=== PATIENT | male | born 1945 | race Caucasian/White ===

== ENCOUNTER → 2016-10-15 | Outpatient (CLI) | payer MEDICARE, BC ==
[2016-10-15 21:53] LABS: Hemoglobin A1C 7.6 % (4.2-6.1)
== END ==
LOC: LABWHC1 16:26
PROVIDERS: ATTEND Family Medicine
DX: L02.214 Cutaneous abscess of groin (principal)
CPT/HCPCS: 36415; 83036

== ENCOUNTER → 2016-10-27 | Outpatient (CLI) | payer MEDICARE, BC ==
--- NOTE | 2016-10-27 23:13 | PN ---
This is a compliancy follow-up from the sleep center. This is a 71-year-old male patient who is coming in for a compliancy check. The patient was confirmed to have severe obstructive sleep apnea with an AHI a 53 and he was given CPAP therapy at a pressure of 8 cm of water based on a recent CPAP titration. He is coming in for a compliancy check. He is benefiting considerably with CPAP therapy. He is very compliant. He is using the machine every night. His CPAP use for more than 4 hours is 28 out of 30 days. His average CPAP use is around more than 6 hours and his leak factor is only ( ) liters per minute. AHI while on treatment is down to 0.3 and the patient is using a Mcmillan FX mask. He has no specific complaints. He is very compliant and he is waking up alert and awake during the day without having to take any naps. He is quite obese and he is having arthritic pain in his right knee and he is seeking a knee replacement surgery which may help with mobility and movement. BP is 156/92, pulse 80, respirations 16, temperature 98.1, saturation is 97% on room air. [place] score is at 8. Weight is ( ). GENERAL APPEARANCE: Obese, calm, comfortable. HEENT: Short neck, crowding posterior pharynx. There is no goiter or neck masses. LUNGS: Clear to auscultation. HEART: Sounds are regular rate and rhythm. Normal S1 and S2. No murmurs. ABDOMEN: Soft, nontender. No organomegaly. EXTREMITIES: No edema. No cyanosis or clubbing. IMPRESSION: 1. Severe symptomatic obstructive sleep apnea with an AHI of 53, currently on CPAP at a pressure of 8 cm of water. 2. Morbidly obese body mass index of 47. 3. Chronic hypersomnia, improved. 4. Arthritic pain in the right knee and hip. 5. Diabetes mellitus. 6. Hyperlipidemia. 7. Lower extremity wounds, chronic. PLAN: 1. Continue CPAP at the same level of pressure, which is 8 cm of water. 2. Encourage weight loss. 3. Sleep hygiene with sleeping seven and a half hours per night. 4. Avoid driving, especially when feeling drowsy or sleepy. 5. If treatment is successful we will continue CPAP at same level of pressure. 6. The patient will be seen in follow-up in a year's time, earlier if needed.
== END | disposition home or self-care (01) ==
LOC: SLEEP 17:11
PROVIDERS: ATTEND Internal Medicine Critical Care Medicine
DX: G47.33 Obstructive sleep apnea (adult) (pediatric) (principal); E66.01 Morbid (severe) obesity due to excess calories; Z68.42 Body mass index [BMI] 45.0-49.9, adult; G47.13 Recurrent hypersomnia; M17.11 Unilateral primary osteoarthritis, right knee; M16.11 Unilateral primary osteoarthritis, right hip; E11.9 Type 2 diabetes mellitus without complications; E78.5 Hyperlipidemia, unspecified

== ENCOUNTER → 2017-02-02 | Outpatient (CLI) | payer MEDICARE, BC ==
[2017-02-02 21:21] LABS: Hemoglobin A1C 7.4 % (4.2-6.1)
== END | disposition home or self-care (01) ==
LOC: LABWHC1 18:01
PROVIDERS: ATTEND Family Medicine
DX: R73.09 Other abnormal glucose (principal)
CPT/HCPCS: 36415; 83036

== ENCOUNTER → 2017-02-02 | Outpatient (CLI) | payer MEDICARE, BC ==
[2017-02-02 17:18] LABS: EKG EKG PERFORMED
[2017-02-02 18:18] LABS: CH 27.8; CHCM 32.6; HCT 44.8 % (39.0-53.0); HGB 14.7 gm/dL (13.0-17.5); MCH 28.2 pg (25.0-35.0); MCHC 32.9 g/dL (31.0-37.0); MCV 85.7 fL (80.0-100.0); Mean Platelet Volume 8.8; RBC 5.22 m/uL (4.30-5.90); RDW 14.5 % (11.5-15.5)
[2017-02-02 18:19] LABS: Appearance,Urine Clear (Clear); Bilirubin,Urine Negative (Negative); Glucose,Urine (UA) 4+ (Negative); Ketones,Urine Negative (Negative); Leukocyte Esterase,Urine Negative (Negative); Nitrite,Urine Negative (Negative); Protein,Urine Trace (Negative); Specific Gravity,Urine 1.017 (1.001-1.035); UA Billing (MACRO vs. MICRO) CHEM; Urobilinogen,Urine <2.0 mg/dL (<2.0)
[2017-02-02 18:28] LABS: Partial Thromboplastin Time 23.4 sec (22.0-30.0); Prothrombin Time 10.2 sec (9.0-12.0)
[2017-02-02 18:30] LABS: ALT 39 U/L (21-72); AST 22 U/L (17-59); Alkaline Phosphatase 61 U/L (38-126); Anion Gap 11 mmol/L; Blood Urea Nitrogen 22 mg/dL (9-20); Calcium 9.9 mg/dL (8.4-10.2); Carbon Dioxide 25 mmol/L (22-30); Chloride 106 mmol/L (98-107); Glucose 201 mg/dL (74-99); Non-African American GFR(MDRD) >60 (>60 ml/min/1.73 sqM); Potassium 4.5 mmol/L (3.5-5.1); Sodium 142 mmol/L (137-145); Total Bilirubin 0.3 mg/dL (0.2-1.3); Total Protein 6.2 g/dL (6.3-8.2)
== END | disposition home or self-care (01) ==
LOC: LABPAT 17:04
PROVIDERS: ATTEND Orthopaedic Surgery
DX: Z01.810 Encounter for preprocedural cardiovascular examination (principal); Z01.812 Encounter for preprocedural laboratory examination; Z79.01 Long term (current) use of anticoagulants
CPT/HCPCS: 36415; 80053; 81003; 85027; 85610; 85730; 93005

== ENCOUNTER → 2017-04-08 | Outpatient (CLI) | payer MEDICARE, BC ==
--- NOTE | 2017-04-09 21:47 | ECHOF ---
Referral Reason:Localized Edema R60.0, Shortness of Breath R06.02 MEASUREMENTS -------- HEIGHT: 177.8 cm WEIGHT: 158.8 kg BP: IVSd: 1.4 cm (0.6 - 1.1) LVIDd: 3.8 cm (3.9 - 5.3) LVPWd: 1.7 cm (0.6 - 1.1) IVSs: 1.7 cm LVIDs: 2.0 cm LVPWs: 2.0 cm Ao Diam: 3.0 cm (2.0 - 3.7) AV Cusp: 1.9 cm (1.5 - 2.6) LA Diam: 3.9 cm (2.7 - 3.8) MV EXCURSION: 18.742 mm (> 18.000) MV EF SLOPE: 70 mm/s (70 - 150) EPSS: 0.3 cm MV E Kristofer: 0.66 m/s MV DecT: 240 ms MV A Kristofer: 0.63 m/s MV E/A Ratio: 1.05 RAP: 5.00 mmHg RVSP: 12.04 mmHg FINDINGS -------- Sinus rhythm. This was a technically difficult study with suboptimal views. The left ventricular size is normal. There is moderate concentric left ventricular hypertrophy. Overall left ventricular systolic function is normal with, an EF between 55 - 60 %. The RV was not well visualized. The left atrium was not well visualized. The right atrium was not well visualized. 1.5mg of Definity was utilized for enhancement of images The aortic valve is trileaflet, and appears structurally normal. No aortic stenosis or regurgitation. There is trace mitral regurgitation. Trace tricuspid regurgitation present. The right ventricular systolic pressure, as measured by Doppler, is 12.04mmHg. The pulmonic valve was not well visualized. The aortic root size is normal. The pericardium is normal. CONCLUSIONS -------- 1. Sinus rhythm. 2. The aortic valve is trileaflet, and appears structurally normal. No aortic stenosis or regurgitation. 3. There is trace mitral regurgitation. 4. Trace tricuspid regurgitation present. 5. The right ventricular systolic pressure, as measured by Doppler, is 12.04mmHg. 6. The pulmonic valve was not well visualized. 7. The aortic root size is normal. 8. The pericardium is normal. 9. This was a technically difficult study with suboptimal views. 10. The left ventricular size is normal. 11. There is moderate concentric left ventricular hypertrophy. 12. Overall left ventricular systolic function is normal with, an EF between 55 - 60 %. 13. The RV was not well visualized. 14. The left atrium was not well visualized. 15. The right atrium was not well visualized. 16. 1.5mg of Definity was utilized for enhancement of images [employer] DIRECTOR: Olivia Calderon RDCS
== END | disposition home or self-care (01) ==
LOC: RADECHMAIN 14:47
PROVIDERS: ATTEND Family Medicine
DX: I51.7 Cardiomegaly (principal)
CPT/HCPCS: C8929; Q9957; 93306

== ENCOUNTER → 2017-04-22 | Outpatient (CLI) | payer MEDICARE, BC ==
[2017-04-22 15:18] LABS: Anion Gap 12 mmol/L; Blood Urea Nitrogen 42 mg/dL (9-20); Calcium 9.7 mg/dL (8.4-10.2); Carbon Dioxide 25 mmol/L (22-30); Chloride 102 mmol/L (98-107); Glucose 206 mg/dL (74-99); Non-African American GFR(MDRD) 56 (>60 ml/min/1.73 sqM); Potassium 4.7 mmol/L (3.5-5.1); Sodium 139 mmol/L (137-145)
== END | disposition home or self-care (01) ==
LOC: LABWHC1 14:36
PROVIDERS: ATTEND Nurse Practitioner Family
DX: R60.0 Localized edema (principal)
CPT/HCPCS: 36415; 80048

== ENCOUNTER 2017-06-17 21:51 | Emergency (ER) | payer MEDICARE, BC ==
[2017-06-17 22:07] VITALS: BP 163/66; PULSE 59; RESP 18; TEMP 97.4
[2017-06-17] MEDS ORDERED: HYDROmorphone 1 MG/ML 1 ML SYRINGE IM STA (22:46)
[2017-06-17] MEDS ORDERED: KETOROLAC 30 MG/ML 1 ML VIAL IM STA (22:46)
[2017-06-17] MEDS ORDERED: HYDROmorphone 2 MG/ML 1 ML SYRINGE IM STA (22:51)
--- NOTE | 2017-06-17 23:18 | XR ---
EXAMINATION TYPE: XR knee 4V LT DATE OF EXAM: 06/17/2017 COMPARISON: NONE HISTORY: Knee pain TECHNIQUE: 4 views FINDINGS: There is narrowing of the medial joint space with spurring of the medial femoral and tibial condyles. There is spurring at the patellofemoral joint. I see no fracture. There is soft tissue swe lling around the knee joint. I see no joint effusion. IMPRESSION: There is some subcutaneous edema around the knee. Osteoarthritis. No fracture seen.
--- NOTE | 2017-06-17 23:19 | XR ---
EXAMINATION TYPE: XR shoulder complete LT DATE OF EXAM: 06/17/2017 COMPARISON: NONE HISTORY: Shoulder pain TECHNIQUE: 3 views FINDINGS: There is anterior dislocation of the glenohumeral joint. I see no fracture line. IMPRESSION: Anterior dislocation of the shoulder joint.
[2017-06-18] MEDS ORDERED: HYDROmorphone 2 MG/ML 1 ML SYRINGE IM STA ×2 (00:10→01:22)
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
[2017-06-18] MEDS ORDERED: HYDROmorphone 1 MG/ML 1 ML SYRINGE IM STA (01:14)
[2017-06-18] MEDS ORDERED: LORazepam 2 MG/ML INJ IM STA (01:47)
--- NOTE | 2017-06-18 02:35 | XR ---
EXAMINATION TYPE: XR shoulder limited LT DATE OF EXAM: 06/18/2017 COMPARISON: Yesterday HISTORY: Post reduction TECHNIQUE: 2 views FINDINGS: The glenohumeral joint is anatomic. There is amorphous calcification at the inferior glenoi d labrum consistent with significant spurring. I see no fracture line. IMPRESSION: Anatomic reduction. No fracture seen. Significant glenoid spur formation.
== END 2017-06-18 03:30 | disposition home or self-care (01) ==
LOC: EC 21:51
DX: S43.015A Anterior dislocation of left humerus, initial encounter (principal); S80.02XA Contusion of left knee, initial encounter; E11.9 Type 2 diabetes mellitus without complications; E78.5 Hyperlipidemia, unspecified; I10 Essential (primary) hypertension; M19.90 Unspecified osteoarthritis, unspecified site; G47.30 Sleep apnea, unspecified; Z99.89 Dependence on other enabling machines and devices; Z86.14 Personal history of Methicillin resistant Staphylococcus aureus infection; Z79.1 Long term (current) use of non-steroidal anti-inflammatories (NSAID); Z79.4 Long term (current) use of insulin; Z79.82 Long term (current) use of aspirin; Z79.899 Other long term (current) drug therapy; Z91.048 Other nonmedicinal substance allergy status; W17.89XA Other fall from one level to another, initial encounter; Y93.89 Activity, other specified
CPT/HCPCS: 73030; 73020; 73564; 99284; 23650; 96372 ×4; J2060; J1170 ×2; J1885

== ENCOUNTER → 2017-08-30 | Outpatient (CLI) | payer MEDICARE, BC ==
--- NOTE | 2017-09-01 09:53 | MR ---
EXAMINATION TYPE: MR shoulder LT wo con DATE OF EXAM: 08/30/2017 COMPARISON: NONE HISTORY: Lt shoulder pain/injury since 06-17-17 TECHNIQUE: Multiplanar, multisequence imaging of the left shoulder is performed without contrast. FINDINGS: Exam is severely limited due to motion artifact. Rotator Cuff: There is nonvisualization of the distal margin of the supraspinatus and infraspinatus t endons compatible complete through thickness tears. Artifact significantly limits the exam. Edema foster s extend back to the musculotendinous junction of the infraspinatus muscle and tendon. Does appear to be atrophic changes involving both the supraspinatus and infraspinatus tendons. Retraction distal to the AC joint is suspected. Subscapularis tendon is limited in assessment but believed to be intact. Acromioclavicular Joint: There is hypertrophic change of the AC joints which does appear to result in a degree of impingement on the supraspinatus tendon and muscle. Glenohumeral Joint: Assessment is limited due to artifact. There does appear to be a joint effusion. There is poor definition of the inferior glenohumeral ligament. At least a partial tear is suspected. Labrum: Limited assessment due to artifact. There is at least a anterior superior labral tear and pro bable SLAP tear. Biceps Tendon: The long head of biceps is in normal location within bicipital groove. Increased fluid surrounding the tendon is compatible with tendinosis. There is intrasubstance signal in the intracap sular portion of the tendon and biceps anchor compatible with tendinosis. Partial tear suspected. Bone marrow signal: There is deformity along the inferior glenoid rim which could been the basis of p revious fracture, [place] deformity. No active marrow edema therefore finding likely chronic. IMPRESSION: 1. Markedly limited exam due to artifact. 2. There is nonvisualization of the distal margins of the supraspinatus and infraspinatus tendons com patible with complete through thickness tears with retraction distal to the AC joint. Muscular atroph y noted within both muscles. There is a degree of intramuscular edema or strain within the infraspina tus muscle. 3. Limited assessment of these subscapularis. Tendinosis suspected. Insertion of the tendon is marked ly limited but at least partial tear suspected. 4. Bicipital tendinosis. Biceps anchor and intracapsular portion are poorly visualized. Partial tear not excluded. 5. Poor visualization the inferior glenohumeral ligament. Ligamentous sprain or partial tear suspecte d. 6. Impingement secondary to AC joint arthropathy.
== END | disposition home or self-care (01) ==
LOC: RADMRIMAIN 15:25
PROVIDERS: ATTEND Orthopaedic Surgery
DX: M75.21 Bicipital tendinitis, right shoulder (principal); M12.812 Other specific arthropathies, not elsewhere classified, left shoulder

== ENCOUNTER 2018-06-06 16:47 | Observation (INO) | payer MEDICARE, BC ==
--- NOTE | 2018-06-06 18:42 | ED ---
General Adult HPI - General Chief complaint: Overdose Stated complaint: too much lasix Source: patient, EMS, RN notes reviewed, old records reviewed Mode of arrival: EMS Limitations: no limitations - History of Present Illness Initial comments: 70-year-old male patient with multiple medical comorbidities including hypertension, type 2 diabetes, coronary artery disease presents to ED after accidentally ingestion of between 2 and 12 of his 40 mg Lasix pills. patient states that he normally puts his daily medications in an empty orange pill bottle and then takes all of them together at the same time. the patient accidentally put all of his daily medications in a orange pill bottle containing his lasix medications. The exact quantity of Lasix he took is unknown. Patient called poison control and then presented to ED upon the recommendation. patient denies this is attempt at harming himself intentionally. patient currently denies any other signs or symptoms with the exception of excessive urination.patient denies chest pain, shortness of breath , abdominal pain, nausea vomiting diarrhea. Systemic: Pt denies fatigue, myalgia, fever/chills, rash. Pt denies weakness, night sweats, weight loss. Neuro: Pt denies headache, visual disturbances, syncope or pre-syncope. HEENT: Pt denies ocular discharge or irritation, otalgia, rhinorrhea, pharyngitis or notable lymphadenopathy. Cardiopulmonary: Pt denies chest pain, SOB, heart palpitations, dyspnea on exertion. Abdominal/GI: Pt denies abdominal pain, n/v/d. : Pt denies dysuria, burning w/ urination, frequency/urgency. Denies new onset urinary or bowel incontinence. MSK: Pt denies myalgia, loss of strength or function in extremities. - Related Data Home Medications Medication Instructions Recorded Confirmed Celecoxib [CeleBREX] 200 mg PO DAILY 07/30/14 06/06/18 Furosemide 40 mg PO DAILY 07/30/14 06/06/18 Gabapentin 300 mg PO BID 07/30/14 06/06/18 Losartan [Cozaar] 50 mg PO DAILY 07/30/14 06/06/18 [place]-3 Acid Ethyl Esters [Lovaza] 2 gram PO BID 07/30/14 06/06/18 sitaGLIPtin [Januvia] 100 mg PO DAILY 07/30/14 06/06/18 Aspirin 325 mg PO DAILY 02/25/16 06/06/18 Niacinamide [Niacin] 500 mg PO DAILY 02/25/16 06/06/18 metFORMIN HCL 1,000 mg PO BID 02/25/16 06/06/18 Insulin Glargine [Lantus] 51 unit SQ HS 09/07/16 06/06/18 Nystatin 100,000 Unit/gm Powd 1 applic TOPICAL BID PRN 09/10/16 06/06/18 [Mycostatin Powder] Glimepiride [Amaryl] 4 mg PO DAILY 10/08/16 06/06/18 Minocycline [Minocin] 50 mg PO Q12HR 03/11/17 06/06/18 Cyanocobalamin (Vitamin B-12) 1,000 mcg PO DAILY 06/06/18 06/06/18 [Vitamin B-12] Fenofibrate,Micronized 200 mg PO DAILY 06/06/18 06/06/18 [Fenofibrate] Fexofenadine HCl [Evelyn Allergy] 180 mg PO BID 06/06/18 06/06/18 INSULIN LISPRO (humaLOG) [humaLOG] 15 unit SQ AC-TID 06/06/18 06/06/18 Metoprolol Tartrate [Lopressor] 25 mg PO BID 06/06/18 06/06/18 Vitamin D3(Unknown Dose) 1 tab PO DAILY 06/06/18 06/06/18 traMADol HCL [Ultram] 50 mg PO QID 06/06/18 06/06/18 Allergies Allergy/AdvReac Type Severity Reaction Status Date / Time cat pelt standardized Allergy Itching Verified 06/06/18 19:22 allergenic ex mold Allergy Itching Verified 06/06/18 19:22 pollen extracts Allergy Itching Verified 06/06/18 19:22 Review of Systems ROS Statement: Those systems with pertinent positive or pertinent negative responses have been documented in the HPI. ROS Other: All systems not noted in ROS Statement are negative. Past Medical History Past Medical History: Diabetes Mellitus, GERD/Reflux, Hyperlipidemia, Hypertension, Osteoarthritis (OA), Sleep Apnea/CPAP/BIPAP Additional Past Medical History / Comment(s): emily History of Any Multi-Drug Resistant Organisms: MRSA Date of last positivie culture/infection: 04/21/16 MDRO Source:: ABDOMEN Additional Past Surgical History / Comment(s): KIDNEY STONE REMOVED and ureteral stent, deviated septum. corrective surgery for deviated septum, flex sigmoidoscopy several times in dr's office, colonoscopy, dental surgery Past Anesthesia/Blood Transfusion Reactions: No Reported Reaction Past Psychological History: Depression Smoking Status: Never smoker Past Alcohol Use History: None Reported Past Drug Use History: Cocaine, Marijuana, Opiates - Past Family History Father Additional Family Medical History / Comment(s): brain anuerysm Mother Family Medical History: Cancer, Deep Vein Thrombosis (DVT) General Exam - General Exam Comments Initial Comments: Constitutional: NAD, AOX3, Pt has pleasant affect. HEENT: NC/AT, trachea midline, neck supple, no lymphadenopathy. Posterior pharynx non erythematous, without exudates. External ears appear normal, without discharge. Mucous membranes moist. Eyes PERRLA, EOM intact. There is no scleral icterus. No pallor noted. Cardiopulmonary: RRR, no murmurs, rubs or gallops, no JVD noted. Lungs CTAB in anterior and posterior limon. No peripheral edema. Abdominal exam: Abdomen soft and non-distended. Abdomen non-tender to palpation in all 4 quadrants. Bowel sounds active in LLQ. No hepatosplenomegaly. No ecchymosis. Neuro: CN II-XII intact. Limitations: no limitations Course Vital Signs 06/06/18 06/06/18 17:05 22:28 Temperature 99.6 F Pulse Rate 78 70 Respiratory 18 16 Rate Blood Pressure 168/75 161/74 O2 Sat by Pulse 99 96 Oximetry Medical Decision Making - Medical Decision Making 70-year-old male patient with multiple medical comorbidities including hypertension, type 2 diabetes, coronary artery disease presents to ED after accidentally ingestion of between 2 and 12 of his 40 mg Lasix pills. patient states that he normally puts his daily medications in an empty orange pill bottle and then takes all of them together at the same time. the patient accidentally put all of his daily medications in a orange pill bottle containing his lasix medications. The exact quantity of Lasix he took is unknown. she has not complaints.physical exam did not display acute pathology. initial investigations including CMP, magnesium,BNP, creatinine kinase were ordered. BNP, creatine kinase, magnesium were non-immpressive. CMP displayed a slight bump in creatinine, slightly increased calcium. Patient will be admitted to monitor for electrolyte derangement. Case discussed with Dr. Sullivan. - Lab Data Result diagrams: 06/06/18 18:30 Lab Results 06/06/18 06/06/18 Range/Units 18:30 18:30 Sodium 138 (137-145) mmol/L Potassium 4.4 (3.5-5.1) mmol/L Chloride 102 (98-107) mmol/L Carbon Dioxide 25 (22-30) mmol/L Anion Gap 11 mmol/L BUN 24 H (9-20) mg/dL Creatinine 1.41 H (0.66-1.25) mg/dL Est GFR (CKD-EPI)AfAm 57 (>60 ml/min/1.73 sqM) Est GFR (CKD-EPI)NonAf 50 (>60 ml/min/1.73 sqM) Glucose 146 H (74-99) mg/dL Calcium 10.3 H (8.4-10.2) mg/dL Magnesium 2.0 (1.6-2.3) mg/dL Total Bilirubin 0.6 (0.2-1.3) mg/dL AST 65 H (17-59) U/L ALT 46 (21-72) U/L Alkaline Phosphatase 59 (38-126) U/L Creatine Kinase 65 (55-170) U/L NT-Pro-B Natriuret Pep 94 pg/mL Total Protein 7.0 (6.3-8.2) g/dL Albumin 3.9 (3.5-5.0) g/dL Disposition Clinical Impression: Diuretic overdose Disposition: ADMITTED IP TO THIS [facility] Condition: Good Is patient prescribed a controlled substance at d/c from ED?: No Decision Date: 06/06/18 Decision Time: 18:42
[2018-06-06] MEDS ORDERED: NALOXONE 0.4 MG/ML 1 ML VIAL IV PRN (18:43)
[2018-06-06 18:56] LABS: Albumin 3.9 g/dL (3.5-5.0); Calcium 10.3 mg/dL (8.4-10.2); Potassium 4.4 mmol/L (3.5-5.1); Total Bilirubin 0.6 mg/dL (0.2-1.3)
[2018-06-06] MEDS ORDERED: SODIUM CHLORIDE 0.9% 1,000 ML IV STA (20:35)
[2018-06-06 23:36] VITALS: BMI 48.7
--- NOTE | 2018-06-07 00:57 | ED ---
Medical Decision Making - Lab Data Result diagrams: 06/06/18 18:30 Lab Results 06/06/18 06/06/18 Range/Units 18:30 18:30 Sodium 138 (137-145) mmol/L Potassium 4.4 (3.5-5.1) mmol/L Chloride 102 (98-107) mmol/L Carbon Dioxide 25 (22-30) mmol/L Anion Gap 11 mmol/L BUN 24 H (9-20) mg/dL Creatinine 1.41 H (0.66-1.25) mg/dL Est GFR (CKD-EPI)AfAm 57 (>60 ml/min/1.73 sqM) Est GFR (CKD-EPI)NonAf 50 (>60 ml/min/1.73 sqM) Glucose 146 H (74-99) mg/dL Calcium 10.3 H (8.4-10.2) mg/dL Magnesium 2.0 (1.6-2.3) mg/dL Total Bilirubin 0.6 (0.2-1.3) mg/dL AST 65 H (17-59) U/L ALT 46 (21-72) U/L Alkaline Phosphatase 59 (38-126) U/L Creatine Kinase 65 (55-170) U/L NT-Pro-B Natriuret Pep 94 pg/mL Total Protein 7.0 (6.3-8.2) g/dL Albumin 3.9 (3.5-5.0) g/dL - EKG Data -: EKG Interpreted by In EKG Comments: normal sinus rhythm, normal EKG. Ventricular rate 73. HI interval 194. QRS 82. QT/QTC 46 02/19/1947. No concerns for acute ischemia. Disposition Clinical Impression: Diuretic overdose Disposition: ADMITTED IP TO THIS HOSP Condition: Good
[2018-06-07 07:23] LABS: Glucose,Whole Blood 137 mg/dL (75-99)
[2018-06-07 08:12] VITALS: BP 148/78; PULSE 61; RESP 19; TEMP 97.5
[2018-06-07] MEDS ORDERED: NYSTATIN 100,000 UNIT/GM POWD 15 GM TOPICAL PRN (10:34)
[2018-06-07] MEDS ORDERED: traMADol 50 MG TAB PO PRN (10:34)
[2018-06-07] MEDS ORDERED: METOPROLOL TARTRATE 25 MG TAB PO SCH (10:45)
[2018-06-07] MEDS ORDERED: GABAPENTIN 300 MG CAP PO SCH (10:45)
[2018-06-07] MEDS ORDERED: LORATADINE 10 MG TAB PO SCH (10:45)
[2018-06-07] MEDS ORDERED: PANTOPRAZOLE 40 MG/10 ML VIAL IVP SCH (10:45)
[2018-06-07 11:49] LABS: Glucose,Whole Blood 161 mg/dL (75-99)
[2018-06-07 11:56] LABS: Hemoglobin A1C 7.2 % (4.0-6.0)
[2018-06-07] MEDS ORDERED: INSULIN ASPART 100 UNIT/ML 1 ML 10 ML VIAL SQ SCH (12:30)
[2018-06-07] MEDS ORDERED: INSULIN DETEMIR 100 UNIT/ML 10 ML VIAL SQ SCH (21:00)
--- NOTE | 2018-06-07 21:37 | HP ---
HISTORY AND PHYSICAL This is a combination history and physical examination/discharge summary. HISTORY AND PHYSICAL/DISCHARGE SUMMARY EXAMINATION: CHIEF COMPLAINT: Lasix overdose. HISTORY OF PRESENT ILLNESS: This 72-year-old gentleman with a past medical history of multiple medical problems including diabetes, GERD, hypertension, hyperlipidemia, DJD, history of kidney stone removal, depression, being followed by Dr. Dias in the outpatient setting. The patient apparently was on Lasix. The patient had a system of taking the medication on a regular basis. Apparently patient mistook the bottle for the tray which the patient is using. Apparently took an unknown amount of Lasix ingested accidentally last night. Because of concern of the family, the patient came to [facility] and was admitted for further evaluation and treatment. There is no history of fever, rigors. No headache, loss of consciousness or seizures. The patient's creatinine was slightly elevated. PAST MEDICAL HISTORY: Diabetes type 2, GERD, hypertension, hyperlipidemia, history of DJD, sleep apnea. MEDICATIONS: Home medications are: 1. Ultram 50 mg p.o. q.i.d. 2. Januvia 100 mg p.o. daily. 3. Vitamin D3. 4. [place]-3 fatty acids. 5. Nystatin. 6. Niacin. 7. 50 mg p.o. b.i.d. 8. Lopressor 25 mg b.i.d. 9. Lantus 50 units subcu q.h.s. 10.Humalog scale 15 units a.c. t.i.d. 11.Amaryl 4 mg p.o. daily. 12.Gabapentin 300 mg b.i.d. 13.Lasix 40 mg p.o. daily. 14.Evelyn 180 mg b.i.d. 15.Fenofibrate 200 mg daily. 16.Vitamin B12 1000 mcg. 17.Aspirin 320 mg daily. ALLERGIES: MULTIPLE ALLERGIES INCLUDING CAT PELT AND MOLD AND POLLEN. FAMILY HISTORY: No history of heart disease or strokes in the family. SOCIAL HISTORY: No history of smoking. No history of alcohol intake. REVIEW OF SYSTEMS: ENT: No diminished vision or hearing. Cardiovascular System: As mentioned earlier. Respiratory: As mentioned earlier. GI: No nausea or vomiting. no dysuria. Nervous system: No numbness or weakness. Allergy/Immunology: No asthma or hayfever. Musculoskeletal: As mentioned earlier. Hematology/Oncology: No history of anemia. Endocrine: Diabetes. Constitutional: As mentioned earlier. Dermatology: Negative. Rheumatology: Negative. Psychiatric: As mentioned earlier. PHYSICAL EXAMINATION: Alert and oriented. Pulse is 61, blood pressure 140/78, respiration 19, temperature 97.4, pulse ox 97% on room air. HEENT: Conjunctivae normal. Oral mucosa moist. Neck is no jugular venous distention. No carotid bruit. No lymph node enlargement. Cardiovascular system: S1, S2 muffled. No S3, no S4. Respiratory: Breath sounds diminished in the bases. No rhonchi. No crackles. ABDOMEN: Soft, nontender. No mass palpable. Legs no edema, no swelling. Central nervous system: Higher functions as mentioned earlier. Moves all four extremities. No focal deficits. Lymphatics: No lymph nodes palpable in the neck , axillae or groin. Skin: No ulcer, rash or bleeding. LABS: At this time shows WBC of 130, potassium 4.2, creatinine is 1.41, calcium 10.3. ASSESSMENT: 1. Status post accidental overdose of Lasix. 2. Mild acute renal failure. 3. Diabetes mellitus type 2. 4. Gastroesophageal reflux disease. 5. Hypertension. 6. Hyperlipidemia. 7. Degenerative joint disease. 8. History of Methicillin-resistant Staphylococcus aureus. 9. History of depression. 10.Remote history of substance abuse. RECOMMENDATIONS AND DISCUSSION: In this 72-year-old gentleman who presented with multiple complex medical issues , we will monitor the patient closely, continue the current medications, management and symptomatic treatment. Otherwise at this time the patient is keen on going home at this time. I recommend followup labs and hold Lasix for now. Creatinine should be repeated and as mentioned earlier this is most likely accidental ingestion and continue to monitor. Otherwise, overall prognosis guarded but patient is stable for discharge. The patient will be discharged. Please refer to discharge summary for further details. discharge medications for further details. MMODL / IJN: [id number] / MTDD
[2018-06-08] MEDS ORDERED: PANTOPRAZOLE 40 MG TABLET PO SCH (07:30)
== END 2018-06-07 15:57 | disposition home or self-care (01) ==
LOC: EC 16:47 → 4SSUR 18:44
PROVIDERS: ADMIT Internal Medicine; ATTEND Internal Medicine
DX: T50.1X1A Poisoning by loop [high-ceiling] diuretics, accidental (unintentional), initial encounter (principal); N17.9 Acute kidney failure, unspecified; N14.1 Nephropathy induced by other drugs, medicaments and biological substances; I10 Essential (primary) hypertension; E78.5 Hyperlipidemia, unspecified; E11.9 Type 2 diabetes mellitus without complications; Z79.4 Long term (current) use of insulin; F19.11 Other psychoactive substance abuse, in remission; K21.9 Gastro-esophageal reflux disease without esophagitis; M19.90 Unspecified osteoarthritis, unspecified site; G47.30 Sleep apnea, unspecified; Z99.89 Dependence on other enabling machines and devices; Z86.14 Personal history of Methicillin resistant Staphylococcus aureus infection; I25.10 Atherosclerotic heart disease of native coronary artery without angina pectoris; Z87.442 Personal history of urinary calculi; Z79.82 Long term (current) use of aspirin; Z79.899 Other long term (current) drug therapy; Z91.09 Other allergy status, other than to drugs and biological substances
CPT/HCPCS: 99285 ×2; 36415; 94660; 93005; 83880; 80053; 82550; 83735; 83036; G0378 ×2

== ENCOUNTER → 2019-02-23 | Outpatient (CLI) | payer MEDICARE, BC ==
--- NOTE | 2019-02-23 13:33 | XR ---
EXAMINATION TYPE: XR chest 2V DATE OF EXAM: 02/23/2019 COMPARISON: 06/19/2017 TECHNIQUE: PA and lateral views submitted. HISTORY: Pain FINDINGS: The lungs are clear and there is no pneumothorax, pleural effusion, or focal pneumonia. Upper atrop hic change of the spine IMPRESSION: 1. No acute process.
--- NOTE | 2019-02-23 14:55 | USB ---
Reason for exam: clinical finding. Physical Findings: Nurse Summary: questionable hematomas x 3 on left, questionable lymph nodes/lipomas on right (nurse kp). US Breast BILAT Right complete breast ultrasound includes all four quadrants, the retroareolar region and axilla. Finding demonstrates a 1.9 x 1.1 x 1.3cm probably lymph node at the axilla. Left complete breast ultrasound includes all four quadrants, the retroareolar region and axilla. Finding demonstrates a 8.5 x 4.2 x 8.5cm oval, mixed, questionable hematoma at 12-1 o'clock and a 2.4cm irregular, hypoechoic, vascular lesion at the posterior nipple. Questionable gynecomastia. These results were verbally communicated with the patient and result sheet given to the patient on 02/23/19. ASSESSMENT: Probably benign, BI-RAD 3 RECOMMENDATION: Ultrasound of the left breast in 1 month. (1-2 months) Manage patient on a clinical basis.
[2019-02-23 15:44] LABS: Basophils # (A) 0.1 k/uL (0-0.2); Basophils % (A) 1 %; Eosinophils # (A) 0.3 k/uL (0-0.7); Eosinophils % (A) 4 %; HCT 41.5 % (39.0-53.0); HGB 13.2 gm/dL (13.0-17.5); Lymphocytes # (A) 1.2 k/uL (1.0-4.8); Lymphocytes % (A) 18 %; MCH 27.1 pg (25.0-35.0); MCV 84.8 fL (80.0-100.0); Mean Platelet Volume 8.5; Monocytes # (A) 0.3 k/uL (0-1.0); Monocytes % (A) 4 %; Neutrophils % (A) 71 %; Platelet Count 282 k/uL (150-450); RBC 4.89 m/uL (4.30-5.90); RDW 15.7 % (11.5-15.5)
[2019-02-23 15:49] LABS: ALT 22 U/L (21-72); AST 29 U/L (17-59); African American GFR (CKD) >90 (>60 ml/min/1.73 sqM); Albumin 3.9 g/dL (3.5-5.0); Alkaline Phosphatase 59 U/L (38-126); Anion Gap 7 mmol/L; Blood Urea Nitrogen 30 mg/dL (9-20); Carbon Dioxide 28 mmol/L (22-30); Chloride 104 mmol/L (98-107); Glucose 189 mg/dL (74-99); Potassium 4.7 mmol/L (3.5-5.1); Sodium 139 mmol/L (137-145); Total Bilirubin 0.6 mg/dL (0.2-1.3); Total Protein 6.6 g/dL (6.3-8.2)
[2019-02-23 15:56] LABS: INR 0.9 (<1.2); Prothrombin Time 9.6 sec (9.0-12.0)
== END | disposition home or self-care (01) ==
LOC: RADUSWWP 12:43
PROVIDERS: ATTEND Family Medicine
DX: S20.02XA Contusion of left breast, initial encounter (principal); R23.3 Spontaneous ecchymoses; L03.115 Cellulitis of right lower limb
CPT/HCPCS: 71046; 80053; 85025; 85610

== ENCOUNTER → 2019-04-04 | Outpatient (CLI) | payer MEDICARE, BC ==
--- NOTE | 2019-04-05 07:50 | USB ---
Reason for exam: follow-up at short interval from prior study. Physical Findings: Nurse did not find any significant physical abnormalities on exam. US Breast Limited LT Left limited breast ultrasound including focal area of concern, retroareolar and axilla demonstrates a 5.6 x 6.6 x 4.1cm mixed lesion at 12-1 o'clock and a 2.3cm hypoechoic lesion at the posterior nipple. Increased in size from 02/23/19, consistent with resolving hematoma. These results were verbally communicated with the patient and result sheet given to the patient on 04/04/19. ASSESSMENT: Probably benign, BI-RAD 3 RECOMMENDATION: Clinical management of the left breast. Manage patient on a clinical basis.
== END | disposition home or self-care (01) ==
LOC: RADUSWWP 15:20
PROVIDERS: ATTEND Family Medicine
DX: R93.89 Abnormal findings on diagnostic imaging of other specified body structures (principal)

== ENCOUNTER 2020-06-27 14:46 | Emergency (ER) | payer MEDICARE ==
[2020-06-27 15:04] VITALS: RESP 18
--- NOTE | 2020-06-27 15:39 | ED ---
Male Urogenital HPI - General Chief complaint: Urogenital Stated complaint: Male issue Time Seen by Provider: 06/27/20 15:05 Source: patient Mode of arrival: ambulatory Limitations: no limitations - History of Present Illness Initial comments: Patient is a 74-year-old male presenting to emergency Department with complaints of chronic cysts that developed in his groin area. Patient states he feels like they're starting to get more red than usual and is requesting an antibiotic. He states for the last week he feels like the wounds are starting to look worse. Patient states he has a home care nurse that comes daily and helps him bathe and dressed, they have been using ointment on these cyst. He denies any fever or chills. He denies any hardened areas. He states he is diabetic. He denies any other complaints at this time. Upon arrival to the ER, his vitals are stable. - Related Data Home Medications Medication Instructions Recorded Confirmed Furosemide 40 mg PO DAILY 07/30/14 06/06/18 Gabapentin 300 mg PO BID 07/30/14 06/06/18 [place]-3 Acid Ethyl Esters [Lovaza] 2 gram PO BID 07/30/14 06/06/18 sitaGLIPtin [Januvia] 100 mg PO DAILY 07/30/14 06/06/18 Aspirin 325 mg PO DAILY 02/25/16 06/06/18 Niacinamide [Niacin] 500 mg PO DAILY 02/25/16 06/06/18 Insulin Glargine [Lantus] 51 unit SQ HS 09/07/16 06/06/18 Nystatin 100,000 Unit/gm Powd 1 applic TOPICAL BID PRN 09/10/16 06/06/18 [Mycostatin Powder] Glimepiride [Amaryl] 4 mg PO DAILY 10/08/16 06/06/18 Minocycline [Minocin] 50 mg PO Q12HR 03/11/17 06/06/18 Cyanocobalamin (Vitamin B-12) 1,000 mcg PO DAILY 06/06/18 06/06/18 [Vitamin B-12] Fenofibrate,Micronized 200 mg PO DAILY 06/06/18 06/06/18 [Fenofibrate] Fexofenadine HCl [Evelyn Allergy] 180 mg PO BID 06/06/18 06/06/18 INSULIN LISPRO (humaLOG) [humaLOG] 15 unit SQ AC-TID 06/06/18 06/06/18 Metoprolol Tartrate [Lopressor] 25 mg PO BID 06/06/18 06/06/18 Vitamin D3(Unknown Dose) 1 tab PO DAILY 06/06/18 06/06/18 traMADol HCL [Ultram] 50 mg PO QID 06/06/18 06/06/18 Previous Rx's Medication Instructions Recorded Cephalexin [Keflex] 500 mg PO Q6HR 14 Days #56 cap 06/27/20 Allergies Allergy/AdvReac Type Severity Reaction Status Date / Time cat pelt standardized Allergy Itching Verified 06/27/20 15:04 allergenic ex mold Allergy Itching Verified 06/27/20 15:04 pollen extracts Allergy Itching Verified 06/27/20 15:04 Review of Systems ROS Statement: Those systems with pertinent positive or pertinent negative responses have been documented in the HPI. ROS Other: All systems not noted in ROS Statement are negative. Past Medical History Past Medical History: Diabetes Mellitus, GERD/Reflux, Hyperlipidemia, Hypertension, Osteoarthritis (OA), Sleep Apnea/CPAP/BIPAP Additional Past Medical History / Comment(s): emily History of Any Multi-Drug Resistant Organisms: MRSA Date of last positivie culture/infection: 04/21/16 MDRO Source:: ABDOMEN Additional Past Surgical History / Comment(s): KIDNEY STONE REMOVED and ureteral stent, deviated septum. corrective surgery for deviated septum, flex sigmoidoscopy several times in dr's office, colonoscopy, dental surgery Past Anesthesia/Blood Transfusion Reactions: No Reported Reaction Past Psychological History: Depression Smoking Status: Never smoker Past Alcohol Use History: None Reported Past Drug Use History: Cocaine, Marijuana, Opiates - Past Family History Father Additional Family Medical History / Comment(s): brain anuerysm Mother Family Medical History: Cancer, Deep Vein Thrombosis (DVT) General Exam - General Exam Comments Initial Comments: GENERAL: Patient is nontoxic and in no acute distress. HEAD: Atraumatic, normocephalic. EYES: Pupils equal round and reactive to light, extraocular movements intact, sclera anicteric, conjunctiva are normal. Eyelids were unremarkable. ENT: Nares patent, oropharynx clear without exudates. Moist mucous membranes. NECK: Normal range of motion, supple without lymphadenopathy or JVD. LUNGS: Unlabored respirations. Breath sounds clear to auscultation bilaterally and equal. No wheezes rales or rhonchi. HEART: Regular rate and rhythm without murmurs, rubs or gallops. ABDOMEN: Soft, nontender, normoactive bowel sounds. No guarding, no rebound. No masses appreciated. : Patient has multiple, chronic ingrown hair areas that are very mildly erythematous, no active drainage, there appears to be no abscess or harden areas noted. MUSCULOSKELETAL: Normal extremities with adequate strength and normal range of motion, no pitting or edema. No clubbing or cyanosis. NEUROLOGICAL: Patient is alert and oriented x 3. Motor and sensory are also intact. Symmetrical smile. Normal speech, normal gait. PSYCH: Normal mood, normal affect. SKIN: Warm, Dry, normal turgor. Patient has a small, stage I decubitus ulcer, that is mildly erythematous, very mild active drainage. Limitations: no limitations Course Vital Signs 06/27/20 14:57 Temperature 99.1 F Pulse Rate 99 Respiratory 18 Rate Blood Pressure 175/83 O2 Sat by Pulse 95 Oximetry Medical Decision Making - Medical Decision Making Patient is a 74-year-old male presenting with worsening ingrown hair areas, cyst in his groin areas as well as a stage I decubitus ulcer for the past week. Patient does have a daily home care nurse that helps him be and treating these areas. His vital signs are stable. These areas do not appear infected, there is no signs of an abscess or hardened areas. Patient will be started on Keflex, he can follow up with his PCP. Return parameters were discussed with the patient and he verbalized understanding. Case discussed with Dr. Sullivan. Disposition Clinical Impression: Stage I decubitus ulcer and pressure area, Rash, Ingrown hair Disposition: HOME SELF-CARE Condition: Stable Instructions (If sedation given, give patient instructions): Acute Wounds (ED) Additional Instructions: Please return to the Emergency Department if symptoms worsen or any other concerns. Keep areas clean and dry. Take antibiotic as prescribed. Follow-up with your PCP. Prescriptions: Cephalexin [Keflex] 500 mg PO Q6HR 14 Days #56 cap Is patient prescribed a controlled substance at d/c from ED?: No Referrals: None,Stated [Primary Care Provider] - 1-2 days
[2020-06-27 15:57] VITALS: BP 160/80; PULSE 95; TEMP 99
== END 2020-06-27 15:56 | disposition home or self-care (01) ==
LOC: EC 14:46
DX: L89.891 Pressure ulcer of other site, stage 1 (principal); E11.622 Type 2 diabetes mellitus with other skin ulcer; L73.1 Pseudofolliculitis barbae; I10 Essential (primary) hypertension; E78.5 Hyperlipidemia, unspecified; G47.33 Obstructive sleep apnea (adult) (pediatric); Z79.82 Long term (current) use of aspirin; Z79.899 Other long term (current) drug therapy; Z79.4 Long term (current) use of insulin; Z91.048 Other nonmedicinal substance allergy status; Z91.018 Allergy to other foods; Z99.89 Dependence on other enabling machines and devices
CPT/HCPCS: 99282

== ENCOUNTER → 2020-08-06 | Outpatient (CLI) | payer MEDICARE ==
--- NOTE | 2020-08-06 13:54 | CT ---
EXAMINATION TYPE: CT orbits wo/w con DATE OF EXAM: 08/06/2020 COMPARISON: None HISTORY: Right eye swelling and draining. CT DLP: 1172.4 mGycm Automated exposure control for dose reduction was used. TECHNIQUE: Axial images 2 mm thick sections through the orbits. Reconstructed images in the coronal p rachael were obtained. Sagittal reconstructed images are reviewed. CONTRAST: Performed without and with IV Contrast, patient injected with 80 mL of Isovue 300. FINDINGS: The globes are symmetrical. Lacrimal glands appear normal. Extraocular muscles are normal without asy mmetric thickening. Superior ophthalmic veins appear normal. Optic nerves appear normal. Intraconal a nd extraconal fat are normal. There is an old blowout fracture of the left orbital floor. Following contrast administration no suspicious enhancement is evident. The intracranial portions included within the [id number] are unremarkable as visualized on this ex am. Mastoid air cells within the [id number] are clear. Note is made a right septal deviation. Osti omeatal units appear patent. IMPRESSION: NO ACUTE ABNORMALITY CT ORBITS
== END | disposition home or self-care (01) ==
LOC: RADCTMAIN 10:42
PROVIDERS: ATTEND Ophthalmology
DX: D49.89 Neoplasm of unspecified behavior of other specified sites (principal)
CPT/HCPCS: 82565; 84520; 70482; 36415; Q9967

== ENCOUNTER → 2020-09-13 | Outpatient (CLI) | payer MEDICARE ==
--- NOTE | 2020-09-14 08:37 | MR ---
EXAMINATION TYPE: MR orbits wo/w con DATE OF EXAM: 09/13/2020 COMPARISON: CT orbits August 06, 2020. HISTORY: Orbital mass right eye. TECHNIQUE: Multiplanar, multisequence images of the orbits are performed without and with IV contrast, utilizing 13.5 mL intravenous Gadavist . FINDINGS: Globes appear symmetric and within normal limits. The rectus muscles are symmetric and felt within normal limits. Intraconal fat is preserved bilaterally. Superior ophthalmic artery is symmetr ic and patent bilaterally. Lacrimal glands remain within normal limits. Seen better on CT versus MRI there is bilateral proptosis more prominent on the right versus left. Th ere is suggestion of increased in the retro-orbital fat bilaterally particularly between the inferior and lateral rectus muscles. This is better appreciated on CT comparing right first left-sided axial image 23 which corresponds to roughly axial image 8 on MRI series 401 and 501. No concerning fluid co llection or enhancing soft tissue mass. Nasal septum remains deviated to right of midline. Visualized paranasal sinuses are clear. Visualized portion of brain parenchyma is unremarkable. IMPRESSION: As above. Bilateral proptosis felt greater on the right due to increased intraorbital fat is visualized inferior lateral aspect, cannot exclude focal lipoma though margins of distinct mass a re not visualized.
== END | disposition home or self-care (01) ==
LOC: RADMRIMAIN 15:43
PROVIDERS: ATTEND Ophthalmology
DX: H05.20 Unspecified exophthalmos (principal); H05.89 Other disorders of orbit
CPT/HCPCS: 70543; A9585

== ENCOUNTER 2023-02-18 10:24 | Inpatient (IN) | payer MEDICARE ==
[2023-02-18] MEDS ORDERED: HYDROmorphone 0.5 MG/0.5 ML SYRINGE IVP STA (11:01)
--- NOTE | 2023-02-18 11:05 | ED ---
General Adult HPI - General Chief complaint: Recheck/Abnormal Lab/Rx Stated complaint: sent by Surgical clearance Time Seen by Provider: 02/18/23 10:45 Source: patient, RN notes reviewed, old records reviewed Mode of arrival: wheelchair - History of Present Illness Initial comments: This is a 77-year-old male who presents emergency department for medical clearance for surgery tomorrow. Patient is not having any new symptoms according to the primary medical care doctor he does not feel comfortable clearing the patient he wants patient come to the hospital to be cleared and surgery scheduled for tomorrow. Patient denies any chest pain palpitations difficulty breathing. Patient denies any fever chills or cough. Patient denies any abdominal pain. - Related Data Home Medications Medication Instructions Recorded Confirmed Fenofibrate,Micronized 200 mg PO HS 06/06/18 02/17/23 [Fenofibrate] Atorvastatin [Lipitor] 20 mg PO HS 02/05/23 02/17/23 Dapagliflozin Propanediol [Farxiga] 10 mg PO QAM 02/05/23 02/17/23 Insulin Glargine,Hum.rec.anlog 25 units SQ HS 02/05/23 02/17/23 [Lantus Solostar Pen] Latanoprost [Latanoprost 0.005%] 1 drop BOTH EYES HS 02/05/23 02/17/23 Losartan Potassium 100 mg PO QAM 02/05/23 02/17/23 Pioglitazone [Actos] 15 mg PO QAM 02/05/23 02/17/23 Semaglutide [Ozempic] 2 mg SQ Q7D 02/05/23 02/17/23 metFORMIN HCL 1,000 mg PO BID 02/05/23 02/17/23 Acetaminophen Tab [Tylenol] 325 mg PO Q4H PRN 02/17/23 02/17/23 Previous Rx's Medication Instructions Recorded Acetaminophen Tab [Tylenol] 650 mg PO Q4HR PRN tab 02/08/23 Aspirin 81 mg PO BID tab 02/08/23 Cephalexin [Keflex] 500 mg PO Q6HR 14 Days #56 cap 02/08/23 Gabapentin [Neurontin] 300 mg PO TID #6 cap 02/08/23 HYDROcodone/APAP 5-325MG [[place] 1 - 2 tab PO Q6HR PRN 7 Days #32 02/08/23 5-325] tab Heparin Sodium,Porcine [Heparin 5,000 unit SQ Q12HR #60 each 02/08/23 Sodium] INSULIN ASPART (NovoLOG) [NovoLOG 0 unit SQ ACHS each 02/08/23 (formulary)] Sennosides-Docusate Sodium 2 each PO HS PRN tab 02/08/23 [Senokot-S] traMADol HCl [Ultram] 50 mg PO TID #3 tab 02/08/23 Allergies Allergy/AdvReac Type Severity Reaction Status Date / Time cat pelt standardized Allergy Itching Verified 02/18/23 10:43 allergenic ex mold Allergy Itching Verified 02/18/23 10:43 pollen extracts Allergy Itching Verified 02/18/23 10:43 Review of Systems ROS Statement: Those systems with pertinent positive or pertinent negative responses have been documented in the HPI. ROS Other: All systems not noted in ROS Statement are negative. Past Medical History Past Medical History: Diabetes Mellitus, GERD/Reflux, Hyperlipidemia, Hypertension, Osteoarthritis (OA), Renal Disease, Sleep Apnea/CPAP/BIPAP Additional Past Medical History / Comment(s): 02/05/23 Fall in shower with L ankle wound/fracture and had surgery-ORIF with I&D and wound vac placed. Per ANGUS Mishra RN caring for patient ANGUS was instructed not to touch wound vac so have no supplies to send. She states pt has a small open wound on scrotum and coccyx. IDDM type II, neuropathy legs and feet, bedbound/ander lift, CKD stage III, nephrolithiasis, DALTON with Cpap mask., L shoulder pain/torn rotator cuff/limited ROM, polyarthritis. History of Any Multi-Drug Resistant Organisms: MRSA Date of last positivie culture/infection: 04/21/16 MDRO Source:: ABDOMEN Additional Past Surgical History / Comment(s): KIDNEY STONE REMOVED and ureteral stent placed, deviated septum surgery, flex sigmoidoscopy several times, colonoscopy, dental surgery, cataract surgery bilaterally. Past Anesthesia/Blood Transfusion Reactions: No Reported Reaction Past Psychological History: Depression Smoking Status: Never smoker Past Alcohol Use History: None Reported Past Drug Use History: None Reported - Past Family History Father Additional Family Medical History / Comment(s): brain anuerysm Mother Family Medical History: Cancer, Deep Vein Thrombosis (DVT) General Exam - General Exam Comments Initial Comments: GENERAL: Patient is well-developed and well-nourished. Patient is nontoxic and well- hydrated and is in mild distress. ENT: Neck is soft and supple. No significant lymphadenopathy is noted. Oropharynx is clear. Moist mucous membranes. Neck has full range of motion without eliciting any pain. EYES: The sclera were anicteric and conjunctiva were pink and moist. Extraocular movements were intact and pupils were equal round and reactive to light. Eyelids were unremarkable. PULMONARY: Unlabored respirations. Good breath sounds bilaterally. No audible rales rhonchi or wheezing was noted. CARDIOVASCULAR: There is a regular rate and rhythm without any murmurs gallops or rubs. ABDOMEN: Soft and nontender with normal bowel sounds. SKIN: Skin is clear with no lesions or rashes and otherwise unremarkable. NEUROLOGIC: Patient is alert and oriented x3. Cranial nerves II through XII are grossly intact. Motor and sensory are also intact. Normal speech, volume and content. Symmetrical smile. MUSCULOSKELETAL: Patient has an external fixator on the left ankle LYMPHATICS: No significant lymphadenopathy is noted PSYCHIATRIC: Normal psychiatric evaluation. Course Vital Signs 02/18/23 10:35 Temperature 98.6 F Pulse Rate 89 Respiratory 18 Rate Blood Pressure 141/69 O2 Sat by Pulse 97 Oximetry Medical Decision Making - Medical Decision Making EKG was interpreted by myself and shows a sinus rhythm at 82 bpm [place] interval 291 cardiac is 81 Q-T intervals 370 QTC is 416. Patient's depression. Was pt. sent in by a medical professional or institution (, PA, [employer]AKER, urgent care, hospital, or custodial...) When possible be specific @ -Patient was sent in by the custodial physician Did you speak to anyone other than the patient for history (EMS, parent, family, police, friend...)? What history was obtained from this source @ -I spoke with Dr. Reaves's physician assistant housekeeping manager about this patient's condition and why he was coming to the emergency department Did you review nursing and triage notes (agree or disagree)? Why? @ -I reviewed and agree with nursing and triage notes Were old charts reviewed (outside hosp., previous admission, EMS record, old EKG, old radiological studies, urgent care reports/EKG's, custodial records)? Report findings @ -I reviewed old charts old lab work on this patient Differential Diagnosis (chest pain, altered mental status, abdominal pain women, abdominal pain men, vaginal bleeding, weakness, fever, dyspnea, syncope, headache, dizziness, GI bleed, back pain, seizure, CVA, palpatations, mental health, musculoskeletal)? @ -Medical clearance for surgery EKG interpreted by me (3pts min.). @ -As above X-rays interpreted by me (1pt min.). @ -None done CT interpreted by me (1pt min.). @ -None done U/S interpreted by me (1pt. min.). @ -None done What testing was considered but not performed or refused? (CT, X-rays, U/S, labs)? Why? @ -None What meds were considered but not given or refused? Why? @ -None Did you discuss the management of the patient with other professionals (professionals i.e. , PA, [employer]ER, lab, RT, psych nurse, social science manager, product safety officer, teacher, investment officer, spring encaser)? Give summary @ -To [place] hospitalist agreed to admit the patient admitted the patient wrote admitting orders Was smoking cessation discussed for >3mins.? @ -No Was critical care preformed (if so, how long)? @ -No Were there social determinants of health that impacted care today? How? (Homelessness, low income, unemployed, alcoholism, drug addiction, transportation, low edu. Level, literacy, decrease access to med. care, halfway, rehab)? @ -No Was there de-escalation of care discussed even if they declined (Discuss DNR or withdrawal of care, Hospice)? DNR status @ -No What co-morbidities impacted this encounter? (DM, HTN, Smoking, COPD, CAD, Cancer, CVA, ARF, Chemo, Hep., AIDS, mental health diagnosis, sleep apnea, morbid obesity)? @ -None Was patient admitted / discharged? Hospital course, mention meds given and route, prescriptions, significant lab abnormalities, going to OR and other pertinent info. @ -Patient had basic lab work EKGs and x-rays done for clearance for surgery. [facility] hospitalist agreed to admit the patient I wrote orders Undiagnosed new problem with uncertain prognosis? @ -No Drug Therapy requiring intensive monitoring for toxicity (Heparin, Nitro, Insulin, Cardizem)? @ -No Were any procedures done? @ -No Diagnosis/symptom? @ -Umbilical clearance surgery Acute, or Chronic, or Acute on Chronic? @ -Acute Uncomplicated (without systemic symptoms) or Complicated (systemic symptoms)? @ -Uncomplicated Side effects of treatment? @ -No Exacerbation, Progression, or Severe Exacerbation? @ -No Poses a threat to life or bodily function? How? (Chest pain, USA, CT, pneumonia, PE, COPD, DKA, ARF, appy, cholecystitis, CVA, Diverticulitis, Homicidal, Suicidal, threat to staff... and all critical care pts) @ -No Disposition Clinical Impression: Preoperative evaluation of a medical condition to rule out surgical contraindications (TAR required) Disposition: ADMITTED IP TO THIS [facility] Referrals: Sterling Chilel MD [Primary Care Provider] - 1-2 days Time of Disposition: 11:39
[2023-02-18] MEDS ORDERED: NITROGLYCERIN SL TABS 0.4 MG TAB SUBLINGUAL PRN (11:21)
[2023-02-18] MEDS ORDERED: NALOXONE 0.4 MG/ML 1 ML VIAL IVP PRN (11:21)
[2023-02-18] MEDS ORDERED: ACETAMINOPHEN TAB 325 MG TAB PO PRN ×2 (11:21→11:25)
[2023-02-18] MEDS ORDERED: NALOXONE 0.4 MG/ML 1 ML VIAL IV PRN (11:25)
[2023-02-18] MEDS ORDERED: ONDANSETRON 4 MG/2 ML VIAL IVP PRN (11:25)
[2023-02-18 12:17] LABS: Basophils # (A) 0.1 k/uL (0-0.2); Basophils % (A) 1 %; Eosinophils # (A) 0.3 k/uL (0-0.7); Eosinophils % (A) 4 %; HCT 33.4 % (39.0-53.0); Hypochromasia Slight; Lymphocytes # (A) 0.9 k/uL (1.0-4.8); Lymphocytes % (A) 10 %; MCHC 33.1 g/dL (31.0-37.0); MCV 87.6 fL (80.0-100.0); Mean Platelet Volume 8.5; Monocytes # (A) 0.5 k/uL (0-1.0); Monocytes % (A) 6 %; Neutrophils # (A) 6.9 k/uL (1.3-7.7); Neutrophils % (A) 79 %; Platelet Count 468 k/uL (150-450); RBC 3.81 m/uL (4.30-5.90); RDW 14.3 % (11.5-15.5); WBC 8.7 k/uL (3.8-10.6)
[2023-02-18 12:21] LABS: ALT 19 U/L (4-49); AST 25 U/L (17-59); African American GFR (CKD) >90 (>60 ml/min/1.73 sqM); Albumin 2.7 g/dL (3.5-5.0); Alkaline Phosphatase 70 U/L (38-126); Anion Gap 4 mmol/L; Blood Urea Nitrogen 28 mg/dL (9-20); Calcium 8.8 mg/dL (8.4-10.2); Carbon Dioxide 26 mmol/L (22-30); Chloride 104 mmol/L (98-107); Glucose 192 mg/dL (74-99); Non-African American GFR(CKD) 83 (>60 ml/min/1.73 sqM); Potassium 4.6 mmol/L (3.5-5.1); Sodium 134 mmol/L (137-145); Total Bilirubin 0.4 mg/dL (0.2-1.3); Total Protein 5.5 g/dL (6.3-8.2)
[2023-02-18 12:23] LABS: INR 1.1 (<1.2); Partial Thromboplastin Time 24.5 sec (22.0-30.0); Prothrombin Time 11.1 sec (9.0-12.0)
[2023-02-18] MEDS: SODIUM CHLORIDE 0.9% 1,000 ML IV SCH (12:51)
--- NOTE | 2023-02-18 13:27 | XR ---
EXAMINATION TYPE: XR chest 1V DATE OF EXAM: 02/18/2023 1:21 PM COMPARISON: Chest radiographs from 02/05/2023 TECHNIQUE: XR chest 1V Portable AP radiograph of the chest. CLINICAL INDICATION:Male, 77 years old with history of Difficulty breathing ; FINDINGS: Lungs/Pleura: There is no evidence of pleural effusion, focal consolidation, or pneumothorax. Scatte red senescent parenchyma changes. Pulmonary vascularity: Unremarkable. Heart/mediastinum: Cardiomediastinal silhouette is enlarged and stable. Atherosclerotic calcificatio ns are seen in the aorta. Musculoskeletal: No acute osseous pathology. IMPRESSION: Chronic changes without evidence for acute process.
[2023-02-18] MEDS ORDERED: FUROSEMIDE 10 MG/ML 4 ML VIAL IV STA (14:09)
--- NOTE | 2023-02-18 14:19 | P.CRDCN ---
History of Present Illness History of present illness: HISTORY OF PRESENT ILLNESS: This is a 77-year-old male with a past medical history significant for morbid obesity, hypertension, hyperlipidemia, and diabetes. Patient follows in the office with Dr. Sierra but has not been seen in the office in January 2021. We have been asked to see the patient in consultation for cardiac clearance. The patient was hospitalized at the end of January after sustaining a mechanical fall at home. The patient was found to have an open left ankle fracture dislocation. He was taken to the emergency room and underwent I&D of the left ankle with application of external fixator. He was discharged to subacute rehab. He is scheduled for removal of external fixator and open reduction internal fixation of left trimalleolar fracture tomorrow with Dr. Reaves. Patient examined at the bedside in the emergency room. Patient currently denies chest pain or pressure. He does report having shortness of breath for the past 2 days. He states that he is usually on Lasix but since he was discharged to [facility] on the [place] for the past 2 weeks he has not been receiving this. However, he denies a history of congestive heart failure. He does report having bilateral lower extremity edema over the past couple weeks as well. He states he has been bedbound since his fall on 02/05/2023. The patient states prior to this he was not very active. He states that he uses a walker normally to get around. He believes he would have been able to climb a flight of stairs or walk one block without getting short of breath or having chest pain. The patient denies a history of coronary artery disease. He states he has never underwent a cardiac catheterization in the past. * EKG reveals sinus mechanism with no signs of acute ischemia * Chest xray chronic changes without evidence for acute process * Laboratory data: WBC 8.7. Hemoglobin 11.0. Platelet count 460. Sodium 134. Potassium 4.6. BUN 28. Creatinine 0.89 * Current home cardiac medications include Lipitor 20 mg at night, losartan 100 mg daily, and aspirin 81 mg daily * Most recent echocardiogram obtained in March 2017 revealed normal ejection fraction with moderate LVH * Patient underwent a dobutamine stress echocardiogram in December 2020 which was negative for ischemia REVIEW OF SYSTEMS: At the time of my exam: CONSTITUTIONAL: Denies fever or chills. HEENT: Denies blurred vision, vision changes, or eye pain. Denies hemoptysis CARDIOVASCULAR: Denies chest pain. Denies orthopnea. Denies PND. Denies palpitations RESPIRATORY: Reports shortness of breath. GASTROINTESTINAL: Denies abdominal pain. Denies nausea or vomiting. HEMATOLOGIC: Denies bleeding disorders. GENITOURINARY: Denies any blood in urine. SKIN: Denies pruitis. Denies rash. PHYSICAL EXAM: VITAL SIGNS: Reviewed. GENERAL: Well-developed in no acute distress. HEENT: Head is normocephalic. Pupils are equal, round. Sclerae anicteric. Mucous membranes of the mouth are moist. Neck supple. No JVD or thyromegaly LUNGS: Respirations even and unlabored. Lungs essentially clear to auscultation bilaterally-patient unable to sit up to listen to lungs posteriorly HEART: Regular rate and rhythm. S1 and S2 heard. + systolic murmur. ABDOMEN: Soft. Nondistended. Nontender. EXTREMITIES: Normal range of motion. No clubbing or cyanosis. Peripheral pulses intact. Bilateral lower extremity edema. Left lower extremity with external fixator and wound VAC noted. Erythema noted to left lower extremity. NEUROLOGIC: Awake and alert. Oriented x 3. ASSESSMENT: Perioperative clearance Recent mechanical fall with left ankle fracture dislocation Status post I&D of left ankle with application of external fixator Hypertension Hyperlipidemia Diabetes Obstructive sleep apnea Questionable history of congestive heart failure, patient on Lasix outpatient Immobility, patient currently bedbound due to ankle fracture Morbid obesity: BMI 51.7 PLAN: Obtain 2-D echo to assess cardiac structure and function Resume home cardiac medications Patient with complaints of SOB for the past two days and was previously on Lasix but not receiving for the past 2 weeks at [facility] Give 1x dose of Lasix 40mg IV and resume oral lasix Obtain BNP, although may not be accurate due to morbid obesity Patient is high risk to undergo surgery secondary to immobility and comorbidities Patient will be evaluated this afternoon by Dr. Hendrickson with further recommendations to follow. Patient is not cleared for surgery until he is evaluated by Dr. Hendrickson Nurse practitioner note has been reviewed by physician. Signing provider agrees with the documented findings, assessment, and plan of care. Past Medical History Past Medical History: Diabetes Mellitus, GERD/Reflux, Hyperlipidemia, Hypertension, Osteoarthritis (OA), Renal Disease, Sleep Apnea/CPAP/BIPAP Additional Past Medical History / Comment(s): 02/05/23 Fall in shower with L ankle wound/fracture and had surgery-ORIF with I&D and wound vac placed. Per ANGUS Mishra RN caring for patient ANGUS was instructed not to touch wound vac so have no supplies to send. She states pt has a small open wound on scrotum and coccyx. IDDM type II, neuropathy legs and feet, bedbound/ander lift, CKD stage III, nephrolithiasis, DALTON with Cpap mask., L shoulder pain/torn rotator cuff/limited ROM, polyarthritis. History of Any Multi-Drug Resistant Organisms: MRSA Date of last positivie culture/infection: 04/21/16 MDRO Source:: ABDOMEN Additional Past Surgical History / Comment(s): KIDNEY STONE REMOVED and ureteral stent placed, deviated septum surgery, flex sigmoidoscopy several times, colonoscopy, dental surgery, cataract surgery bilaterally. Past Anesthesia/Blood Transfusion Reactions: No Reported Reaction Past Psychological History: Depression Smoking Status: Never smoker Past Alcohol Use History: None Reported Past Drug Use History: None Reported - Past Family History Father Additional Family Medical History / Comment(s): brain anuerysm Mother Family Medical History: Cancer, Deep Vein Thrombosis (DVT) Medications and Allergies Home Medications Medication Instructions Recorded Confirmed Type Fenofibrate,Micronized 200 mg PO HS@209906/06/18 02/18/23 History [Fenofibrate] Atorvastatin [Lipitor] 20 mg PO HS@209902/05/23 02/18/23 History Dapagliflozin Propanediol [Farxiga] 10 mg PO DAILY@89902/05/23 02/18/23 History Insulin Glargine,Hum.rec.anlog 25 units SQ DIRECTED 02/05/23 02/18/23 History [Lantus Solostar Pen] Latanoprost [Latanoprost 0.005%] 1 drop BOTH EYES HS@209902/05/23 02/18/23 His tory Losartan Potassium 100 mg PO DAILY@89902/05/23 02/18/23 History Pioglitazone [Actos] 15 mg PO DAILY@89902/05/23 02/18/23 History Semaglutide [Ozempic] 2 mg SQ MO@89902/05/23 02/18/23 History metFORMIN HCL 1,000 mg PO BID@899,209902/05/23 02/18/23 History Acetaminophen Tab [Tylenol] 650 mg PO Q4HR PRN tab 02/08/23 02/18/23 Rx HYDROcodone/APAP 5-325MG [[place] 1 - 2 tab PO Q6HR PRN 7 Days #32 02/08/23 02/18/23 Rx 5-325] tab Amino Acids/Protein Hydrolys 30 ml PO DAILY@0900 02/18/23 02/18/23 History [Pro-Stat Awc Liquid] Aspirin 81 mg PO DIRECTED 02/18/23 02/18/23 History Cephalexin [Keflex] 500 mg PO QID@00,08,12,18 02/18/23 02/18/23 History Gabapentin [Neurontin] 300 mg PO TID@0800,1400,2200 02/18/23 02/18/23 History Heparin Sodium,Porcine [Heparin 5,000 unit SQ DIRECTED 02/18/23 02/18/23 History Sodium] Hydrophilic Cream [Triad (Kerodex 1 applic TOPICAL DAILY PRN 02/18/23 02/18/23 History geq)] Hydrophilic Cream [Triad (Kerodex 1 applic TOPICAL Q12H 02/18/23 02/18/23 History geq)] INSULIN ASPART (NovoLOG) [NovoLOG See Protocol SQ ACHS@08,12,17,21 02/18/23 02/18/23 History (formulary)] Insulin Glargine,Hum.rec.anlog 20 units SQ DIRECTED 02/18/23 02/18/23 History [Lantus Solostar Pen] Povidone-Iodine [Betadine] 1 applic TOPICAL Q12H 02/18/23 02/18/23 History Sennosides-Docusate Sodium 2 tab PO HS PRN 02/18/23 02/18/23 History [Senokot-S] traMADol HCl [Ultram] 50 mg PO TID@0800,1400,2200 02/18/23 02/18/23 History Allergies Allergy/AdvReac Type Severity Reaction Status Date / Time cat pelt standardized Allergy Itching Verified 02/18/23 12:35 allergenic ex mold Allergy Itching Verified 02/18/23 12:35 pollen extracts Allergy Itching Verified 02/18/23 12:35 Physical Exam Vitals: Vital Signs Temp Pulse Resp BP Pulse Ox 02/18/23 12:54 81 18 152/62 96 02/18/23 11:44 81 20 168/61 02/18/23 10:35 98.6 F 89 18 141/69 97 Intake and Output 02/17/23 02/18/23 02/18/23 22:59 06:59 14:59 Other: Weight 163.293 kg Results 02/18/23 11:21 02/18/23 11:21 Cardiac Enzymes 02/18/23 Range/Units 11:21 AST 25 (17-59) U/L Coagulation 02/18/23 Range/Units 11:21 PT 11.1 (9.0-12.0) sec APTT 24.5 (22.0-30.0) sec CBC 02/18/23 Range/Units 11:21 WBC 8.7 (3.8-10.6) k/uL RBC 3.81 L (4.30-5.90) m/uL Hgb 11.0 L (13.0-17.5) gm/dL Hct 33.4 L (39.0-53.0) % Plt Count 468 H (150-450) k/uL Comprehensive Metabolic Panel 02/18/23 Range/Units 11:21 Sodium 134 L (137-145) mmol/L Potassium 4.6 (3.5-5.1) mmol/L Chloride 104 (98-107) mmol/L Carbon Dioxide 26 (22-30) mmol/L BUN 28 H (9-20) mg/dL Creatinine 0.89 (0.66-1.25) mg/dL Glucose 192 H (74-99) mg/dL Calcium 8.8 (8.4-10.2) mg/dL AST 25 (17-59) U/L ALT 19 (4-49) U/L Alkaline Phosphatase 70 (38-126) U/L Total Protein 5.5 L (6.3-8.2) g/dL Albumin 2.7 L (3.5-5.0) g/dL Current Medications Generic Name Dose Route Start Last Admin Trade Name Freq PRN Reason Stop Dose Admin Acetaminophen 650 mg 02/18/23 11:25 Acetaminophen Tab 325 Mg Tab PO Q6HR PRN Mild Pain or Fever > 100.5 Hydrocodone Bitart/Acetaminophen 1 each 02/18/23 11:25 Hydrocodone/Apap 5-325mg 1 Each Tab PO Q4HR PRN Moderate Pain (Scale 4 to 6) Sodium Chloride 1,000 mls @ 20 mls/hr 02/18/23 11:30 02/18/23 12:51 Saline 0.9% IV 20 mls/hr .Q24H DIPTI Administration Naloxone HCl 0.2 mg 02/18/23 11:25 Naloxone 0.4 Mg/Ml 1 Ml Vial IV Q2M PRN Opioid Reversal Ondansetron HCl 4 mg 02/18/23 11:25 Ondansetron 4 Mg/2 Ml Vial IVP Q8HR PRN Nausea And Vomiting Intake and Output 02/17/23 02/18/23 02/18/23 22:59 06:59 14:59 Other: Weight 163.293 kg Patient Weight 02/19/23 06:59 Weight 163.293 kg 02/18/23 11:21 02/18/23 11:21
[2023-02-18] MEDS ORDERED: SENNOSIDES-DOCUSATE SODIUM 1 EACH TAB PO PRN (15:49)
--- NOTE | 2023-02-18 15:52 | P.HPIM ---
History of Present Illness H&P Date: 02/18/23 Chief Complaint: Preoperative clearance 77-year-old gentleman with past medical history significant for diabetes mellitus, hypertension, morbid obesity, hyperlipidemia. Patient was sent then to ER by primary care physician for preoperative evaluation. Patient is scheduled for ankle surgery 02/19. Patient had open left ankle fracture and had an external fixator. He is scheduled for removal of external fixator and open reduction internal fixation of left ankle fracture with orthopedic. On evaluation at bedside patient denies of any acute issues. He does have chronic discomfort in left lower extremity Workup initiated in ER included an EKG which showed sinus rhythm, chest x-ray negative for acute process. Lab obtained showed white cell count of 8.7 hemoglobin 11 platelet count 460. PT/INR 1.1 Basic metabolic panel sodium 134 potassium 4.6 BUN 28 creatinine 0.89 REVIEW OF SYSTEMS: CONSTITUTIONAL: No fever, no malaise, no fatigue. HEENT: No recent visual problems or hearing problems. Denied any sore throat. CARDIOVASCULAR: No chest pain, orthopnea, PND, no palpitations, no syncope. PULMONARY: No shortness of breath, no cough, no hemoptysis. GASTROINTESTINAL: No diarrhea, no nausea, no vomiting, no abdominal pain. NEUROLOGICAL: No headaches, no weakness, no numbness. HEMATOLOGICAL: Denies any bleeding or petechiae. GENITOURINARY: Denies any burning micturition, frequency, or urgency. MUSCULOSKELETAL/RHEUMATOLOGICAL: Denies any joint pain, swelling, or any muscle pain. ENDOCRINE: Denies any polyuria or polydipsia. The rest of the 14-point review of systems is negative. PHYSICAL EXAMINATION: GENERAL: The patient is alert and oriented x3, not in any acute distress. Well developed, well nourished. HEENT: Pupils are round and equally reacting to light. EOMI. No scleral icterus. No conjunctival pallor. Normocephalic, atraumatic. No pharyngeal erythema. No thyromegaly. CARDIOVASCULAR: S1 and S2 present. No murmurs, rubs, or gallops. PULMONARY: Chest is clear to auscultation, no wheezing or crackles. ABDOMEN: Soft, nontender, nondistended, normoactive bowel sounds. No palpable organomegaly. MUSCULOSKELETAL: Bilateral lotion to edema, left ankle and fixator EXTREMITIES: No cyanosis, clubbing, or pedal edema. NEUROLOGICAL: Gross neurological examination did not reveal any focal deficits. SKIN: No rashes. Past Medical History Past Medical History: Diabetes Mellitus, GERD/Reflux, Hyperlipidemia, Hypertension, Osteoarthritis (OA), Renal Disease, Sleep Apnea/CPAP/BIPAP Additional Past Medical History / Comment(s): 02/05/23 Fall in shower with L ankle wound/fracture and had surgery-ORIF with I&D and wound vac placed. Per ANGUS Mishra RN caring for patient ANGUS was instructed not to touch wound vac so have no supplies to send. She states pt has a small open wound on scrotum and coccyx. IDDM type II, neuropathy legs and feet, bedbound/ander lift, CKD stage III, nephrolithiasis, DALTON with Cpap mask., L shoulder pain/torn rotator cuff/limited ROM, polyarthritis. History of Any Multi-Drug Resistant Organisms: MRSA Date of last positivie culture/infection: 04/21/16 MDRO Source:: ABDOMEN Additional Past Surgical History / Comment(s): KIDNEY STONE REMOVED and ureteral stent placed, deviated septum surgery, flex sigmoidoscopy several times, colonoscopy, dental surgery, cataract surgery bilaterally. Past Anesthesia/Blood Transfusion Reactions: No Reported Reaction Past Psychological History: Depression Smoking Status: Never smoker Past Alcohol Use History: None Reported Past Drug Use History: None Reported - Past Family History Father Additional Family Medical History / Comment(s): brain anuerysm Mother Family Medical History: Cancer, Deep Vein Thrombosis (DVT) Medications and Allergies Home Medications Medication Instructions Recorded Confirmed Type Fenofibrate,Micronized 200 mg PO HS@209906/06/18 02/18/23 History [Fenofibrate] Atorvastatin [Lipitor] 20 mg PO HS@209902/05/23 02/18/23 History Dapagliflozin Propanediol [Farxiga] 10 mg PO DAILY@89902/05/23 02/18/23 History Insulin Glargine,Hum.rec.anlog 25 units SQ DIRECTED 02/05/23 02/18/23 History [Lantus Solostar Pen] Latanoprost [Latanoprost 0.005%] 1 drop BOTH EYES HS@209902/05/23 02/18/23 History Losartan Potassium 100 mg PO DAILY@89902/05/23 02/18/23 History Pioglitazone [Actos] 15 mg PO DAILY@0900 02/05/23 02/18/23 History Semaglutide [Ozempic] 2 mg SQ MO@0900 02/05/23 02/18/23 History metFORMIN HCL 1,000 mg PO BID@0900,2100 02/05/23 02/18/23 History Acetaminophen Tab [Tylenol] 650 mg PO Q4HR PRN tab 02/08/23 02/18/23 Rx HYDROcodone/APAP 5-325MG [[place] 1 - 2 tab PO Q6HR PRN 7 Days #32 02/08/23 02/18/23 Rx 5-325] tab Amino Acids/Protein Hydrolys 30 ml PO DAILY@0900 02/18/23 02/18/23 History [Pro-Stat Awc Liquid] Aspirin 81 mg PO DIRECTED 02/18/23 02/18/23 History Cephalexin [Keflex] 500 mg PO QID@00,08,12,18 02/18/23 02/18/23 History Gabapentin [Neurontin] 300 mg PO TID@0800,1400,2200 02/18/23 02/18/23 History Heparin Sodium,Porcine (1 ml) 5,000 unit SQ DIRECTED 02/18/23 02/18/23 History [Heparin Sodium] Hydrophilic Cream [Triad (Kerodex 1 applic TOPICAL DAILY PRN 02/18/23 02/18/23 History geq)] Hydrophilic Cream [Triad (Kerodex 1 applic TOPICAL Q12H 02/18/23 02/18/23 History geq)] INSULIN ASPART (NovoLOG) [NovoLOG See Protocol SQ ACHS@08,12,17,21 02/18/23 02/18/23 History (formulary)] Insulin Glargine,Hum.rec.anlog 20 units SQ DIRECTED 02/18/23 02/18/23 History [Lantus Solostar Pen] Povidone-Iodine [Betadine] 1 applic TOPICAL Q12H 02/18/23 02/18/23 History Sennosides-Docusate Sodium 2 tab PO HS PRN 02/18/23 02/18/23 History [Senokot-S] traMADol HCl [Ultram] 50 mg PO TID@0800,1400,2200 02/18/23 02/18/23 History Allergies Allergy/AdvReac Type Severity Reaction Status Date / Time cat pelt standardized Allergy Itching Verified 02/18/23 12:35 allergenic ex mold Allergy Itching Verified 02/18/23 12:35 pollen extracts Allergy Itching Verified 02/18/23 12:35 Physical Exam Vitals: Vital Signs Temp Pulse Resp BP Pulse Ox 02/18/23 14:30 73 20 148/59 95 02/18/23 12:54 81 18 152/62 96 02/18/23 11:44 81 20 168/61 02/18/23 10:35 98.6 F 89 18 141/69 97 Intake and Output 02/18/23 02/18/23 02/18/23 06:59 14:59 22:59 Other: Weight 163.293 kg Results CBC & Chem 7: 02/18/23 11:21 02/18/23 11:21 Labs: Abnormal Lab Results - Last 24 Hours (Table) 02/18/23 02/18/23 Range/Units 11:21 11:21 RBC 3.81 L (4.30-5.90) m/uL Hgb 11.0 L (13.0-17.5) gm/dL Hct 33.4 L (39.0-53.0) % Plt Count 468 H (150-450) k/uL Lymphocytes # 0.9 L (1.0-4.8) k/uL Sodium 134 L (137-145) mmol/L BUN 28 H (9-20) mg/dL Glucose 192 H (74-99) mg/dL Total Protein 5.5 L (6.3-8.2) g/dL Albumin 2.7 L (3.5-5.0) g/dL Thrombosis Risk Factor Assmnt - DVT/VTE Prophylaxis DVT/VTE Prophylaxis: Contraindicated - See note (Going for surgery) Assessment and Plan Assessment: Assessment and plan * History of mechanical fall with left ankle fracture plan for open reduction internal fixation 02/19 * Preoperative medical clearance for surgery * Status post left ankle external fixator in place * Morbid obesity * Obstructive sleep apnea * Hypertension * Hyperlipidemia * Diabetes mellitus * Consult obtained from cardiology to give preoperative cardiac clearance. Echocardiogram ordered, home medications reviewed and reconciled * Patient given 1 dose of Lasix, BNP ordered * Risk factors remain moderate to high risk secondary to immobility and underlying comorbidities * In regards to history of diabetes continue to hold Lantus since nothing by mouth after midnight continue correctional insulin * We will hold off on DVT prophylaxis * Until cleared by cardiology we will continue to hold off on surgical intervention
[2023-02-18 17:20] LABS: Glucose,Whole Blood 191 mg/dL (70-110)
[2023-02-18] MEDS: INSULIN ASPART (NovoLOG) 100 UNIT/ML VIAL SQ SCH ×2 (17:28→21:48)
--- NOTE | 2023-02-18 17:56 | P.CNOR ---
History of Present Illness - [facility] Consult date: 02/18/23 History of present illness: This patient is a 77-year old male with multiple medical conditions who presented to [facility] sent from [facility] for pre-operative medical evaluation. Patient underwent I&D, application of ex fix, and wound closure with wound vac on 02/05/23 for a left open ankle fracture dislocation. Patient was ultimately discharged to [facility]. Patient was scheduled to be taken back to OR tomorrow 02/19/23 for removal of ex fix and ORIF left ankle fracture, although his outpatient internal medicine doctor requested cardiology clearance prior to surgery. Therefore he was sent to the emergency department for pre-op internal medicine and cardiology evaluation. Past Medical History Past Medical History: Diabetes Mellitus, GERD/Reflux, Hyperlipidemia, Hypertension, Osteoarthritis (OA), Renal Disease, Sleep Apnea/CPAP/BIPAP Additional Past Medical History / Comment(s): 02/05/23 Fall in shower with L ankle wound/fracture and had surgery-ORIF with I&D and wound vac placed. Per ANGUS Mishra RN caring for patient ANGUS was instructed not to touch wound vac so have no supplies to send. She states pt has a small open wound on scrotum and coccyx. IDDM type II, neuropathy legs and feet, bedbound/ander lift, CKD stage III, nephrolithiasis, DALTON with Cpap mask., L shoulder pain/torn rotator cuff/limited ROM, polyarthritis. History of Any Multi-Drug Resistant Organisms: MRSA Year Discovered:: 04/21/16 MDRO Source:: ABDOMEN Additional Past Surgical History / Comment(s): KIDNEY STONE REMOVED and ureteral stent placed, deviated septum surgery, flex sigmoidoscopy several times, colonoscopy, dental surgery, cataract surgery bilaterally. Past Anesthesia/Blood Transfusion Reactions: No Reported Reaction Past Psychological History: Depression Smoking Status: Never smoker Past Alcohol Use History: None Reported Past Drug Use History: None Reported - Past Family History Father Additional Family Medical History / Comment(s): brain anuerysm Mother Family Medical History: Cancer, Deep Vein Thrombosis (DVT) Medications and Allergies Home Medications Medication Instructions Recorded Confirmed Type Fenofibrate,Micronized 200 mg PO HS@2100 06/06/18 02/18/23 History [Fenofibrate] Atorvastatin [Lipitor] 20 mg PO HS@2100 02/05/23 02/18/23 History Dapagliflozin Propanediol [Farxiga] 10 mg PO DAILY@0900 02/05/23 02/18/23 History Insulin Glargine,Hum.rec.anlog 25 units SQ DIRECTED 02/05/23 02/18/23 History [Lantus Solostar Pen] Latanoprost [Latanoprost 0.005%] 1 drop BOTH EYES HS@209902/05/23 02/18/23 History Losartan Potassium 100 mg PO DAILY@89902/05/23 02/18/23 History Pioglitazone [Actos] 15 mg PO DAILY@0902/05/23 02/18/23 History Semaglutide [Ozempic] 2 mg SQ MO@89902/05/23 02/18/23 History metFORMIN HCL 1,000 mg PO BID@0900,2100 02/05/23 02/18/23 History Acetaminophen Tab [Tylenol] 650 mg PO Q4HR PRN tab 02/08/23 02/18/23 Rx HYDROcodone/APAP 5-325MG [[place] 1 - 2 tab PO Q6HR PRN 7 Days #32 02/08/23 02/18/23 Rx 5-325] tab Amino Acids/Protein Hydrolys 30 ml PO DAILY@0900 02/18/23 02/18/23 History [Pro-Stat Awc Liquid] Aspirin 81 mg PO DIRECTED 02/18/23 02/18/23 History Cephalexin [Keflex] 500 mg PO QID@00,08,12,18 02/18/23 02/18/23 History Gabapentin [Neurontin] 300 mg PO TID@0800,1400,2200 02/18/23 02/18/23 History Heparin Sodium,Porcine (1 ml) 5,000 unit SQ DIRECTED 02/18/23 02/18/23 History [Heparin Sodium] Hydrophilic Cream [Triad (Kerodex 1 applic TOPICAL DAILY PRN 02/18/23 02/18/23 History geq)] Hydrophilic Cream [Triad (Kerodex 1 applic TOPICAL Q12H 02/18/23 02/18/23 History geq)] INSULIN ASPART (NovoLOG) [NovoLOG See Protocol SQ ACHS@08,12,17,21 02/18/23 02/18/23 History (formulary)] Insulin Glargine,Hum.rec.anlog 20 units SQ DIRECTED 02/18/23 02/18/23 History [Lantus Solostar Pen] Povidone-Iodine [Betadine] 1 applic TOPICAL Q12H 02/18/23 02/18/23 History Sennosides-Docusate Sodium 2 tab PO HS PRN 02/18/23 02/18/23 History [Senokot-S] traMADol HCl [Ultram] 50 mg PO TID@0800,1400,2200 02/18/23 02/18/23 History Allergies Allergy/AdvReac Type Severity Reaction Status Date / Time cat pelt standardized Allergy Itching Verified 02/18/23 12:35 allergenic ex mold Allergy Itching Verified 02/18/23 12:35 pollen extracts Allergy Itching Verified 02/18/23 12:35 Physical Examination On examination, patient is sitting in bed in no apparent distress. He is alert and answers questions appropriately. On inspection of the left ankle, there is an ex fix in place with wound vac. Wound vac is removed and reveals a healing, well-approximated 24cm laceration with intact nylon sutures. The foot is warm and well perfused. Motor and sensory function grossly intact. Results - Labs Labs: Abnormal Lab Results - Last 24 Hours (Table) 02/18/23 02/18/23 Range/Units 11:21 11:21 RBC 3.81 L (4.30-5.90) m/uL Hgb 11.0 L (13.0-17.5) gm/dL Hct 33.4 L (39.0-53.0) % Plt Count 468 H (150-450) k/uL Lymphocytes # 0.9 L (1.0-4.8) k/uL Sodium 134 L (137-145) mmol/L BUN 28 H (9-20) mg/dL Glucose 192 H (74-99) mg/dL Total Protein 5.5 L (6.3-8.2) g/dL Albumin 2.7 L (3.5-5.0) g/dL H & H 02/18/23 Range/Units 11:21 Hgb 11.0 L (13.0-17.5) gm/dL Hct 33.4 L (39.0-53.0) % Coagulation 02/18/23 Range/Units 11: INR 1.1 (<1.2) Result Diagrams: 02/18/23 11:21 02/18/23 11:21 Assessment and Plan Assessment: Status-post I&D, ex fix application, with closure of wound with wound vac for left open ankle fracture dislocation on 02/05/23. Plan: - Wound vac was taken down bedside in the emergency department this afternoon with Dr. Reaves. The wound was re-dressed. We will plan for OR tomorrow, pending clearance from internal medicine and cardiology. He will be made NPO at midnight. - Strict non-weight bearing LLE.
[2023-02-18 21:05] LABS: Glucose,Whole Blood 183 mg/dL (70-110)
[2023-02-18] MEDS: GABAPENTIN 300 MG CAP PO SCH (21:47)
[2023-02-18] MEDS: traMADol 50 MG TAB PO SCH (21:47)
[2023-02-18] MEDS: ATORVASTATIN 20 MG TAB PO SCH (21:47)
[2023-02-18] MEDS: FENOFIBRATE 160 MG TAB PO SCH (21:48)
[2023-02-18] MEDS: HYDROcodone/APAP 5-325MG 1 EACH TAB PO PRN (22:38)
[2023-02-19] MEDS ORDERED: ceFAZolin 3 GM in SODIUM CHLORIDE 0.9% 100 ML IVPB PRN (05:00)
[2023-02-19] MEDS: HYDROcodone/APAP 5-325MG 1 EACH TAB PO PRN ×2 (05:07→18:34)
[2023-02-19 06:29] LABS: Glucose,Whole Blood 154 mg/dL (70-110)
[2023-02-19] MEDS: INSULIN ASPART (NovoLOG) 100 UNIT/ML VIAL SQ SCH ×4 (06:44→21:40)
[2023-02-19] MEDS ORDERED: IV FLUID CONTINUATION 1,000 ML IV ONE (09:10)
[2023-02-19 09:13] LABS: Glucose,Whole Blood 125 mg/dL (70-110)
[2023-02-19] MEDS ORDERED: ONDANSETRON 4 MG/2 ML VIAL IVP ONE (09:23)
[2023-02-19] MEDS ORDERED: DEXAMETHASONE SOD PHOSPHATE 4 MG/ML 1 ML VIAL IVP ONE (09:24)
[2023-02-19] MEDS ORDERED: MIDAZOLAM 2 MG/2 ML VIAL ONE (10:34)
[2023-02-19] MEDS ORDERED: HYDROmorphone (PF) 1 MG/ML ONE (10:34)
[2023-02-19] MEDS ORDERED: LIDOCAINE 2% INJ 20 MG/ML (2 ML VIAL) ONE (10:34)
[2023-02-19] MEDS ORDERED: PROPOFOL 10 MG/ML 20 ML VIAL IV ONE (10:34)
[2023-02-19] MEDS ORDERED: SUCCINYLCHOLINE CHLORIDE 200 MG/10 ML VIAL IV ONE (10:34)
[2023-02-19] MEDS ORDERED: fentaNYL (PF) 50 MCG/ML 2 ML AMP ONE (10:34)
--- NOTE | 2023-02-19 10:42 | P.PN ---
Subjective HISTORY OF PRESENT ILLNESS: This is a 77-year-old male with a past medical history significant for morbid obesity, hypertension, hyperlipidemia, and diabetes. Patient follows in the office with Dr. Sierra but has not been seen in the office in January 2021. We have been asked to see the patient in consultation for cardiac clearance. The patient was hospitalized at the end of January after sustaining a mechanical fall at home. The patient was found to have an open left ankle fracture dislocation. He was taken to the emergency room and underwent I&D of the left ankle with application of external fixator. He was discharged to subacute rehab. He is scheduled for removal of external fixator and open reduction internal fixation of left trimalleolar fracture tomorrow with Dr. Reaves. Patient examined at the bedside in the emergency room. Patient currently denies chest pain or pressure. He does report having shortness of breath for the past 2 days. He states that he is usually on Lasix but since he was discharged to [facility] [place] for the past 2 weeks he has not been receiving this. However, he denies a history of congestive heart failure. He does report having bilateral lower extremity edema over the past couple weeks as well. He states he has been bedbound since his fall on 02/05/2023. The patient states prior to this he was not very active. He states that he uses a walker normally to get around. He believes he would have been able to climb a flight of stairs or walk one block without getting short of breath or having chest pain. The patient denies a history of coronary artery disease. He states he has never underwent a cardiac catheterization in the past. * EKG reveals sinus mechanism with no signs of acute ischemia * Chest xray chronic changes without evidence for acute process * Laboratory data: WBC 8.7. Hemoglobin 11.0. Platelet count 460. Sodium 134. Potassium 4.6. BUN 28. Creatinine 0.89 * Current home cardiac medications include Lipitor 20 mg at night, losartan 100 mg daily, and aspirin 81 mg daily * Most recent echocardiogram obtained in March 2017 revealed normal ejection fraction with moderate LVH * Patient underwent a dobutamine stress echocardiogram in December 2020 which was negative for ischemia 02/19/2023 Patient examined this morning at the bedside. Patient is laying comfortably in bed. He denies any chest pain or pressure. He currently denies shortness of breath. Patient's vital signs are stable. Patient is scheduled for surgery today with orthopedics. PHYSICAL EXAM: VITAL SIGNS: Reviewed. GENERAL: Well-developed in no acute distress. HEENT: Head is normocephalic. Pupils are equal, round. Sclerae anicteric. Mucous membranes of the mouth are moist. Neck supple. No JVD or thyromegaly LUNGS: Respirations even and unlabored. Lungs essentially clear to auscultation bilaterally-patient unable to sit up to listen to lungs posteriorly HEART: Regular rate and rhythm. S1 and S2 heard. + systolic murmur. ABDOMEN: Soft. Nondistended. Nontender. EXTREMITIES: Normal range of motion. No clubbing or cyanosis. Peripheral pulses intact. Bilateral lower extremity edema. Left lower extremity with external fixator. Erythema noted to left lower extremity. NEUROLOGIC: Awake and alert. Oriented x 3. ASSESSMENT: Perioperative clearance Recent mechanical fall with left ankle fracture dislocation Status post I&D of left ankle with application of external fixator Hypertension Hyperlipidemia Diabetes Obstructive sleep apnea Questionable history of congestive heart failure, patient on Lasix outpatient Immobility, patient currently bedbound due to ankle fracture Morbid obesity: BMI 51.7 PLAN: 2-D echo has been ordered. Await results. Continue current cardiac medications Patient is intermediate to high risk to undergo surgery secondary to immobility and comorbidities. However there are no absolute contraindications from a cardiac standpoint Nurse practitioner note has been reviewed by physician. Signing provider agrees with the documented findings, assessment, and plan of care. Objective - Vital Signs Vital signs: Vital Signs Temp 97.0 F L 02/19/23 09:13 Pulse 69 02/19/23 09:13 Resp 18 02/19/23 09:13 BP 153/66 02/19/23 09:13 Pulse Ox 99 02/19/23 09:13 FiO2 Intake & Output 02/18/23 02/19/23 02/19/23 18:59 06:59 18:59 Intake Total 500 100 Output Total 650 Balance -150 100 Weight 163.293 kg 163.293 kg Intake: IV 100 Intake, IV Titration 500 Amount Sodium Chloride 0.9% 1, 400 000 ml @ 20 mls/hr IV . Q24H [facility] Rx#:[id number] ceFAZolin 3 gm In Sodium 100 Chloride 0.9% 100 ml @ 200 mls/hr IVPB ONCE PRN Rx#:[id number] Oral 0 Output: Urine 650 - Labs CBC & Chem 7: 02/18/23 11:21 02/18/23 11:21 Labs: Abnormal Lab Results - Last 24 Hours (Table) 02/18/23 02/18/23 02/18/23 Range/Units 11:21 11:21 17:18 RBC 3.81 L (4.30-5.90) m/uL Hgb 11.0 L (13.0-17.5) gm/dL Hct 33.4 L (39.0-53.0) % Plt Count 468 H (150-450) k/uL Lymphocytes # 0.9 L (1.0-4.8) k/uL Sodium 134 L (137-145) mmol/L BUN 28 H (9-20) mg/dL Glucose 192 H (74-99) mg/dL POC Glucose (mg/dL) 191 H (70-110) mg/dL Total Protein 5.5 L (6.3-8.2) g/dL Albumin 2.7 L (3.5-5.0) g/dL 02/18/23 02/19/23 02/19/23 Range/Units 21:03 06:28 09:10 RBC (4.30-5.90) m/uL Hgb (13.0-17.5) gm/dL Hct (39.0-53.0) % Plt Count (150-450) k/uL Lymphocytes # (1.0-4.8) k/uL Sodium (137-145) mmol/L BUN (9-20) mg/dL Glucose (74-99) mg/dL POC Glucose (mg/dL) 183 H 154 H 125 H (70-110) mg/dL Total Protein (6.3-8.2) g/dL Albumin (3.5-5.0) g/dL
[2023-02-19] MEDS: LOSARTAN 50 MG TAB PO SCH (10:49)
[2023-02-19] MEDS: DAPAGLIFLOZIN PROPANEDIOL 10 MG TABLET PO SCH (10:49)
[2023-02-19] MEDS: PIOGLITAZONE 15 MG TAB PO SCH (10:49)
[2023-02-19] MEDS: FUROSEMIDE 40 MG TAB PO SCH (10:49)
[2023-02-19] MEDS: traMADol 50 MG TAB PO SCH ×3 (10:49→21:39)
[2023-02-19] MEDS: GABAPENTIN 300 MG CAP PO SCH ×3 (10:49→21:39)
[2023-02-19 11:26] LABS: HCT 32.5 % (39.6-50.0); HGB 10.1 d/dL (13.0-17.0); MCH 27.2 pg (27.0-32.0); MCHC 31.1 d/dL (32.0-37.0); MCV 87.4 FL (80.0-97.0); Mean Platelet Volume 11.1 FL (9.5-12.2); NRBC Per 100 WBC 0 X 10*3/uL (0.00-0.01); Platelet Count 541 X 10*3/uL (140-440); RBC 3.72 X 10*6/uL (4.40-5.60); RDW 14.7 % (11.5-14.5); WBC 8.33 X 10*3/uL (4.50-10.00)
[2023-02-19] MEDS ORDERED: LACTATED RINGERS 1,000 ML IV ONE (12:30)
[2023-02-19] MEDS ORDERED: HYDROmorphone 0.5 MG/0.5 ML SYRINGE IVP PRN ×2 (12:52)
[2023-02-19] MEDS: HYDROmorphone 0.5 MG/0.5 ML SYRINGE IVP PRN ×4 (13:01→16:25)
[2023-02-19 13:21] LABS: Glucose,Whole Blood 173 mg/dL (70-110)
--- NOTE | 2023-02-19 13:21 | P.OP ---
Date of Procedure: 02/19/23 Preoperative Diagnosis: 1. Open type IIIB left ankle fracture dislocation 2. BMI 52 3. Chronic lymphedema and cellulitis bilateral lower extremities 4. Coronay artery disease 5. Type 2 diabetes Postoperative Diagnosis: Same Procedure(s) Performed: 1. Operative fixation of left trimalleolar ankle fracture dislocation with hindfoot TTC nail 2. Application of negative pressure incisional wound VAC less than 50 cm, 24- cm wound 3. Application of short leg splint by physician, left ankle Anesthesia: FREDI Surgeon: Mango Reaves Cpo #1: Moni Petersen Estimated Blood Loss (ml): 50 Pathology: none sent Condition: stable Disposition: PACU Indications for Procedure: The patient is a very pleasant 77-year-old male with multiple medical problems including extreme morbid obesity and chronic bilateral lower extremity cellulitis and lymphedema who presented 2 weeks ago with a type IIIB open ankle fracture dislocation. I met with the patient in the emergency department and performed a closed reduction and splint application. Following this we had a long discussion on treatment options including an attempt at salvage versus amputation. The patient wished to proceed with limb salvage and he underwent irrigation and debridement of his open fracture, closure of his wound with application of an incisional wound VAC and application of an ankle spanning external fixator to temporize his fracture and allow for soft tissue swelling to resolve. Following surgery the patient was seen and evaluated by vascular surgery who deemed that the patient had adequate inflow to heal both his open wound and fracture. I again met with the patient in the office setting to discuss definitive treatment options for his ankle. We discussed formal open reduction and internal fixation, the hindfoot nail without preparation of the joint surfaces, and a thin wire frame. Given the patient's extreme morbid obesity and very tenuous soft tissue envelope with chronic lymphedema and cellulitis we both agreed that his best option would be a hindfoot nail. He understands this procedure and the potential limitations and complications. We also discussed that he is still at a very high risk of having an amputation given his soft tissue envelope and the severity of his open wound. He voiced his understanding of this as well. Risks discussed with the patient including but certainly not limited to risks from anesthesia, superficial or deep inf ection, delayed wound healing, nonunion, malunion, symptomatically hardware, hardware failure, image to blood vessels or nerves, need for further surgery and DVT, PE, other medical complications, and possibly loss of life or limb. Description of Procedure: The patient was identified in preoperative holding and the correct left leg was marked with my initials. The patient was then brought back to the operating room. He was positioned on the OR table where general anesthetic and preoperative antibiotics were given. A timeout was performed identifying the correct patient operative extremity and procedure. At this point the ankle spanning external fixator was removed. A bump was placed on the left buttock internally rotating the leg and a ramp was placed under the left leg to facilitate imaging. The right leg was secured to the table with foam egg blue towel and tape. The left leg was then prepped and draped in the standard sterile fashion. Prior to starting surgery timeout was performed again identifying the correct patient, operative extremity, and procedure. A tourniquet was not used during the procedure. I began by taking orthogonal views of the ankle with a large C-arm. The ankle was anatomically reduced. I then made a stab incision over the plantar aspect of the foot and a 3.2 guidepin was placed through the plantar calcaneus using fluoroscopy to verify trajectory and position of the pin. An opening reamer was used to create a path over the guide pin through the calcaneus, talus, and into the distal tibia. This was removed and a long ball-tipped guidewire was placed through the plantar wound up into the tibia. I then sequentially reamed until a 10 mm reamer generated chatter. I then reamed in half millimeter increments up to a size 11.5 mm reamer. A 10 mm x 200 mm retrograde hindfoot nail was dispensed and hooked up to the targeting arm. The ball-tipped guidewire was exchanged for a smooth guide wire and the nail was fully set using fluoroscopy to assess depth of insertion. Position of the guidewire was verified with fluoroscopy and the guidewire was removed. Then using the targeting arm locking screws were placed into the tibia, talus, and calcaneus the stab incisions. The targeting arm was removed and final fluoroscopic images were taken verifying reduction of the ankle mortise and position of the hindfoot nail. All the stab wounds were irrigated and closed with nylon sutures. An incisional wound VAC was placed over the prior traumatic wound, hooked up to seal, and I verified that a good seal was achieved. A well-padded bulky Pickens splint was then placed. The patient was awoken from his anesthetic, transferred from the OR table to a gurney, and brought to recovery having to do procedure well. Moni Petersen PA-C is required as a skilled horticultural nursery assistant due to the complexity of the surgery for patient positioning, basement of drapes, retraction, placement of hardware, closure of wounds, application of dressing and splint. Plan: The patient is to be strictly nonweightbearing on his left leg in a splint. The splint and wound VAC are not to be removed. The patient will receive 2 doses of postoperative IV antibiotics and then I would like him on suppressive oral antibiotics until his traumatic wound heals. He'll need follow-up in the office in 2 weeks for splint removal, wound VAC removal, and nonweightbearing x-rays of the left ankle.
[2023-02-19 13:23] VITALS: BMI 51.6
[2023-02-19] MEDS ORDERED: LOSARTAN 50 MG TAB PO STA (14:10)
[2023-02-19 14:15] LABS: Blood Urea Nitrogen 24.7 mg/dL (9.0-27.0); Carbon Dioxide 22.1 mmol/L (21.6-31.8); Chloride 103 mmol/L (96-109); Glucose 139 mg/dL (70-110); Potassium 4.6 mmol/L (3.5-5.5); Sodium 138 mmol/L (135-145)
--- NOTE | 2023-02-19 16:05 | P.PN ---
Subjective Progress Note Date: 02/19/23 77-year-old gentleman with past medical history significant for diabetes mellitus, hypertension, morbid obesity, hyperlipidemia. Patient was sent then to ER by primary care physician for preoperative evaluation. Patient is scheduled for ankle surgery 02/19. Patient had open left ankle fracture and had an external fixator. He is scheduled for removal of external fixator and open reduction internal fixation of left ankle fracture with orthopedic s/p POD O perative fixation of left trimalleolar ankle fracture dislocation with hindfoot TTC nail Application of negative pressure incisional wound VAC less than 50 cm, 24-cm wound Application of short leg splint by physician, left ankle Objective - Vital Signs Vital signs: Vital Signs Temp 97.9 F 02/19/23 13:45 Pulse 91 02/19/23 15:15 Resp 16 02/19/23 13:20 BP 182/74 02/19/23 15:15 Pulse Ox 98 02/19/23 15:15 FiO2 Intake & Output 02/18/23 02/19/23 02/19/23 18:59 06:59 18:59 Intake Total 500 900 Output Total 650 700 Balance -150 200 Weight 163.293 kg 163.293 kg 163.293 kg Intake: IV 900 Intake, IV Titration 500 Amount Sodium Chloride 0.9% 1, 400 000 ml @ 20 mls/hr IV . Q24H [facility] Rx#:[id number] ceFAZolin 3 gm In Sodium 100 Chloride 0.9% 100 ml @ 200 mls/hr IVPB ONCE PRN Rx#:[id number] Oral 0 Output: Urine 650 650 Estimated Blood Loss 50 - Exam GENERAL: The patient is alert and oriented x3, not in any acute distress. Well developed, well nourished. Obese HEENT: Pupils are round and equally reacting to light. EOMI. No scleral icterus. No conjunctival pallor. Normocephalic, atraumatic. No pharyngeal erythema. No thyromegaly. CARDIOVASCULAR: S1 and S2 present. No murmurs, rubs, or gallops. PULMONARY: Chest is clear to auscultation, no wheezing or crackles. ABDOMEN: Soft, nontender, nondistended, normoactive bowel sounds. No palpable organomegaly. MUSCULOSKELETAL: Bilateral leg edema, left lower extremity band NEUROLOGICAL: Gross neurological examination did not reveal any focal deficits. SKIN: No rashes. - Labs CBC & Chem 7: 02/19/23 07:21 02/19/23 07:21 Labs: Abnormal Lab Results - Last 24 Hours (Table) 02/18/23 02/18/23 02/19/23 Range/Units 17:18 21:03 06:28 RBC (4.40-5.60) X 10*6/uL Hgb (13.0-17.0) d/dL Hct (39.6-50.0) % MCHC (32.0-37.0) d/dL RDW (11.5-14.5) % Plt Count (140-440) X 10*3/uL Anion Gap (4.00-12.00) mmol/L BUN/Creatinine Ratio (12.00-20.00) Ratio Glucose (70-110) mg/dL POC Glucose (mg/dL) 191 H 183 H 154 H (70-110) mg/dL 02/19/23 02/19/23 02/19/23 Range/Units 07:21 07:21 09:10 RBC 3.72 L (4.40-5.60) X 10*6/uL Hgb 10.1 L (13.0-17.0) d/dL Hct 32.5 L (39.6-50.0) % MCHC 31.1 L (32.0-37.0) d/dL RDW 14.7 H (11.5-14.5) % Plt Count 541 H (140-440) X 10*3/uL Anion Gap 12.90 H (4.00-12.00) mmol/L BUN/Creatinine Ratio 24.70 H (12.00-20.00) Ratio Glucose 139 H (70-110) mg/dL POC Glucose (mg/dL) 125 H (70-110) mg/dL 02/19/23 Range/Units 13:19 RBC (4.40-5.60) X 10*6/uL Hgb (13.0-17.0) d/dL Hct (39.6-50.0) % MCHC (32.0-37.0) d/dL RDW (11.5-14.5) % Plt Count (140-440) X 10*3/uL Anion Gap (4.00-12.00) mmol/L BUN/Creatinine Ratio (12.00-20.00) Ratio Glucose (70-110) mg/dL POC Glucose (mg/dL) 173 H (70-110) mg/dL Assessment and Plan Assessment: Assessment and plan * History of mechanical fall with left ankle fracture plan for open reduction internal fixation 02/19 * POD 0 Operative fixation of left trimalleolar ankle fracture dislocation with hindfoot TTC nail * Preoperative medical clearance for surgery COMPLETE * Status post left ankle external fixator in place * Morbid obesity * Obstructive sleep apnea * Hypertension * Hyperlipidemia * Diabetes mellitus * Consult obtained from cardiology, orthopedic * In regards to diabetes mellitus continue patient on Accu-Cheks before meals at bedtime continue patient on correctional insulin * In regards to postoperative care orthopedic team following * In regards to hypertension continue patient on Lasix, Cozaar * *
[2023-02-19] MEDS: ceFAZolin 3 GM in SODIUM CHLORIDE 0.9% 100 ML IVPB SCH (16:23)
[2023-02-19 17:08] LABS: Glucose,Whole Blood 141 mg/dL (70-110)
[2023-02-19 21:08] LABS: Glucose,Whole Blood 200 mg/dL (70-110)
[2023-02-19] MEDS: FENOFIBRATE 160 MG TAB PO SCH (21:38)
[2023-02-19] MEDS: ATORVASTATIN 20 MG TAB PO SCH (21:39)
[2023-02-19] MEDS: SODIUM CHLORIDE 0.9% 1,000 ML IV SCH (21:45)
[2023-02-20] MEDS: ceFAZolin 3 GM in SODIUM CHLORIDE 0.9% 100 ML IVPB SCH (03:18)
[2023-02-20] MEDS: HYDROmorphone 0.5 MG/0.5 ML SYRINGE IVP PRN ×3 (03:26→22:07)
[2023-02-20 06:08] LABS: Glucose,Whole Blood 130 mg/dL (70-110)
[2023-02-20] MEDS: INSULIN ASPART (NovoLOG) 100 UNIT/ML VIAL SQ SCH ×4 (07:06→21:07)
[2023-02-20] MEDS: FUROSEMIDE 40 MG TAB PO SCH (08:40)
[2023-02-20] MEDS: LOSARTAN 50 MG TAB PO SCH (08:41)
[2023-02-20] MEDS: GABAPENTIN 300 MG CAP PO SCH ×3 (08:41→21:06)
[2023-02-20] MEDS: traMADol 50 MG TAB PO SCH ×3 (08:41→21:06)
[2023-02-20] MEDS: DAPAGLIFLOZIN PROPANEDIOL 10 MG TABLET PO SCH (08:41)
[2023-02-20] MEDS: HEPARIN SODIUM,PORCINE 5,000 UNIT/ML 1 ML VIAL SQ SCH ×2 (08:42→21:07)
[2023-02-20] MEDS: PIOGLITAZONE 15 MG TAB PO SCH (08:43)
[2023-02-20 09:11] LABS: HCT 33.4 % (39.6-50.0); HGB 10.1 d/dL (13.0-17.0); MCH 26.9 pg (27.0-32.0); MCHC 30.2 d/dL (32.0-37.0); MCV 88.8 FL (80.0-97.0); Mean Platelet Volume 11.3 FL (9.5-12.2); NRBC Per 100 WBC 0 X 10*3/uL (0.00-0.01); Platelet Count 574 X 10*3/uL (140-440); RBC 3.76 X 10*6/uL (4.40-5.60); RDW 14.9 % (11.5-14.5); WBC 9.79 X 10*3/uL (4.50-10.00)
[2023-02-20 09:20] LABS: Blood Urea Nitrogen 22.5 mg/dL (9.0-27.0); Calcium 8.5 mg/dL (8.7-10.3); Carbon Dioxide 23.8 mmol/L (21.6-31.8); Chloride 103 mmol/L (96-109); Glucose 127 mg/dL (70-110); Potassium 4.6 mmol/L (3.5-5.5); Sodium 137 mmol/L (135-145)
--- NOTE | 2023-02-20 10:08 | P.PN ---
Subjective Progress Note Date: 02/20/23 The patient reports pain in his left ankle but is otherwise doing relatively well. He denies chest pain or shortness of breath. Objective - Vital Signs Vital signs: Vital Signs Temp 98.9 F 02/20/23 07:08 Pulse 85 02/20/23 07:08 Resp 15 02/20/23 07:08 BP 131/70 02/20/23 07:08 Pulse Ox 97 02/20/23 07:08 FiO2 Intake & Output 02/19/23 02/20/23 02/20/23 18:59 06:59 18:59 Intake Total 960 Output Total 700 1000 Balance 260 -1000 Weight 163.293 kg Intake: IV 900 Intake, IV Titration 60 Amount Sodium Chloride 0.9% 1, 60 000 ml @ 20 mls/hr IV . Q24H [facility] Rx#:[id number] Output: Urine 650 1000 Estimated Blood Loss 50 Other: Voiding Method External Catheter - Exam The patient is resting comfortably in bed. His CPAP is in place but he is able to answer questions. A focused exam of the left lower extremity reveals a bulky Pickens splint in place with no drainage. His incisional wound VAC is in place under the splint with a good seal. The tips of his toes are warm and well perf used with brisk capillary refill. - Labs CBC & Chem 7: 02/20/23 06:07 02/20/23 06:07 Labs: Abnormal Lab Results - Last 24 Hours (Table) 02/19/23 02/19/23 02/19/23 Range/Units 07:21 07:21 13:19 RBC 3.72 L (4.40-5.60) X 10*6/uL Hgb 10.1 L (13.0-17.0) d/dL Hct 32.5 L (39.6-50.0) % MCH (27.0-32.0) pg MCHC 31.1 L (32.0-37.0) d/dL RDW 14.7 H (11.5-14.5) % Plt Count 541 H (140-440) X 10*3/uL Anion Gap 12.90 H (4.00-12.00) mmol/L BUN/Creatinine Ratio 24.70 H (12.00-20.00) Ratio Glucose 139 H (70-110) mg/dL POC Glucose (mg/dL) 173 H (70-110) mg/dL Calcium (8.7-10.3) mg/dL 02/19/23 02/19/23 02/20/23 Range/Units 17:06 21:06 06:07 RBC 3.76 L (4.40-5.60) X 10*6/uL Hgb 10.1 L (13.0-17.0) d/dL Hct 33.4 L (39.6-50.0) % MCH 26.9 L (27.0-32.0) pg MCHC 30.2 L (32.0-37.0) d/dL RDW 14.9 H (11.5-14.5) % Plt Count 574 H (140-440) X 10*3/uL Anion Gap (4.00-12.00) mmol/L BUN/Creatinine Ratio (12.00-20.00) Ratio Glucose (70-110) mg/dL POC Glucose (mg/dL) 141 H 200 H (70-110) mg/dL Calcium (8.7-10.3) mg/dL 02/20/23 02/20/23 Range/Units 06:07 06:07 RBC (4.40-5.60) X 10*6/uL Hgb (13.0-17.0) d/dL Hct (39.6-50.0) % MCH (27.0-32.0) pg MCHC (32.0-37.0) d/dL RDW (11.5-14.5) % Plt Count (140-440) X 10*3/uL Anion Gap (4.00-12.00) mmol/L BUN/Creatinine Ratio 25.00 H (12.00-20.00) Ratio Glucose 127 H (70-110) mg/dL POC Glucose (mg/dL) 130 H (70-110) mg/dL Calcium 8.5 L (8.7-10.3) mg/dL Assessment and Plan Assessment: Postoperative day #1 status post left ankle open reduction internal fixation with a hindfoot TTC nail Plan: 1. Strict nonweightbearing left lower extremity 2. Leave splint and incisional wound VAC in place, DO NOT REMOVE. The patient is to be discharged home with his wound VAC and I will personally return it to the hospital. 3. DVT prophylaxis per primary - I'm okay with aspirin after discharge 4. Patient is okay to discharge from orthopedic standpoint and should follow-up in 2 weeks for splint removal and wound check.
[2023-02-20 11:46] LABS: Glucose,Whole Blood 191 mg/dL (70-110)
--- NOTE | 2023-02-20 12:28 | P.PN ---
Subjective HISTORY OF PRESENT ILLNESS: This is a 77-year-old male with a past medical history significant for morbid obesity, hypertension, hyperlipidemia, and diabetes. Patient follows in the office with Dr. Sierra but has not been seen in the office in January 2021. We have been asked to see the patient in consultation for cardiac clearance. The patient was hospitalized at the end of January after sustaining a mechanical fall at home. The patient was found to have an open left ankle fracture dislocation. He was taken to the emergency room and underwent I&D of the left ankle with application of external fixator. He was discharged to subacute rehab. He is scheduled for removal of external fixator and open reduction internal fixation of left trimalleolar fracture tomorrow with Dr. Reaves. Patient examined at the bedside in the emergency room. Patient currently denies chest pain or pressure. He does report having shortness of breath for the past 2 days. He states that he is usually on Lasix but since he was discharged to [facility] on the eminence for the past 2 weeks he has not been receiving this. However, he denies a history of congestive heart failure. He does report having bilateral lower extremity edema over the past couple weeks as well. He states he has been bedbound since his fall on 02/05/2023. The patient states prior to this he was not very active. He states that he uses a walker normally to get around. He believes he would have been able to climb a flight of stairs or walk one block without getting short of breath or having chest pain. The patient denies a history of coronary artery disease. He states he has never underwent a cardiac catheterization in the past. * EKG reveals sinus mechanism with no signs of acute ischemia * Chest xray chronic changes without evidence for acute process * Laboratory data: WBC 8.7. Hemoglobin 11.0. Platelet count 460. Sodium 134. Potassium 4.6. BUN 28. Creatinine 0.89 * Current home cardiac medications include Lipitor 20 mg at night, losartan 100 mg daily, and aspirin 81 mg daily * Most recent echocardiogram obtained in March 2017 revealed normal ejection fraction with moderate LVH * Patient underwent a dobutamine stress echocardiogram in December 2020 which was negative for ischemia 02/19/2023 Patient examined this morning at the bedside. Patient is laying comfortably in bed. He denies any chest pain or pressure. He currently denies shortness of breath. Patient's vital signs are stable. Patient is scheduled for surgery today with orthopedics. 02/20/2023 Patient examined this morning at the bedside. Patient is status post open fixation of left trimalleolar ankle fracture dislocation with hindfoot TTC nail with orthopedics for his left ankle fracture. Patient denies chest pain or pressure. He denies shortness of breath. Vital signs are stable. PHYSICAL EXAM: VITAL SIGNS: Reviewed. GENERAL: Well-developed in no acute distress. HEENT: Head is normocephalic. Pupils are equal, round. Sclerae anicteric. Mucous membranes of the mouth are moist. Neck supple. No JVD or thyromegaly LUNGS: Respirations even and unlabored. Lungs essentially clear to auscultation bilaterally-patient unable to sit up to listen to lungs posteriorly HEART: Regular rate and rhythm. S1 and S2 heard. + systolic murmur. ABDOMEN: Soft. Nondistended. Nontender. EXTREMITIES: Normal range of motion. No clubbing or cyanosis. Peripheral pulses intact. Bilateral lower extremity edema. Left lower extremity with splint noted. NEUROLOGIC: Awake and alert. Oriented x 3. ASSESSMENT: Preoperative clearance Recent mechanical fall with left ankle fracture dislocation Status post I&D of left ankle with application of external fixator Hypertension Hyperlipidemia Diabetes Obstructive sleep apnea Questionable history of congestive heart failure, patient on Lasix outpatient Immobility, patient currently bedbound due to ankle fracture Morbid obesity: BMI 51.7 PLAN: Continue current cardiac medications Patient is stable from a cardiac standpoint with no further inpatient recommendations We will sign off. Please reconsult if needed. Nurse practitioner note has been reviewed by physician. Signing provider agrees with the documented findings, assessment, and plan of care. Objective - Vital Signs Vital signs: Vital Signs Temp 98.9 F 02/20/23 07:08 Pulse 85 02/20/23 07:08 Resp 15 02/20/23 07:08 BP 131/70 02/20/23 07:08 Pulse Ox 97 02/20/23 07:08 FiO2 Intake & Output 02/19/23 02/20/23 02/20/23 18:59 06:59 18:59 Intake Total 960 Output Total 700 1000 Balance 260 -1000 Weight 163.293 kg 163.293 kg Intake: IV 900 Intake, IV Titration 60 Amount Sodium Chloride 0.9% 1, 60 000 ml @ 20 mls/hr IV . Q24H [facility] Rx#:[id number] Output: Urine 650 1000 Estimated Blood Loss 50 Other: Voiding Method External Catheter - Labs CBC & Chem 7: 02/20/23 06:07 02/20/23 06:07 Labs: Abnormal Lab Results - Last 24 Hours (Table) 02/19/23 02/19/23 02/19/23 Range/Units 07:21 13:19 17:06 RBC (4.40-5.60) X 10*6/uL Hgb (13.0-17.0) d/dL Hct (39.6-50.0) % MCH (27.0-32.0) pg MCHC (32.0-37.0) d/dL RDW (11.5-14.5) % Plt Count (140-440) X 10*3/uL Anion Gap 12.90 H (4.00-12.00) mmol/L BUN/Creatinine Ratio 24.70 H (12.00-20.00) Ratio Glucose 139 H (70-110) mg/dL POC Glucose (mg/dL) 173 H 141 H (70-110) mg/dL Calcium (8.7-10.3) mg/dL 02/19/23 02/20/23 02/20/23 Range/Units 21:06 06:07 06:07 RBC 3.76 L (4.40-5.60) X 10*6/uL Hgb 10.1 L (13.0-17.0) d/dL Hct 33.4 L (39.6-50.0) % MCH 26.9 L (27.0-32.0) pg MCHC 30.2 L (32.0-37.0) d/dL RDW 14.9 H (11.5-14.5) % Plt Count 574 H (140-440) X 10*3/uL Anion Gap (4.00-12.00) mmol/L BUN/Creatinine Ratio 25.00 H (12.00-20.00) Ratio Glucose 127 H (70-110) mg/dL POC Glucose (mg/dL) 200 H (70-110) mg/dL Calcium 8.5 L (8.7-10.3) mg/dL 02/20/23 02/20/23 Range/Units 06:07 11:44 RBC (4.40-5.60) X 10*6/uL Hgb (13.0-17.0) d/dL Hct (39.6-50.0) % MCH (27.0-32.0) pg MCHC (32.0-37.0) d/dL RDW (11.5-14.5) % Plt Count (140-440) X 10*3/uL Anion Gap (4.00-12.00) mmol/L BUN/Creatinine Ratio (12.00-20.00) Ratio Glucose (70-110) mg/dL POC Glucose (mg/dL) 130 H 191 H (70-110) mg/dL Calcium (8.7-10.3) mg/dL
--- NOTE | 2023-02-20 14:02 | P.PN ---
Subjective Progress Note Date: 02/20/23 77-year-old gentleman with past medical history significant for diabetes mellitus, hypertension, morbid obesity, hyperlipidemia. Patient was sent then to ER by primary care physician for preoperative evaluation. Patient is scheduled for ankle surgery 02/19. Patient had open left ankle fracture and had an external fixator. He is scheduled for removal of external fixator and open reduction internal fixation of left ankle fracture with orthopedic s/p POD O perative fixation of left trimalleolar ankle fracture dislocation with hindfoot TTC nail Application of negative pressure incisional wound VAC less than 50 cm, 24-cm wound Application of short leg splint by physician, left ankle 02/20> postoperative day one, left leg pain is under control. Electrolytes and blood glucose reviewed. Will need to work with physical therapy Objective - Vital Signs Vital signs: Vital Signs Temp 98.9 F 02/20/23 07:08 Pulse 85 02/20/23 07:08 Resp 15 02/20/23 07:08 BP 131/70 02/20/23 07:08 Pulse Ox 97 02/20/23 07:08 FiO2 Intake & Output 02/19/23 02/20/23 02/20/23 18:59 06:59 18:59 Intake Total 960 Output Total 700 1000 Balance 260 -1000 Weight 163.293 kg 163.293 kg Intake: IV 900 Intake, IV Titration 60 Amount Sodium Chloride 0.9% 1, 60 000 ml @ 20 mls/hr IV . Q24H [facility] Rx#:[id number] Output: Urine 650 1000 Estimated Blood Loss 50 Other: Voiding Method External Catheter - Exam GENERAL: The patient is alert and oriented x3, not in any acute distress. Well d eveloped, well nourished. Obese HEENT: Pupils are round and equally reacting to light. EOMI. No scleral icterus. No conjunctival pallor. Normocephalic, atraumatic. No pharyngeal erythema. No thyromegaly. CARDIOVASCULAR: S1 and S2 present. No murmurs, rubs, or gallops. PULMONARY: Chest is clear to auscultation, no wheezing or crackles. ABDOMEN: Soft, nontender, nondistended, normoactive bowel sounds. No palpable organomegaly. MUSCULOSKELETAL: Bilateral leg edema, left lower extremity band, able to move toes left lower extremity NEUROLOGICAL: Gross neurological examination did not reveal any focal deficits. SKIN: No rashes. - Labs CBC & Chem 7: 02/20/23 06:07 02/20/23 06:07 Labs: Abnormal Lab Results - Last 24 Hours (Table) 02/19/23 02/19/23 02/19/23 Range/Units 07:21 17:06 21:06 RBC (4.40-5.60) X 10*6/uL Hgb (13.0-17.0) d/dL Hct (39.6-50.0) % MCH (27.0-32.0) pg MCHC (32.0-37.0) d/dL RDW (11.5-14.5) % Plt Count (140-440) X 10*3/uL Anion Gap 12.90 H (4.00-12.00) mmol/L BUN/Creatinine Ratio 24.70 H (12.00-20.00) Ratio Glucose 139 H (70-110) mg/dL POC Glucose (mg/dL) 141 H 200 H (70-110) mg/dL Calcium (8.7-10.3) mg/dL 02/20/23 02/20/23 02/20/23 Range/Units 06:07 06:07 06:07 RBC 3.76 L (4.40-5.60) X 10*6/uL Hgb 10.1 L (13.0-17.0) d/dL Hct 33.4 L (39.6-50.0) % MCH 26.9 L (27.0-32.0) pg MCHC 30.2 L (32.0-37.0) d/dL RDW 14.9 H (11.5-14.5) % Plt Count 574 H (140-440) X 10*3/uL Anion Gap (4.00-12.00) mmol/L BUN/Creatinine Ratio 25.00 H (12.00-20.00) Ratio Glucose 127 H (70-110) mg/dL POC Glucose (mg/dL) 130 H (70-110) mg/dL Calcium 8.5 L (8.7-10.3) mg/dL 02/20/23 Range/Units 11:44 RBC (4.40-5.60) X 10*6/uL Hgb (13.0-17.0) d/dL Hct (39.6-50.0) % MCH (27.0-32.0) pg MCHC (32.0-37.0) d/dL RDW (11.5-14.5) % Plt Count (140-440) X 10*3/uL Anion Gap (4.00-12.00) mmol/L BUN/Creatinine Ratio (12.00-20.00) Ratio Glucose (70-110) mg/dL POC Glucose (mg/dL) 191 H (70-110) mg/dL Calcium (8.7-10.3) mg/dL Assessment and Plan Assessment: Assessment and plan * History of mechanical fall with left ankle fracture plan for open reduction internal fixation 02/19 * POD 1 Operative fixation of left trimalleolar ankle fracture dislocation with hindfoot TTC nail * Preoperative medical clearance for surgery COMPLETE * Status post left ankle external fixator in place * Morbid obesity * Obstructive sleep apnea * Hypertension * Hyperlipidemia * Diabetes mellitus * Consult obtained from cardiology, orthopedic * In regards to diabetes mellitus continue patient on Accu-Cheks before meals at bedtime continue patient on correctional insulin, continue Actos, for Shiga * In regards to postoperative care orthopedic team following * In regards to hypertension continue patient on Lasix, Cozaar * In regards to obstructive sleep apnea uses CPAP * Patient will need to work with physical therapy postoperatively to be discharged to subacute rehab * Patient on heparin for DVT prophylaxis
[2023-02-20] MEDS: SODIUM CHLORIDE 0.9% 1,000 ML IV SCH (15:27)
[2023-02-20 16:52] LABS: Glucose,Whole Blood 222 mg/dL (70-110)
[2023-02-20 20:50] LABS: Glucose,Whole Blood 212 mg/dL (70-110)
[2023-02-20] MEDS: ATORVASTATIN 20 MG TAB PO SCH (21:06)
[2023-02-20] MEDS: FENOFIBRATE 160 MG TAB PO SCH (21:07)
[2023-02-21] MEDS: HYDROmorphone 0.5 MG/0.5 ML SYRINGE IVP PRN ×5 (03:31→21:04)
[2023-02-21 05:54] LABS: Glucose,Whole Blood 173 mg/dL (70-110)
[2023-02-21] MEDS: INSULIN ASPART (NovoLOG) 100 UNIT/ML VIAL SQ SCH ×4 (06:46→22:05)
[2023-02-21] MEDS: PIOGLITAZONE 15 MG TAB PO SCH (08:08)
[2023-02-21] MEDS: LOSARTAN 50 MG TAB PO SCH (08:08)
[2023-02-21] MEDS: FUROSEMIDE 40 MG TAB PO SCH (08:09)
[2023-02-21] MEDS: DAPAGLIFLOZIN PROPANEDIOL 10 MG TABLET PO SCH (08:09)
[2023-02-21] MEDS: traMADol 50 MG TAB PO SCH ×3 (08:09→22:04)
[2023-02-21] MEDS: HEPARIN SODIUM,PORCINE 5,000 UNIT/ML 1 ML VIAL SQ SCH ×2 (08:09→22:03)
[2023-02-21] MEDS: GABAPENTIN 300 MG CAP PO SCH ×3 (08:09→22:03)
[2023-02-21 11:38] LABS: Glucose,Whole Blood 212 mg/dL (70-110)
[2023-02-21] MEDS: SODIUM CHLORIDE 0.9% 1,000 ML IV SCH (12:11)
--- NOTE | 2023-02-21 13:15 | P.PN ---
Subjective Progress Note Date: 02/21/23 77-year-old gentleman with past medical history significant for diabetes mellitus, hypertension, morbid obesity, hyperlipidemia. Patient was sent then to ER by primary care physician for preoperative evaluation. Patient is scheduled for ankle surgery 02/19. Patient had open left ankle fracture and had an external fixator. He is scheduled for removal of external fixator and open reduction internal fixation of left ankle fracture with orthopedic s/p POD O perative fixation of left trimalleolar ankle fracture dislocation with hindfoot TTC nail Application of negative pressure incisional wound VAC less than 50 cm, 24-cm wound Application of short leg splint by physician, left ankle 02/20> postoperative day one, left leg pain is under control. Electrolytes and blood glucose reviewed. Will need to work with physical therapy 02/21> patient seen postoperative day 2, wound VAC in place, blood work pending at this time. Will need to be discharged to rehab eventually once increased ambulation Objective - Vital Signs Vital signs: Vital Signs Temp 98.9 F 02/21/23 07:28 Pulse 72 02/21/23 07:28 Resp 16 02/21/23 07:28 BP 133/71 02/21/23 07:28 Pulse Ox 95 02/21/23 07:28 FiO2 Intake & Output 02/20/23 02/21/23 02/21/23 18:59 06:59 18:59 Output Total 2400 1400 Balance -2400 -1400 Weight 163.293 kg Output: Urine 2400 1400 Other: Voiding Method External Catheter External Catheter - Exam GENERAL: The patient is alert and oriented x3, not in any acute distress. Well developed, well nourished. Obese HEENT: Pupils are round and equally reacting to light. EOMI. No scleral icterus. No conjunctival pallor. Normocephalic, atraumatic. No pharyngeal erythema. No thyromegaly. CARDIOVASCULAR: S1 and S2 present. No murmurs, rubs, or gallops. PULMONARY: Chest is clear to auscultation, no wheezing or crackles. ABDOMEN: Soft, nontender, nondistended, normoactive bowel sounds. No palpable organomegaly. MUSCULOSKELETAL: Bilateral leg edema, left lower extremity bandaged post op able to move toes left lower extremity NEUROLOGICAL: Gross neurological examination did not reveal any focal deficits. SKIN: No rashes. - Labs CBC & Chem 7: 02/20/23 06:07 02/20/23 06:07 Labs: Abnormal Lab Results - Last 24 Hours (Table) 02/20/23 02/20/23 02/21/23 Range/Units 16:50 20:49 05:53 POC Glucose (mg/dL) 222 H 212 H 173 H (70-110) mg/dL 02/21/23 Range/Units 11:36 POC Glucose (mg/dL) 212 H (70-110) mg/dL Assessment and Plan Assessment: Assessment and plan * History of mechanical fall with left ankle fracture plan for open reduction internal fixation 02/19 * POD 1 Operative fixation of left trimalleolar ankle fracture dislocation with hindfoot TTC nail * Preoperative medical clearance for surgery COMPLETE * Status post left ankle external fixator in place * Morbid obesity * Obstructive sleep apnea * Hypertension * Hyperlipidemia * Diabetes mellitus * Consult obtained from cardiology, orthopedic * In regards to diabetes mellitus continue patient on Accu-Cheks before meals at bedtime continue patient on correctional insulin, continue Actos, farxiga * In regards to postoperative care orthopedic team following * In regards to hypertension continue patient on Lasix, Cozaar * In regards to obstructive sleep apnea uses CPAP * Patient will need to work with physical therapy postoperatively to be discharged to subacute rehab * Patient on heparin for DVT prophylaxis
[2023-02-21 13:44] LABS: HCT 31.7 % (39.0-53.0); HGB 10.3 gm/dL (13.0-17.5); Hypochromasia Moderate; MCH 28.4 pg (25.0-35.0); MCHC 32.4 g/dL (31.0-37.0); MCV 87.7 fL (80.0-100.0); Mean Platelet Volume 9.1; Platelet Count 464 k/uL (150-450); RBC 3.61 m/uL (4.30-5.90); RDW 14.3 % (11.5-15.5); WBC 7.8 k/uL (3.8-10.6)
--- NOTE | 2023-02-21 13:51 | P.PN ---
Subjective Progress Note Date: 02/21/23 This patient is a 77-year-old male who is status-post left ankle open reduction internal fixation with a hindfoot TTC nail on 02/19/23. Today is post-operative day #2. Patient is examined bedside this morning. He states pain is well-controlled at this time. No new complaints. Objective - Vital Signs Vital signs: Vital Signs Temp 98.9 F 02/21/23 07:28 Pulse 72 02/21/23 07:28 Resp 16 02/21/23 07:28 BP 133/71 02/21/23 07:28 Pulse Ox 95 02/21/23 07:28 FiO2 Intake & Output 02/20/23 02/21/23 02/21/23 18:59 06:59 18:59 Output Total 2400 1400 Balance -2400 -1400 Weight 163.293 kg Output: Urine 2400 1400 Other: Voiding Method External Catheter External Catheter - Exam On examination, the patient is sitting up in bed in no apparent distress. He is alert and orientated x3. On inspection of the left ankle, there is a clean, dry intact bulky [place] splint in place. Visible portion of the toes warm and well perfused. Wound vac has good seal at this time. - Labs CBC & Chem 7: 02/21/23 12:53 02/20/23 06:07 Labs: Abnormal Lab Results - Last 24 Hours (Table) 02/20/23 02/20/23 02/21/23 Range/Units 16:50 20:49 05:53 POC Glucose (mg/dL) 222 H 212 H 173 H (70-110) mg/dL 02/21/23 Range/Units 11:36 POC Glucose (mg/dL) 212 H (70-110) mg/dL Assessment and Plan Assessment: Status-post left ankle open reduction internal fixation with a hindfoot TTC nail on 02/19/23. Post-op day #2. Plan: - Strict nonweightbearing operative extremity. Keep splint in place. Keep wo und VAC in place. Do not remove. - Keep operative extremity elevated. - Pain medication as needed. - DVT prophylaxis per admitting team. - We will continue to follow patient as he remains inpatient. Ok for discharge from orthopedic standpoint.
[2023-02-21 16:29] LABS: Glucose,Whole Blood 228 mg/dL (70-110)
[2023-02-21 21:47] LABS: Glucose,Whole Blood 250 mg/dL (70-110)
[2023-02-21] MEDS: FENOFIBRATE 160 MG TAB PO SCH (22:04)
[2023-02-21] MEDS: ATORVASTATIN 20 MG TAB PO SCH (22:04)
[2023-02-22 05:47] LABS: Glucose,Whole Blood 183 mg/dL (70-110)
[2023-02-22] MEDS: INSULIN ASPART (NovoLOG) 100 UNIT/ML VIAL SQ SCH ×4 (06:24→21:34)
[2023-02-22] MEDS: HYDROmorphone 0.5 MG/0.5 ML SYRINGE IVP PRN (06:25)
[2023-02-22] MEDS: FUROSEMIDE 40 MG TAB PO SCH (08:29)
[2023-02-22] MEDS: DAPAGLIFLOZIN PROPANEDIOL 10 MG TABLET PO SCH (08:29)
[2023-02-22] MEDS: GABAPENTIN 300 MG CAP PO SCH ×3 (08:29→21:33)
[2023-02-22] MEDS: traMADol 50 MG TAB PO SCH ×3 (08:29→21:33)
[2023-02-22] MEDS: LOSARTAN 50 MG TAB PO SCH (08:30)
[2023-02-22] MEDS: HEPARIN SODIUM,PORCINE 5,000 UNIT/ML 1 ML VIAL SQ SCH ×2 (08:30→21:34)
[2023-02-22] MEDS: PIOGLITAZONE 15 MG TAB PO SCH (08:30)
[2023-02-22 08:53] LABS: HCT 33.9 % (39.0-53.0); HGB 10.9 gm/dL (13.0-17.5); Hypochromasia Slight; MCH 27.6 pg (25.0-35.0); MCHC 32.1 g/dL (31.0-37.0); MCV 86.1 fL (80.0-100.0); Mean Platelet Volume 10.1; Platelet Count 557 k/uL (150-450); RBC 3.94 m/uL (4.30-5.90); RDW 14.5 % (11.5-15.5); WBC 23.2 k/uL (3.8-10.6)
[2023-02-22 09:12] LABS: African American GFR (CKD) >90 (>60 ml/min/1.73 sqM); Anion Gap 9 mmol/L; Blood Urea Nitrogen 40 mg/dL (9-20); Calcium 8.4 mg/dL (8.4-10.2); Carbon Dioxide 24 mmol/L (22-30); Chloride 100 mmol/L (98-107); Glucose 208 mg/dL (74-99); Non-African American GFR(CKD) 80 (>60 ml/min/1.73 sqM); Sodium 133 mmol/L (137-145)
[2023-02-22 09:17] LABS: Potassium 5.1 mmol/L (3.5-5.1)
--- NOTE | 2023-02-22 10:37 | CA ---
Transthoracic Echo Report Name: Zeferino Briones Age: 77 Gender: M : 1945 Exam Date: 02/22/2023 07:56 Exam Location: [place] [facility] Ht (in): 70 Wt (lb): 360 Ordering Physician: Keke Carlin Attending/Referring Phys: Enrollment Representative Natalie Austin RDCS Procedure CPT: Indications: LV function Cardiac Hx: Technical Quality: Technically difficult study Contrast 1: Total Dose (mL): Contrast 2: Total Dose (mL): MEASUREMENTS (Male / Female) Normal Values 2D ECHO LV Diastolic Diameter PLAX 4.6 cm 4.2 - 5.9 / 3.9 - 5.3 cm LV Systolic Diameter PLAX 2.9 cm IVS Diastolic Thickness 1.4 cm 0.6 - 1.0 / 0.6 - 0.9 cm LVPW Diastolic Thickness 1.4 cm 0.6 - 1.0 / 0.6 - 0.9 cm LV Relative Wall Thickness 0.6 RV Internal Dim ED PLAX 3.4 cm LA Systolic Diameter LX 3.7 cm 3.0 - 4.0 / 2.7 - 3.8 cm LV Diastolic Volume MOD BP 62.5 cm??? 67 - 155 / 56 - 104 cm??? LV Systolic Volume MOD BP 25.9 cm??? 22 - 58 / 19 - 49 cm??? LV Ejection Fraction MOD BP 58.5 % >= 55 % LV Cardiac Index MOD BP 1171.1 cm???/min???m??? LV Diastolic Volume MOD 4C 74.0 cm??? LV Systolic Volume MOD 4C 29.2 cm??? LV Ejection Fraction MOD 4C 60.5 % LV Cardiac Index MOD 4C 1436.7 cm???/min???m??? LV Diastolic Length 4C 7.7 cm LV Systolic Length 4C 7.7 cm LV Diastolic Volume MOD 2C 49.7 cm??? LV Systolic Volume MOD 2C 18.6 cm??? LV Ejection Fraction MOD 2C 62.6 % LV Cardiac Index MOD 2C 998.1 cm???/min???m??? LV Diastolic Length 2C 7.2 cm LV Systolic Length 2C 6.0 cm LA Volume 70.6 cm??? 18 - 58 / 22 - 52 cm??? M-MODE Aortic Root Diameter MM 3.1 cm MV E Point Septal Separation 2.7 cm AV Cusp Separation MM 2.0 cm DOPPLER AV Peak Velocity 251.8 cm/s AV Peak Gradient 25.4 mmHg AV Mean Velocity 168.4 cm/s AV Mean Gradient 13.7 mmHg AV Velocity Time Integral 42.6 cm LVOT Peak Velocity 193.4 cm/s LVOT Peak Gradient 15.0 mmHg MV Peak Velocity 211.8 cm/s MV Peak Gradient 17.9 mmHg MV Mean Velocity 99.5 cm/s MV Mean Gradient 5.5 mmHg MV Velocity Time Integral 41.8 cm MV Area PHT 6.1 cm??? Mitral E Point Velocity 120.7 cm/s Mitral A Point Velocity 81.3 cm/s Mitral E to A Ratio 1.5 MV Deceleration Time 124.2 ms MV E' Velocity 8.9 cm/s Mitral E to MV E' Ratio 13.5 TR Peak Velocity 185.3 cm/s TR Peak Gradient 13.7 mmHg Right Ventricular Systolic Press 18.7 mmHg FINDINGS Left Ventricle Left ventricular ejection fraction is estimated at 55-60 %. Left ventricular cavity size normal. Moderate concentric left ventricular hypertrophy. Right Ventricle Mild right ventricular dilatation. Right ventricular systolic pressure within normal limits. Right Atrium Normal right atrial size. Left Atrium Moderately increased left atrial volume. Mildly increased left atrial area. Mitral Valve Mitral valve not well visualized. MV max gradient 18 and mean 6 mm/Hg Aortic Valve Aortic valve sclerosis. Mild aortic stenosis with a peak gradient of 25 mmHg and a mean gradient of 14 mmHg. Tricuspid Valve Tricuspid valve not well visualized. Mild tricuspid regurgitation. Pulmonic Valve Pulmonic valve not well visualized. Pericardium Normal pericardium. No pericardial effusion. Aorta Normal size aortic root and proximal ascending aorta. CONCLUSIONS Normal LV size and systolic function. Valve structures are not well seen. This is a technically difficult study. There appears to be a gradient across aortic and mitral valve of a mild degree. Mitral valve is poorly seen. No significant pulmonary hypertension no pericardial effusion. To better visualize valvular structures a transesophageal echo is advised. Previewed by: Dr. Jose F Qiu MD (Electronically Signed) Final Date: 22 February 2023 10:36
[2023-02-22 11:21] LABS: Glucose,Whole Blood 311 mg/dL (70-110)
--- NOTE | 2023-02-22 15:47 | P.PN ---
Subjective Progress Note Date: 02/22/23 77-year-old gentleman with past medical history significant for diabetes mellitus, hypertension, morbid obesity, hyperlipidemia. Patient was sent then to ER by primary care physician for preoperative evaluation. Patient is scheduled for ankle surgery 02/19. Patient had open left ankle fracture and had an external fixator. He is scheduled for removal of external fixator and open reduction internal fixation of left ankle fracture with orthopedic s/p POD O perative fixation of left trimalleolar ankle fracture dislocation with hindfoot TTC nail Application of negative pressure incisional wound VAC less than 50 cm, 24-cm wound Application of short leg splint by physician, left ankle 02/20> postoperative day one, left leg pain is under control. Electrolytes and blood glucose reviewed. Will need to work with physical therapy 02/21> patient seen postoperative day 2, wound VAC in place, blood work pending at this time. Will need to be discharged to rehab eventually once increased ambulation 02/22. Patient seen and examined. Patient was spiking fevers overnight, REVIEW OF SYSTEMS: CONSTITUTIONAL: As mentioned above CARDIOVASCULAR: No chest pain, no palpitations, no syncope. PULMONARY: No shortness of breath, no cough, GASTROINTESTINAL: No diarrhea, no nausea, no vomiting, no abdominal pain. NEUROLOGICAL: No headaches, no weakness, PHYSICAL EXAMINATION: GENERAL: The patient is alert and oriented x3, not in any acute distress. Well developed, well nourished. HEENT: Pupils are round and equally reacting to light. EOMI. No scleral icterus. No conjunctival pallor. Normocephalic, atraumatic. No pharyngeal erythema. No thyromegaly. CARDIOVASCULAR: S1 and S2 present. No murmurs, rubs, or gallops. PULMONARY: Chest is clear to auscultation, no wheezing or crackles. ABDOMEN: Soft, nontender, nondistended, normoactive bowel sounds. No palpable organomegaly. MUSCULOSKELETAL: Left extremity bandaged seen, wound VAC in place NEUROLOGICAL: Gross neurological examination did not reveal any focal deficits. SKIN: No rashes. Assessment and plan History of mechanical fall with left ankle fracture plan for open reduction internal fixation 02/19 * Operative fixation of left trimalleolar ankle fracture dislocation with hindfoot TTC nail * Preoperative medical clearance for surgery COMPLETE * Status post left ankle external fixator in place * Morbid obesity * Obstructive sleep apnea * Hypertension * Hyperlipidemia * Diabetes mellitus * Consult obtained from cardiology, orthopedic * Because of fevers, ordered blood cultures, ordered nystatin, consult ID * In regards to diabetes mellitus continue patient on Accu-Cheks before meals at bedtime continue patient on correctional insulin, continue Actos, farxiga * In regards to postoperative care orthopedic team following * In regards to hypertension continue patient on Lasix, Cozaar * In regards to obstructive sleep apnea uses CPAP * Patient will need to work with physical therapy postoperatively to be d ischarged to subacute rehab * Patient on heparin for DVT prophylaxis Labs and medication were reviewed.. Continue same treatment. Continue with symptomatic treatment. Resume home medication. Monitor labs and vitals. DVT and GI prophylaxis. Further recommendations as per clinical course of the patient Dictation was produced using [employer] dictation software. please excuse any grammatical, word or spelling errors. Objective - Vital Signs Vital signs: Vital Signs Temp 98.9 F 02/22/23 07:33 Pulse 80 02/22/23 07:33 Resp 19 02/22/23 07:33 BP 146/75 02/22/23 07:33 Pulse Ox 96 02/22/23 07:33 FiO2 Intake & Output 02/21/23 02/22/23 02/22/23 18:59 06:59 18:59 Intake Total 240 Output Total 1200 2000 950 Balance -960 -2000 -950 Intake: Intake, IV Titration 240 Amount Sodium Chloride 0.9% 1, 240 000 ml @ 20 mls/hr IV . Q24H [facility] Rx#:[id number] Output: Urine 1200 2000 950 Other: Voiding Method External Catheter External Catheter Incontinent # Voids 600 - Labs CBC & Chem 7: 02/22/23 07:55 02/22/23 07:55 Labs: Abnormal Lab Results - Last 24 Hours (Table) 02/21/23 02/21/23 02/21/23 Range/Units 12:53 16:27 21:46 WBC (3.8-10.6) k/uL RBC 3.61 L (4.30-5.90) m/uL Hgb 10.3 L (13.0-17.5) gm/dL Hct 31.7 L (39.0-53.0) % Plt Count 464 H (150-450) k/uL Sodium (137-145) mmol/L BUN (9-20) mg/dL Glucose (74-99) mg/dL POC Glucose (mg/dL) 228 H 250 H (70-110) mg/dL 02/22/23 02/22/23 02/22/23 Range/Units 05:46 07:55 07:55 WBC 23.2 H (3.8-10.6) k/uL RBC 3.94 L (4.30-5.90) m/uL Hgb 10.9 L (13.0-17.5) gm/dL Hct 33.9 L (39.0-53.0) % Plt Count 557 H (150-450) k/uL Sodium 133 L (137-145) mmol/L BUN 40 H (9-20) mg/dL Glucose 208 H (74-99) mg/dL POC Glucose (mg/dL) 183 H (70-110) mg/dL 02/22/23 Range/Units 11:19 WBC (3.8-10.6) k/uL RBC (4.30-5.90) m/uL Hgb (13.0-17.5) gm/dL Hct (39.0-53.0) % Plt Count (150-450) k/uL Sodium (137-145) mmol/L BUN (9-20) mg/dL Glucose (74-99) mg/dL POC Glucose (mg/dL) 311 H (70-110) mg/dL
[2023-02-22 16:36] LABS: Glucose,Whole Blood 256 mg/dL (70-110)
[2023-02-22] MEDS: NYSTATIN 100,000 UNIT/GM POWD 15 GM TOPICAL SCH ×2 (17:23→21:34)
[2023-02-22] MEDS: SODIUM CHLORIDE 0.9% 1,000 ML IV SCH (17:53)
--- NOTE | 2023-02-22 20:38 | P.CONS ---
History of Present Illness - Reason for Consult Consult date: 02/22/23 Elevated WBC, temperature Requesting physician: Alfred Lau - Chief Complaint Fever 1 day - History of Present Illness Patient is a 77-year male with a past medical history significant for diabetes mellitus hypertension hyperlipidemia renal insufficiency patient did have a fall in the shower with left ankle wound fracture on 02/05/2023, patient underwent I&D application of external fixator and wound closure with a wound VAC on 02/05/2023 with left open ankle fracture dislocation brought back to the hospital for operative repair in this patient who did have removal of the external fixator and ORIF left ankle fracture that was completed on 02/19/2023, patient on presentation to the hospital was afebrile he did spike a fever last night of 102.1 F patient was tachycardic not hypotensive or hypoxic did have white to 23,000 creatinine is normal blood cultures obtained infectious he was consulted for further management of antibiotic therapy patient be complaining of more swelling and redness especially to the right lower extremity has been complaining of pain to be mostly been aching to sharp 6-7 out of 10 no radiation currently no pinpoint wound or any drainage denies any worsening pain to the left ankle fracture repair area, no chest pain or shortness of breath or cough currently on room air no nausea vomiting no abdominal pain no diarrhea no urinary symptoms Past Medical History Past Medical History: Diabetes Mellitus, GERD/Reflux, Hyperlipidemia, Hypertension, Osteoarthritis (OA), Renal Disease, Sleep Apnea/CPAP/BIPAP Additional Past Medical History / Comment(s): 02/05/23 Fall in shower with L ankle wound/fracture and had surgery-ORIF with I&D and wound vac placed. Per ANGUS Mishra RN caring for patient ANGUS was instructed not to touch wound vac so have no supplies to send. She states pt has a small open wound on scrotum and coccyx. IDDM type II, neuropathy legs and feet, bedbound/ander lift, CKD stage III, nephrolithiasis, DALTON with Cpap mask., L shoulder pain/torn rotator cuff/limited ROM, polyarthritis. History of Any Multi-Drug Resistant Organisms: MRSA Year Discovered:: 04/21/16 MDRO Source:: ABDOMEN Additional Past Surgical History / Comment(s): KIDNEY STONE REMOVED and ureteral stent placed, deviated septum surgery, flex sigmoidoscopy several times, colonoscopy, dental surgery, cataract surgery bilaterally. Past Anesthesia/Blood Transfusion Reactions: No Reported Reaction Past Psychological History: Depression Additional Psychological History / Comment(s): Currently at [facility], bedbound for rehab. 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 Smoking Status: Never smoker Past Alcohol Use History: None Reported Additional Past Alcohol Use History / Comment(s): Patient currently lives alone. There is a dog in the home. Past Drug Use History: None Reported Additional Drug Use History / Comment(s): quit drug use in 1998. pt denies any iv drug abuse. - Past Family History Father Additional Family Medical History / Comment(s): brain anuerysm Mother Family Medical History: Cancer, Deep Vein Thrombosis (DVT) Medications and Allergies Home Medications Medication Instructions Recorded Confirmed Type Fenofibrate,Micronized 200 mg PO HS@209906/06/18 02/18/23 History [Fenofibrate] Atorvastatin [Lipitor] 20 mg PO HS@209902/05/23 02/18/23 History Dapagliflozin Propanediol [Farxiga] 10 mg PO DAILY@89902/05/23 02/18/23 History Insulin Glargine,Hum.rec.anlog 25 units SQ DIRECTED 02/05/23 02/18/23 History [Lantus Solostar Pen] Latanoprost [Latanoprost 0.005%] 1 drop BOTH EYES HS@209902/05/23 02/18/23 History Losartan Potassium 100 mg PO DAILY@89902/05/23 02/18/23 History Pioglitazone [Actos] 15 mg PO DAILY@89902/05/23 02/18/23 History Semaglutide [Ozempic] 2 mg SQ MO@89902/05/23 02/18/23 History metFORMIN HCL 1,000 mg PO BID@899,209902/05/23 02/18/23 History Acetaminophen Tab [Tylenol] 650 mg PO Q4HR PRN tab 02/08/23 02/18/23 Rx HYDROcodone/APAP 5-325MG [[place] 1 - 2 tab PO Q6HR PRN 7 Days #32 02/08/23 02/18/23 Rx 5-325] tab Amino Acids/Protein Hydrolys 30 ml PO DAILY@89902/18/23 02/18/23 History [Pro-Stat Awc Liquid] Aspirin 81 mg PO DIRECTED 02/18/23 02/18/23 History Cephalexin [Keflex] 500 mg PO QID@00,08,12,18 02/18/23 02/18/23 History Gabapentin [Neurontin] 300 mg PO TID@0800,1400,2200 02/18/23 02/18/23 History Heparin Sodium,Porcine (1 ml) 5,000 unit SQ DIRECTED 02/18/23 02/18/23 Histo ry [Heparin Sodium] Hydrophilic Cream [Triad (Kerodex 1 applic TOPICAL DAILY PRN 02/18/23 02/18/23 History geq)] Hydrophilic Cream [Triad (Kerodex 1 applic TOPICAL Q12H 02/18/23 02/18/23 History geq)] INSULIN ASPART (NovoLOG) [NovoLOG See Protocol SQ ACHS@08,,17,21 02/18/23 History (formulary)] Insulin Glargine,Hum.rec.anlog 20 units SQ DIRECTED 02/18/23 02/18/23 History [Lantus Solostar Pen] Povidone-Iodine [Betadine] 1 applic TOPICAL Q12H 02/18/23 02/18/23 History Sennosides-Docusate Sodium 2 tab PO HS PRN 02/18/23 02/18/23 History [Senokot-S] traMADol HCl [Ultram] 50 mg PO TID@0800,1400,2200 02/18/23 02/18/23 History Allergies Allergy/AdvReac Type Severity Reaction Status Date / Time cat pelt standardized Allergy Itching Verified 02/19/23 09:13 allergenic ex mold Allergy Itching Verified 02/19/23 09:13 pollen extracts Allergy Itching Verified 02/19/23 09:13 Physical Exam Vitals: Vital Signs Temp Pulse Resp BP Pulse Ox 02/22/23 13:17 98.2 F 90 19 138/65 98 02/22/23 07:33 98.9 F 80 19 146/75 96 02/22/23 02:00 98.9 F 92 16 123/79 95 02/22/23 00:25 99.8 F H 02/21/23 23:30 102.1 F H 109 H 20 113/64 93 L 02/21/23 22:12 100.0 F H 111 H 20 130/60 98 02/21/23 20:00 99.8 F H 94 17 179/65 99 Intake and Output 02/22/23 02/22/23 02/22/23 06:59 14:59 22:59 Output Total 1550 Balance -1550 Output: Urine 1550 Other: Voiding Method Incontinent # Voids 600 Results CBC & Chem 7: 02/24/23 06:14 02/24/23 06:14 Labs: Abnormal Lab Results - Last 24 Hours (Table) 02/21/23 02/21/23 02/22/23 Range/Units 16:27 21:46 05:46 WBC (3.8-10.6) k/uL RBC (4.30-5.90) m/uL Hgb (13.0-17.5) gm/dL Hct (39.0-53.0) % Plt Count (150-450) k/uL Sodium (137-145) mmol/L BUN (9-20) mg/dL Glucose (74-99) mg/dL POC Glucose (mg/dL) 228 H 250 H 183 H (70-110) mg/dL 02/22/23 02/22/23 02/22/23 Range/Units 07:55 07:55 11:19 WBC 23.2 H (3.8-10.6) k/uL RBC 3.94 L (4.30-5.90) m/uL Hgb 10.9 L (13.0-17.5) gm/dL Hct 33.9 L (39.0-53.0) % Plt Count 557 H (150-450) k/uL Sodium 133 L (137-145) mmol/L BUN 40 H (9-20) mg/dL Glucose 208 H (74-99) mg/dL POC Glucose (mg/dL) 311 H (70-110) mg/dL Assessment and Plan Plan: 1patient with sepsis in this patient with a fever elevated white count patient admitted to the hospital for operative repair of the left ankle fracture patient did have evidence of significant cellulitis to the right lower extremity could be the likely source of this fever and will need to call for the gram-positive skin scott to the likely pathogen 2-blood culture has been obtained we will perform double check a CRP and procalcitonin 3-marked area of redness right lower extremity 4-will start the patient on cefazolin 2 g every 8 hours We will follow on clinical condition and cultures to further adjust medication if needed Thank you for this consultation we will follow the patient along with you Dictation was produced using [employer] software. please excuse any grammatical, word or spelling errors. Time with Patient: Greater than 30
[2023-02-22 20:48] LABS: Glucose,Whole Blood 301 mg/dL (70-110)
[2023-02-22] MEDS: FENOFIBRATE 160 MG TAB PO SCH (21:33)
[2023-02-22] MEDS: ATORVASTATIN 20 MG TAB PO SCH (21:33)
[2023-02-22] MEDS: HYDROcodone/APAP 5-325MG 1 EACH TAB PO PRN (23:28)
[2023-02-23 06:13] LABS: Glucose,Whole Blood 195 mg/dL (70-110)
[2023-02-23] MEDS: HYDROcodone/APAP 5-325MG 1 EACH TAB PO PRN ×2 (06:24→20:16)
[2023-02-23] MEDS: INSULIN ASPART (NovoLOG) 100 UNIT/ML VIAL SQ SCH ×4 (06:25→22:43)
[2023-02-23] MEDS: traMADol 50 MG TAB PO SCH ×3 (09:40→22:20)
[2023-02-23] MEDS: FUROSEMIDE 40 MG TAB PO SCH (09:40)
[2023-02-23] MEDS: GABAPENTIN 300 MG CAP PO SCH ×3 (09:40→22:20)
[2023-02-23] MEDS: LOSARTAN 50 MG TAB PO SCH (09:42)
[2023-02-23] MEDS: DAPAGLIFLOZIN PROPANEDIOL 10 MG TABLET PO SCH (09:42)
[2023-02-23] MEDS: HEPARIN SODIUM,PORCINE 5,000 UNIT/ML 1 ML VIAL SQ SCH ×2 (09:43→22:21)
[2023-02-23] MEDS: NYSTATIN 100,000 UNIT/GM POWD 15 GM TOPICAL SCH ×2 (09:43→16:12)
[2023-02-23] MEDS: PIOGLITAZONE 15 MG TAB PO SCH (09:43)
--- NOTE | 2023-02-23 10:42 | P.PN ---
Subjective Patient reports feelings over generalized malaise today. His ankle pain is controlled. Objective - Vital Signs Vital signs: Vital Signs Temp 99 F 02/23/23 07:40 Pulse 76 02/23/23 07:40 Resp 19 02/23/23 07:40 BP 125/71 02/23/23 07:40 Pulse Ox 96 02/23/23 07:40 FiO2 Intake & Output 02/22/23 02/23/23 02/23/23 18:59 06:59 18:59 Intake Total 600 Output Total 2750 650 800 Balance -2750 -50 -800 Intake: Intake, IV Titration 600 Amount ceFAZolin 2 gm In Sodium 600 Chloride 0.9% 50 ml @ 100 mls/hr IVPB Q8HR [facility] Rx# :[id number] Output: Urine 2750 650 800 Other: Voiding Method Incontinent Incontinent Incontinent - Exam Resting comfortably in bed. Splint over ankle intact. Wound VAC with good seal. - Labs CBC & Chem 7: 02/22/23 07:55 02/22/23 07:55 Labs: Abnormal Lab Results - Last 24 Hours (Table) 02/22/23 02/22/23 02/22/23 Range/Units 11:19 16:36 20:46 POC Glucose (mg/dL) 311 H 256 H 301 H (70-110) mg/dL 02/23/23 Range/Units 06:12 POC Glucose (mg/dL) 195 H (70-110) mg/dL Assessment and Plan Assessment: POD#4 s/p ORIF open ankle fracture, wound VAC application and splint Plan: Continue treatment as outlined previously. Dr. Aleman has been consulted for elevated WBC and fevers - I do not want the splint taken down or wound VAC removed for further evaluation/work-up of his WBC and fever and he doesn't need cultures of his incision/wound. I would like to give the soft tissues around his ankle a chance to begin healing and he has known cellulitis/lymphedema in his left ankle. The patient understands his high risk of wound complications, infection and ultimately needing an amputation. If his condition worsens and he becomes septic we can take the splint/wound VAC down, but for now I would like it in place until follow-up in the office.
[2023-02-23 11:06] LABS: Glucose,Whole Blood 351 mg/dL (70-110)
[2023-02-23 11:22] LABS: Basophils % (A) 0 %; Eosinophils # (A) 0.3 k/uL (0-0.7); Eosinophils % (A) 3 %; HCT 32.3 % (39.0-53.0); HGB 10.1 gm/dL (13.0-17.5); Hypochromasia Marked; Lymphocytes # (A) 0.7 k/uL (1.0-4.8); Lymphocytes % (A) 7 %; MCHC 31.2 g/dL (31.0-37.0); MCV 89.6 fL (80.0-100.0); Mean Platelet Volume 8.5; Monocytes # (A) 0.5 k/uL (0-1.0); Monocytes % (A) 4 %; Neutrophils # (A) 9.1 k/uL (1.3-7.7); Neutrophils % (A) 85 %; Platelet Count 414 k/uL (150-450); RBC 3.61 m/uL (4.30-5.90); RDW 14.3 % (11.5-15.5); WBC 10.8 k/uL (3.8-10.6)
[2023-02-23 11:26] LABS: ALT 15 U/L (4-49); AST 23 U/L (17-59); African American GFR (CKD) >90 (>60 ml/min/1.73 sqM); Albumin 2.4 g/dL (3.5-5.0); Albumin/Globulin Ratio 0.9; Alkaline Phosphatase 73 U/L (38-126); Anion Gap 5 mmol/L; Blood Urea Nitrogen 45 mg/dL (9-20); Carbon Dioxide 25 mmol/L (22-30); Chloride 100 mmol/L (98-107); Globulin 2.6 g/dL; Glucose 303 mg/dL (74-99); Non-African American GFR(CKD) 83 (>60 ml/min/1.73 sqM); Potassium 3.8 mmol/L (3.5-5.1); Sodium 130 mmol/L (137-145); Total Bilirubin 0.5 mg/dL (0.2-1.3)
[2023-02-23] MEDS: SODIUM CHLORIDE 0.9% 1,000 ML IV SCH (14:02)
--- NOTE | 2023-02-23 14:05 | P.PN ---
Subjective Progress Note Date: 02/23/23 77-year-old gentleman with past medical history significant for diabetes mellitus, hypertension, morbid obesity, hyperlipidemia. Patient was sent then to ER by primary care physician for preoperative evaluation. Patient is scheduled for ankle surgery 02/19. Patient had open left ankle fracture and had an external fixator. He is scheduled for removal of external fixator and open reduction internal fixation of left ankle fracture with orthopedic s/p POD O perative fixation of left trimalleolar ankle fracture dislocation with hindfoot TTC nail Application of negative pressure incisional wound VAC less than 50 cm, 24-cm wound Application of short leg splint by physician, left ankle 02/20> postoperative day one, left leg pain is under control. Electrolytes and blood glucose reviewed. Will need to work with physical therapy 02/21> patient seen postoperative day 2, wound VAC in place, blood work pending at this time. Will need to be discharged to rehab eventually once increased ambulation 02/22. Patient seen and examined. Patient was spiking fevers overnight, 02/23. Patient seen and examined. No further episodes of fever. States he feels better compared to yesterday REVIEW OF SYSTEMS: CONSTITUTIONAL: As mentioned above CARDIOVASCULAR: No chest pain, no palpitations, no syncope. PULMONARY: No shortness of breath, no cough, GASTROINTESTINAL: No diarrhea, no nausea, no vomiting, no abdominal pain. NEUROLOGICAL: No headaches, no weakness, PHYSICAL EXAMINATION: GENERAL: The patient is alert and oriented x3, not in any acute distress. Well developed, well nourished. HEENT: Pupils are round and equally reacting to light. EOMI. No scleral icterus. No conjunctival pallor. Normocephalic, atraumatic. No pharyngeal erythema. No thyromegaly. CARDIOVASCULAR: S1 and S2 present. No murmurs, rubs, or gallops. PULMONARY: Chest is clear to auscultation, no wheezing or crackles. ABDOMEN: Soft, nontender, nondistended, normoactive bowel sounds. No palpable organomegaly. MUSCULOSKELETAL: Left extremity bandaged seen, wound VAC in place NEUROLOGICAL: Gross neurological examination did not reveal any focal deficits. SKIN: No rashes. Assessment and plan History of mechanical fall with left ankle fracture plan for open reduction internal fixation 02/19 * Operative fixation of left trimalleolar ankle fracture dislocation with hindfoot TTC nail * Preoperative medical clearance for surgery COMPLETE * Status post left ankle external fixator in place * Morbid obesity * Obstructive sleep apnea * Hypertension * Hyperlipidemia * Diabetes mellitus * Consult obtained from cardiology, orthopedic * Monitor vital signs Monitor CBC Monitor blood cultures Continue IV cefazolin, ID following * In regards to diabetes mellitus continue patient on Accu-Cheks before meals at bedtime continue patient on correctional insulin, continue Actos, farxiga * In regards to postoperative care orthopedic team following * In regards to hypertension continue patient on Lasix, Cozaar * In regards to obstructive sleep apnea uses CPAP * Patient will need to work with physical therapy postoperatively to be discharged to subacute rehab * Patient on heparin for DVT prophylaxis Labs and medication were reviewed.. Continue same treatment. Continue with symptomatic treatment. Resume home medication. Monitor labs and vitals. DVT and GI prophylaxis. Further recommendations as per clinical course of the patient Dictation was produced using [employer] dictation software. please excuse any grammatical, word or spelling errors. Objective - Vital Signs Vital signs: Vital Signs Temp 99 F 02/23/23 07:40 Pulse 76 02/23/23 07:40 Resp 19 02/23/23 07:40 BP 125/71 02/23/23 07:40 Pulse Ox 96 02/23/23 07:40 FiO2 Intake & Output 02/22/23 02/23/23 02/23/23 18:59 06:59 18:59 Intake Total 600 Output Total 2750 650 800 Balance -2750 -50 -800 Intake: Intake, IV Titration 600 Amount ceFAZolin 2 gm In Sodium 600 Chloride 0.9% 50 ml @ 100 mls/hr IVPB Q8HR [facility] Rx# :[id number] Output: Urine 2750 650 800 Other: Voiding Method Incontinent Incontinent Incontinent - Labs CBC & Chem 7: 02/23/23 10:51 02/23/23 10:51 Labs: Abnormal Lab Results - Last 24 Hours (Table) 02/22/23 02/22/23 02/22/23 Range/Units 11:19 16:36 20:46 POC Glucose (mg/dL) 311 H 256 H 301 H (70-110) mg/dL 02/23/23 Range/Units 06:12 POC Glucose (mg/dL) 195 H (70-110) mg/dL
[2023-02-23 16:12] LABS: Glucose,Whole Blood 286 mg/dL (70-110)
[2023-02-23 20:14] LABS: Glucose,Whole Blood 164 mg/dL (70-110)
[2023-02-23] MEDS: ATORVASTATIN 20 MG TAB PO SCH (22:20)
[2023-02-23] MEDS: FENOFIBRATE 160 MG TAB PO SCH (22:20)
[2023-02-24] MEDS: NYSTATIN 100,000 UNIT/GM POWD 15 GM TOPICAL SCH ×4 (06:18→23:56)
[2023-02-24] MEDS: HYDROmorphone 0.5 MG/0.5 ML SYRINGE IVP PRN ×2 (06:26→20:17)
[2023-02-24 06:33] LABS: Glucose,Whole Blood 169 mg/dL (70-110)
[2023-02-24] MEDS: INSULIN ASPART (NovoLOG) 100 UNIT/ML VIAL SQ SCH ×4 (07:49→22:00)
[2023-02-24 09:39] LABS: ALT 13 U/L (10-49); AST 20 U/L (14-35); Albumin 2.7 d/dL (3.8-4.9); Alkaline Phosphatase 73 U/L (41-126); BUN/Creat Ratio 37.11 Ratio (12.00-20.00); Blood Urea Nitrogen 33.4 mg/dL (9.0-27.0); Calcium 8.7 mg/dL (8.7-10.3); Carbon Dioxide 24.8 mmol/L (21.6-31.8); Chloride 99 mmol/L (96-109); Globulin 2.7 d/dL (1.6-3.3); Glucose 152 mg/dL (70-110); Potassium 4.3 mmol/L (3.5-5.5); Sodium 135 mmol/L (135-145); Total Bilirubin 0.3 mg/dL (0.3-1.2); Total Protein 5.4 d/dL (6.2-8.2)
[2023-02-24] MEDS: traMADol 50 MG TAB PO SCH ×3 (10:23→22:10)
[2023-02-24] MEDS: HEPARIN SODIUM,PORCINE 5,000 UNIT/ML 1 ML VIAL SQ SCH ×2 (10:23→22:00)
[2023-02-24] MEDS: FUROSEMIDE 40 MG TAB PO SCH (10:24)
[2023-02-24] MEDS: LOSARTAN 50 MG TAB PO SCH (10:24)
[2023-02-24] MEDS: GABAPENTIN 300 MG CAP PO SCH ×3 (10:24→22:00)
[2023-02-24 10:35] LABS: HCT 32.7 % (39.6-50.0); MCHC 30.6 d/dL (32.0-37.0); MCV 88.4 FL (80.0-97.0); Mean Platelet Volume 11.2 FL (9.5-12.2); NRBC Per 100 WBC 0 X 10*3/uL (0.00-0.01); Platelet Count 460 X 10*3/uL (140-440); RDW 14.9 % (11.5-14.5); WBC 10.35 X 10*3/uL (4.50-10.00)
[2023-02-24] MEDS: DAPAGLIFLOZIN PROPANEDIOL 10 MG TABLET PO SCH (10:43)
[2023-02-24] MEDS: PIOGLITAZONE 15 MG TAB PO SCH (10:43)
[2023-02-24 11:17] LABS: Glucose,Whole Blood 280 mg/dL (70-110)
--- NOTE | 2023-02-24 12:30 | P.PN ---
Subjective Progress Note Date: 02/24/23 77-year-old gentleman with past medical history significant for diabetes mellitus, hypertension, morbid obesity, hyperlipidemia. Patient was sent then to ER by primary care physician for preoperative evaluation. Patient is scheduled for ankle surgery 02/19. Patient had open left ankle fracture and had an external fixator. He is scheduled for removal of external fixator and open reduction internal fixation of left ankle fracture with orthopedic s/p POD O perative fixation of left trimalleolar ankle fracture dislocation with hindfoot TTC nail Application of negative pressure incisional wound VAC less than 50 cm, 24-cm wound Application of short leg splint by physician, left ankle 02/20> postoperative day one, left leg pain is under control. Electrolytes and blood glucose reviewed. Will need to work with physical therapy 02/21> patient seen postoperative day 2, wound VAC in place, blood work pending at this time. Will need to be discharged to rehab eventually once increased ambulation 02/22. Patient seen and examined. Patient was spiking fevers overnight, 02/23. Patient seen and examined. No further episodes of fever. States he feels better compared to yesterday 02/24. Patient seen and examined. Patient continues to be afebrile. Labs were done this morning showed WBC 10.35, hemoglobin 10, platelet count 460 REVIEW OF SYSTEMS: CONSTITUTIONAL: As mentioned above CARDIOVASCULAR: No chest pain, no palpitations, no syncope. PULMONARY: No shortness of breath, no cough, GASTROINTESTINAL: No diarrhea, no nausea, no vomiting, no abdominal pain. NEUROLOGICAL: No headaches, no weakness, PHYSICAL EXAMINATION: GENERAL: The patient is alert and oriented x3, not in any acute distress. Well developed, well nourished. HEENT: Pupils are round and equally reacting to light. EOMI. No scleral icterus. No conjunctival pallor. Normocephalic, atraumatic. No pharyngeal erythema. No thyromegaly. CARDIOVASCULAR: S1 and S2 present. No murmurs, rubs, or gallops. PULMONARY: Chest is clear to auscultation, no wheezing or crackles. ABDOMEN: Soft, nontender, nondistended, normoactive bowel sounds. No palpable organomegaly. MUSCULOSKELETAL: Left extremity bandaged seen, wound VAC in place NEUROLOGICAL: Gross neurological examination did not reveal any focal deficits. SKIN: No rashes. Assessment and plan History of mechanical fall with left ankle fracture plan for open reduction internal fixation 02/19 * Operative fixation of left trimalleolar ankle fracture dislocation with hindfoot TTC nail * Preoperative medical clearance for surgery COMPLETE * Status post left ankle external fixator in place * Morbid obesity * Obstructive sleep apnea * Hypertension * Hyperlipidemia * Diabetes mellitus * Consult obtained from cardiology, orthopedic * Monitor vital signs Monitor CBC Monitor blood cultures Continue IV cefazolin, ID following * In regards to diabetes mellitus continue patient on Accu-Cheks before meals at bedtime continue patient on correctional insulin, continue Actos, farxiga * In regards to postoperative care orthopedic team following * In regards to hypertension continue patient on Lasix, Cozaar * In regards to obstructive sleep apnea uses CPAP * Patient will need to work with physical therapy postoperatively to be discharged to subacute rehab * Patient on heparin for DVT prophylaxis Labs and medication were reviewed.. Continue same treatment. Continue with symptomatic treatment. Resume home medication. Monitor labs and vitals. DVT and GI prophylaxis. Further recommendations as per clinical course of the patient Dictation was produced using [employer] dictation software. please excuse any grammatical, word or spelling errors. Objective - Vital Signs Vital signs: Vital Signs Temp 98.9 F 02/24/23 06:40 Pulse 79 02/24/23 06:40 Resp 17 02/24/23 06:40 BP 130/73 02/24/23 06:40 Pulse Ox 99 02/24/23 11:00 FiO2 Intake & Output 02/23/23 02/24/23 02/24/23 18:59 06:59 18:59 Output Total 2900 2070 1300 Balance -2900 -2070 -1300 Weight 163.293 kg Output: Urine 2900 2070 1300 Other: Voiding Method Incontinent Incontinent Incontinent # Bowel Movements 1 1 - Labs CBC & Chem 7: 02/24/23 06:14 02/24/23 06:14 Labs: Abnormal Lab Results - Last 24 Hours (Table) 02/23/23 02/23/23 02/24/23 Range/Units 16:10 20:12 06:14 WBC 10.35 H (4.50-10.00) X 10*3/uL RBC 3.70 L (4.40-5.60) X 10*6/uL Hgb 10.0 L (13.0-17.0) d/dL Hct 32.7 L (39.6-50.0) % MCHC 30.6 L (32.0-37.0) d/dL RDW 14.9 H (11.5-14.5) % Plt Count 460 H (140-440) X 10*3/uL BUN (9.0-27.0) mg/dL BUN/Creatinine Ratio (12.00-20.00) Ratio Glucose (70-110) mg/dL POC Glucose (mg/dL) 286 H 164 H (70-110) mg/dL Total Protein (6.2-8.2) d/dL Albumin (3.8-4.9) d/dL Albumin/Globulin Ratio (1.60-3.17) Ratio 02/24/23 02/24/23 02/24/23 Range/Units 06:14 06:31 11:15 WBC (4.50-10.00) X 10*3/uL RBC (4.40-5.60) X 10*6/uL Hgb (13.0-17.0) d/dL Hct (39.6-50.0) % MCHC (32.0-37.0) d/dL RDW (11.5-14.5) % Plt Count (140-440) X 10*3/uL BUN 33.4 H (9.0-27.0) mg/dL BUN/Creatinine Ratio 37.11 H (12.00-20.00) Ratio Glucose 152 H (70-110) mg/dL POC Glucose (mg/dL) 169 H 280 H (70-110) mg/dL Total Protein 5.4 L (6.2-8.2) d/dL Albumin 2.7 L (3.8-4.9) d/dL Albumin/Globulin Ratio 1.00 L (1.60-3.17) Ratio Microbiology - Last 24 Hours (Table) 02/22/23 14:33 Blood Culture - Preliminary Blood 02/22/23 14:28 Blood Culture - Preliminary Blood
[2023-02-24] MEDS: SODIUM CHLORIDE 0.9% 1,000 ML IV SCH (14:11)
[2023-02-24 16:17] LABS: Glucose,Whole Blood 271 mg/dL (70-110)
[2023-02-24 20:24] LABS: Glucose,Whole Blood 250 mg/dL (70-110)
[2023-02-24] MEDS: FENOFIBRATE 160 MG TAB PO SCH (22:00)
[2023-02-24] MEDS: ATORVASTATIN 20 MG TAB PO SCH (22:00)
[2023-02-25 05:38] LABS: Glucose,Whole Blood 187 mg/dL (70-110)
[2023-02-25] MEDS: INSULIN ASPART (NovoLOG) 100 UNIT/ML VIAL SQ SCH ×4 (06:40→21:52)
--- NOTE | 2023-02-25 09:13 | P.PN ---
Subjective Progress Note Date: 02/25/23 This patient is a 77-year-old male who is status-post left ankle open reduction internal fixation with a hindfoot TTC nail on 02/19/23. Patient is examined bedside this morning. Per nursing his wound vac was alerting. Patient continues to feel generalized malaise, he states overall he doesn't feel well. No new complaints regarding his ankle. Objective - Vital Signs Vital signs: Vital Signs Temp 98.6 F 02/25/23 06:55 Pulse 71 02/25/23 06:55 Resp 16 02/25/23 06:55 BP 144/78 02/25/23 06:55 Pulse Ox 98 02/25/23 06:55 FiO2 Intake & Output 02/24/23 02/25/23 02/25/23 18:59 06:59 18:59 Output Total 1900 1500 Balance -1900 -1500 Output: Urine 1900 1500 Other: Voiding Method Incontinent External Catheter # Voids 600 # Bowel Movements 1 1 - Exam On examination, the patient is sitting up in bed in no apparent distress. He is alert and answers questions appropriately. On inspection of the left ankle, there is a clean, dry intact bulky [place] splint in place. Visible portion of the toes warm and well perfused. Wound vac is re-started, and again has a good seal. - Labs CBC & Chem 7: 02/24/23 06:14 02/24/23 06:14 Labs: Abnormal Lab Results - Last 24 Hours (Table) 02/24/23 02/24/23 02/24/23 Range/Units 06:14 06:14 11:15 WBC 10.35 H (4.50-10.00) X 10*3/uL RBC 3.70 L (4.40-5.60) X 10*6/uL Hgb 10.0 L (13.0-17.0) d/dL Hct 32.7 L (39.6-50.0) % MCHC 30.6 L (32.0-37.0) d/dL RDW 14.9 H (11.5-14.5) % Plt Count 460 H (140-440) X 10*3/uL BUN 33.4 H (9.0-27.0) mg/dL BUN/Creatinine Ratio 37.11 H (12.00-20.00) Ratio Glucose 152 H (70-110) mg/dL POC Glucose (mg/dL) 280 H (70-110) mg/dL Total Protein 5.4 L (6.2-8.2) d/dL Albumin 2.7 L (3.8-4.9) d/dL Albumin/Globulin Ratio 1.00 L (1.60-3.17) Ratio 02/24/23 02/24/23 02/25/23 Range/Units 16:16 20:16 05:36 WBC (4.50-10.00) X 10*3/uL RBC (4.40-5.60) X 10*6/uL Hgb (13.0-17.0) d/dL Hct (39.6-50.0) % MCHC (32.0-37.0) d/dL RDW (11.5-14.5) % Plt Count (140-440) X 10*3/uL BUN (9.0-27.0) mg/dL BUN/Creatinine Ratio (12.00-20.00) Ratio Glucose (70-110) mg/dL POC Glucose (mg/dL) 271 H 250 H 187 H (70-110) mg/dL Total Protein (6.2-8.2) d/dL Albumin (3.8-4.9) d/dL Albumin/Globulin Ratio (1.60-3.17) Ratio Microbiology - Last 24 Hours (Table) 02/22/23 14:33 Blood Culture - Preliminary Blood 02/22/23 14:28 Blood Culture - Preliminary Blood Assessment and Plan Assessment: Status-post left ankle open reduction internal fixation with a hindfoot TTC nail on 02/19/23. Post-op day #6. Plan: - Strict nonweightbearing operative extremity. Keep splint in place. Keep wound VAC in place. Do not remove. - Keep operative extremity elevated. - Pain medication as needed. - DVT prophylaxis per admitting team. - We will re-evaluate patient tomorrow. Will consider taking taking splint down and re-assessing wound. Do not remove splint at this time.
[2023-02-25] MEDS: LOSARTAN 50 MG TAB PO SCH (09:48)
[2023-02-25] MEDS: FUROSEMIDE 40 MG TAB PO SCH (09:48)
[2023-02-25] MEDS: traMADol 50 MG TAB PO SCH ×3 (09:48→21:51)
[2023-02-25] MEDS: HEPARIN SODIUM,PORCINE 5,000 UNIT/ML 1 ML VIAL SQ SCH ×2 (09:49→21:52)
[2023-02-25] MEDS: NYSTATIN 100,000 UNIT/GM POWD 15 GM TOPICAL SCH ×3 (09:49→21:53)
[2023-02-25] MEDS: GABAPENTIN 300 MG CAP PO SCH ×3 (09:49→21:52)
[2023-02-25] MEDS: PIOGLITAZONE 15 MG TAB PO SCH (09:49)
[2023-02-25] MEDS: DAPAGLIFLOZIN PROPANEDIOL 10 MG TABLET PO SCH (09:49)
[2023-02-25 11:02] LABS: Glucose,Whole Blood 242 mg/dL (70-110)
[2023-02-25] MEDS: SODIUM CHLORIDE 0.9% 1,000 ML IV SCH (12:13)
--- NOTE | 2023-02-25 13:09 | P.PN ---
Subjective Progress Note Date: 02/25/23 77-year-old gentleman with past medical history significant for diabetes mellitus, hypertension, morbid obesity, hyperlipidemia. Patient was sent then to ER by primary care physician for preoperative evaluation. Patient is scheduled for ankle surgery 02/19. Patient had open left ankle fracture and had an external fixator. He is scheduled for removal of external fixator and open reduction internal fixation of left ankle fracture with orthopedic s/p POD O perative fixation of left trimalleolar ankle fracture dislocation with hindfoot TTC nail Application of negative pressure incisional wound VAC less than 50 cm, 24-cm wound Application of short leg splint by physician, left ankle 02/20> postoperative day one, left leg pain is under control. Electrolytes and blood glucose reviewed. Will need to work with physical therapy 02/21> patient seen postoperative day 2, wound VAC in place, blood work pending at this time. Will need to be discharged to rehab eventually once increased ambulation 02/22. Patient seen and examined. Patient was spiking fevers overnight, 02/23. Patient seen and examined. No further episodes of fever. States he feels better compared to yesterday 02/24. Patient seen and examined. Patient continues to be afebrile. Labs were done this morning showed WBC 10.35, hemoglobin 10, platelet count 460 02/25. Patient seen and examined. States he feels better. No fevers overnight REVIEW OF SYSTEMS: CONSTITUTIONAL: As mentioned above CARDIOVASCULAR: No chest pain, no palpitations, no syncope. PULMONARY: No shortness of breath, no cough, GASTROINTESTINAL: No diarrhea, no nausea, no vomiting, no abdominal pain. NEUROLOGICAL: No headaches, no weakness, PHYSICAL EXAMINATION: GENERAL: The patient is alert and oriented x3, not in any acute distress. Well developed, well nourished. HEENT: Pupils are round and equally reacting to light. EOMI. No scleral icterus. No conjunctival pallor. Normocephalic, atraumatic. No pharyngeal erythema. No thyromegaly. CARDIOVASCULAR: S1 and S2 present. No murmurs, rubs, or gallops. PULMONARY: Chest is clear to auscultation, no wheezing or crackles. ABDOMEN: Soft, nontender, nondistended, normoactive bowel sounds. No palpable organomegaly. MUSCULOSKELETAL: Left extremity bandaged seen, wound VAC in place NEUROLOGICAL: Gross neurological examination did not reveal any focal deficits. SKIN: No rashes. Assessment and plan History of mechanical fall with left ankle fracture plan for open reduction internal fixation 02/19 * Operative fixation of left trimalleolar ankle fracture dislocation with hindfoot TTC nail * Preoperative medical clearance for surgery COMPLETE * Status post left ankle external fixator in place * Morbid obesity * Obstructive sleep apnea * Hypertension * Hyperlipidemia * Diabetes mellitus * Consult obtained from cardiology, orthopedic * Monitor vital signs Monitor CBC Monitor blood cultures Continue IV cefazolin, ID following, possible discharge in the next 24 hours on oral antibiotics * In regards to diabetes mellitus continue patient on Accu-Cheks before meals at bedtime continue patient on correctional insulin, continue Actos, farxiga * In regards to postoperative care orthopedic team following * In regards to hypertension continue patient on Lasix, Cozaar * In regards to obstructive sleep apnea uses CPAP * Patient will need to work with physical therapy postoperatively to be discharged to subacute rehab * Patient on heparin for DVT prophylaxis Labs and medication were reviewed.. Continue same treatment. Continue with symptomatic treatment. Resume home medication. Monitor labs and vitals. DVT and GI prophylaxis. Further recommendations as per clinical course of the patient Dictation was produced using [employer] dictation software. please excuse any grammatical, word or spelling errors. Objective - Vital Signs Vital signs: Vital Signs Temp 98.6 F 02/25/23 06:55 Pulse 71 02/25/23 06:55 Resp 16 02/25/23 06:55 BP 130/65 02/25/23 10:02 Pulse Ox 98 02/25/23 06:55 FiO2 Intake & Output 02/24/23 02/25/23 02/25/23 18:59 06:59 18:59 Output Total 1900 1500 Balance -1900 -1500 Output: Urine 1900 1500 Other: Voiding Method Incontinent External Catheter External Catheter # Voids 600 # Bowel Movements 1 1 1 - Labs CBC & Chem 7: 02/24/23 06:14 02/24/23 06:14 Labs: Abnormal Lab Results - Last 24 Hours (Table) 02/24/23 02/24/23 02/25/23 Range/Units 16:16 20:16 05:36 POC Glucose (mg/dL) 271 H 250 H 187 H (70-110) mg/dL 02/25/23 Range/Units 11:01 POC Glucose (mg/dL) 242 H (70-110) mg/dL Microbiology - Last 24 Hours (Table) 02/22/23 14:33 Blood Culture - Preliminary Blood 02/22/23 14:28 Blood Culture - Preliminary Blood
--- NOTE | 2023-02-25 15:46 | P.PN ---
Subjective Progress Note Date: 02/23/23 Principal diagnosis: Fever, right lower extremity cellulitis Patient is a 77-year male with a past medical history significant for diabetes mellitus hypertension hyperlipidemia renal insufficiency patient did have a fall in the shower with left ankle wound fracture on 02/05/2023, electively admitted to the hospital for operative repair completed on 02/19/2023 the patient did spike a fever prompting this infection disease consultation. On today's evaluation that is 02/23/2023, the patient is afebrile, patient is breathing comfortably on room air, patient denies having any chest pain shortness of breath or cough. Pain to left ankle is currently controlled right lower extremity still have some redness The patient white count normalized to 10.8 hemoglobin is 10.1 creatinine 0.87, blood cultures currently pending Objective - Vital Signs Vital signs: Vital Signs Temp 99 F 02/23/23 07:40 Pulse 76 02/23/23 07:40 Resp 19 02/23/23 07:40 BP 125/71 02/23/23 07:40 Pulse Ox 96 02/23/23 07:40 FiO2 Intake & Output 02/22/23 02/23/23 02/23/23 18:59 06:59 18:59 Intake Total 600 Output Total 2750 650 800 Balance -2750 -50 -800 Intake: Intake, IV Titration 600 Amount ceFAZolin 2 gm In Sodium 600 Chloride 0.9% 50 ml @ 100 mls/hr IVPB Q8HR [facility] Rx# :[id number] Output: Urine 2750 650 800 Other: Voiding Method Incontinent Incontinent Incontinent - Exam GENERAL DESCRIPTION: An elderly male lying in bed in no distress RESPIRATORY SYSTEM: Unlabored breathing , decreased breath sounds at bases HEART: S1 S2 regular rate and rhythm , ABDOMEN: Soft , no tenderness EXTREMITIES: Right lower extremity swelling redness mildly decreased - Labs CBC & Chem 7: 02/24/23 06:14 02/24/23 06:14 Labs: Abnormal Lab Results - Last 24 Hours (Table) 02/22/23 02/22/23 02/23/23 Range/Units 16:36 20:46 06:12 WBC (3.8-10.6) k/uL RBC (4.30-5.90) m/uL Hgb (13.0-17.5) gm/dL Hct (39.0-53.0) % Neutrophils # (1.3-7.7) k/uL Lymphocytes # (1.0-4.8) k/uL Sodium (137-145) mmol/L BUN (9-20) mg/dL Glucose (74-99) mg/dL POC Glucose (mg/dL) 256 H 301 H 195 H (70-110) mg/dL Calcium (8.4-10.2) mg/dL Total Protein (6.3-8.2) g/dL Albumin (3.5-5.0) g/dL 02/23/23 02/23/23 02/23/23 Range/Units 10:51 10:51 11:04 WBC 10.8 H (3.8-10.6) k/uL RBC 3.61 L (4.30-5.90) m/uL Hgb 10.1 L (13.0-17.5) gm/dL Hct 32.3 L (39.0-53.0) % Neutrophils # 9.1 H (1.3-7.7) k/uL Lymphocytes # 0.7 L (1.0-4.8) k/uL Sodium 130 L (137-145) mmol/L BUN 45 H (9-20) mg/dL Glucose 303 H (74-99) mg/dL POC Glucose (mg/dL) 351 H (70-110) mg/dL Calcium 8.0 L (8.4-10.2) mg/dL Total Protein 5.0 L (6.3-8.2) g/dL Albumin 2.4 L (3.5-5.0) g/dL Assessment and Plan (1) Cellulitis of right leg Current Visit: Yes Status: Acute Code(s): L03.115 - CELLULITIS OF RIGHT LOWER LIMB SNOMED Code(s): 714765533 Plan: 1patient with sepsis in this patient with a fever elevated white count patient admitted to the hospital for operative repair of the left ankle fracture patient did have evidence of significant cellulitis to the right lower extremity could be the likely source of this fever and will need to cover for the gram-positive skin scott to the likely pathogen 2-blood culture has been obtained and so far pending 3Patient to continue with cefazolin 2 g every 8 hours Dictation was produced using [employer] dictation software. please excuse any grammatical, word or spelling errors. Time with Patient: Less than 30
--- NOTE | 2023-02-25 15:47 | P.PN ---
Subjective Progress Note Date: 02/24/23 Principal diagnosis: Fever, right lower extremity cellulitis Patient is a 77-year male with a past medical history significant for diabetes mellitus hypertension hyperlipidemia renal insufficiency patient did have a fall in the shower with left ankle wound fracture on 02/05/2023, electively admitted to the hospital for operative repair completed on 02/19/2023 the patient did spike a fever prompting this infection disease consultation. On today's evaluation that is 02/24/2023, the patient remains to be afebrile, patient is breathing comfortably on room air, patient denies having any chest pain shortness of breath or cough. The patient pain to left ankle is currently controlled , the patient right lower extremity swelling and redness has decreased The patient white count is currently at 10.35 hemoglobin is 10.0, creatinine 0.9 blood cultures so far negative Objective - Vital Signs Vital signs: Vital Signs Temp 98.9 F 02/24/23 06:40 Pulse 79 02/24/23 06:40 Resp 17 02/24/23 06:40 BP 130/73 02/24/23 06:40 Pulse Ox 99 02/24/23 11:00 FiO2 Intake & Output 02/23/23 02/24/23 02/24/23 18:59 06:59 18:59 Output Total 2900 2070 1300 Balance -290 -2069 -1300 Weight 163.293 kg Output: Urine 2900 0 1300 Other: Voiding Method Incontinent Incontinent Incontinent # Bowel Movements 1 1 - Exam GENERAL DESCRIPTION: An elderly male lying in bed in no distress RESPIRATORY SYSTEM: Unlabored breathing , decreased breath sounds at bases HEART: S1 S2 regular rate and rhythm , ABDOMEN: Soft , no tenderness EXTREMITIES: Right lower extremity swelling redness mildly decreased - Labs CBC & Chem 7: 02/24/23 06:14 02/24/23 06:14 Labs: Abnormal Lab Results - Last 24 Hours (Table) 02/23/23 02/23/23 02/24/23 Range/Units 16:10 20:12 06:14 WBC 10.35 H (4.50-10.00) X 10*3/uL RBC 3.70 L (4.40-5.60) X 10*6/uL Hgb 10.0 L (13.0-17.0) d/dL Hct 32.7 L (39.6-50.0) % MCHC 30.6 L (32.0-37.0) d/dL RDW 14.9 H (11.5-14.5) % Plt Count 460 H (140-440) X 10*3/uL BUN (9.0-27.0) mg/dL BUN/Creatinine Ratio (12.00-20.00) Ratio Glucose (70-110) mg/dL POC Glucose (mg/dL) 286 H 164 H (70-110) mg/dL Total Protein (6.2-8.2) d/dL Albumin (3.8-4.9) d/dL Albumin/Globulin Ratio (1.60-3.17) Ratio 02/24/23 02/24/23 02/24/23 Range/Units 06:14 06:31 11:15 WBC (4.50-10.00) X 10*3/uL RBC (4.40-5.60) X 10*6/uL Hgb (13.0-17.0) d/dL Hct (39.6-50.0) % MCHC (32.0-37.0) d/dL RDW (11.5-14.5) % Plt Count (140-440) X 10*3/uL BUN 33.4 H (9.0-27.0) mg/dL BUN/Creatinine Ratio 37.11 H (12.00-20.00) Ratio Glucose 152 H (70-110) mg/dL POC Glucose (mg/dL) 169 H 280 H (70-110) mg/dL Total Protein 5.4 L (6.2-8.2) d/dL Albumin 2.7 L (3.8-4.9) d/dL Albumin/Globulin Ratio 1.00 L (1.60-3.17) Ratio Microbiology - Last 24 Hours (Table) 02/22/23 14:33 Blood Culture - Preliminary Blood 02/22/23 14:28 Blood Culture - Preliminary Blood Assessment and Plan (1) Cellulitis of right leg Current Visit: Yes Status: Acute Code(s): L03.115 - CELLULITIS OF RIGHT LOWER LIMB SNOMED Code(s): 195010224 Plan: 1patient with sepsis in this patient with a fever elevated white count patient admitted to the hospital for operative repair of the left ankle fracture patient did have evidence of significant cellulitis to the right lower extremity could be the likely source of this fever and will need to cover for the gram-positive skin scott to the likely pathogen 2-blood culture has been obtained and so far pending 3Patient fever has resolved and the patient white count has normalized 4patient to continue with cefazolin 2 g every 8 hours and monitor clinical course closely Dictation was produced using [employer] dictation software. please excuse any gra mmatical, word or spelling errors. Time with Patient: Less than 30
--- NOTE | 2023-02-25 15:49 | P.PN ---
Subjective Progress Note Date: 02/25/23 Principal diagnosis: Fever, right lower extremity cellulitis Patient is a 77-year male with a past medical history significant for diabetes mellitus hypertension hyperlipidemia renal insufficiency patient did have a fall in the shower with left ankle wound fracture on 02/05/2023, electively admitted to the hospital for operative repair completed on 02/19/2023 the patient did spike a fever prompting this infection disease consultation. On today's evaluation that is 02/25/2023, the patient continues to be afebrile, patient is breathing comfortably on room air, patient denies having any chest pain shortness of breath or cough. The patient pain to left ankle is controlled with the current medication, the patient right lower extremity swelling and redness has decreased, there is no open wound or any drainage The patient white count is currently at 10.35 hemoglobin is 10.0, creatinine 0.9 as of yesterday no CBC was done today, blood cultures so far negative Objective - Vital Signs Vital signs: Vital Signs Temp 98.6 F 02/25/23 06:55 Pulse 71 02/25/23 06:55 Resp 16 02/25/23 06:55 BP 130/65 02/25/23 10:02 Pulse Ox 98 02/25/23 06:55 FiO2 Intake & Output 02/24/23 02/25/23 02/25/23 18:59 06:59 18:59 Output Total 1900 1500 Balance -1900 -1500 Output: Urine 1900 1500 Other: Voiding Method Incontinent External Catheter External Catheter # Voids 600 # Bowel Movements 1 1 1 - Exam GENERAL DESCRIPTION: An elderly male lying in bed in no distress RESPIRATORY SYSTEM: Unlabored breathing , decreased breath sounds at bases HEART: S1 S2 regular rate and rhythm , ABDOMEN: Soft , no tenderness EXTREMITIES: Right lower extremity swelling redness mildly decreased - Labs CBC & Chem 7: 02/24/23 06:14 02/24/23 06:14 Labs: Abnormal Lab Results - Last 24 Hours (Table) 02/24/23 02/24/23 02/25/23 Range/Units 16:16 20:16 05:36 POC Glucose (mg/dL) 271 H 250 H 187 H (70-110) mg/dL 02/25/23 Range/Units 11:01 POC Glucose (mg/dL) 242 H (70-110) mg/dL Microbiology - Last 24 Hours (Table) 02/22/23 14:33 Blood Culture - Preliminary Blood 02/22/23 14:28 Blood Culture - Preliminary Blood Assessment and Plan (1) Cellulitis of right leg Current Visit: Yes Status: Acute Code(s): L03.115 - CELLULITIS OF RIGHT LOWER LIMB SNOMED Code(s): 357916822 Plan: 1patient with sepsis in this patient with a fever elevated white count patient admitted to the hospital for operative repair of the left ankle fracture patient did have evidence of significant cellulitis to the right lower extremity could be the likely source of this fever and will need to cover for the gram-positive skin scott to the likely pathogen 2-blood culture has been obtained and so far pending 3Patient fever has resolved and the patient white count has normalized 4we will apply Werner wrap to the right leg to keep some of the swelling down and will continue with cefazolin 2 g every 8 hours and plan to finish therapy with oral Keflex Dictation was produced using [employer] dictation software. please excuse any grammatical, word or spelling errors. Time with Patient: Less than 30
[2023-02-25 16:46] LABS: Glucose,Whole Blood 308 mg/dL (70-110)
[2023-02-25 20:37] LABS: Glucose,Whole Blood 233 mg/dL (70-110)
[2023-02-25] MEDS: FENOFIBRATE 160 MG TAB PO SCH (21:51)
[2023-02-25] MEDS: ATORVASTATIN 20 MG TAB PO SCH (21:52)
[2023-02-26 06:23] LABS: Glucose,Whole Blood 177 mg/dL (70-110)
[2023-02-26] MEDS: INSULIN ASPART (NovoLOG) 100 UNIT/ML VIAL SQ SCH ×3 (06:41→16:57)
[2023-02-26] MEDS: HYDROmorphone 0.5 MG/0.5 ML SYRINGE IVP PRN (06:42)
[2023-02-26 07:11] VITALS: RESP 18
[2023-02-26] MEDS: LOSARTAN 50 MG TAB PO SCH (09:12)
[2023-02-26] MEDS: PIOGLITAZONE 15 MG TAB PO SCH (09:13)
[2023-02-26] MEDS: GABAPENTIN 300 MG CAP PO SCH ×2 (09:13→13:04)
[2023-02-26] MEDS: HEPARIN SODIUM,PORCINE 5,000 UNIT/ML 1 ML VIAL SQ SCH (09:13)
[2023-02-26] MEDS: traMADol 50 MG TAB PO SCH ×2 (09:13→13:04)
[2023-02-26] MEDS: FUROSEMIDE 40 MG TAB PO SCH (09:13)
[2023-02-26] MEDS: DAPAGLIFLOZIN PROPANEDIOL 10 MG TABLET PO SCH (09:13)
[2023-02-26] MEDS: NYSTATIN 100,000 UNIT/GM POWD 15 GM TOPICAL SCH ×2 (09:14→16:51)
[2023-02-26 11:15] LABS: Glucose,Whole Blood 252 mg/dL (70-110)
[2023-02-26] MEDS: SODIUM CHLORIDE 0.9% 1,000 ML IV SCH (11:54)
--- NOTE | 2023-02-26 13:09 | P.DS ---
Providers Date of admission: 02/22/23 09:37 Expected date of discharge: 02/26/23 Attending physician: Svetlana Love MD Consults: 02/18/23 11:52 Consult Physician Routine Consulting Provider: Mango Reaves Consult Reason/Comments: Ankle surgery Do you want consulting provider notified?: Yes 02/22/23 13:18 Consult Physician Routine Consulting Provider: Lina Aleman Consult Reason/Comments: elevated wbc, temperatures Do you want consulting provider notified?: Yes Primary care physician: Sterling Chilel Hospital Course: Discharge diagnoses; History of mechanical fall with left ankle fracture plan for open reduction internal fixation 02/19 * Operative fixation of left trimalleolar ankle fracture dislocation with hindfoot TTC nail * Preoperative medical clearance for surgery COMPLETE * Status post left ankle external fixator in place * Morbid obesity * Obstructive sleep apnea * Hypertension * Hyperlipidemia * Diabetes mellitus Hospital course; 77-year-old gentleman with past medical history significant for diabetes mellitus, hypertension, morbid obesity, hyperlipidemia. Patient was sent then to ER by primary care physician for preoperative evaluation. Patient is scheduled for ankle surgery 02/19. Patient had open left ankle fracture and had an external fixator. He is scheduled for removal of external fixator and open reduction internal fixation of left ankle fracture with orthopedic s/p POD O perative fixation of left trimalleolar ankle fracture dislocation with hindfoot TTC nail Application of negative pressure incisional wound VAC less than 50 cm, 24-cm wound Application of short leg splint by physician, left ankle 02/20> postoperative day one, left leg pain is under control. Electrolytes and blood glucose reviewed. Will need to work with physical therapy 02/21> patient seen postoperative day 2, wound VAC in place, blood work pending at this time. Will need to be discharged to rehab eventually once increased ambulation 02/22. Patient seen and examined. Patient was spiking fevers overnight, 02/23. Patient seen and examined. No further episodes of fever. States he feels better compared to yesterday 02/24. Patient seen and examined. Patient continues to be afebrile. Labs were done this morning showed WBC 10.35, hemoglobin 10, platelet count 460 02/25. Patient seen and examined. States he feels better. No fevers overnight 02/26. Patient seen and examined. Being discharged on oral Keflex for 7 days. Orthopedic cleared the patient for discharge. Outpatient follow-up with ID PHYSICAL EXAMINATION: GENERAL: The patient is alert and oriented x3, not in any acute distress. Well developed, well nourished. HEENT: Pupils are round and equally reacting to light. EOMI. No scleral icterus. No conjunctival pallor. Normocephalic, atraumatic. No pharyngeal erythema. No thyromegaly. CARDIOVASCULAR: S1 and S2 present. No murmurs, rubs, or gallops. PULMONARY: Chest is clear to auscultation, no wheezing or crackles. ABDOMEN: Soft, nontender, nondistended, normoactive bowel sounds. No palpable organomegaly. MUSCULOSKELETAL: Left extremity bandaged seen, wound VAC in place NEUROLOGICAL: Gross neurological examination did not reveal any focal deficits. SKIN: No rashes. Dictation was produced using [employer] dictation software. please excuse any grammatical, word or spelling errors. Patient Condition at Discharge: Fair Plan - Discharge Summary New Discharge Prescriptions: New Furosemide [Lasix] 40 mg PO DAILY #14 tab Nystatin 100,000 Unit/gm Powd [Mycostatin Powder] 1 applic TOPICAL TID 7 Days #1 each Continue Fenofibrate,Micronized [Fenofibrate] 200 mg PO HS@2100 Dapagliflozin Propanediol [Farxiga] 10 mg PO DAILY@0900 metFORMIN HCL 1,000 mg PO BID@0900,2100 Pioglitazone [Actos] 15 mg PO DAILY@0900 Acetaminophen Tab [Tylenol] 650 mg PO Q4HR PRN tab PRN Reason: Fever and/ or Mild Pain Aspirin 81 mg PO DIRECTED Heparin Sodium,Porcine (1 ml) [Heparin Sodium] 5,000 unit SQ DIRECTED Hydrophilic Cream [Triad (Kerodex geq)] 1 applic TOPICAL DAILY PRN PRN Reason: SCROTUM/COCCYX AFTER CLEANSING Povidone-Iodine [Betadine] 1 applic TOPICAL Q12H Atorvastatin [Lipitor] 20 mg PO HS@2100 Latanoprost [Latanoprost 0.005%] 1 drop BOTH EYES HS@2100 Losartan Potassium 100 mg PO DAILY@0900 Semaglutide [Ozempic] 2 mg SQ MO@0900 Amino Acids/Protein Hydrolys [Pro-Stat Awc Liquid] 30 ml PO DAILY@0900 INSULIN ASPART (NovoLOG) [NovoLOG (formulary)] See Protocol SQ ACHS@08,12,17, Sennosides-Docusate Sodium [Senokot-S] 2 tab PO HS PRN PRN Reason: Constipation Changed Gabapentin [Neurontin] 300 mg PO TID@0800,1400,2200 #9 cap traMADol HCl [Ultram] 50 mg PO TID@0800,1400,2200 #9 tab Cephalexin [Keflex] 500 mg PO Q8HR 7 Days #0 Insulin Glargine,Hum.rec.anlog [Lantus Solostar Pen] 20 units SQ DIRECTED #0 Discontinued Hydrophilic Cream [Triad (Kerodex geq)] 1 applic TOPICAL Q12H HYDROcodone/APAP 5-325MG [Barnhart 5-325] 1 - 2 tab PO Q6HR PRN 7 Days #32 tab PRN Reason: Pain Insulin Glargine,Hum.rec.anlog [Lantus Solostar Pen] 20 units SQ DIRECTED Discharge Medication List Fenofibrate,Micronized [Fenofibrate] 200 mg PO HS@209906/06/18 [History] Atorvastatin [Lipitor] 20 mg PO HS@209902/05/23 [History] Dapagliflozin Propanediol [Farxiga] 10 mg PO DAILY@89902/05/23 [History] Latanoprost [Latanoprost 0.005%] 1 drop BOTH EYES HS@209902/05/23 [History] Losartan Potassium 100 mg PO DAILY@89902/05/23 [History] Pioglitazone [Actos] 15 mg PO DAILY@89902/05/23 [History] Semaglutide [Ozempic] 2 mg SQ MO@89902/05/23 [History] metFORMIN HCL 1,000 mg PO BID@899,209902/05/23 [History] Acetaminophen Tab [Tylenol] 650 mg PO Q4HR PRN tab 02/08/23 [Rx] Amino Acids/Protein Hydrolys [Pro-Stat Awc Liquid] 30 ml PO DAILY@0900 02/18/23 [History] Aspirin 81 mg PO DIRECTED 02/18/23 [History] Heparin Sodium,Porcine (1 ml) [Heparin Sodium] 5,000 unit SQ DIRECTED 02/18/23 [History] Hydrophilic Cream [Triad (Kerodex geq)] 1 applic TOPICAL DAILY PRN 02/18/23 [History] INSULIN ASPART (NovoLOG) [NovoLOG (formulary)] See Protocol SQ ACHS@08,12,17,21 02/18/23 [History] Povidone-Iodine [Betadine] 1 applic TOPICAL Q12H 02/18/23 [History] Sennosides-Docusate Sodium [Senokot-S] 2 tab PO HS PRN 02/18/23 [History] Cephalexin [Keflex] 500 mg PO Q8HR 7 Days #0 02/26/23 [Rx] Furosemide [Lasix] 40 mg PO DAILY #14 tab 02/26/23 [Rx] Gabapentin [Neurontin] 300 mg PO TID@0800,1400,2200 #9 cap 02/26/23 [Rx] Insulin Glargine,Hum.rec.anlog [Lantus Solostar Pen] 20 units SQ DIRECTED #0 02/26/23 [Rx] Nystatin 100,000 Unit/gm Powd [Mycostatin Powder] 1 applic TOPICAL TID 7 Days #1 each 02/26/23 [Rx] traMADol HCl [Ultram] 50 mg PO TID@0800,1400,2200 #9 tab 02/26/23 [Rx] Follow up Appointment(s)/Referral(s): Sterling Chilel MD [Primary Care Provider] - [facility] [NON-STAFF] - 03/05/23 (Closed for the weekend. Please call to schedule on Wednesday) Mango Reaves MD [Medical Doctor] - 03/04/23 9:50 am Activity/Diet/Wound Care/Special Instructions: ORTHOPAEDIC DISCHARGE INSTRUCTIONS: 1. Strict nonweightbearing on your left leg 2. Leave surgical dressing in place including wound VAC -DO NOT REMOVE 3. The splint and wound VAC will be removed at his first postoperative visit. If there are any issues please call our office ([phone]) Discharge Disposition: TRANSFER TO SNF/ECF
--- NOTE | 2023-02-26 14:02 | P.PN ---
Subjective Progress Note Date: 02/26/23 This patient is a 77-year-old male who is status-post left ankle open reduction internal fixation with a hindfoot TTC nail on 02/19/23. Patient is examined bedside this morning. Per nursing, his wound VAC continues to alert. Patient place his splint is rubbing on his heel. Patient states he overall is feeling better today. No new complaints. Objective - Vital Signs Vital signs: Vital Signs Temp 97.9 F 02/26/23 06:48 Pulse 72 02/26/23 06:48 Resp 18 02/26/23 06:48 BP 151/78 02/26/23 06:48 Pulse Ox 97 02/26/23 06:48 FiO2 Intake & Output 02/25/23 02/26/23 02/26/23 18:59 06:59 18:59 Output Total 600 690 Balance -600 -690 Output: Urine 600 690 Other: Voiding Method External Catheter External Catheter External Catheter # Voids 0 # Bowel Movements 1 2 - Exam On examination, the patient is sitting up in bed in no apparent distress. He is alert and answers questions appropriately. On inspection of the left ankle, there is a clean, dry intact bulky Pickens splint in place. The foot and toes warm and well perfused. Splint is taken down and reveals a healing incision at the anterior ankle with intact nylon sutures. - Labs CBC & Chem 7: 02/24/23 06:14 02/24/23 06:14 Labs: Abnormal Lab Results - Last 24 Hours (Table) 02/25/23 02/25/23 02/26/23 Range/Units 16:45 20:35 06:21 POC Glucose (mg/dL) 308 H 233 H 177 H (70-110) mg/dL 02/26/23 Range/Units 11:13 POC Glucose (mg/dL) 252 H (70-110) mg/dL Microbiology - Last 24 Hours (Table) 02/22/23 14:33 Blood Culture - Preliminary Blood 02/22/23 14:28 Blood Culture - Preliminary Blood Assessment and Plan Assessment: Status-post left ankle open reduction internal fixation with a hindfoot TTC nail on 02/19/23. Post-op day #7. Plan: - The splint and wound VAC were taken down today. A nonadherent dressing was placed over his wound and a new bulky Pickens splint was applied. Patient should remain strictly nonweightbearing on the left lower extremity. He should keep his splint in place until follow-up in the office next week. After patient is seen in our office in the splint is removed, patient should follow-up the next day at the wound care center for further recommendations. Agree with above note. The patient has an extremely high risk wound - pre-exist ing swelling/lymphedema, chronic cellulitis and an open type IIIB open ankle fracture. The wounds are slowly healing, but there is some malodorous drainage. No obvious signs of infection other than the chronic cellulitis and the malodorous drainage. The patient had dressings and a new splint applied. He is still at a very high risk of having an amputation. He is ok to discharge to his facility on oral antibiotics. I will see him in the office next and take down his splint. At that point if his wounds are still healing, I will turn over his wounds to the wound center at the hospital. I would like him seen in the wound center next Wednesday if possible as he is at a very high risk and needs management by wound specialists. Jaskaran Reaves MD
--- NOTE | 2023-02-26 14:50 | CDI ---
Documentation Clarification Form Date: 02/26/2023 02:34:36 PM From: Courtney Wright RN CCDS Phone: [phone] Admit Date: 02/22/2023 09:37:00 AM Patient Name: Zeferino Briones Visit Number: [id number] Discharge Date: ATTENTION: The Clinical Documentation Specialists (CDI) and [facility] Coding Staff appreciate your assistance in clarifying documentation. Please respond to the clarification below the line at the bottom and electronically sign. The CDI & [facility] Coding staff will review the response and follow-up if needed. Please note: Queries are made part of the Legal Health Record. If you have any questions, please contact the author of this message via ITS. Dr. Alfred Lau Sepsis is documented ID consult 02/22 through 02/25 notes but is not noted in subsequent documentation. Clarification is requested. History/Risk Factors: 77-year-old male presents for operative repair of open left ankle fracture/dislocation. Medical History: DM2, GERD/Reflux, HLD, HTN, OA, Renal disease, Sleep apnea and BMI 51.7kg Clinical Indicators: VSS, 02/21 23:30: B/P 113/64; HR 109; RR 20; Temp 102.1 F Oral; SpO2 93% room air 02/22, Wbc 23.2 02/22, ID consult: patient with sepsis in this patient with a fever elevated white count patient admitted to the hospital for operative repair of the left ankle fracture patient did have evidence of significant cellulitis to the right lower extremity could be the likely source of this fever. management of antibiotic therapy patient be complaining of more swelling and redness especially to the right lower extremity has been complaining of pain to be mostly been aching to sharp 6-7 out of 10 Treatment: 02/19 Cefazolin IVPB Q8HR x 2 bags; 02/22 02/26 Cefazolin IVPB Q8HRS; 02/18 Tylenol PO Q6HR. Please clarify if the Sepsis is: [x ] Sepsis confirmed, resolved [ ] Sepsis ruled out [ ] Other condition, please specify [ ] Unable to determine (Template Last Revised: September 2020) MTDD
[2023-02-26 15:03] VITALS: BP 130/76; PULSE 85; TEMP 98
--- NOTE | 2023-02-26 16:14 | P.PN ---
Subjective Progress Note Date: 02/26/23 Principal diagnosis: Fever, right lower extremity cellulitis Patient is a 77-year male with a past medical history significant for diabetes mellitus hypertension hyperlipidemia renal insufficiency patient did have a fall in the shower with left ankle wound fracture on 02/05/2023, electively admitted to the hospital for operative repair completed on 02/19/2023 the patient did spike a fever prompting this infection disease consultation. On today's evaluation that is 02/26, the patient continues to be afebrile, patient is breathing comfortably on room air, patient denies having any chest pain shortness of breath or cough. The patient pain to left ankle is controlled and the patient right lower extremity swelling and redness has decreased in intensity, there is no open wound or any drainage, no new symptoms The patient white count is currently at 10.35 hemoglobin is 10.0, creatinine 0.9 as of 02/24/2023, no CBC was done today, blood cultures so far negative Objective - Vital Signs Vital signs: Vital Signs Temp 97.9 F 02/26/23 06:48 Pulse 72 02/26/23 06:48 Resp 18 02/26/23 06:48 BP 151/78 02/26/23 06:48 Pulse Ox 97 02/26/23 06:48 FiO2 Intake & Output 02/25/23 02/26/23 02/26/23 18:59 06:59 18:59 Output Total 600 690 Balance -600 -690 Output: Urine 600 690 Other: Voiding Method External Catheter External Catheter External Catheter # Voids 0 # Bowel Movements 1 2 - Exam GENERAL DESCRIPTION: An elderly male lying in bed in no distress RESPIRATORY SYSTEM: Unlabored breathing , decreased breath sounds at bases HEART: S1 S2 regular rate and rhythm , ABDOMEN: Soft , no tenderness EXTREMITIES: Right lower extremity swelling redness mildly decreased - Labs CBC & Chem 7: 02/24/23 06:14 02/24/23 06:14 Labs: Abnormal Lab Results - Last 24 Hours (Table) 02/25/23 02/25/23 02/26/23 Range/Units 16:45 20:35 06:21 POC Glucose (mg/dL) 308 H 233 H 177 H (70-110) mg/dL 02/26/23 Range/Units 11:13 POC Glucose (mg/dL) 252 H (70-110) mg/dL Microbiology - Last 24 Hours (Table) 02/22/23 14:33 Blood Culture - Preliminary Blood 02/22/23 14:28 Blood Culture - Preliminary Blood Assessment and Plan (1) Cellulitis of right leg Current Visit: Yes Status: Acute Code(s): L03.115 - CELLULITIS OF RIGHT LOWER LIMB SNOMED Code(s): 961713808 Plan: 1patient with sepsis in this patient with a fever elevated white count patient admitted to the hospital for operative repair of the left ankle fracture patient did have evidence of significant cellulitis to the right lower extremity could be the likely source of this fever and will need to cover for the gram-positive skin scott to the likely pathogen 2-blood culture has been obtained and so far pending 3Patient fever has resolved and the patient white count has normalized 4plan is to finish therapy with oral Keflex 7 days along with Werner wrap to keep the swelling down discussed with admitting team working on discharge Dictation was produced using [employer] dictation software. please excuse any grammatical, word or spelling errors. Time with Patient: Less than 30
[2023-02-26 16:26] LABS: Glucose,Whole Blood 285 mg/dL (70-110)
== END 2023-02-26 18:31 | DRG 854 ==
LOC: EC 10:24 → 6NMEDSUR 11:23 → 4SSUR 19:54 → OBSVTOIN 02-22 09:37
PROVIDERS: ADMIT Internal Medicine; ATTEND Internal Medicine
PROC: 0QSH04Z Reposition Left Tibia with Internal Fixation Device, Open Approach (ICD-10-PCS; principal; 2023-02-26)
DX: A41.9 Sepsis, unspecified organism (principal); L03.115 Cellulitis of right lower limb; S82.852C Displaced trimalleolar fracture of left lower leg, initial encounter for open fracture type IIIA, IIIB, or IIIC; L03.116 Cellulitis of left lower limb; Z68.43 Body mass index [BMI] 50.0-59.9, adult; E11.22 Type 2 diabetes mellitus with diabetic chronic kidney disease; E66.01 Morbid (severe) obesity due to excess calories; E78.5 Hyperlipidemia, unspecified; F32.A Depression, unspecified; G47.33 Obstructive sleep apnea (adult) (pediatric); I25.10 Atherosclerotic heart disease of native coronary artery without angina pectoris; I12.9 Hypertensive chronic kidney disease with stage 1 through stage 4 chronic kidney disease, or unspecified chronic kidney disease; I89.0 Lymphedema, not elsewhere classified; M13.0 Polyarthritis, unspecified; N18.30 Chronic kidney disease, stage 3 unspecified; Z74.01 Bed confinement status; Z79.4 Long term (current) use of insulin; Z79.82 Long term (current) use of aspirin; Z79.84 Long term (current) use of oral hypoglycemic drugs; Z79.899 Other long term (current) drug therapy; Z87.442 Personal history of urinary calculi; Z88.8 Allergy status to other drugs, medicaments and biological substances
CPT/HCPCS: 36415; 71045; 80048; 80053; 83880; 85025; 85027; 85610; 85730; 87040; 93005; 96361; 96374; 96375; 99285

== ENCOUNTER 2023-07-27 10:03 | Emergency (ER) | payer MEDICARE ==
[2023-07-27 10:13] VITALS: RESP 18
[2023-07-27] MEDS ORDERED: ACETAMINOPHEN TAB 500 MG TAB PO STA (10:19)
--- NOTE | 2023-07-27 10:40 | ED ---
Fever HPI - General Chief Complaint: Fever Stated Complaint: Fever Time Seen by Provider: 07/27/23 10:05 Source: patient, RN/MD, RN notes reviewed Mode of arrival: ambulatory Limitations: physical limitation - History of Present Illness Initial Comments: Patient is a 77-year-old male presented ER with a chief complaint of fever. Patient was sent here by wound care with a fever of 100.1 earlier today. They've not given him anything for the fever at that time. Patient is seen wound care for his left leg wound. Patient sees Dr. Rios and or possibly planning a below the knee amputation. Patient also has a wound on his coccyx. Patient denies any headaches, chills, night sweats, fevers at home, cough, congestion, chest pain, shortness of breath, abdominal pain, constipation, diarrhea, urinary symptoms. - Related Data Home Medications Medication Instructions Recorded Confirmed Fenofibrate,Micronized 200 mg PO HS@209906/06/18 02/18/23 [Fenofibrate] Atorvastatin [Lipitor] 20 mg PO HS@209902/05/23 02/18/23 Dapagliflozin Propanediol [Farxiga] 10 mg PO DAILY@89902/05/23 02/18/23 Latanoprost [Latanoprost 0.005%] 1 drop BOTH EYES HS@209902/05/23 02/18/23 Losartan Potassium 100 mg PO DAILY@89902/05/23 02/18/23 Pioglitazone [Actos] 15 mg PO DAILY@89902/05/23 02/18/23 Semaglutide [Ozempic] 2 mg SQ MO@89902/05/23 02/18/23 metFORMIN HCL 1,000 mg PO BID@02/05/23 02/18/23 Amino Acids/Protein Hydrolys 30 ml PO DAILY@89902/18/23 02/18/23 [Pro-Stat Awc Liquid] Aspirin 81 mg PO DIRECTED 02/18/23 02/18/23 Heparin Sodium,Porcine (1 ml) 5,000 unit SQ DIRECTED 02/18/23 02/18/23 [Heparin Sodium] Hydrophilic Cream [Triad (Kerodex 1 applic TOPICAL DAILY PRN 02/18/23 02/18/23 geq)] INSULIN ASPART (NovoLOG) [NovoLOG See Protocol SQ ACHS@08,12,17, 02/18/23 02/18/23 (formulary)] Povidone-Iodine [Betadine] 1 applic TOPICAL Q12H 02/18/23 02/18/23 Sennosides-Docusate Sodium 2 tab PO HS PRN 02/18/23 02/18/23 [Senokot-S] Previous Rx's Medication Instructions Recorded Acetaminophen Tab [Tylenol] 650 mg PO Q4HR PRN tab 02/08/23 Cephalexin [Keflex] 500 mg PO Q8HR 7 Days #0 02/26/23 Furosemide [Lasix] 40 mg PO DAILY #14 tab 02/26/23 Gabapentin [Neurontin] 300 mg PO TID@0800,1400,2200 #3 cap 02/26/23 Insulin Glargine,Hum.rec.anlog 20 units SQ DIRECTED #0 02/26/23 [Lantus Solostar Pen] Nystatin 100,000 Unit/gm Powd 1 applic TOPICAL TID 7 Days #1 each 02/26/23 [Mycostatin Powder] traMADol HCl [Ultram] 50 mg PO TID@0800,1400,2200 #6 tab 02/26/23 Cephalexin [Keflex] 500 mg PO Q6HR 10 Days #40 cap 07/27/23 Allergies Allergy/AdvReac Type Severity Reaction Status Date / Time cat pelt standardized Allergy Itching Verified 07/27/23 10:10 allergenic ex mold Allergy Itching Verified 07/27/23 10:10 pollen extracts Allergy Itching Verified 07/27/23 10:10 Review of Systems ROS Statement: Those systems with pertinent positive or pertinent negative responses have been documented in the HPI. ROS Other: All systems not noted in ROS Statement are negative. Past Medical History Past Medical History: Diabetes Mellitus, GERD/Reflux, Hyperlipidemia, Hypertension, Osteoarthritis (OA), Renal Disease, Sleep Apnea/CPAP/BIPAP Additional Past Medical History / Comment(s): 02/05/23 Fall in shower with L ankle wound/fracture and had surgery-ORIF with I&D and wound vac placed. Per ANGUS Mishra RN caring for patient ANGUS was instructed not to touch wound vac so have no supplies to send. She states pt has a small open wound on scrotum and coccyx. IDDM type II, neuropathy legs and feet, bedbound/ander lift, CKD stage III, nephrolithiasis, DALTON with Cpap mask., L shoulder pain/torn rotator cuff/limited ROM, polyarthritis. History of Any Multi-Drug Resistant Organisms: MRSA Date of last positivie culture/infection: 04/21/16 MDRO Source:: ABDOMEN Additional Past Surgical History / Comment(s): KIDNEY STONE REMOVED and ureteral stent placed, deviated septum surgery, flex sigmoidoscopy several times, colonoscopy, dental surgery, cataract surgery bilaterally. Past Anesthesia/Blood Transfusion Reactions: No Reported Reaction Past Psychological History: Depression Smoking Status: Never smoker Past Alcohol Use History: None Reported Past Drug Use History: None Reported - Past Family History Father Additional Family Medical History / Comment(s): brain anuerysm Mother Family Medical History: Cancer, Deep Vein Thrombosis (DVT) General Exam Limitations: physical limitation General appearance: alert, in no apparent distress Head exam: Present: atraumatic, normocephalic, normal inspection Eye exam: Present: normal appearance, PERRL, EOMI. Absent: scleral icterus, conjunctival injection, periorbital swelling ENT exam: Present: normal exam, normal oropharynx, mucous membranes moist, TM's normal bilaterally Respiratory exam: Present: normal lung sounds bilaterally. Absent: respiratory distress, wheezes, rales, rhonchi, stridor Cardiovascular Exam: Present: regular rate, normal rhythm, normal heart sounds. Absent: systolic murmur, diastolic murmur, rubs, gallop, clicks GI/Abdominal exam: Present: soft, normal bowel sounds. Absent: distended, tenderness, guarding, rebound, rigid Extremities exam: Present: other (wound to left ankle and plantar aspect of foot no drainage. mild surrounding erythema. ) Neurological exam: Present: alert, oriented X3, CN II-XII intact Psychiatric exam: Present: normal affect, normal mood Skin exam: Present: other (stage 4 wound to coccyx no drainage. clean bandage in place. ) Course Vital Signs 07/27/23 07/27/23 07/27/23 10:04 11:57 15:16 Temperature 99.1 F 98.1 F 98.2 F Pulse Rate 89 78 79 Respiratory 18 18 18 Rate Blood Pressure 127/73 125/65 128/72 O2 Sat by Pulse 97 97 97 Oximetry 07/27/23 16:10 Temperature 98.4 F Pulse Rate 77 Respiratory 18 Rate Blood Pressure 130/81 O2 Sat by Pulse 97 Oximetry Medical Decision Making - Medical Decision Making Was pt. sent in by a medical professional or institution (, EMILIA, GAME MODERATOR, urgent care, hospital, or jail...) When possible be specific @ -Wound care for fever of 100.1F. Did you speak to anyone other than the patient for history (EMS, parent, family, police, friend...)? What history was obtained from this source @ -No Did you review nursing and triage notes (agree or disagree)? Why? @ -I reviewed and agree with nursing and triage notes Were old charts reviewed (outside hosp., previous admission, EMS record, old EKG, old radiological studies, urgent care reports/EKG's, jail records)? Report findings @ -No old charts were reviewed Differential Diagnosis (chest pain, altered mental status, abdominal pain women, abdominal pain men, vaginal bleeding, weakness, fever, dyspnea, syncope, headache, dizziness, GI bleed, back pain, seizure, CVA, palpatations, mental health, musculoskeletal)? @ -Differential Fever: Pneumonia, viral URI, endocarditis, myocarditis, pericarditis, otitis, sinusitis, peritonsillar Abscess, retropharyngeal Abscess, epiglottitis, peritonitis, appendicitis, Brenda cystitis, diverticulitis, hepatitis, colitis, UTI, PID, TOA, pyelonephritis, prostatitis, epididymitis, meningitis, encephalitis, pulmonary embolism, CVA, thyroid storm, pancreatitis, adrenal crisis, cavernous sinus thrombosis, this is not meant to be an all- inclusive list. EKG interpreted by me (3pts min.). @ -None X-rays interpreted by me (1pt min.). @ -Chest x-ray interpreted by me shows no acute process. Left ankle x-ray shows no acute pathology. Hardware in placed with no evidence of loosening. There is soft tissue swelling and difuse osteopenia without lytic destruction/ Left tibis/fibula shows generalized soft tissue swelling. Old oblique fracture of distal fibula remains ununited. No other osseous pathology. CT interpreted by me (1pt min.). @ -None done U/S interpreted by me (1pt. min.). @ -None done What testing was considered but not performed or refused? (CT, X-rays, U/S, labs)? Why? @ -None What meds were considered but not given or refused? Why? @ -None Did you discuss the management of the patient with other professionals ( professionals i.e. , EMILIA, GAME MODERATOR, lab, RT, psych nurse, adoption social worker, driver license reviewing officer, teacher, bsa officer, wrapper caser)? Give summary @ -No Was smoking cessation discussed for >3mins.? @ -No Was critical care preformed (if so, how long)? @ -No Were there social determinants of health that impacted care today? How? (Homelessness, low income, unemployed, alcoholism, drug addiction, transpo rtation, low edu. Level, literacy, decrease access to med. care, intermediate, rehab)? @ -No Was there de-escalation of care discussed even if they declined (Discuss DNR or withdrawal of care, Hospice)? DNR status @ -No What co-morbidities impacted this encounter? (DM, HTN, Smoking, COPD, CAD, Cancer, CVA, ARF, Chemo, Hep., AIDS, mental health diagnosis, sleep apnea, morbid obesity)? @ -DM, morbid obesity Was patient admitted / discharged? Hospital course, mention meds given and route, prescriptions, significant lab abnormalities, going to OR and other pertinent info. @ -Discharged. Patient is 77-year-old male presented to ER with chief complaint of fever. Patient was sent here by wound care. Vital stable. Patient did have a temperature of 99.1 F. history physical exam were completed. Patient did have multiple wounds noted to left lower extremity and coccyx. Labs obtained the ER were significant for WBC 12.0 and Hgb 11.1. Cephid negative. UA had 4+ glucose which was correlated to patient's diabetes. X-rays did not show any signs of acute process. Patient received PO tylenol for fever and pain control in the ER with improvement. Patient will be prescribed Keflex. Return parameters were discussed. Patient will be discharged in stable condition back to [facility] with follow-up to wound care and PCP. Patient reported he had a hand appointment with wound care on , 07/29/23. Patient expressed understanding and agreement with care plan. Undiagnosed new problem with uncertain prognosis? @ -No Drug Therapy requiring intensive monitoring for toxicity (Heparin, Nitro, In sulin, Cardizem)? @ -No Were any procedures done? @ -No Diagnosis/symptom? @ -Fever/ wound check Acute, or Chronic, or Acute on Chronic? @ -Acute Uncomplicated (without systemic symptoms) or Complicated (systemic symptoms)? @ -Uncomplicated Side effects of treatment? @ -No Exacerbation, Progression, or Severe Exacerbation? @ -No Poses a threat to life or bodily function? How? (Chest pain, USA, SC, pneumonia, PE, COPD, DKA, ARF, appy, cholecystitis, CVA, Diverticulitis, Homicidal, Suicidal, threat to staff... and all critical care pts) @ -No - Lab Data Result diagrams: 07/27/23 10:25 07/27/23 10:25 Lab Results 07/27/23 07/27/23 07/27/23 Range/Units 10:25 10:25 10:25 WBC 12.0 H (3.8-10.6) k/uL RBC 4.30 (4.30-5.90) m/uL Hgb 11.1 L (13.0-17.5) gm/dL Hct 35.8 L (39.0-53.0) % MCV 83.3 (80.0-100.0) fL MCH 25.9 (25.0-35.0) pg MCHC 31.1 (31.0-37.0) g/dL RDW 17.2 H (11.5-15.5) % Plt Count 620 H (150-450) k/uL MPV 8.2 Neutrophils % 84 % Lymphocytes % 9 % Monocytes % 4 % Eosinophils % 1 % Basophils % 0 % Neutrophils # 10.2 H (1.3-7.7) k/uL Lymphocytes # 1.1 (1.0-4.8) k/uL Monocytes # 0.5 (0-1.0) k/uL Eosinophils # 0.1 (0-0.7) k/uL Basophils # 0.0 (0-0.2) k/uL Hypochromasia Moderate Anisocytosis Slight Sodium 135 L (137-145) mmol/L Potassium 4.5 (3.5-5.1) mmol/L Chloride 102 (98-107) mmol/L Carbon Dioxide 25 (22-30) mmol/L Anion Gap 8 mmol/L BUN 43 H (9-20) mg/dL Creatinine 0.77 (0.66-1.25) mg/dL Est GFR (CKD-EPI)AfAm >90 (>60 ml/min/1.73 sqM) Est GFR (CKD-EPI)NonAf 88 (>60 ml/min/1.73 sqM) Glucose 174 H (74-99) mg/dL Plasma Lactic Acid Nithin (0.7-2.0) mmol/L Calcium 9.6 (8.4-10.2) mg/dL Total Bilirubin 0.4 (0.2-1.3) mg/dL AST 33 (17-59) U/L ALT 21 (4-49) U/L Alkaline Phosphatase 58 (38-126) U/L Total Protein 6.1 L (6.3-8.2) g/dL Albumin 3.0 L (3.5-5.0) g/dL Urine Color Colorless Urine Appearance Clear (Clear) Urine pH 6.5 (5.0-8.0) Ur Specific [place] 1.016 (1.001-1.035) Urine Protein Negative (Negative) Urine Glucose (UA) 4+ H (Negative) Urine Ketones Negative (Negative) Urine Blood Negative (Negative) Urine Nitrite Negative (Negative) Urine Bilirubin Negative (Negative) Urine Urobilinogen <2.0 (<2.0) mg/dL Ur Leukocyte Esterase Negative (Negative) Influenza Type A (PCR) (Not Detectd) Influenza Type B (PCR) (Not Detectd) RSV (PCR) (Not Detectd) SARS-CoV-2 (PCR) (Not Detectd) 07/27/23 07/27/23 Range/Units 10:25 10:25 WBC (3.8-10.6) k/uL RBC (4.30-5.90) m/uL Hgb (13.0-17.5) gm/dL Hct (39.0-53.0) % MCV (80.0-100.0) fL MCH (25.0-35.0) pg MCHC (31.0-37.0) g/dL RDW (11.5-15.5) % Plt Count (150-450) k/uL MPV Neutrophils % % Lymphocytes % % Monocytes % % Eosinophils % % Basophils % % Neutrophils # (1.3-7.7) k/uL Lymphocytes # (1.0-4.8) k/uL Monocytes # (0-1.0) k/uL Eosinophils # (0-0.7) k/uL Basophils # (0-0.2) k/uL Hypochromasia Anisocytosis Sodium (137-145) mmol/L Potassium (3.5-5.1) mmol/L Chloride (98-107) mmol/L Carbon Dioxide (22-30) mmol/L Anion Gap mmol/L BUN (9-20) mg/dL Creatinine (0.66-1.25) mg/dL Est GFR (CKD-EPI)AfAm (>60 ml/min/1.73 sqM) Est GFR (CKD-EPI)NonAf (>60 ml/min/1.73 sqM) Glucose (74-99) mg/dL Plasma Lactic Acid Nithin 1.2 (0.7-2.0) mmol/L Calcium (8.4-10.2) mg/dL Total Bilirubin (0.2-1.3) mg/dL AST (17-59) U/L ALT (4-49) U/L Alkaline Phosphatase (38-126) U/L Total Protein (6.3-8.2) g/dL Albumin (3.5-5.0) g/dL Urine Color Urine Appearance (Clear) Urine pH (5.0-8.0) Ur Specific [place] (1.001-1.035) Urine Protein (Negative) Urine Glucose (UA) (Negative) Urine Ketones (Negative) Urine Blood (Negative) Urine Nitrite (Negative) Urine Bilirubin (Negative) Urine Urobilinogen (<2.0) mg/dL Ur Leukocyte Esterase (Negative) Influenza Type A (PCR) Not Detected (Not Detectd) Influenza Type B (PCR) Not Detected (Not Detectd) RSV (PCR) Not Detected (Not Detectd) SARS-CoV-2 (PCR) Not Detected (Not Detectd) - Radiology Data Radiology results: report reviewed, image reviewed Disposition Clinical Impression: Fever, Wound of skin Disposition: HOME SELF-CARE Condition: Stable Additional Instructions: Use [id number] Tylenol and Motrin for fever control. Please complete full course of Keflex. Follow-up with wound care and Dr. Rios as scheduled. Please return to the ER for any new or worsening symptoms. Prescriptions: Cephalexin [Keflex] 500 mg PO Q6HR 10 Days #40 cap Is patient prescribed a controlled substance at d/c from ED?: No Referrals: Sterling Chilel MD [Primary Care Provider] - 1-2 days Enmanuel Hurt DO [Doctor of Osteopathic Medicine] - 1-2 days Time of Disposition: 14:38
[2023-07-27 11:24] LABS: Anisocytosis Slight; Basophils % (A) 0 %; Eosinophils # (A) 0.1 k/uL (0-0.7); Eosinophils % (A) 1 %; HCT 35.8 % (39.0-53.0); HGB 11.1 gm/dL (13.0-17.5); Hypochromasia Moderate; Lymphocytes # (A) 1.1 k/uL (1.0-4.8); Lymphocytes % (A) 9 %; MCH 25.9 pg (25.0-35.0); MCHC 31.1 g/dL (31.0-37.0); MCV 83.3 fL (80.0-100.0); Mean Platelet Volume 8.2; Monocytes # (A) 0.5 k/uL (0-1.0); Monocytes % (A) 4 %; Neutrophils # (A) 10.2 k/uL (1.3-7.7); Neutrophils % (A) 84 %; Platelet Count 620 k/uL (150-450); RDW 17.2 % (11.5-15.5)
[2023-07-27 11:37] LABS: ALT 21 U/L (4-49); AST 33 U/L (17-59); African American GFR (CKD) >90 (>60 ml/min/1.73 sqM); Alkaline Phosphatase 58 U/L (38-126); Anion Gap 8 mmol/L; Blood Urea Nitrogen 43 mg/dL (9-20); Calcium 9.6 mg/dL (8.4-10.2); Carbon Dioxide 25 mmol/L (22-30); Chloride 102 mmol/L (98-107); Glucose 174 mg/dL (74-99); Non-African American GFR(CKD) 88 (>60 ml/min/1.73 sqM); Potassium 4.5 mmol/L (3.5-5.1); Sodium 135 mmol/L (137-145); Total Bilirubin 0.4 mg/dL (0.2-1.3); Total Protein 6.1 g/dL (6.3-8.2)
--- NOTE | 2023-07-27 11:37 | XR ---
EXAMINATION TYPE: XR chest 2V DATE OF EXAM: 07/27/2023 COMPARISON: 02/18/2023 HISTORY: 77-year-old male with fever TECHNIQUE: AP and lateral views FINDINGS: Heart borderline in size. Loss of the subacromial space on the left compatible chronic full-thickness rotator cuff tear. Large patient body habitus casting hazy densities. No ana lilia consolidation or pleu ral effusion seen. IMPRESSION: Borderline heart size. Limitations due to large body habitus. No definite acute process.
--- NOTE | 2023-07-27 11:55 | XR ---
EXAMINATION TYPE: XR tibia fibula 2 views LT, XR ankle complete 3 views LT DATE OF EXAM: 07/27/2023 Comparison: Knee 06/17/2017 and ankle 02/19/2023 Clinical History: 77-year-old male open wound bottom of left heelwoundt ankle pain, wound Findings: Tibia/fibula: Tricompartmental degenerative spurring partially visualized at the knee. There is generalized subcuta neous soft tissue swelling of the leg. Vascular calcifications suggesting underlying diabetes in her chronic kidney disease. Old screw tracts within the mid tibial shaft. Ankle: Redemonstrated retrograde intramedullary nail across the hindfoot, subtalar joint, tibiotalar joint. Oblique, minimally offset fracture distal fibular shaft is unchanged. Bony bridging remains incomplet e. Suspect a chronic, nondisplaced posterior malleolar fracture. Disuse osteopenia. Screw fixation po sterior calcaneus. [id number] sized plantar heel spur. Prominent dorsal spurring at the talona vicular joint. Possible prominent thickening of the mid to distal thoracic Achilles tendon. No discre te lytic destruction is identified. The degree of osteopenia does cause some limitation in assessment . Impression: Ankle: 1. Retrograde intramedullary nail across the anterior calcaneal body, subtalar joint, and tibiotalar joint. No apparent hardware loosening seen. 2. Scattered soft tissue swelling. There may be thickening of the mid to distal third Achilles tendon which can be seen with tendinopathy. Clinically correlate. If concern for Achilles tendon pathology, targeted ultrasound can be performed. 3. There is marked disuse osteopenia but no ana lilia lytic destruction to clearly indicate osteomyelitis . Tibia/fibula: 4. Generalized soft tissue swelling. Old screw tracks within the mid tibial shaft. 5. Oblique fracture distal fibular shaft remains ununited. Suspect old fracture deformity posterior m alleolus. 6. No acute osseous abnormality seen.
[2023-07-27 14:18] LABS: Appearance,Urine Clear (Clear); Bilirubin,Urine Negative (Negative); Blood,Urine Negative (Negative); Color,Urine Colorless; Glucose,Urine (UA) 4+ (Negative); Ketones,Urine Negative (Negative); Leukocyte Esterase,Urine Negative (Negative); Nitrite,Urine Negative (Negative); PH, Urine 6.5 (5.0-8.0); Protein,Urine Negative (Negative); Specific Gravity,Urine 1.016 (1.001-1.035); Urobilinogen,Urine <2.0 mg/dL (<2.0)
[2023-07-27 16:17] VITALS: BP 130/81; PULSE 77; TEMP 98.4
== END 2023-07-27 16:16 | disposition home or self-care (01) ==
LOC: EC 10:03 → SUPCPDRO 10:03 → EC 16:16
DX: S82.832A Other fracture of upper and lower end of left fibula, initial encounter for closed fracture (principal); R50.9 Fever, unspecified; E11.9 Type 2 diabetes mellitus without complications; I10 Essential (primary) hypertension; G47.30 Sleep apnea, unspecified; E78.5 Hyperlipidemia, unspecified; Z91.018 Allergy to other foods; Z88.8 Allergy status to other drugs, medicaments and biological substances; Z86.59 Personal history of other mental and behavioral disorders; Z20.822 Contact with and (suspected) exposure to COVID-19; Z79.4 Long term (current) use of insulin; Z79.84 Long term (current) use of oral hypoglycemic drugs; Z79.82 Long term (current) use of aspirin; Z79.899 Other long term (current) drug therapy; X58.XXXA Exposure to other specified factors, initial encounter
CPT/HCPCS: 36415; 71046; 80053; 81003; 83605; 85025; 87636; 99284

== ENCOUNTER 2023-08-19 10:50 | Inpatient (IN) | payer MEDICARE ==
[2023-08-19] MEDS: LACTATED RINGERS 1,000 ML IV ONE ×3 (12:19→15:47)
[2023-08-19 12:30] LABS: Glucose,Whole Blood 104 mg/dL (70-110)
[2023-08-19] MEDS: ENOXAPARIN 40 MG/0.4 ML SYRINGE SQ PRN (12:41)
[2023-08-19] MEDS ORDERED: ONDANSETRON 4 MG/2 ML VIAL ONE (12:44)
[2023-08-19] MEDS: ONDANSETRON 4 MG/2 ML VIAL IVP ONE (12:47)
[2023-08-19] MEDS: DEXAMETHASONE SOD PHOSPHATE 4 MG/ML 1 ML VIAL IVP ONE (12:47)
[2023-08-19] MEDS ORDERED: LIDOCAINE 1% INJ 10MG/ML (20 ML MDV) ONE (13:36)
[2023-08-19] MEDS ORDERED: PROPOFOL 10 MG/ML 20 ML VIAL IV ONE (13:36)
[2023-08-19] MEDS: ceFAZolin 3 GM in SODIUM CHLORIDE 0.9% 100 ML IVPB PRN (13:36)
[2023-08-19] MEDS ORDERED: fentaNYL (PF) 50 MCG/ML 2 ML AMP ONE (13:36)
[2023-08-19] MEDS ORDERED: ROCURONIUM 10 MG/ML (5 ML VIAL) IV ONE (13:36)
[2023-08-19] MEDS ORDERED: KETAMINE HCL IN 0.9 % NACL 50 MG/5 ML SYRINGE ONE (13:36)
[2023-08-19] MEDS ORDERED: NEOSTIGMINE 1 MG/ML 10 ML VIAL ONE (13:36)
[2023-08-19] MEDS ORDERED: SUCCINYLCHOLINE CHLORIDE 200 MG/10 ML VIAL IV ONE (13:36)
[2023-08-19] MEDS ORDERED: MIDAZOLAM 2 MG/2 ML VIAL ONE (13:36)
[2023-08-19] MEDS ORDERED: PHENYLEPHRINE 10 MG/ML VIAL ONE (13:36)
[2023-08-19] MEDS ORDERED: GLYCOPYRROLATE 0.2 MG/ML 2 ML VIAL ONE (13:36)
[2023-08-19] MEDS: ceFAZolin 2 GM in SODIUM CHLORIDE 0.9% 500 ML 500 ML IRRIGATION ONE (14:14)
--- NOTE | 2023-08-19 16:02 | P.OP ---
Date of Procedure: 08/19/23 Preoperative Diagnosis: Nonhealing wound left lower extremity at the malleolus level. Diabetic vascular disease. Postoperative Diagnosis: Same. Procedure(s) Performed: 1: Left below the knee amputation. 2: Application of wound VAC greater than 50 cm Anesthesia: FREDI Surgeon: Enmanuel Hurt Estimated Blood Loss (ml): 250 Pathology: none sent Condition: stable Disposition: floor Indications for Procedure: Patient is a 77-year-old male with a history of diabetes mellitus, morbid obesity and other health care issues who had fallen suffering an ankle fracture which required surgical repair. Patient's wound never healed in spite of appropriate therapy. Because the nonhealing nature the wound of the only option for the patient was blood the knee amputation. The procedure, risk and benefits were discussed with the patient. Patient wished to proceed. All questions were answered to patient's satisfaction. Consent form was signed. Description of Procedure: Patient brought the upper and placed in supine position Mr. general endotracheal anesthesia administered by the department of anesthesiology. Patient's left lower extremity was sterilely prepped and draped in usual manner. Patient received intravenously administered prophylactic antibiotics in the perioperative phase. Her graft transverse skin incision was made approximate 10 cm below the tibial tuberosity and brought both medially and laterally. The incision was then teed off and brought inferiorly both medially and laterally and posteriorly. Incision was deepened through the subcu change tissues. Hemostasis was achieved using electrocautery. Significant edema of the leg was encountered. The muscle groups were divided with electrocautery. Periosteum of the tibia was elevated and you to think power saw the tibia was transected. The fibula was then transected as far proximal as possible and the amputation completed. One point of bleeding which resulted in significant blood loss was encountered. Difficulty was experienced initially identifying this however 1 clamped it was controlled with Vicryl suture. The posterior flap easily reached the anterior surface of the wound. The femoral nerve was identified and clamped as far proximally as possible transected and then ligated. The wound was irrigated. Hemostasis was judged be adequate. The fascia was closed with 2-0 Vicryl and attempt at closure of the skin with nylon suture to the poor quality of the skin and the suture tearing through skin. Was decided to place a wound VAC in the wound. The sutures placed anteriorly and the fascia were removed. A black sponge was placed within the wound. The wound measured 11 cm x 5 cm. The occlusive dressing was then applied and negative pressure was applied through the wound VAC device which resulted in a good seal. With the above findings noted a knee immobilizer was placed. Patient tolerated the procedure well. He awoke without apparent complication was transferred to the recovery area satisfactory and stable condition.
[2023-08-19] MEDS: HYDROmorphone 0.5 MG/0.5 ML SYRINGE IVP ONE ×4 (16:06→17:36)
[2023-08-19 16:11] LABS: Glucose,Whole Blood 113 mg/dL (70-110)
[2023-08-19 17:31] LABS: Anisocytosis Slight; Basophils % (A) 0 %; Eosinophils # (A) 0.1 k/uL (0-0.7); Eosinophils % (A) 1 %; HCT 27.8 % (39.0-53.0); Hypochromasia Marked; Lymphocytes # (A) 1.4 k/uL (1.0-4.8); Lymphocytes % (A) 11 %; MCH 26.9 pg (25.0-35.0); MCHC 31.8 g/dL (31.0-37.0); MCV 84.8 fL (80.0-100.0); Mean Platelet Volume 8.5; Monocytes # (A) 0.2 k/uL (0-1.0); Monocytes % (A) 2 %; Neutrophils % (A) 86 %; Platelet Count 530 k/uL (150-450); RBC 3.27 m/uL (4.30-5.90); RDW 16.9 % (11.5-15.5); WBC 12.9 k/uL (3.8-10.6)
[2023-08-19 17:35] LABS: HGB 8.8 gm/dL (13.0-17.5)
[2023-08-19] MEDS ORDERED: DEXTROSE 50% SYRINGE 50 ML IVP PRN ×2 (17:56)
[2023-08-19 20:19] LABS: Glucose,Whole Blood 177 mg/dL (70-110)
[2023-08-19] MEDS: INSULIN DETEMIR (LEVEMIR) 100 UNIT/ML SYR SQ SCH (20:59)
[2023-08-19] MEDS: HEPARIN SODIUM,PORCINE 5,000 UNIT/ML 1 ML VIAL SQ SCH (20:59)
[2023-08-19] MEDS: INSULIN ASPART (NovoLOG) 100 UNIT/ML VIAL SQ SCH (20:59)
[2023-08-19] MEDS: metFORMIN 500 MG TAB PO SCH (21:00)
[2023-08-19] MEDS: GABAPENTIN 300 MG CAP PO SCH (21:00)
[2023-08-19] MEDS: ATORVASTATIN 20 MG TAB PO SCH (21:00)
[2023-08-19] MEDS: FENOFIBRATE 160 MG TAB PO SCH (21:00)
[2023-08-19] MEDS: FERROUS SULFATE 325 MG TAB PO SCH (21:00)
[2023-08-19] MEDS: HYDROcodone/APAP 5-325MG 1 EACH TAB PO PRN (22:23)
[2023-08-20 06:10] LABS: Glucose,Whole Blood 141 mg/dL (70-110)
[2023-08-20] MEDS: CYANOCOBALAMIN 500 MCG TAB PO SCH (08:33)
[2023-08-20] MEDS: ASPIRIN 81 MG PO SCH (08:33)
[2023-08-20] MEDS: DAPAGLIFLOZIN PROPANEDIOL 10 MG TABLET PO SCH (08:33)
[2023-08-20] MEDS ORDERED: LOSARTAN 50 MG TAB PO SCH (09:00)
[2023-08-20] MEDS ORDERED: NON FORMULARY DRUG (Glucerna Shake 1 CAN Ml) PO SCH (09:00)
[2023-08-20] MEDS: FUROSEMIDE 40 MG TAB PO SCH (09:26)
[2023-08-20] MEDS: SODIUM CHLORIDE 0.9% 500 ML 500 ML IV ONE (09:56)
[2023-08-20] MEDS: CLOTRIMAZOLE/BETAMETH 1-0.05% CREAM 45 GM TUBE TOPICAL SCH (09:56)
[2023-08-20 09:57] LABS: Anisocytosis Slight; HCT 23.3 % (39.0-53.0); Hypochromasia Marked; MCH 26.1 pg (25.0-35.0); MCHC 30.4 g/dL (31.0-37.0); MCV 85.9 fL (80.0-100.0); Mean Platelet Volume 9.4; Platelet Count 463 k/uL (150-450); RBC 2.72 m/uL (4.30-5.90); RDW 16.9 % (11.5-15.5); WBC 14.3 k/uL (3.8-10.6)
[2023-08-20] MEDS: SODIUM CHLORIDE 0.9% 1,000 ML IV SCH (09:57)
[2023-08-20 10:03] LABS: HGB 7.1 gm/dL (13.0-17.5)
[2023-08-20 10:08] LABS: African American GFR (CKD) 58 (>60 ml/min/1.73 sqM); Anion Gap 4 mmol/L; Blood Urea Nitrogen 49 mg/dL (9-20); Calcium 8.2 mg/dL (8.4-10.2); Carbon Dioxide 23 mmol/L (22-30); Chloride 102 mmol/L (98-107); Glucose 155 mg/dL (74-99); Non-African American GFR(CKD) 50 (>60 ml/min/1.73 sqM); Potassium 5.5 mmol/L (3.5-5.1); Sodium 129 mmol/L (137-145)
[2023-08-20 11:25] LABS: Glucose,Whole Blood 196 mg/dL (70-110)
[2023-08-20] MEDS: MORPHINE SULFATE 4 MG/ML SYRINGE IVP PRN (13:57)
[2023-08-20] MEDS ORDERED: MIDODRINE 5 MG TAB PO PRN (13:59)
--- NOTE | 2023-08-20 14:14 | P.CONS ---
History of Present Illness - Reason for Consult Consult date: 08/20/23 Medical management, status post left BKA - History of Present Illness This is a 77-year-old male who was admitted under vascular surgery services for a nonhealing left lower extremity wound at the malleolus level with diabetic vascular disease and is status post left below the knee amputation. Patient follows with Dr. Chilel in the outpatient setting with past medical history of coronary artery disease, chest pain with angina, diabetes mellitus, eye disorder, GERD, hyperlipidemia, hypertension, history of osteoarthritis, renal disease, sleep apnea, depression. Patient was never a smoker and no reported alcohol and reports to having used drugs in the past but quit in 1998. Patient currently residing at [facility] and is bedbound for rehab. Patient consented to the surgery and is status post left BKA. Patient is a diabetic insulin-dependent and recommend Accu-Cheks before meals and at bedtime and 2 AM and will resume appropriate home medications. REVIEW OF SYSTEMS: CONSTITUTIONAL: No fever, no malaise, no fatigue. HEENT: No recent visual problems or hearing problems. Denied any sore throat. CARDIOVASCULAR: No chest pain, orthopnea, PND, no palpitations, no syncope. PULMONARY: No shortness of breath, no cough, no hemoptysis. GASTROINTESTINAL: No diarrhea, no nausea, no vomiting, no abdominal pain. NEUROLOGICAL: No headaches, no weakness, no numbness. HEMATOLOGICAL: Denies any bleeding or petechiae. GENITOURINARY: Denies any burning micturition, frequency, or urgency. MUSCULOSKELETAL/RHEUMATOLOGICAL: Denies any joint pain, swelling, or any muscle pain. Reports left leg pain ENDOCRINE: Denies any polyuria or polydipsia. The rest of the 14-point review of systems is negative. PHYSICAL EXAMINATION: GENERAL: The patient is alert and oriented x2-3, . Well developed, well nourished. Morbidly obese HEENT: Pupils are round and equally reacting to light. EOMI. No scleral icterus. No conjunctival pallor. Normocephalic, atraumatic. No pharyngeal erythema. No thyromegaly. CARDIOVASCULAR: S1 and S2 present. No murmurs, rubs, or gallops. PULMONARY: Chest is clear to auscultation, no wheezing or crackles. ABDOMEN: Soft, obese, nontender, nondistended, normoactive bowel sounds. No palpable organomegaly. MUSCULOSKELETAL: No joint swelling or deformity. EXTREMITIES: No cyanosis, clubbing, or pedal edema. Left BKA dressings noted with wound VAC NEUROLOGICAL: Gross neurological examination did not reveal any focal deficits. Diffusely weak SKIN: No rashes. Assessment: Nonhealing left lower extremity wound at the malleolus level with diabetic vascular disease, status post left below the knee amputation, postop day 1 History of coronary artery disease Hyponatremia, likely secondary to diuretic use Hyperkalemia Anemia, likely secondary to chronic kidney disease with acute blood loss anemia, hemoglobin is 7.1 and is being transfused 1 unit of PRBC History of chest pain, angina History of diabetes mellitus, insulin-dependent, uncontrolled with hyper and hyp oglycemia GERD Hyperlipidemia Hypertension, currently hypotensive Osteoarthritis Chronic kidney disease stage III Obstructive sleep apnea with a CPAP History of depression Morbid obesity with a BMI of 40.5 GI prophylaxis DVT prophylaxis Full code Plan: Patient is status post left BKA with wound VAC and wound care was consulted and pending Patient is continued on gentle IV hydration as sodium is slightly low and patient blood pressures were on the lower side and will hold blood pressure medication and continue with gentle IV hydration and follow-up on repeat labs in the a.m. Potassium 5.5 and will give a dose of Lokelma and recommend renal diet with diabetic diet Patient is diabetic and blood sugars appear uncontrolled and home medications resumed. Recommend holding metformin for now and will continue with sliding scale along with long-acting and adjust as needed. Continue Accu-Cheks before meals and at bedtime and 2 AM PT/OT therapy to evaluate and patient will likely be returning to [facility] Patient is to receive 1 unit of PRBC as hemoglobin is 7.1 and patient is slightly hypotensive. Will also continue gentle IV hydration and add midodrine as needed We will continue to follow with vascular surgery during hospitalization. Thank you kindly for this consultation. The impression and plan of care has been dictated by Mayte Modi, Nurse Practitioner as directed. Dr. Larry MD I have performed a history and examination and MDM of this patient, discussed th e with the dictator, and agree with the dictator's assessment and plan as written ,documented as a scribe. Based on total visit time, I have performed more than 50% of the visit. Past Medical History Past Medical History: Coronary Artery Disease (CAD), Chest Pain / Angina, Diabetes Mellitus, Eye Disorder, GERD/Reflux, Hyperlipidemia, Hypertension, Osteoarthritis (OA), Renal Disease, Sleep Apnea/CPAP/BIPAP Additional Past Medical History / Comment(s): 02/05/23 fall in shower with left ankle wound/fracture, had surgery-ORIF with I&D and wound vac placed/removed. Current left foot wound, left benz wound and right sacrum wound with wound vac. Anemia. IDDM type II, neuropathy legs and feet, bedbound/ander lift, CKD stage III, nephrolithiasis, DALTON with CPAP, right hip, left shoulder pain/torn rotator cuff/limited ROM, polyarthritis, cellulitis, lymphedema, glaucoma. History of Any Multi-Drug Resistant Organisms: MRSA Year Discovered:: 04/21/16 MDRO Source:: ABDOMEN Past Surgical History: Orthopedic Surgery Additional Past Surgical History / Comment(s): KIDNEY STONE REMOVED and ureteral stent placed, deviated septum surgery, flex sigmoidoscopy several times, colonoscopy, dental surgery, cataract surgery bilaterally, ORIF left ankle. Past Anesthesia/Blood Transfusion Reactions: No Reported Reaction Past Psychological History: Depression Smoking Status: Never smoker Past Alcohol Use History: None Reported Past Drug Use History: Cocaine, Marijuana, Opiates Additional Drug Use History / Comment(s): Quit drug use in 1998. - Past Family History Father Additional Family Medical History / Comment(s): Brain aneurysm. Mother Family Medical History: Cancer, Deep Vein Thrombosis (DVT) Medications and Allergies Home Medications Medication Instructions Recorded Confirmed Type Fenofibrate,Micronized 200 mg PO HS 06/06/18 08/16/23 History [Fenofibrate] Dapagliflozin Propanediol [Farxiga] 10 mg PO DAILY 02/05/23 08/16/23 History Losartan Potassium 100 mg PO DAILY 02/05/23 08/19/23 History Pioglitazone [Actos] 15 mg PO DAILY 02/05/23 08/16/23 History Semaglutide [Ozempic] 2 mg SQ MO 02/05/23 08/17/23 History metFORMIN HCL 1,000 mg PO BID 02/05/23 08/16/23 History Aspirin 81 mg PO QAM 02/18/23 08/19/23 History Heparin Sodium,Porcine (1 ml) 5,000 unit SQ BID 02/18/23 08/16/23 History [Heparin Sodium] Atorvastatin Calcium 20 mg PO HS 08/16/23 08/19/23 History Clotrimazole/Betameth Cream 1 applic TOPICAL DAILY 08/16/23 08/19/23 History [Lotrisone] Cyanocobalamin [Vitamin B-12] 500 mcg PO DAILY 08/16/23 08/19/23 History Ferrous Sulfate [Feosol] 325 mg PO BID 08/16/23 08/19/23 History Furosemide [Lasix] 40 mg PO QAM 08/16/23 08/19/23 History Gabapentin [Neurontin] 300 mg PO Q8H 08/16/23 08/16/23 History Glucerna Shake 1 can PO DAILY 08/16/23 08/19/23 History Insulin Glargine,Hum.rec.anlog 25 units SQ HS 08/16/23 08/19/23 History [Lantus Solostar Pen] Insulin Lispro [humaLOG Kwikpen] 0 unit SQ QID PRN 08/16/23 08/19/23 History traMADol HCl [Ultram] 50 mg PO Q8H 08/16/23 08/19/23 History Allergies Allergy/AdvReac Type Severity Reaction Status Date / Time cat pelt standardized Allergy Itching Verified 08/19/23 12:06 allergenic ex mold Allergy Itching Verified 08/19/23 12:06 pollen extracts Allergy Itching Verified 08/19/23 12:06 Physical Exam Vitals: Vital Signs Temp Pulse Pulse Resp BP Pulse Ox 08/20/23 08:32 98 08/20/23 08:23 98.2 F 78 18 88/49 99 08/20/23 04:00 89 16 100/65 98 08/20/23 00:00 80 18 96/52 100 08/19/23 20:00 98.2 F 78 18 113/52 95 08/19/23 19:00 73 16 96/53 100 08/19/23 18:30 80 16 103/51 100 08/19/23 18:00 73 18 108/53 100 08/19/23 17:45 84 14 115/56 100 08/19/23 17:30 88 18 123/60 97 08/19/23 17:15 81 18 119/56 97 08/19/23 17:00 83 18 118/54 97 08/19/23 16:45 86 17 118/56 98 08/19/23 16:30 80 18 100/55 100 08/19/23 16:15 85 17 111/63 100 08/19/23 16:00 98.0 F 105 H 16 129/59 99 08/19/23 11:47 97.7 F 83 20 135/59 98 Intake and Output 08/19/23 08/20/23 08/20/23 22:59 06:59 14:59 Intake Total 1780 368 Output Total 1000 850 Balance 780 -850 368 Intake: IV 1780 10 Invasive Line 1 10 Oral 358 Output: Urine 850 Straight 850 Estimated Blood Loss 1000 Other: Weight 127.913 kg Results CBC & Chem 7: 08/20/23 09:01 08/20/23 09:01 Labs: Abnormal Lab Results - Last 24 Hours (Table) 08/19/23 08/19/23 08/19/23 Range/Units 16:08 17:20 20:17 WBC 12.9 H (3.8-10.6) k/uL RBC 3.27 L (4.30-5.90) m/uL Hgb 8.8 L D (13.0-17.5) gm/dL Hct 27.8 L (39.0-53.0) % RDW 16.9 H (11.5-15.5) % Plt Count 530 H (150-450) k/uL Neutrophils # 11.0 H (1.3-7.7) k/uL POC Glucose (mg/dL) 113 H 177 H (70-110) mg/dL 08/20/23 Range/Units 06:06 WBC (3.8-10.6) k/uL RBC (4.30-5.90) m/uL Hgb (13.0-17.5) gm/dL Hct (39.0-53.0) % RDW (11.5-15.5) % Plt Count (150-450) k/uL Neutrophils # (1.3-7.7) k/uL POC Glucose (mg/dL) 141 H (70-110) mg/dL
--- NOTE | 2023-08-20 14:16 | P.PN ---
Subjective Progress Note Date: 08/20/23 Patient seen and examined today as a follow-up. He is postop day #1 for a left below the knee amputation. Skin was friable and unable to close with sutures so wound VAC was placed. Wound VAC is in place with good suction. States he did have a 6 quite a bit of pain through the night. He denies any other acute changes. He denies any shortness of breath, chest pain, abdominal pain, nausea or vomiting. He has been afebrile. He did have some blood loss during surgery today's hemoglobin 7.1. Will plan for transfusion. Objective - Vital Signs Vital signs: Vital Signs Temp 98.2 F 08/19/23 20:00 Pulse 89 08/20/23 04:00 Resp 16 08/20/23 04:00 BP 100/65 08/20/23 04:00 Pulse Ox 98 08/20/23 04:00 FiO2 Intake & Output 08/19/23 08/20/23 08/20/23 18:59 06:59 18:59 Intake Total 1301 780 Output Total 1000 850 Balance 301 -70 Weight 127.913 kg Intake: IV 1301 780 Output: Urine 850 Straight 850 Estimated Blood Loss 1000 - Exam General appearance: The patient is alert, oriented, appears in no acute distress. Morbidly obese. HET: Head is normocephalic and atraumatic. Pupils are equal and reactive. Neck: Supple. Heart: Regular. Lungs: Equal expansion, normal respiratory effort. Abdomen: Soft, nontender, nondistended. Extremities: Left lower extremity below the knee amputation with wound VAC in place with good suction. Neurological: No focal deficits. - Labs CBC & Chem 7: 08/20/23 09:01 08/20/23 09:01 Labs: Abnormal Lab Results - Last 24 Hours (Table) 08/19/23 08/19/23 08/19/23 Range/Units 16:08 17:20 20:17 WBC 12.9 H (3.8-10.6) k/uL RBC 3.27 L (4.30-5.90) m/uL Hgb 8.8 L D (13.0-17.5) gm/dL Hct 27.8 L (39.0-53.0) % RDW 16.9 H (11.5-15.5) % Plt Count 530 H (150-450) k/uL Neutrophils # 11.0 H (1.3-7.7) k/uL POC Glucose (mg/dL) 113 H 177 H (70-110) mg/dL 08/20/23 Range/Units 06:06 WBC (3.8-10.6) k/uL RBC (4.30-5.90) m/uL Hgb (13.0-17.5) gm/dL Hct (39.0-53.0) % RDW (11.5-15.5) % Plt Count (150-450) k/uL Neutrophils # (1.3-7.7) k/uL POC Glucose (mg/dL) 141 H (70-110) mg/dL Assessment and Plan Assessment: 1. Postop day #1 for left below the knee amputation and wound VAC application 2. Nonhealing wound left lower extremity at the malleus level 3. Diabetic vascular disease 4. Diabetes mellitus 5. Morbid obesity Plan: 1. Continue with pain management 2. Physical therapy and consultation 3. Keep left knee immobilizer in place 4. Wound VAC to left lower extremity, change Wednesday 5. Consult to wound care 6. Transfuse 1 unit PRBC 7. Repeat CBC, BMP tomorrow 8. Medical management per medical team 9. Prescription placed in patient's chart for stump informatica mdm architect and rigid dressing, please consult to Yaw The impression and plan of care has been dictated as directed. Dr. Hurt I performed a history and examination of this patient, discussed the same with the dictator. I agree with the dictator's note ,documented as a scribe. Any additional findings or plans will be noted.
[2023-08-20 16:13] LABS: Glucose,Whole Blood 175 mg/dL (70-110)
[2023-08-20] MEDS: SODIUM ZIRCONIUM CYCLOSILICATE 10 GM PACKET PO ONE (16:53)
[2023-08-20] MEDS: PIOGLITAZONE 15 MG TAB PO SCH (17:59)
[2023-08-20 20:25] LABS: Glucose,Whole Blood 150 mg/dL (70-110)
[2023-08-21 06:07] LABS: Glucose,Whole Blood 109 mg/dL (70-110)
[2023-08-21 10:20] LABS: Anisocytosis Slight; Basophils # (A) 0.1 k/uL (0-0.2); Basophils % (A) 1 %; Eosinophils # (A) 0.1 k/uL (0-0.7); Eosinophils % (A) 1 %; HCT 22.4 % (39.0-53.0); HGB 7.3 gm/dL (13.0-17.5); Hypochromasia Slight; Lymphocytes # (A) 1.7 k/uL (1.0-4.8); Lymphocytes % (A) 15 %; MCH 27.3 pg (25.0-35.0); MCHC 32.4 g/dL (31.0-37.0); MCV 84.3 fL (80.0-100.0); Mean Platelet Volume 9.5; Monocytes # (A) 0.8 k/uL (0-1.0); Monocytes % (A) 7 %; Neutrophils # (A) 8.4 k/uL (1.3-7.7); Neutrophils % (A) 75 %; Platelet Count 395 k/uL (150-450); RBC 2.66 m/uL (4.30-5.90); RDW 17.2 % (11.5-15.5); WBC 11.2 k/uL (3.8-10.6)
[2023-08-21 11:23] LABS: ALT 12 U/L (4-49); AST 26 U/L (17-59); African American GFR (CKD) 56 (>60 ml/min/1.73 sqM); Alkaline Phosphatase 46 U/L (38-126); Anion Gap 5 mmol/L; Blood Urea Nitrogen 60 mg/dL (9-20); Calcium 7.9 mg/dL (8.4-10.2); Carbon Dioxide 18 mmol/L (22-30); Chloride 103 mmol/L (98-107); Glucose 82 mg/dL (74-99); Magnesium 2.2 mg/dL (1.6-2.3); Non-African American GFR(CKD) 48 (>60 ml/min/1.73 sqM); Sodium 126 mmol/L (137-145); Total Bilirubin 0.4 mg/dL (0.2-1.3); Total Protein 4.4 g/dL (6.3-8.2)
[2023-08-21 11:43] LABS: Glucose,Whole Blood 107 mg/dL (70-110)
--- NOTE | 2023-08-21 12:12 | P.PN ---
Subjective Progress Note Date: 08/21/23 Patient seen and examined. No complaints. Pain relatively well controlled. Uncertain if he has been seen by therapy. Objective - Vital Signs Vital signs: Vital Signs Temp 99.2 F 08/21/23 09:10 Pulse 79 08/21/23 09:10 Resp 14 08/21/23 09:10 BP 96/58 08/21/23 09:10 Pulse Ox 99 08/21/23 09:10 FiO2 Intake & Output 08/20/23 08/21/23 08/21/23 18:59 06:59 18:59 Intake Total 1488 20 10 Output Total 250 350 Balance 1238 -330 10 Intake: IV 20 20 10 Invasive Line 1 20 20 10 Intake, IV Titration 800 Amount Sodium Chloride 0.9% 1, 300 000 ml @ 75 mls/hr IV . [id number] Rx#:[id number] Sodium Chloride 0.9% 500 500 ml 500 ml @ 999 mls/hr IV .Q31M ONE Rx#:[id number] Oral 358 Blood Product 310 Rc As-1 Unit 310 [id number] Output: Urine 250 350 Other: Voiding Method Indwelling Catheter Indwelling Catheter - Exam No acute distress resting comfortably. Left lower extremity below-knee amputation site clean and dry. VAC intact. - Labs CBC & Chem 7: 08/21/23 08:36 08/20/23 09:01 Labs: Abnormal Lab Results - Last 24 Hours (Table) 08/19/23 08/20/23 08/20/23 Range/Units 17:20 09:01 16:10 WBC (3.8-10.6) k/uL RBC (4.30-5.90) m/uL Hgb (13.0-17.5) gm/dL Hct (39.0-53.0) % RDW (11.5-15.5) % Neutrophils # (1.3-7.7) k/uL POC Glucose (mg/dL) 175 H (70-110) mg/dL Hemoglobin A1c 6.3 H (<=6.0) % Crossmatch See Detail 08/20/23 08/21/23 Range/Units 20:23 08:36 WBC 11.2 H (3.8-10.6) k/uL RBC 2.66 L (4.30-5.90) m/uL Hgb 7.3 L (13.0-17.5) gm/dL Hct 22.4 L (39.0-53.0) % RDW 17.2 H (11.5-15.5) % Neutrophils # 8.4 H (1.3-7.7) k/uL POC Glucose (mg/dL) 150 H (70-110) mg/dL Hemoglobin A1c (<=6.0) % Crossmatch Assessment and Plan Assessment: Postop left below knee amputation Wound VAC Anemia postoperative, not unexpected with amputation. No further active bleeding identified Plan: Continue with Wednesday wound VAC change. Transfuse 1 unit PRBC for low Hgb, continue to monitor
[2023-08-21 12:32] LABS: Potassium 4.8 mmol/L (3.5-5.1)
[2023-08-21 16:48] LABS: Glucose,Whole Blood 174 mg/dL (70-110)
[2023-08-21] MEDS: METOPROLOL TARTRATE 50 MG TAB PO STA (20:04)
[2023-08-21 20:12] LABS: Glucose,Whole Blood 204 mg/dL (70-110)
[2023-08-21] MEDS: HEPARIN SODIUM 1,000 UN/ML (10ML VL) IV ONE (20:49)
[2023-08-21] MEDS: HEPARIN SOD,PORK IN 0.45% NACL 25,000 UNIT in 0.45% NACL 1 250ML.BAG IV SCH (20:50)
[2023-08-21 23:13] LABS: Anisocytosis Slight; Basophils % (A) 0 %; Eosinophils # (A) 0.1 k/uL (0-0.7); Eosinophils % (A) 1 %; HGB 8.3 gm/dL (13.0-17.5); Lymphocytes # (A) 1.5 k/uL (1.0-4.8); Lymphocytes % (A) 13 %; MCH 27.7 pg (25.0-35.0); MCHC 33.1 g/dL (31.0-37.0); MCV 83.9 fL (80.0-100.0); Mean Platelet Volume 8.3; Monocytes # (A) 0.7 k/uL (0-1.0); Monocytes % (A) 5 %; Neutrophils # (A) 9.7 k/uL (1.3-7.7); Neutrophils % (A) 80 %; Platelet Count 391 k/uL (150-450); RBC 2.97 m/uL (4.30-5.90); WBC 12.2 k/uL (3.8-10.6)
[2023-08-22 04:55] LABS: Anisocytosis Slight; Basophils % (A) 0 %; Eosinophils # (A) 0.1 k/uL (0-0.7); Eosinophils % (A) 1 %; HCT 24.8 % (39.0-53.0); HGB 8.1 gm/dL (13.0-17.5); Lymphocytes % (A) 17 %; MCH 27.5 pg (25.0-35.0); MCHC 32.7 g/dL (31.0-37.0); Mean Platelet Volume 8.3; Monocytes # (A) 0.7 k/uL (0-1.0); Monocytes % (A) 6 %; Neutrophils # (A) 8.7 k/uL (1.3-7.7); Neutrophils % (A) 75 %; Platelet Count 390 k/uL (150-450); Poikilocytosis Slight; RBC 2.95 m/uL (4.30-5.90); RDW 17.1 % (11.5-15.5); WBC 11.6 k/uL (3.8-10.6)
[2023-08-22 05:05] LABS: African American GFR (CKD) 74 (>60 ml/min/1.73 sqM); Anion Gap 1 mmol/L; Blood Urea Nitrogen 50 mg/dL (9-20); Calcium 7.7 mg/dL (8.4-10.2); Carbon Dioxide 22 mmol/L (22-30); Chloride 105 mmol/L (98-107); Glucose 140 mg/dL (74-99); Non-African American GFR(CKD) 64 (>60 ml/min/1.73 sqM); Potassium 4.1 mmol/L (3.5-5.1); Sodium 128 mmol/L (137-145)
[2023-08-22] MEDS: HEPARIN SODIUM 1,000 UN/ML (10ML VL) IV PRN (05:19)
[2023-08-22 06:10] LABS: Glucose,Whole Blood 151 mg/dL (70-110)
[2023-08-22 07:37] LABS: % Iron Saturation 18.46 (15.00-50.00); Iron 48 UG/DL (65-175); Total Iron Binding Capacity 260 UG/DL (228-460)
[2023-08-22] MEDS: METOPROLOL TARTRATE 25 MG TAB PO SCH ×2 (09:57→20:22)
[2023-08-22 10:20] LABS: % Iron Saturation 27.27 (15.00-50.00); Iron 69 UG/DL (65-175); Total Iron Binding Capacity 253 UG/DL (228-460)
[2023-08-22 11:53] LABS: Glucose,Whole Blood 196 mg/dL (70-110)
[2023-08-22] MEDS: METOPROLOL TARTRATE 12.5 MG TAB PO STA (12:17)
[2023-08-22] MEDS: APIXABAN 5 MG TAB PO SCH (12:17)
--- NOTE | 2023-08-22 13:06 | P.CRDCN ---
History of Present Illness Consult date: 08/22/23 Consult reason: atrial fibrillation (New onset) History of present illness: History of present illness: This is 77-year-old male patient of Dr. Donna Sierra with past medical history of morbid obesity, hypertension, hyperlipidemia, diabetes mellitus type 2, chronic wounds. Patient was last seen in the office and January 2021 for preop clearance for eyelid surgery under general anesthesia. We have been asked to evaluate the patient for new onset of atrial fibrillation with RVR. Patient was brought into the hospital on August 19 under the care of of vascular surgery and underwent a left below the knee amputation for nonhealing wound to left lower extremity at the malleolus level. Patient developed atrial fibrillation yesterday afternoon. Patient has been started on a heparin drip and was given 1 dose of metoprolol 50 mg. Telemetry is atrial fibrillation running between 90 and 115 bpm. Patient denies history of afib, no previous cardiac surgery/stent. He denies lightheadedness, dizziness, palpitations. No chest pain. No JOSE. EKG performed on 08/21: Atrial fibrillation with ventricular rate of 120 bpm WBC 11.6, hemoglobin 8.1, platelet count 390. Sodium 128 potassium 4.1, BUN 50 creatinine 1.11. Blood sugar 150. Home cardiac medications: Aspirin 81 mg daily, atorvastatin 20 mg at bedtime, Farxiga 10 mg daily, fenofibrate 200 mg at bedtime, ferrous sulfate 325 mg twice daily, Lasix 40 mg daily, losartan 100 mg daily. Hemoglobin A1c is 6.3. Most recent echocardiogram obtained in 02/18/2023 revealed normal LV size and systolic function. Valve structures not well-seen. Technically difficult study. There appears to be a gradient across aortic and mitral valve of a mild degree. No significant pulmonary hypertension. No pericardial effusion. Patient underwent a dobutamine stress echocardiogram in December 2020 which was negative for ischemia Review Of Systems: At the time of my exam: CONSTITUTIONAL: Denies fever or chills. HEENT: Denies blurred vision, vision changes, or eye pain. Denies hemoptysis CARDIOVASCULAR: Denies chest pain. Denies orthopnea. Denies PND. Denies palpitations RESPIRATORY: Denies shortness of breath. GASTROINTESTINAL: Denies abdominal pain. Denies nausea or vomiting. HEMATOLOGIC: Denies bleeding disorders. GENITOURINARY: Denies any blood in urine. SKIN: Denies pruitis. Denies rash. Physical examination: Gen: This is a 77-year-old male, no acute distress VS: reviewed HEENT: Head is atraumatic, normocephalic. Pupils equal, round. Sclerae is anicteric. NECK: Supple. No JVD. LUNGS: Clear to auscultation. No wheezes or rhonchi. No intercostal retractions. HEART: Irregular rate and rhythm. Systolic murmur. ABDOMEN: Soft No tenderness. EXTREMITIES: No pedal edema right. Left below the knee amputation dressing in place. NEUROLOGICAL: Patient is awake, alert and oriented x3. Assessment: New onset paroxysmal atrial fibrillation with RVR, currently rate controlled Anemia, probable acute blood loss anemia Left below the knee amputation / Hypertension currently hypotensive Hyperlipidemia Diabetes mellitus type 2 Morbid obesity Plan: Discontinue heparin drip and start patient on Eliquis 5 mg twice daily Start patient on Lopressor 37.5 mg twice daily Further recommendations to follow based upon clinical course Thank you kindly for this consultation. Nurse practitioner note has been reviewed, I agree with documented findings and plan of care. Patient was seen and examined. Past Medical History Past Medical History: Coronary Artery Disease (CAD), Chest Pain / Angina, Diabetes Mellitus, Eye Disorder, GERD/Reflux, Hyperlipidemia, Hypertension, Osteoarthritis (OA), Renal Disease, Sleep Apnea/CPAP/BIPAP Additional Past Medical History / Comment(s): 02/05/23 fall in shower with left ankle wound/fracture, had surgery-ORIF with I&D and wound vac placed/removed. Current left foot wound, left benz wound and right sacrum wound with wound vac. Anemia. IDDM type II, neuropathy legs and feet, bedbound/ander lift, CKD stage III, nephrolithiasis, DALTON with CPAP, right hip, left shoulder pain/torn rotator cuff/limited ROM, polyarthritis, cellulitis, lymphedema, glaucoma. History of Any Multi-Drug Resistant Organisms: MRSA Date of last positivie culture/infection: 04/21/16 MDRO Source:: ABDOMEN Past Surgical History: Orthopedic Surgery Additional Past Surgical History / Comment(s): KIDNEY STONE REMOVED and ureteral stent placed, deviated septum surgery, flex sigmoidoscopy several times, colonoscopy, dental surgery, cataract surgery bilaterally, ORIF left ankle. Past Anesthesia/Blood Transfusion Reactions: No Reported Reaction Past Psychological History: Depression Smoking Status: Never smoker Past Alcohol Use History: None Reported Past Drug Use History: Cocaine, Marijuana, Opiates Additional Drug Use History / Comment(s): Quit drug use in 1998. - Past Family History Father Additional Family Medical History / Comment(s): Brain aneurysm. Mother Family Medical History: Cancer, Deep Vein Thrombosis (DVT) Medications and Allergies Home Medications Medication Instructions Recorded Confirmed Type Fenofibrate,Micronized 200 mg PO HS 06/06/18 08/16/23 History [Fenofibrate] Dapagliflozin Propanediol [Farxiga] 10 mg PO DAILY 02/05/23 08/16/23 History Losartan Potassium 100 mg PO DAILY 02/05/23 08/19/23 History Pioglitazone [Actos] 15 mg PO DAILY 02/05/23 08/16/23 History Semaglutide [Ozempic] 2 mg SQ MO 02/05/23 08/17/23 History metFORMIN HCL 1,000 mg PO BID 02/05/23 08/16/23 History Aspirin 81 mg PO QAM 02/18/23 08/19/23 History Heparin Sodium,Porcine (1 ml) 5,000 unit SQ BID 02/18/23 08/16/23 History [Heparin Sodium] Atorvastatin Calcium 20 mg PO HS 08/16/23 08/19/23 History Clotrimazole/Betameth Cream 1 applic TOPICAL DAILY 08/16/23 08/19/23 History [Lotrisone] Cyanocobalamin [Vitamin B-12] 500 mcg PO DAILY 08/16/23 08/19/23 History Ferrous Sulfate [Feosol] 325 mg PO BID 08/16/23 08/19/23 History Furosemide [Lasix] 40 mg PO QAM 08/16/23 08/19/23 History Gabapentin [Neurontin] 300 mg PO Q8H 08/16/23 08/16/23 History Glucerna Shake 1 can PO DAILY 08/16/23 08/19/23 History Insulin Glargine,Hum.rec.anlog 25 units SQ HS 08/16/23 08/19/23 History [Lantus Solostar Pen] Insulin Lispro [humaLOG Kwikpen] 0 unit SQ QID PRN 08/16/23 08/19/23 History traMADol HCl [Ultram] 50 mg PO Q8H 08/16/23 08/19/23 History Allergies Allergy/AdvReac Type Severity Reaction Status Date / Time cat pelt standardized Allergy Itching Verified 08/19/23 12:06 allergenic ex mold Allergy Itching Verified 08/19/23 12:06 pollen extracts Allergy Itching Verified 08/19/23 12:06 Physical Exam Vitals: Vital Signs Temp Pulse Pulse Pulse Resp BP BP 08/22/23 03:35 98.6 F 101 H 20 90/53 08/21/23 23:54 98.8 F 08/21/23 23:00 99.5 F 97 16 95/59 08/21/23 21:24 99.8 F H 94 18 90/56 08/21/23 20:02 105 H 99/57 08/21/23 19:30 98.8 F 120 H 18 102/57 08/21/23 19:14 99.4 F 113 H 16 96/60 08/21/23 19:04 98.2 F 102 H 16 103/60 08/21/23 11:30 99.9 F H 86 14 130/61 08/21/23 09:10 99.2 F 79 14 96/58 Pulse Ox 08/22/23 03:35 99 08/21/23 23:54 08/21/23 23:00 99 08/21/23 21:24 99 08/21/23 20:02 08/21/23 19:30 100 08/21/23 19:14 08/21/23 19:04 08/21/23 11:30 99 08/21/23 09:10 99 Intake and Output 08/21/23 08/22/23 08/22/23 22:59 06:59 14:59 Intake Total 310 84.833 Output Total 1220 1500 Balance -910 -1415.167 Intake: Intake, IV Titration 84.833 Amount Heparin Sod,Pork in 0.45% 84.833 NaCl 25,000 unit In 0.45 % NaCl 1 250ml.bag @ 7. 8178 UNITS/KG/HR 10 mls/ hr IV .Q24H [facility] Rx#: [id number] Blood Product 310 Rc As-1 Unit 310 [id number] Output: Drainage 75 Left Calf 75 Urine 1145 1500 Other: Voiding Method Indwelling Catheter Indwelling Catheter # Bowel Movements 1 Weight 140.7 kg Results 08/22/23 04:16 08/22/23 04:16 Cardiac Enzymes 08/21/23 Range/Units 08:36 AST 26 (17-59) U/L Coagulation 08/22/23 Range/Units 04:16 APTT 34.1 H (22.0-30.0) sec CBC 08/21/23 08/21/23 08/22/23 Range/Units 08:36 23:02 04:16 WBC 11.2 H 12.2 H 11.6 H (3.8-10.6) k/uL RBC 2.66 L 2.97 L 2.95 L (4.30-5.90) m/uL Hgb 7.3 L 8.3 L 8.1 L (13.0-17.5) gm/dL Hct 22.4 L 25.0 L 24.8 L (39.0-53.0) % Plt Count 395 391 390 (150-450) k/uL Comprehensive Metabolic Panel 08/21/23 08/22/23 Range/Units 08:36 04:16 Sodium 126 L 128 L (137-145) mmol/L Potassium 4.8 4.1 (3.5-5.1) mmol/L Chloride 103 105 (98-107) mmol/L Carbon Dioxide 18 L 22 (22-30) mmol/L BUN 60 H 50 H (9-20) mg/dL Creatinine 1.40 H 1.11 (0.66-1.25) mg/dL Glucose 82 140 H (74-99) mg/dL Calcium 7.9 L 7.7 L (8.4-10.2) mg/dL AST 26 (17-59) U/L ALT 12 (4-49) U/L Alkaline Phosphatase 46 (38-126) U/L Total Protein 4.4 L (6.3-8.2) g/dL Albumin 2.0 L (3.5-5.0) g/dL Current Medications Generic Name Dose Route Start Last Admin Trade Name Freq PRN Reason Stop Dose Admin Hydrocodone Bitart/Acetaminophen 1 each 08/19/23 22:00 08/20/23 11:22 Hydrocodone/Apap 5-325mg 1 Each Tab PO 1 each Q6HR PRN Administration Pain Aspirin 81 mg 08/20/23 09:00 08/21/23 09:11 Aspirin 81 Mg PO 81 mg QAM DIPTI Administration Atorvastatin Calcium 20 mg 08/19/23 21:00 08/21/23 20:04 Atorvastatin 20 Mg Tab PO 20 mg HS DIPTI Administration Betamethasone/Clotrimazole 1 applic 08/20/23 09:00 08/21/23 09:12 Clotrimazole/Betameth 1-0.05% Cream 45 Gm Tube TOPICAL 1 applic DAILY DIPTI Administration Protocol Cyanocobalamin 500 mcg 08/20/23 09:00 08/21/23 09:11 Cyanocobalamin 500 Mcg Tab PO 500 mcg DAILY DIPTI Administration Dapagliflozin 10 mg 08/20/23 09:00 08/21/23 09:11 Dapagliflozin Propanediol 10 Mg Tablet PO 10 mg DAILY DIPTI Administration Dextrose/Water 25 ml 08/19/23 17:56 Dextrose 50% Syringe 50 Ml IVP PER PROTOCOL PRN Hypoglycemia Protocol Dextrose/Water 50 ml 08/19/23 17:56 Dextrose 50% Syringe 50 Ml IVP PER PROTOCOL PRN Hypoglycemia Protocol Fenofibrate 160 mg 08/19/23 21:00 08/21/23 20:04 Fenofibrate 160 Mg Tab PO 160 mg HS DIPTI Administration Ferrous Sulfate 325 mg 08/19/23 21:00 08/21/23 20:04 Ferrous Sulfate 325 Mg Tab PO 325 mg BID DIPTI Administration Gabapentin 300 mg 08/19/23 20:00 08/22/23 04:39 Gabapentin 300 Mg Cap PO 300 mg Q8H DIPTI Administration Heparin Sodium (Porcine) 0 unit 08/21/23 20:11 08/22/23 05:19 Heparin Sodium 1,000 Un/Ml (10ml Vl) IV 7,000 unit PER PROTOCOL PRN Administration Low PTT Protocol Sodium Chloride 1,000 mls @ 75 mls/hr 08/20/23 09:45 08/21/23 21:30 Saline 0.9% IV 75 mls/hr .[id number] DIPTI Administration Heparin Sodium/Sodium Chloride 250 mls @ 10 mls/hr 08/21/23 20:15 08/22/23 05:19 25,000 unit/ Sodium Chloride IV 10.81 units/kg/hr .Q24H DIPTI 13.827 mls/hr Titration Protocol 7.8178 UNITS/KG/HR Insulin Aspart 0 unit 08/19/23 21:00 08/22/23 06:21 Insulin Aspart (Novolog) 100 Unit/Ml Vial SQ 2 unit ACHS DIPTI Administration Protocol Insulin Detemir 25 unit 08/19/23 21:00 08/21/23 20:13 Insulin Detemir (Levemir) 100 Unit/Ml Syr SQ 25 unit HS DIPTI Administration Midodrine 5 mg 08/20/23 13:59 Midodrine 5 Mg Tab PO TID PRN Hypotension Morphine Sulfate 4 mg 08/19/23 22:00 08/20/23 23:36 Morphine Sulfate 4 Mg/Ml Syringe IVP 4 mg Q2HR PRN Administration Pain Intake and Output 08/21/23 08/22/23 08/22/23 22:59 06:59 14:59 Intake Total 310 84.833 Output Total 1220 1500 Balance -910 -1415.167 Intake: Intake, IV Titration 84.833 Amount Heparin Sod,Pork in 0.45% 84.833 NaCl 25,000 unit In 0.45 % NaCl 1 250ml.bag @ 7. 8178 UNITS/KG/HR 10 mls/ hr IV .Q24H [facility] Rx#: [id number] Blood Product 310 Rc As-1 Unit 310 [id number] Output: Drainage 75 Left Calf 75 Urine 1145 1500 Other: Voiding Method Indwelling Catheter Indwelling Catheter # Bowel Movements 1 Weight 140.7 kg 08/22/23 04:16 08/22/23 04:16
[2023-08-22 17:13] LABS: Glucose,Whole Blood 191 mg/dL (70-110)
[2023-08-22 20:05] LABS: Glucose,Whole Blood 227 mg/dL (70-110)
--- NOTE | 2023-08-23 00:38 | P.PN ---
Subjective Progress Note Date: 08/21/23 This is a 77-year-old male who was admitted under vascular surgery services for a nonhealing left lower extremity wound at the malleolus level with diabetic vascular disease and is status post left below the knee amputation. Patient follows with Dr. Chilel in the outpatient setting with past medical history of coronary artery disease, chest pain with angina, diabetes mellitus, eye disorder, GERD, hyperlipidemia, hypertension, history of osteoarthritis, renal disease, sleep apnea, depression. Patient was never a smoker and no reported alcohol and reports to having used drugs in the past but quit in 1998. Patient currently residing at [facility] and is bedbound for rehab. Patient consented to the surgery and is status post left BKA. Patient is a diabetic insulin-dependent and recommend Accu-Cheks before meals and at bedtime and 2 AM and will resume appropriate home medications. 08/21/2023 Patient is resting in bed. Awake alert and oriented x 3. No complaints of chest pain or shortness of breath. Wound site is packed and pain is controlled with medications. Advised hemoglobin was 7.1 and 7.3 this morning. Patient is receiving 1 unit of PRBC. Other laboratory data showed sodium 126 potassium 4.8 chloride 103 bicarb is 18. BUN 16 creatinine 1.4 Patient is currently on room air. On IV hydration with normal saline at 75 cc/h. Current medications reviewed. REVIEW OF SYSTEMS: CONSTITUTIONAL: No fever, no malaise, no fatigue. HEENT: No recent visual problems or hearing problems. Denied any sore throat. CARDIOVASCULAR: No chest pain, orthopnea, PND, no palpitations, no syncope. PULMONARY: No shortness of breath, no cough, no hemoptysis. GASTROINTESTINAL: No diarrhea, no nausea, no vomiting, no abdominal pain. NEUROLOGICAL: No headaches, no weakness, no numbness. HEMATOLOGICAL: Denies any bleeding or petechiae. GENITOURINARY: Denies any burning micturition, frequency, or urgency. MUSCULOSKELETAL/RHEUMATOLOGICAL: Denies any joint pain, swelling, or any muscle pain. Reports left leg pain ENDOCRINE: Denies any polyuria or polydipsia. The rest of the 14-point review of systems is negative. PHYSICAL EXAMINATION: GENERAL: The patient is alert and oriented x2-3, . Well developed, well nourished. Morbidly obese HEENT: Pupils are round and equally reacting to light. EOMI. No scleral icterus. No conjunctival pallor. Normocephalic, atraumatic. No pharyngeal erythema. No thyromegaly. CARDIOVASCULAR: S1 and S2 present. No murmurs, rubs, or gallops. PULMONARY: Chest is clear to auscultation, no wheezing or crackles. ABDOMEN: Soft, obese, nontender, nondistended, normoactive bowel sounds. No palpable organomegaly. MUSCULOSKELETAL: No joint swelling or deformity. EXTREMITIES: No cyanosis, clubbing, or pedal edema. Left BKA dressings noted with wound VAC NEUROLOGICAL: Gross neurological examination did not reveal any focal deficits. Diffusely weak SKIN: No rashes. Assessment: Nonhealing left lower extremity wound at the malleolus level with diabetic vascular disease, status post left below the knee amputation, postop day 2 History of coronary artery disease Hyponatremia, likely secondary to diuretic use Hyperkalemia Anemia, likely secondary to chronic kidney disease with acute blood loss anemia, hemoglobin is 7.1 and is being transfused 1 unit of PRBC History of chest pain, angina History of diabetes mellitus, insulin-dependent, uncontrolled with hyper and hypoglycemia GERD Hyperlipidemia Hypertension, currently hypotensive Osteoarthritis Chronic kidney disease stage III Obstructive sleep apnea with a CPAP History of depression Morbid obesity with a BMI of 40.5 GI prophylaxis DVT prophylaxis Full code Plan: Patient is status post left BKA with wound VAC and wound care was consulted Patient is continued on gentle IV hydration as sodium is slightly low and patient blood pressures were on the lower side and will hold blood pressure medication and continue with gentle IV hydration and follow-up on repeat labs in the a.m. Potassium 5.5 and was given a dose of Lokelma and recommend renal diet with diabetic diet Patient is diabetic and blood sugars appear uncontrolled and home medications resumed. Recommend holding metformin for now and will continue with sliding scale along with long-acting and adjust as needed. Continue Accu-Cheks before meals and at bedtime and 2 AM PT/OT therapy to evaluate and patient will likely be returning to [facility] Patient receiveed 1 unit of PRBC as hemoglobin is 7.1 and patient is slightly hypotensive. Will also continue gentle IV hydration and add midodrine as needed We will continue to follow with vascular surgery during hospitalization. Objective - Vital Signs Vital signs: Vital Signs Temp 99.8 F H 08/21/23 21:24 Pulse 94 02/03/24 21:24 Resp 18 08/21/23 21:24 BP 90/56 08/21/23 21:24 Pulse Ox 99 08/21/23 21:24 FiO2 Intake & Output 08/21/23 08/21/23 08/22/23 06:59 18:59 06:59 Intake Total 20 688 310 Output Total 350 1675 520 Balance -330 -987 -210 Intake: IV 20 10 Invasive Line 1 20 10 Oral 678 Blood Product 310 Rc As-1 Unit 310 [id number] Output: Urine 350 1675 520 Other: Voiding Method Indwelling Catheter Indwelling Catheter Indwelling Catheter # Bowel Movements 1 - Labs CBC & Chem 7: 08/22/23 04:16 08/22/23 04:16 Labs: Abnormal Lab Results - Last 24 Hours (Table) 08/19/23 08/21/23 08/21/23 Range/Units 17:20 08:36 08:36 WBC 11.2 H (3.8-10.6) k/uL RBC 2.66 L (4.30-5.90) m/uL Hgb 7.3 L (13.0-17.5) gm/dL Hct 22.4 L (39.0-53.0) % RDW 17.2 H (11.5-15.5) % Neutrophils # 8.4 H (1.3-7.7) k/uL Sodium 126 L (137-145) mmol/L Carbon Dioxide 18 L (22-30) mmol/L BUN 60 H (9-20) mg/dL Creatinine 1.40 H (0.66-1.25) mg/dL POC Glucose (mg/dL) (70-110) mg/dL Calcium 7.9 L (8.4-10.2) mg/dL Total Protein 4.4 L (6.3-8.2) g/dL Albumin 2.0 L (3.5-5.0) g/dL Crossmatch See Detail 08/21/23 08/21/23 08/21/23 Range/Units 16:46 20:10 23:02 WBC 12.2 H (3.8-10.6) k/uL RBC 2.97 L (4.30-5.90) m/uL Hgb 8.3 L (13.0-17.5) gm/dL Hct 25.0 L (39.0-53.0) % RDW 17.0 H (11.5-15.5) % Neutrophils # 9.7 H (1.3-7.7) k/uL Sodium (137-145) mmol/L Carbon Dioxide (22-30) mmol/L BUN (9-20) mg/dL Creatinine (0.66-1.25) mg/dL POC Glucose (mg/dL) 174 H 204 H (70-110) mg/dL Calcium (8.4-10.2) mg/dL Total Protein (6.3-8.2) g/dL Albumin (3.5-5.0) g/dL Crossmatch
--- NOTE | 2023-08-23 00:46 | P.PN ---
Subjective Progress Note Date: 08/22/23 This is a 77-year-old male who was admitted under vascular surgery services for a nonhealing left lower extremity wound at the malleolus level with diabetic vascular disease and is status post left below the knee amputation. Patient follows with Dr. Chilel in the outpatient setting with past medical history of coronary artery disease, chest pain with angina, diabetes mellitus, eye disorder, GERD, hyperlipidemia, hypertension, history of osteoarthritis, renal disease, sleep apnea, depression. Patient was never a smoker and no reported alcohol and reports to having used drugs in the past but quit in 1998. Patient currently residing at [facility] and is bedbound for rehab. Patient consented to the surgery and is status post left BKA. Patient is a diabetic insulin-dependent and recommend Accu-Cheks before meals and at bedtime and 2 AM and will resume appropriate home medications. 08/21/2023 Patient is resting in bed. Awake alert and oriented x 3. No complaints of chest pain or shortness of breath. Wound site is packed and pain is controlled with medications. Advised hemoglobin was 7.1 and 7.3 this morning. Patient is receiving 1 unit of PRBC. Other laboratory data showed sodium 126 potassium 4.8 chloride 103 bicarb is 18. BUN 16 creatinine 1.4 Patient is currently on room air. On IV hydration with normal saline at 75 cc/h. 08/22/2023 Patient is currently resting in the bed. Awake alert and oriented x 3. No complaints of chest pain or shortness of breath. Leg pain is controlled with pain medications. Patient is afebrile. No cough or sputum production. Patient went into atrial fibrillation with rapid ventricular last night and was started on heparin drip and metoprolol was added. Cardiology was consulted. Laboratory data showed WBC 11.6 hemoglobin 8.1 and platelets 390 Sodium 128, potassium 4.1 chloride 105 bicarb is 22, BUN 15 creatinine 1.11 and blood sugar 140 and calcium 7.7. Cardiology is on board. Current medications reviewed. REVIEW OF SYSTEMS: CONSTITUTIONAL: No fever, no malaise, no fatigue. HEENT: No recent visual problems or hearing problems. Denied any sore throat. CARDIOVASCULAR: No chest pain, orthopnea, PND, no palpitations, no syncope. PULMONARY: No shortness of breath, no cough, no hemoptysis. GASTROINTESTINAL: No diarrhea, no nausea, no vomiting, no abdominal pain. NEUROLOGICAL: No headaches, no weakness, no numbness. HEMATOLOGICAL: Denies any bleeding or petechiae. GENITOURINARY: Denies any burning micturition, frequency, or urgency. MUSCULOSKELETAL/RHEUMATOLOGICAL: Denies any joint pain, swelling, or any muscle pain. Reports left leg pain ENDOCRINE: Denies any polyuria or polydipsia. The rest of the 14-point review of systems is negative. PHYSICAL EXAMINATION: GENERAL: The patient is alert and oriented x2-3, . Well developed, well nourished. Morbidly obese HEENT: Pupils are round and equally reacting to light. EOMI. No scleral icterus. No conjunctival pallor. Normocephalic, atraumatic. No pharyngeal erythema. No thyromegaly. CARDIOVASCULAR: S1 and S2 present. No murmurs, rubs, or gallops. PULMONARY: Chest is clear to auscultation, no wheezing or crackles. ABDOMEN: Soft, obese, nontender, nondistended, normoactive bowel sounds. No palpable organomegaly. MUSCULOSKELETAL: No joint swelling or deformity. EXTREMITIES: No cyanosis, clubbing, or pedal edema. Left BKA dressings noted with wound VAC NEUROLOGICAL: Gross neurological examination did not reveal any focal deficits. Diffusely weak SKIN: No rashes. Assessment: Nonhealing left lower extremity wound at the malleolus level with diabetic vascular disease, status post left below the knee amputation, postop day 3 New onset atrial fibrillation with rapid ventricular rate. History of coronary artery disease Hyponatremia, likely secondary to diuretic use Hyperkalemia Anemia, likely secondary to chronic kidney disease with acute blood loss anemia, hemoglobin is 7.1 and is being transfused 1 unit of PRBC History of chest pain, angina History of diabetes mellitus, insulin-dependent, uncontrolled with hyper and hypoglycemia GERD Hyperlipidemia Hypertension, currently hypotensive Osteoarthritis Chronic kidney disease stage III Obstructive sleep apnea with a CPAP History of depression Morbid obesity with a BMI of 40.5 GI prophylaxis DVT prophylaxis Full code Plan: Patient was started on heparin drip due to new onset atrial fibrillation with rapid ventricular rate. Was also started on metoprolol. Cardiology is on board. Anticoagulation changed to Eliquis today. Patient is status post left BKA with wound VAC and wound care was consulted Patient is continued on gentle IV hydration as sodium is slightly low and patient blood pressures were on the lower side and will hold blood pressure medication and continue with gentle IV hydration and follow-up on repeat labs in the a.m. Potassium 5.5 and was given a dose of Lokelma and recommend renal diet with diabetic diet Patient is diabetic and blood sugars appear uncontrolled and home medications resumed. Recommend holding metformin for now and will continue with sliding scale along with long-acting and adjust as needed. Continue Accu-Cheks before meals and at bedtime and 2 AM PT/OT therapy to evaluate and patient will likely be returning to [facility] Patient receiveed 1 unit of PRBC as hemoglobin is 7.1 and patient is slightly hypotensive. Will also continue gentle IV hydration and add midodrine as needed We will continue to follow with vascular surgery during hospitalization. Objective - Vital Signs Vital signs: Vital Signs Temp 98.5 F 08/22/23 09:50 Pulse 106 H 08/22/23 12:30 Resp 18 08/22/23 12:30 BP 135/75 08/22/23 12:30 Pulse Ox 99 08/22/23 12:30 FiO2 Intake & Output 08/21/23 08/22/23 08/22/23 18:59 06:59 18:59 Intake Total 688 394.833 760 Output Total 1675 2095 1000 Balance -987 -1700.167 -240 Weight 140.7 kg Intake: IV 10 Invasive Line 1 10 Intake, IV Titration 84.833 Amount Heparin Sod,Pork in 0.45% 84.833 NaCl 25,000 unit In 0.45 % NaCl 1 250ml.bag @ 7. 8178 UNITS/KG/HR 10 mls/ hr IV .Q24H [facility] Rx#: [id number] Oral 678 760 Blood Product 310 Rc As-1 Unit 310 [id number] Output: Drainage 75 Left Calf 75 Urine 1675 2020 1000 Other: Voiding Method Indwelling Catheter Indwelling Catheter Indwelling Catheter # Bowel Movements 1 - Labs CBC & Chem 7: 08/22/23 04:16 08/22/23 04:16 Labs: Abnormal Lab Results - Last 24 Hours (Table) 08/19/23 08/21/23 08/21/23 Range/Units 17:20 08:36 16:46 WBC (3.8-10.6) k/uL RBC (4.30-5.90) m/uL Hgb (13.0-17.5) gm/dL Hct (39.0-53.0) % RDW (11.5-15.5) % Neutrophils # (1.3-7.7) k/uL APTT (22.0-30.0) sec Sodium (137-145) mmol/L BUN (9-20) mg/dL Glucose (74-99) mg/dL POC Glucose (mg/dL) 174 H (70-110) mg/dL Calcium (8.4-10.2) mg/dL Iron 48 L (65-175) UG/DL Transferrin 186.0 L (204.0-354.0) mg/dL Crossmatch See Detail 08/21/23 08/21/23 08/22/23 Range/Units 20:10 23:02 04:16 WBC 12.2 H (3.8-10.6) k/uL RBC 2.97 L (4.30-5.90) m/uL Hgb 8.3 L (13.0-17.5) gm/dL Hct 25.0 L (39.0-53.0) % RDW 17.0 H (11.5-15.5) % Neutrophils # 9.7 H (1.3-7.7) k/uL APTT 34.1 H (22.0-30.0) sec Sodium (137-145) mmol/L BUN (9-20) mg/dL Glucose (74-99) mg/dL POC Glucose (mg/dL) 204 H (70-110) mg/dL Calcium (8.4-10.2) mg/dL Iron (65-175) UG/DL Transferrin (204.0-354.0) mg/dL Crossmatch 08/22/23 08/22/23 08/22/23 Range/Units 04:16 04:16 06:08 WBC 11.6 H (3.8-10.6) k/uL RBC 2.95 L (4.30-5.90) m/uL Hgb 8.1 L (13.0-17.5) gm/dL Hct 24.8 L (39.0-53.0) % RDW 17.1 H (11.5-15.5) % Neutrophils # 8.7 H (1.3-7.7) k/uL APTT (22.0-30.0) sec Sodium 128 L (137-145) mmol/L BUN 50 H (9-20) mg/dL Glucose 140 H (74-99) mg/dL POC Glucose (mg/dL) 151 H (70-110) mg/dL Calcium 7.7 L (8.4-10.2) mg/dL Iron (65-175) UG/DL Transferrin 181.0 L (204.0-354.0) mg/dL Crossmatch 08/22/23 Range/Units 11:51 WBC (3.8-10.6) k/uL RBC (4.30-5.90) m/uL Hgb (13.0-17.5) gm/dL Hct (39.0-53.0) % RDW (11.5-15.5) % Neutrophils # (1.3-7.7) k/uL APTT (22.0-30.0) sec Sodium (137-145) mmol/L BUN (9-20) mg/dL Glucose (74-99) mg/dL POC Glucose (mg/dL) 196 H (70-110) mg/dL Calcium (8.4-10.2) mg/dL Iron (65-175) UG/DL Transferrin (204.0-354.0) mg/dL Crossmatch
[2023-08-23 04:05] VITALS: RESP 18
[2023-08-23 06:32] LABS: Glucose,Whole Blood 115 mg/dL (70-110)
[2023-08-23 08:44] LABS: Anisocytosis Slight; Basophils % (A) 0 %; Eosinophils # (A) 0.2 k/uL (0-0.7); Eosinophils % (A) 2 %; HCT 27.1 % (39.0-53.0); HGB 8.9 gm/dL (13.0-17.5); Hypochromasia Slight; Lymphocytes # (A) 1.7 k/uL (1.0-4.8); Lymphocytes % (A) 18 %; MCHC 32.9 g/dL (31.0-37.0); MCV 85.1 fL (80.0-100.0); Mean Platelet Volume 8.1; Monocytes # (A) 0.4 k/uL (0-1.0); Monocytes % (A) 5 %; Neutrophils # (A) 6.9 k/uL (1.3-7.7); Neutrophils % (A) 74 %; Platelet Count 463 k/uL (150-450); RBC 3.18 m/uL (4.30-5.90); RDW 17.7 % (11.5-15.5); WBC 9.3 k/uL (3.8-10.6)
[2023-08-23 08:57] LABS: African American GFR (CKD) >90 (>60 ml/min/1.73 sqM); Anion Gap 3 mmol/L; Blood Urea Nitrogen 36 mg/dL (9-20); Calcium 8.2 mg/dL (8.4-10.2); Carbon Dioxide 21 mmol/L (22-30); Chloride 105 mmol/L (98-107); Glucose 107 mg/dL (74-99); Non-African American GFR(CKD) 89 (>60 ml/min/1.73 sqM); Potassium 4.4 mmol/L (3.5-5.1); Sodium 129 mmol/L (137-145)
[2023-08-23 09:19] VITALS: TEMP 98
[2023-08-23 11:57] LABS: Glucose,Whole Blood 108 mg/dL (70-110)
[2023-08-23 12:12] VITALS: BP 118/74; PULSE 80
--- NOTE | 2023-08-23 12:13 | P.DS ---
Providers Date of admission: 08/19/23 10:50 Expected date of discharge: 08/23/23 Attending physician: Enmanuel Hurt DO Consults: 08/19/23 16:08 Consult Physician Routine Consulting Provider: Mariposa Garcia Consult Reason/Comments: Medical management Do you want consulting provider notified?: Yes 08/21/23 19:55 Consult Physician Routine Consulting Provider: Eric Chaidez Consult Reason/Comments: NOS afib rvr Do you want consulting provider notified?: Yes Primary care physician: [facility] Hospital Course: 77-year-old male with a history of diabetes mellitus, morbid obesity and other multiple comorbidities who had suffered a fall and I had a ankle fracture which required surgical repair. Patient's wound never healed in spite of appropriate therapy and due to nonhealing nature of the wound and patient is overall none mobile appropriate treatment was below the knee amputation. He is postop day #4 for left below the knee amputation. During surgery he did have moderate amount of blood loss. He did receive 1 unit of blood postop day #1. Hemoglobin has been stable. Discharge hemoglobin at 8.9. He has a left knee immobilizer in place. Pain has been pretty well-managed overall other than there is increased pain with any movement or manipulation of the knee immobilizer. He has wound VAC in place. Consult was placed to wound care and are expected to see him today and will follow with him for wound VAC care upon discharge. Patient also had gone into atrial fibrillation over the weekend and was seen by cardiology. Initially he was started on a heparin drip and he has been transitioned over to Eliquis 5 mg twice daily as well as Lopressor 37.5 mg twice daily was started. He is now in regular rhythm and has been cleared by cardiology for discharge. He will follow-up with Dr. Sierra. Exam General appearance: The patient is alert, oriented, appears in no acute distress. Morbidly obese. HET: Head is normocephalic and atraumatic. Pupils are equal and reactive. Neck: Supple. Heart: Regular. Lungs: Equal expansion, normal respiratory effort. Abdomen: Soft, nontender, nondistended. Extremities: Left lower extremity BKA with wound VAC in place with good suction. Knee immobilizer in place. Neurological: Awake, alert and oriented. Assessment 1. Postop left below the knee amputation with wound VAC application 2. Anemia post operative, not expected with amputation. No further active bleeding identified 3. New onset atrial fibrillation 4. Postoperative urinary retention Plan Patient has been cleared by cardiology and medicine for discharge. Discontinue Levin catheter. If patient does not void by 2:00, they will bladder scan and consider placing Levin catheter and consult to urology. Otherwise plan as for patient to be discharged to [facility]. Controlled prescriptions given to social work. Right and flippers to follow with patient at [facility] for stump lead data entry operator and possible rigid dressing. The impression and plan of care has been dictated as directed. I performed a history and examination of this patient, discussed the same with the dictator. I agree with the dictator's note ,documented as a scribe. Any additional findings or plans will be noted. Procedures: Left lower extremity below the knee amputation with wound VAC application Patient Condition at Discharge: Stable Plan - Discharge Summary Discharge Rx Participant: No New Discharge Prescriptions: New HYDROcodone/APAP 5-325MG [Holiday 5-325] 1 each PO Q6HR PRN #12 tab PRN Reason: Pain Changed Gabapentin [Neurontin] 300 mg PO Q8H 3 Days #9 cap Discontinued traMADol HCl [Ultram] 50 mg PO Q8H No Action Fenofibrate,Micronized [Fenofibrate] 200 mg PO HS Dapagliflozin Propanediol [Farxiga] 10 mg PO DAILY metFORMIN HCL 1,000 mg PO BID Pioglitazone [Actos] 15 mg PO DAILY Aspirin 81 mg PO QAM Heparin Sodium,Porcine (1 ml) [Heparin Sodium] 5,000 unit SQ BID Glucerna Shake 1 can PO DAILY Insulin Glargine,Hum.rec.anlog [Lantus Solostar Pen] 25 units SQ HS Furosemide [Lasix] 40 mg PO QAM Ferrous Sulfate [Feosol] 325 mg PO BID Insulin Lispro [humaLOG Kwikpen] 0 unit SQ QID PRN PRN Reason: Blood Sugar - High Losartan Potassium 100 mg PO DAILY Semaglutide [Ozempic] 2 mg SQ MO Atorvastatin Calcium 20 mg PO HS Clotrimazole/Betameth Cream [Lotrisone] 1 applic TOPICAL DAILY Cyanocobalamin [Vitamin B-12] 500 mcg PO DAILY Discharge Medication List Fenofibrate,Micronized [Fenofibrate] 200 mg PO HS 06/06/18 [History] Dapagliflozin Propanediol [Farxiga] 10 mg PO DAILY 02/05/23 [History] Losartan Potassium 100 mg PO DAILY 02/05/23 [History] Pioglitazone [Actos] 15 mg PO DAILY 02/05/23 [History] Semaglutide [Ozempic] 2 mg SQ MO 02/05/23 [History] metFORMIN HCL 1,000 mg PO BID 02/05/23 [History] Aspirin 81 mg PO QAM 02/18/23 [History] Heparin Sodium,Porcine (1 ml) [Heparin Sodium] 5,000 unit SQ BID 02/18/23 [History] Atorvastatin Calcium 20 mg PO HS 08/16/23 [History] Clotrimazole/Betameth Cream [Lotrisone] 1 applic TOPICAL DAILY 08/16/23 [History] Cyanocobalamin [Vitamin B-12] 500 mcg PO DAILY 08/16/23 [History] Ferrous Sulfate [Feosol] 325 mg PO BID 08/16/23 [History] Furosemide [Lasix] 40 mg PO QAM 08/16/23 [History] Glucerna Shake 1 can PO DAILY 08/16/23 [History] Insulin Glargine,Hum.rec.anlog [Lantus Solostar Pen] 25 units SQ HS 08/16/23 [History] Insulin Lispro [humaLOG Kwikpen] 0 unit SQ QID PRN 08/16/23 [History] Gabapentin [Neurontin] 300 mg PO Q8H 3 Days #9 cap 08/23/23 [Rx] HYDROcodone/APAP 5-325MG [Holiday 5-325] 1 each PO Q6HR PRN #12 tab 08/23/23 [Rx] Follow up Appointment(s)/Referral(s): Enmanuel Hurt DO [Doctor of Osteopathic Medicine] - 1 Week [facility] [NON-STAFF] - 1 Week Activity/Diet/Wound Care/Special Instructions: Activity as tolerated and recommended per physical therapy Wound VAC dressing to left BKA, change Fridays Discharge Disposition: TRANSFER TO SNF/ECF
--- NOTE | 2023-08-23 12:52 | P.PN ---
Subjective HISTORY OF PRESENT ILLNESS: This is 77-year-old male patient of Dr. Donna Sierra with past medical history of morbid obesity, hypertension, hyperlipidemia, diabetes mellitus type 2, chronic wounds. Patient was last seen in the office and January 2021 for preop clearance for eyelid surgery under general anesthesia. We have been asked to evaluate the patient for new onset of atrial fibrillation with RVR. Patient was brought into the hospital on August 19 under the care of of vascular surgery and underwent a left below the knee amputation for nonhealing wound to left lower extremity at the malleolus level. Patient developed atrial fibrillation yesterday afternoon. Patient has been started on a heparin drip and was given 1 dose of metoprolol 50 mg. Telemetry is atrial fibrillation running between 90 and 115 bpm. Patient denies history of afib, no previous cardiac surgery/stent. He denies lightheadedness, dizziness, palpitations. No chest pain. No JOSE. EKG performed on 08/21: Atrial fibrillation with ventricular rate of 120 bpm WBC 11.6, hemoglobin 8.1, platelet count 390. Sodium 128 potassium 4.1, BUN 50 creatinine 1.11. Blood sugar 150. Home cardiac medications: Aspirin 81 mg daily, atorvastatin 20 mg at bedtime, Farxiga 10 mg daily, fenofibrate 200 mg at bedtime, ferrous sulfate 325 mg twice daily, Lasix 40 mg daily, losartan 100 mg daily. Hemoglobin A1c is 6.3. Most recent echocardiogram obtained in 02/18/2023 revealed normal LV size and systolic function. Valve structures not well-seen. Technically difficult study. There appears to be a gradient across aortic and mitral valve of a mild degree. No significant pulmonary hypertension. No pericardial effusion. Patient underwent a dobutamine stress echocardiogram in December 2020 which was negative for ischemia 08/23/2023 Patient examined this morning at the bedside. Patient denies any chest pain or pressure. He denies any shortness of breath. Telemetry reveals atrial fibrillation with controlled ventricular rate. Blood pressure stable with a recent reading of 118/74. PHYSICAL EXAM: VITAL SIGNS: Reviewed. GENERAL: Well-developed in no acute distress. NECK: Supple. No JVD or thyromegaly LUNGS: Respirations even and unlabored. Lungs essentially clear to auscultation bilaterally. HEART: irregular rate and rhythm. S1 and S2 heard. EXTREMITIES: Normal range of motion. No clubbing or cyanosis. Peripheral pulses intact. Left BKA. ASSESSMENT: New onset paroxysmal atrial fibrillation with RVR Anemia, probable acute blood loss anemia S/p left below the knee amputation 2 Hypertension currently hypotensive, now resolved Hyperlipidemia Diabetes mellitus type 2 Morbid obesity PLAN: Continue current cardiac medications Patient is stable for discharge today from a cardiac perspective He is to follow in the office postdischarge Nurse practitioner note has been reviewed by physician. Signing provider agrees with the documented findings, assessment, and plan of care documented by SENIOR QUALITY CONTROL TECHNICIAN as a scribe. Objective - Vital Signs Vital signs: Vital Signs Temp 98.0 F 08/23/23 09:15 Pulse 80 08/23/23 11:51 Resp 18 08/23/23 11:51 BP 118/74 08/23/23 11:51 Pulse Ox 100 08/23/23 11:51 FiO2 Intake & Output 08/22/23 08/23/23 08/23/23 18:59 06:59 18:59 Intake Total 982 Output Total 1950 2250 450 Balance -968 -2250 -450 Weight 140.7 kg Intake: Oral 982 Output: Urine 1950 2250 450 Other: Voiding Method Indwelling Catheter Indwelling Catheter Indwelling Catheter - Labs CBC & Chem 7: 08/23/23 08:08 08/23/23 08:08 Labs: Abnormal Lab Results - Last 24 Hours (Table) 08/22/23 08/22/23 08/23/23 Range/Units 17:10 20:04 06:27 RBC (4.30-5.90) m/uL Hgb (13.0-17.5) gm/dL Hct (39.0-53.0) % RDW (11.5-15.5) % Plt Count (150-450) k/uL Sodium (137-145) mmol/L Carbon Dioxide (22-30) mmol/L BUN (9-20) mg/dL Glucose (74-99) mg/dL POC Glucose (mg/dL) 191 H 227 H 115 H (70-110) mg/dL Calcium (8.4-10.2) mg/dL 08/23/23 08/23/23 Range/Units 08:08 08:08 RBC 3.18 L (4.30-5.90) m/uL Hgb 8.9 L (13.0-17.5) gm/dL Hct 27.1 L (39.0-53.0) % RDW 17.7 H (11.5-15.5) % Plt Count 463 H (150-450) k/uL Sodium 129 L (137-145) mmol/L Carbon Dioxide 21 L (22-30) mmol/L BUN 36 H (9-20) mg/dL Glucose 107 H (74-99) mg/dL POC Glucose (mg/dL) (70-110) mg/dL Calcium 8.2 L (8.4-10.2) mg/dL
[2023-08-23 13:11] VITALS: BMI 44.5
--- NOTE | 2023-08-23 13:24 | P.PN ---
Subjective Progress Note Date: 08/23/23 This is a 77-year-old male who was admitted under vascular surgery services for a nonhealing left lower extremity wound at the malleolus level with diabetic vascular disease and is status post left below the knee amputation. Patient follows with Dr. Chilel in the outpatient setting with past medical history of coronary artery disease, chest pain with angina, diabetes mellitus, eye disorder, GERD, hyperlipidemia, hypertension, history of osteoarthritis, renal disease, sleep apnea, depression. Patient was never a smoker and no reported alcohol and reports to having used drugs in the past but quit in 1998. Patient currently residing at [facility] on [facility] and is bedbound for rehab. Patient consented to the surgery and is status post left BKA. Patient is a diabetic insulin-dependent and recommend Accu-Cheks before meals and at bedtime and 2 AM and will resume appropriate home medications. 08/21/2023 Patient is resting in bed. Awake alert and oriented x 3. No complaints of chest pain or shortness of breath. Wound site is packed and pain is controlled with medications. Advised hemoglobin was 7.1 and 7.3 this morning. Patient is receiving 1 unit of PRBC. Other laboratory data showed sodium 126 potassium 4.8 chloride 103 bicarb is 18. BUN 16 creatinine 1.4 Patient is currently on room air. On IV hydration with normal saline at 75 cc/h. 08/22/2023 Patient is currently resting in the bed. Awake alert and oriented x 3. No complaints of chest pain or shortness of breath. Leg pain is controlled with pain medications. Patient is afebrile. No cough or sputum production. Patient went into atrial fibrillation with rapid ventricular last night and was started on heparin drip and metoprolol was added. Cardiology was consulted. Laboratory data showed WBC 11.6 hemoglobin 8.1 and platelets 390 Sodium 128, potassium 4.1 chloride 105 bicarb is 22, BUN 15 creatinine 1.11 and blood sugar 140 and calcium 7.7. Cardiology is on board. 08/23/2023 Patient is seen in follow-up today status post left BKA and continues with a wound VAC. Patient also being followed by cardiology with adjustments made and patient is currently rate controlled being transition to oral Eliquis recommending outpatient follow-up. Plan is to return to [facility] where he resides and has been cleared by other consultations. Patient will continue with the wound VAC and outpatient follow-up with vascular surgery as well as the wound care center. Recommend continued Accu-Cheks before meals and at bedtime and current regimen. Patient is currently afebrile with no reports of chest pain or shortness of breath. Patient is tolerating diet with no reported nausea or vomiting. Patient encouraged incentive spirometer use at least 10 times every hour while awake. Review of systems: Constitutional: No reports of fatigue, fever, or chills Cardiovascular: No reports of chest pain or palpitations Respiratory: No reports of shortness of breath or cough GI: No reports of nausea, vomiting, or diarrhea : No reports of dysuria or retention Neurovascular: reports of generalized weakness All medications have been reviewed PHYSICAL EXAMINATION: GENERAL: The patient is alert and oriented x2-3, . Well developed, well nourished. Morbidly obese HEENT: Pupils are round and equally reacting to light. EOMI. No scleral icterus. No conjunctival pallor. Normocephalic, atraumatic. No pharyngeal erythema. No th yromegaly. CARDIOVASCULAR: S1 and S2 present. No murmurs, rubs, or gallops. PULMONARY: Chest is clear to auscultation, no wheezing or crackles. ABDOMEN: Soft, obese, nontender, nondistended, normoactive bowel sounds. No palpable organomegaly. MUSCULOSKELETAL: No joint swelling or deformity. EXTREMITIES: No cyanosis, clubbing, or pedal edema. Left BKA dressings noted with wound VAC in good suction NEUROLOGICAL: Gross neurological examination did not reveal any focal deficits. Diffusely weak SKIN: No rashes. Assessment: Nonhealing left lower extremity wound at the malleolus level with diabetic vascular disease, status post left below the knee amputation New onset atrial fibrillation with rapid ventricular rate., Currently rate controlled and started on Eliquis History of coronary artery disease Hyponatremia, likely secondary to diuretic use, improved Hyperkalemia, improved Anemia, likely secondary to chronic kidney disease with acute blood loss anemia, improved after 1 unit of PRBC given History of chest pain, angina History of diabetes mellitus, insulin-dependent, uncontrolled with hyper and hypoglycemia GERD Hyperlipidemia Hypertension history, currently normotensive Osteoarthritis Chronic kidney disease stage III Obstructive sleep apnea with a CPAP History of depression Morbid obesity with a BMI of 40.5 GI prophylaxis DVT prophylaxis Full code Plan: Patient was started on heparin drip due to new onset atrial fibrillation with rapid ventricular rate. Patient being followed by cardiology with adjustments to medications and patient has been transition to Eliquis along with metoprolol, currently rate controlled and has been cleared for outpatient follow-up Patient is status post left BKA with wound VAC and wound care following and will follow in the outpatient setting Patient has history of hypertension, currently normotensive, some blood pressure medications have been on hold and recommend outpatient follow-up with primary care provider as well as cardiology patient is diabetic and blood sugars appear uncontrolled and home medications resumed. Recommend continuing with sliding scale along with long-acting . Continue Accu-Cheks before meals and at bedtime Patient will be returning to [facility] where he currently resides. Patient is medically stable once cleared by consultations. Thank you kindly for this consultation We will continue to follow with vascular surgery during hospitalization. The impression and plan of care has been dictated by Mayte Modi, Nurse Practitioner as directed. Dr. Derrell MD I have performed a history and examination and MDM of this patient, discussed the same with the dictator, and agree with the dictator's assessment and plan as written ,documented as a scribe. Based on total visit time, I have performed more than 50% of the visit. Objective - Vital Signs Vital signs: Vital Signs Temp 98.0 F 08/23/23 09:15 Pulse 91 08/23/23 09:15 Resp 18 08/23/23 09:15 BP 127/64 08/23/23 09:15 Pulse Ox 99 08/23/23 09:15 FiO2 Intake & Output 08/22/23 08/23/23 08/23/23 18:59 06:59 18:59 Intake Total 982 Output Total 1950 2250 Balance -968 -2250 Intake: Oral 982 Output: Urine 1950 2250 Other: Voiding Method Indwelling Catheter Indwelling Catheter - Labs CBC & Chem 7: 08/23/23 08:08 08/23/23 08:08 Labs: Abnormal Lab Results - Last 24 Hours (Table) 08/22/23 08/22/23 08/22/23 Range/Units 04:16 11:51 17:10 RBC (4.30-5.90) m/uL Hgb (13.0-17.5) gm/dL Hct (39.0-53.0) % RDW (11.5-15.5) % Plt Count (150-450) k/uL Sodium (137-145) mmol/L Carbon Dioxide (22-30) mmol/L BUN (9-20) mg/dL Glucose (74-99) mg/dL POC Glucose (mg/dL) 196 H 191 H (70-110) mg/dL Calcium (8.4-10.2) mg/dL Transferrin 181.0 L (204.0-354.0) mg/dL 08/22/23 08/23/23 08/23/23 Range/Units 20:04 06:27 08:08 RBC 3.18 L (4.30-5.90) m/uL Hgb 8.9 L (13.0-17.5) gm/dL Hct 27.1 L (39.0-53.0) % RDW 17.7 H (11.5-15.5) % Plt Count 463 H (150-450) k/uL Sodium (137-145) mmol/L Carbon Dioxide (22-30) mmol/L BUN (9-20) mg/dL Glucose (74-99) mg/dL POC Glucose (mg/dL) 227 H 115 H (70-110) mg/dL Calcium (8.4-10.2) mg/dL Transferrin (204.0-354.0) mg/dL 08/23/23 Range/Units 08:08 RBC (4.30-5.90) m/uL Hgb (13.0-17.5) gm/dL Hct (39.0-53.0) % RDW (11.5-15.5) % Plt Count (150-450) k/uL Sodium 129 L (137-145) mmol/L Carbon Dioxide 21 L (22-30) mmol/L BUN 36 H (9-20) mg/dL Glucose 107 H (74-99) mg/dL POC Glucose (mg/dL) (70-110) mg/dL Calcium 8.2 L (8.4-10.2) mg/dL Transferrin (204.0-354.0) mg/dL
--- NOTE | 2023-08-23 14:26 | P.CONS ---
History of Present Illness - Reason for Consult Consult date: 08/23/23 wound vac - History of Present Illness This is a 77-year-old patient who is known to the wound care center with a nonhealing ulceration stage III pressure ulcer to the sacrum. Patient has been utilizing a negative pressure wound VAC to that site. At this time the ulceration measures approximately 3 x 3 x 2.5 cm with undermining noted. Granulation is seen throughout the wound bed. Patient also has a skin tear distal to the original ulceration. Patient underwent a left below the knee amputation. Currently the ulceration is open sutures noted to the medial aspect. Patient has been utilizing the negative pressure wound VAC to the site. Review Of Systems: Constitutional: No fever, no chills, no night sweats. No weight change. No weakness, fatigue or lethargy. No daytime sleepiness. Integumentary:reports wounds, no lesions. No rash or pruritus. No unusual bruising. No change in hair or nails. Physical exam: General Appearance: Alert, cooperative, no distress, appears stated age. Skin: See HPI all other Skin color, texture, tugor normal, no rashes or lesions. Neurologic: Alert oriented x3 Assessment: 1. Nonhealing ulceration with bone necrosis to the left lower extremity 2. Stage III pressure ulcer of sacrum 3. Diabetes with skin ulceration 4. Chronic kidney disease stage III Plan: 1.Sacral ulceration: Apply negative pressure wound VAC to the ulceration. May apply absorptive silver to the skin tear. Left lower extremity amputation site: Apply negative pressure wound VAC with black foam. Negative pressure wound VAC orders black foam and 125 mmHg continuous pressure. For transfer patient may utilize absorptive silver and sacral border foam to the sacral ulceration, absorptive silver and rolled gauze to the amputation site. Change dressing once the negative pressure wound VAC is available. Patient states that he does not want to turn to the wound care center he would rather have wound care at the facility he is going to. Thank you for the consultation any questions please contact the wound care center DNP note has been reviewed and discussed with Dr. Wan and the impression and plan of care has been directed as dictated. Past Medical History Past Medical History: Coronary Artery Disease (CAD), Chest Pain / Angina, Diabet es Mellitus, Eye Disorder, GERD/Reflux, Hyperlipidemia, Hypertension, Osteoarthritis (OA), Renal Disease, Sleep Apnea/CPAP/BIPAP Additional Past Medical History / Comment(s): 02/05/23 fall in shower with left ankle wound/fracture, had surgery-ORIF with I&D and wound vac placed/removed. Current left foot wound, left benz wound and right sacrum wound with wound vac. Anemia. IDDM type II, neuropathy legs and feet, bedbound/ander lift, CKD stage III, nephrolithiasis, DALTON with CPAP, right hip, left shoulder pain/torn rotator cuff/limited ROM, polyarthritis, cellulitis, lymphedema, glaucoma. History of Any Multi-Drug Resistant Organisms: MRSA Year Discovered:: 04/21/16 MDRO Source:: ABDOMEN Past Surgical History: Orthopedic Surgery Additional Past Surgical History / Comment(s): KIDNEY STONE REMOVED and ureteral stent placed, deviated septum surgery, flex sigmoidoscopy several times, colonoscopy, dental surgery, cataract surgery bilaterally, ORIF left ankle. Past Anesthesia/Blood Transfusion Reactions: No Reported Reaction Past Psychological History: Depression Smoking Status: Never smoker Past Alcohol Use History: None Reported Past Drug Use History: Cocaine, Marijuana, Opiates Additional Drug Use History / Comment(s): Quit drug use in 1998. - Past Family History Father Additional Family Medical History / Comment(s): Brain aneurysm. Mother Family Medical History: Cancer, Deep Vein Thrombosis (DVT) Medications and Allergies Home Medications Medication Instructions Recorded Confirmed Type Fenofibrate,Micronized 200 mg PO HS 06/06/18 08/16/23 History [Fenofibrate] Dapagliflozin Propanediol [Farxiga] 10 mg PO DAILY 02/05/23 08/16/23 History Pioglitazone [Actos] 15 mg PO DAILY 02/05/23 08/16/23 History Semaglutide [Ozempic] 2 mg SQ MO 02/05/23 08/17/23 History metFORMIN HCL 1,000 mg PO BID 02/05/23 08/16/23 History Aspirin 81 mg PO QAM 02/18/23 08/19/23 History Atorvastatin Calcium 20 mg PO HS 08/16/23 08/19/23 History Clotrimazole/Betameth Cream 1 applic TOPICAL DAILY 08/16/23 08/19/23 History [Lotrisone] Cyanocobalamin [Vitamin B-12] 500 mcg PO DAILY 08/16/23 08/19/23 History Ferrous Sulfate [Feosol] 325 mg PO BID 08/16/23 08/19/23 History Furosemide [Lasix] 40 mg PO QAM 08/16/23 08/19/23 History Glucerna Shake 1 can PO DAILY 08/16/23 08/19/23 History Insulin Glargine,Hum.rec.anlog 25 units SQ HS 08/16/23 08/19/23 History [Lantus Solostar Pen] Insulin Lispro [humaLOG Kwikpen] 0 unit SQ QID PRN 08/16/23 08/19/23 History Apixaban [Eliquis] 5 mg PO BID tab 08/23/23 Rx Gabapentin [Neurontin] 300 mg PO Q8H 3 Days #9 cap 08/23/23 Rx HYDROcodone/APAP 5-325MG [Purdum 1 each PO Q6HR PRN #12 tab 08/23/23 Rx 5-325] Metoprolol Tartrate [Lopressor] 37.5 mg PO BID tab 08/23/23 Rx Allergies Allergy/AdvReac Type Severity Reaction Status Date / Time cat pelt standardized Allergy Itching Verified 08/19/23 12:06 allergenic ex mold Allergy Itching Verified 08/19/23 12:06 pollen extracts Allergy Itching Verified 08/19/23 12:06 Physical Exam Vitals: Vital Signs Temp Pulse Pulse Resp BP Pulse Ox 08/23/23 11:51 80 18 118/74 100 08/23/23 09:15 98.0 F 91 18 127/64 99 08/23/23 03:53 98.1 F 80 18 116/61 97 08/22/23 23:31 98.8 F 69 16 109/61 98 08/22/23 20:00 98.1 F 105 H 18 116/65 100 08/22/23 17:05 98.5 F 88 18 102/66 98 Intake and Output 08/22/23 08/23/23 08/23/23 22:59 06:59 14:59 Intake Total 222 180 Output Total 950 2250 450 Balance -728 -2250 -270 Intake: Oral 222 180 Output: Urine 950 2250 450 Other: Voiding Method Indwelling Catheter Indwelling Catheter Indwelling Catheter # Voids 1 Weight 140.7 kg Results CBC & Chem 7: 08/23/23 08:08 08/23/23 08:08 Labs: Abnormal Lab Results - Last 24 Hours (Table) 08/22/23 08/22/23 08/23/23 Range/Units 17:10 20:04 06:27 RBC (4.30-5.90) m/uL Hgb (13.0-17.5) gm/dL Hct (39.0-53.0) % RDW (11.5-15.5) % Plt Count (150-450) k/uL Sodium (137-145) mmol/L Carbon Dioxide (22-30) mmol/L BUN (9-20) mg/dL Glucose (74-99) mg/dL POC Glucose (mg/dL) 191 H 227 H 115 H (70-110) mg/dL Calcium (8.4-10.2) mg/dL 08/23/23 08/23/23 Range/Units 08:08 08:08 RBC 3.18 L (4.30-5.90) m/uL Hgb 8.9 L (13.0-17.5) gm/dL Hct 27.1 L (39.0-53.0) % RDW 17.7 H (11.5-15.5) % Plt Count 463 H (150-450) k/uL Sodium 129 L (137-145) mmol/L Carbon Dioxide 21 L (22-30) mmol/L BUN 36 H (9-20) mg/dL Glucose 107 H (74-99) mg/dL POC Glucose (mg/dL) (70-110) mg/dL Calcium 8.2 L (8.4-10.2) mg/dL Assessment and Plan (1) Non-pressure ulcer of left lower extremity with necrosis of bone Current Visit: Yes Status: Acute Code(s): L97.924 - NON-PRS CHRONIC ULC UNSP PRT OF L LOW LEG W NECROSIS OF BONE SNOMED Code(s): 68577314 (2) Pressure injury of sacral region, stage 3 Current Visit: Yes Status: Acute Code(s): L89.153 - PRESSURE ULCER OF SACRAL REGION, STAGE 3 SNOMED Code(s): 93893996336757 (3) Type 2 diabetes mellitus with other skin ulcer Current Visit: Yes Status: Acute Code(s): E11.622 - TYPE 2 DIABETES MELLITUS WITH OTHER SKIN ULCER; L98.499 - NON-PRESSURE CHRONIC ULCER OF SKIN OF SITES W UNSP SEVERITY SNOMED Code(s): 740531251 (4) Chronic kidney disease, stage 3 Current Visit: Yes Status: Acute Code(s): N18.30 - CHRONIC KIDNEY DISEASE, STAGE 3 UNSPECIFIED SNOMED Code(s): 992373419
[2023-08-23] MEDS ORDERED: NON FORMULARY DRUG (Semaglutide [Ozempic] 2 MG/0.75 ML Pen.Injctr) SQ SCH (16:12)
[2023-08-23 16:44] LABS: Glucose,Whole Blood 164 mg/dL (70-110)
== END 2023-08-23 17:57 | DRG 239 ==
LOC: 2ORMAIN 10:50 → 3SCARD 19:16
PROVIDERS: ADMIT Surgery; ATTEND Surgery
PROC: 0Y6J0Z1 Detachment at Left Lower Leg, High, Open Approach (ICD-10-PCS; principal; 2023-08-19 12:30)
DX: E11.51 Type 2 diabetes mellitus with diabetic peripheral angiopathy without gangrene (principal); L89.153 Pressure ulcer of sacral region, stage 3; D62 Acute posthemorrhagic anemia; E87.1 Hypo-osmolality and hyponatremia; M87.88 Other osteonecrosis, other site; Z68.41 Body mass index [BMI] 40.0-44.9, adult; L98.494 Non-pressure chronic ulcer of skin of other sites with necrosis of bone; D63.1 Anemia in chronic kidney disease; E11.22 Type 2 diabetes mellitus with diabetic chronic kidney disease; E11.622 Type 2 diabetes mellitus with other skin ulcer; E66.01 Morbid (severe) obesity due to excess calories; E78.5 Hyperlipidemia, unspecified; G47.33 Obstructive sleep apnea (adult) (pediatric); N18.30 Chronic kidney disease, stage 3 unspecified; E87.5 Hyperkalemia; I12.9 Hypertensive chronic kidney disease with stage 1 through stage 4 chronic kidney disease, or unspecified chronic kidney disease; I25.10 Atherosclerotic heart disease of native coronary artery without angina pectoris; I48.0 Paroxysmal atrial fibrillation; K21.9 Gastro-esophageal reflux disease without esophagitis; H40.9 Unspecified glaucoma; M19.90 Unspecified osteoarthritis, unspecified site; Z74.01 Bed confinement status; Z79.899 Other long term (current) drug therapy; Z79.01 Long term (current) use of anticoagulants; Z79.4 Long term (current) use of insulin; Z79.82 Long term (current) use of aspirin; Z79.84 Long term (current) use of oral hypoglycemic drugs; Z87.442 Personal history of urinary calculi
CPT/HCPCS: 80048; 80053; 82747; 83036; 83540; 83550; 83735; 84443; 85025; 85027; 85730; 86850; 86900; 86901; 86920; 94760

== ENCOUNTER 2023-08-27 10:02 | Inpatient (IN) | payer MEDICARE ==
--- NOTE | 2023-08-27 10:15 | ED ---
General Adult HPI - General Stated complaint: Low Hemoglobin Time Seen by Provider: 08/27/23 10:02 Source: patient, RN notes reviewed, old records reviewed - History of Present Illness Initial comments: This is a 77-year-old male who presents to the emergency department after having a BKA done 1 week ago. Patient was sent in from the correction but his hemoglobin was low. Patient has a sacral wound and is recently started on Eliquis. According to the correction his hemoglobin dropped to 7.9 and he was feeling weak so they did a guaiac it was positive so they sent the patient to the emergency department. - Related Data Home Medications Medication Instructions Recorded Confirmed Fenofibrate,Micronized 200 mg PO HS 06/06/18 08/27/23 [Fenofibrate] Dapagliflozin Propanediol [Farxiga] 10 mg PO DAILY 02/05/23 08/27/23 Pioglitazone [Actos] 15 mg PO DAILY 02/05/23 08/27/23 Semaglutide [Ozempic] 2 mg SQ MO 02/05/23 08/27/23 metFORMIN HCL 1,000 mg PO BID 02/05/23 08/27/23 Aspirin 81 mg PO DAILY 02/18/23 08/27/23 Atorvastatin Calcium 20 mg PO HS 08/16/23 08/27/23 Clotrimazole/Betameth Cream 1 applic TOPICAL DAILY 08/16/23 08/27/23 [Lotrisone] Cyanocobalamin [Vitamin B-12] 500 mcg PO DAILY 08/16/23 08/27/23 Ferrous Sulfate [Feosol] 325 mg PO BID 08/16/23 08/27/23 Furosemide [Lasix] 40 mg PO DAILY@0600 08/16/23 08/27/23 Glucerna Shake 1 can PO DAILY 08/16/23 08/27/23 Insulin Glargine,Hum.rec.anlog 25 units SQ HS 08/16/23 08/27/23 [Lantus Solostar Pen] Insulin Lispro [humaLOG Kwikpen] See Protocol SQ QID PRN 08/16/23 08/27/23 Gabapentin [Neurontin] 300 mg PO Q8HR@0600,1400,2200 08/27/23 08/27/23 HYDROcodone/APAP 5-325MG [[place] 1 tab PO Q6H PRN 08/27/23 08/27/23 5-325] Previous Rx's Medication Instructions Recorded Apixaban [Eliquis] 5 mg PO BID tab 08/23/23 Metoprolol Tartrate [Lopressor] 37.5 mg PO BID tab 08/23/23 Allergies Allergy/AdvReac Type Severity Reaction Status Date / Time cat pelt standardized Allergy Itching Verified 08/27/23 10:16 allergenic ex mold Allergy Itching Verified 08/27/23 10:16 pollen extracts Allergy Itching Verified 08/27/23 10:16 Review of Systems ROS Statement: Those systems with pertinent positive or pertinent negative responses have been documented in the HPI. ROS Other: All systems not noted in ROS Statement are negative. Past Medical History Past Medical History: Coronary Artery Disease (CAD), Chest Pain / Angina, Diabetes Mellitus, Eye Disorder, GERD/Reflux, Hyperlipidemia, Hypertension, Osteoarthritis (OA), Renal Disease, Sleep Apnea/CPAP/BIPAP Additional Past Medical History / Comment(s): 02/05/23 fall in shower with left ankle wound/fracture, had surgery-ORIF with I&D and wound vac placed/removed. Current left foot wound, left benz wound and right sacrum wound with wound vac. Anemia. IDDM type II, neuropathy legs and feet, bedbound/ander lift, CKD stage III, nephrolithiasis, DALTON with CPAP, right hip, left shoulder pain/torn rotator cuff/limited ROM, polyarthritis, cellulitis, lymphedema, glaucoma. History of Any Multi-Drug Resistant Organisms: MRSA Date of last positivie culture/infection: 04/21/16 MDRO Source:: ABDOMEN Past Surgical History: Orthopedic Surgery Additional Past Surgical History / Comment(s): KIDNEY STONE REMOVED and ureteral stent placed, deviated septum surgery, flex sigmoidoscopy several times, co lonoscopy, dental surgery, cataract surgery bilaterally, ORIF left ankle. Past Anesthesia/Blood Transfusion Reactions: No Reported Reaction Past Psychological History: Depression Smoking Status: Never smoker Past Alcohol Use History: None Reported Past Drug Use History: Cocaine, Marijuana, Opiates Additional Drug Use History / Comment(s): Quit drug use in 1998. - Past Family History Father Additional Family Medical History / Comment(s): Brain aneurysm. Mother Family Medical History: Cancer, Deep Vein Thrombosis (DVT) General Exam - General Exam Comments Initial Comments: GENERAL: Patient is well-developed and well-nourished. Patient is nontoxic and well- hydrated and is in mild distress. ENT: Neck is soft and supple. No significant lymphadenopathy is noted. Oropharynx is clear. Moist mucous membranes. Neck has full range of motion without eliciting any pain. EYES: The sclera were anicteric and conjunctiva were pink and moist. Extraocular movements were intact and pupils were equal round and reactive to light. Eyelids were unremarkable. PULMONARY: Unlabored respirations. Good breath sounds bilaterally. No audible rales rhonchi or wheezing was noted. CARDIOVASCULAR: There is a regular rate and rhythm without any murmurs gallops or rubs. ABDOMEN: Soft and nontender with normal bowel sounds. SKIN: Skin is clear with no lesions or rashes and otherwise unremarkable. NEUROLOGIC: Patient is alert and oriented x3. Cranial nerves II through XII are grossly intact. Motor and sensory are also intact. Normal speech, volume and content. Symmetrical smile. MUSCULOSKELETAL: Patient has a BKA on the left and the wound is open since surgery. There is no active bleeding currently but according to staff at the correction and has been bleeding LYMPHATICS: No significant lymphadenopathy is noted PSYCHIATRIC: Normal psychiatric evaluation. Course Vital Signs 08/27/23 08/27/23 08/27/23 10:04 10:42 12:17 Temperature 98.1 F Pulse Rate 113 H 151 H Pulse Rate [ 131 H [facility] ] Respiratory 16 18 18 Rate Blood Pressure 96/69 115/71 O2 Sat by Pulse 100 98 Oximetry Medical Decision Making - Medical Decision Making EKG is interpreted by myself. EKG shows atrial fibrillation with rapid ventricular response at 129 bpm QRS is 85 QT interval 301 QTc is 377. Was pt. sent in by a medical professional or institution (, PA, ORACLE DATABASE ADMINISTRATOR, urgent care, hospital, or correction...) When possible be specific @ -Patient was sent in by the correction Did you speak to anyone other than the patient for history (EMS, parent, family, police, friend...)? What history was obtained from this source @ -No Did you review nursing and triage notes (agree or disagree)? Why? @ -I reviewed and agree with nursing and triage notes Were old charts reviewed (outside hosp., previous admission, EMS record, old EKG, old radiological studies, urgent care reports/EKG's, correction records)? Report findings @ -I reviewed prior charts and prior lab work on this patient Differential Diagnosis (chest pain, altered mental status, abdominal pain women, abdominal pain men, vaginal bleeding, weakness, fever, dyspnea, syncope, head ache, dizziness, GI bleed, back pain, seizure, CVA, palpatations, mental health, musculoskeletal)? @ -Differential Weakness: Hypoglycemia, shock, sepsis, hyponatremia, anemia, infection, NC, ETOH, adverse medicine reaction, overdose, stroke, this is not meant to be an all-inclusive list. EKG interpreted by me (3pts min.). @ -As above X-rays interpreted by me (1pt min.). @ -None done CT interpreted by me (1pt min.). @ -None done U/S interpreted by me (1pt. min.). @ -None done What testing was considered but not performed or refused? (CT, X-rays, U/S, labs)? Why? @ -None What meds were considered but not given or refused? Why? @ -None Did you discuss the management of the patient with other professionals (professionals i.e. , PA, ORACLE DATABASE ADMINISTRATOR, lab, RT, psych nurse, sexual assault social worker, foundry engineer, teacher, v/stol landing signal officer, telephonic nurse case manager)? Give summary @ -I spoke with Dr. Samuels he agreed to get the patient I admitted the patient wrote admitting orders Was smoking cessation discussed for >3mins.? @ -No Was critical care preformed (if so, how long)? @ -35 minutes Were there social determinants of health that impacted care today? How? (Homelessness, low income, unemployed, alcoholism, drug addiction, tra nsportation, low edu. Level, literacy, decrease access to med. care, usp, rehab)? @ -No Was there de-escalation of care discussed even if they declined (Discuss DNR or withdrawal of care, Hospice)? DNR status @ -No What co-morbidities impacted this encounter? (DM, HTN, Smoking, COPD, CAD, Cancer, CVA, ARF, Chemo, Hep., AIDS, mental health diagnosis, sleep apnea, morbid obesity)? @ -None Was patient admitted / discharged? Hospital course, mention meds given and route, prescriptions, significant lab abnormalities, going to OR and other pertinent info. @ -Patient's lab work showed hemoglobin 9. Patient was in A-fib with rapid ventricular response. I started the patient on Cardizem after Cardizem bolus. I spoke with Dr. Lau and he agreed admit the patient admit the patient and wrote admitting orders Undiagnosed new problem with uncertain prognosis? @ -No Drug Therapy requiring intensive monitoring for toxicity (Heparin, Nitro, Insulin, Cardizem)? @ -No Were any procedures done? @ -No Diagnosis/symptom? @ -A-fib with rapid ventricular response Acute, or Chronic, or Acute on Chronic? @ -Acute Uncomplicated (without systemic symptoms) or Complicated (systemic symptoms)? @ -Complicated Side effects of treatment? @ -No Exacerbation, Progression, or Severe Exacerbation? @ -No Poses a threat to life or bodily function? How? (Chest pain, USA, NC, pneumonia, PE, COPD, DKA, ARF, appy, cholecystitis, CVA, Diverticulitis, Homicidal, Suicidal, threat to staff... and all critical care pts) @ -Yes this could lead to poor perfusion and end organ dysfunction Diagnosis/symptom? @ -Anemia Acute, or Chronic, or Acute on Chronic? @ -Acute Uncomplicated (without systemic symptoms) or Complicated (systemic symptoms)? @ -Complicated Side effects of treatment? @ -None Exacerbation, Progression, or Severe Exacerbation] @ -No Poses a threat to life or bodily function? @ -No - Lab Data Result diagrams: 08/27/23 10:32 08/27/23 10:32 Lab Results 08/27/23 08/27/23 08/27/23 Range/Units 10:30 10:32 10:32 WBC 13.6 H (3.8-10.6) k/uL RBC 3.22 L (4.30-5.90) m/uL Hgb 9.0 L (13.0-17.5) gm/dL Hct 27.9 L (39.0-53.0) % MCV 86.6 (80.0-100.0) fL MCH 27.9 (25.0-35.0) pg MCHC 32.2 (31.0-37.0) g/dL RDW 18.1 H (11.5-15.5) % Plt Count 801 H (150-450) k/uL MPV 8.4 Neutrophils % 80 % Lymphocytes % 14 % Monocytes % 3 % Eosinophils % 2 % Basophils % 0 % Neutrophils # 10.9 H (1.3-7.7) k/uL Lymphocytes # 1.8 (1.0-4.8) k/uL Monocytes # 0.4 (0-1.0) k/uL Eosinophils # 0.3 (0-0.7) k/uL Basophils # 0.1 (0-0.2) k/uL Hypochromasia Moderate Poikilocytosis Slight Anisocytosis Slight PT (10.0-12.5) sec INR (<1.2) APTT (22.0-30.0) sec Sodium 132 L (137-145) mmol/L Potassium 4.6 (3.5-5.1) mmol/L Chloride 105 (98-107) mmol/L Carbon Dioxide 22 (22-30) mmol/L Anion Gap 5 mmol/L BUN 27 H (9-20) mg/dL Creatinine 0.65 L (0.66-1.25) mg/dL Est GFR (CKD-EPI)AfAm >90 (>60 ml/min/1.73 sqM) Est GFR (CKD-EPI)NonAf >90 (>60 ml/min/1.73 sqM) Glucose 186 H (74-99) mg/dL Calcium 8.6 (8.4-10.2) mg/dL Magnesium 1.7 (1.6-2.3) mg/dL Total Bilirubin 0.4 (0.2-1.3) mg/dL AST 24 (17-59) U/L ALT 13 (4-49) U/L Alkaline Phosphatase 59 (38-126) U/L Troponin I (0.000-0.034) ng/mL Total Protein 5.3 L (6.3-8.2) g/dL Albumin 2.5 L (3.5-5.0) g/dL Blood Type A Positive Blood Type Recheck A Pos Bld Type Recheck Status No Antibody Screen NEGATIVE Spec Expiration Date 08/30/2023232908/27/23 08/27/23 Range/Units 10:32 10:33 WBC (3.8-10.6) k/uL RBC (4.30-5.90) m/uL Hgb (13.0-17.5) gm/dL Hct (39.0-53.0) % MCV (80.0-100.0) fL MCH (25.0-35.0) pg MCHC (31.0-37.0) g/dL RDW (11.5-15.5) % Plt Count (150-450) k/uL MPV Neutrophils % % Lymphocytes % % Monocytes % % Eosinophils % % Basophils % % Neutrophils # (1.3-7.7) k/uL Lymphocytes # (1.0-4.8) k/uL Monocytes # (0-1.0) k/uL Eosinophils # (0-0.7) k/uL Basophils # (0-0.2) k/uL Hypochromasia Poikilocytosis Anisocytosis PT 11.7 (10.0-12.5) sec INR 1.1 (<1.2) APTT 26.1 (22.0-30.0) sec Sodium (137-145) mmol/L Potassium (3.5-5.1) mmol/L Chloride (98-107) mmol/L Carbon Dioxide (22-30) mmol/L Anion Gap mmol/L BUN (9-20) mg/dL Creatinine (0.66-1.25) mg/dL Est GFR (CKD-EPI)AfAm (>60 ml/min/1.73 sqM) Est GFR (CKD-EPI)NonAf (>60 ml/min/1.73 sqM) Glucose (74-99) mg/dL Calcium (8.4-10.2) mg/dL Magnesium (1.6-2.3) mg/dL Total Bilirubin (0.2-1.3) mg/dL AST (17-59) U/L ALT (4-49) U/L Alkaline Phosphatase (38-126) U/L Troponin I <0.012 (0.000-0.034) ng/mL Total Protein (6.3-8.2) g/dL Albumin (3.5-5.0) g/dL Blood Type Blood Type Recheck Bld Type Recheck Status Antibody Screen Spec Expiration Date Critical Care Time Critical Care Time: Yes Total Critical Care Time: 35 Disposition Clinical Impression: Anemia, Atrial fibrillation with rapid ventricular response Disposition: ADMITTED IP TO THIS HOSP Referrals: Sterling Chilel MD [Primary Care Provider] - 1-2 days Time of Disposition: 13:04
[2023-08-27 10:44] LABS: Anisocytosis Slight; Basophils # (A) 0.1 k/uL (0-0.2); Basophils % (A) 0 %; Eosinophils # (A) 0.3 k/uL (0-0.7); Eosinophils % (A) 2 %; HCT 27.9 % (39.0-53.0); Hypochromasia Moderate; Lymphocytes # (A) 1.8 k/uL (1.0-4.8); Lymphocytes % (A) 14 %; MCH 27.9 pg (25.0-35.0); MCHC 32.2 g/dL (31.0-37.0); MCV 86.6 fL (80.0-100.0); Mean Platelet Volume 8.4; Monocytes # (A) 0.4 k/uL (0-1.0); Monocytes % (A) 3 %; Neutrophils # (A) 10.9 k/uL (1.3-7.7); Neutrophils % (A) 80 %; Platelet Count 801 k/uL (150-450); Poikilocytosis Slight; RBC 3.22 m/uL (4.30-5.90); RDW 18.1 % (11.5-15.5); WBC 13.6 k/uL (3.8-10.6)
[2023-08-27 10:57] LABS: ALT 13 U/L (4-49); AST 24 U/L (17-59); African American GFR (CKD) >90 (>60 ml/min/1.73 sqM); Albumin 2.5 g/dL (3.5-5.0); Alkaline Phosphatase 59 U/L (38-126); Anion Gap 5 mmol/L; Blood Urea Nitrogen 27 mg/dL (9-20); Calcium 8.6 mg/dL (8.4-10.2); Carbon Dioxide 22 mmol/L (22-30); Chloride 105 mmol/L (98-107); Glucose 186 mg/dL (74-99); Magnesium 1.7 mg/dL (1.6-2.3); Non-African American GFR(CKD) >90 (>60 ml/min/1.73 sqM); Potassium 4.6 mmol/L (3.5-5.1); Sodium 132 mmol/L (137-145); Total Bilirubin 0.4 mg/dL (0.2-1.3); Total Protein 5.3 g/dL (6.3-8.2)
[2023-08-27 10:59] LABS: INR 1.1 (<1.2); Partial Thromboplastin Time 26.1 sec (22.0-30.0); Prothrombin Time 11.7 sec (10.0-12.5)
[2023-08-27] MEDS: SODIUM CHLORIDE 0.9% 1,000 ML IV ONE (11:08)
[2023-08-27] MEDS ORDERED: ONDANSETRON 4 MG/2 ML VIAL IVP PRN (12:16)
[2023-08-27] MEDS ORDERED: MELATONIN 3 MG TABLET PO PRN (12:16)
[2023-08-27] MEDS ORDERED: NALOXONE 0.4 MG/ML 1 ML VIAL IV PRN (12:16)
[2023-08-27] MEDS: DILTIAZEM 5 MG/ML 5 ML VIAL IVP STA (12:29)
--- NOTE | 2023-08-27 12:29 | P.HPIM ---
History of Present Illness H&P Date: 08/27/23 History of present illness; patient is a 77 -year-old male past medical history significant for recent left below the knee amputation,coronary artery disease, chest pain with angina, diabetes mellitus, eye disorder, GERD, hyperlipidemia, hypertension, history of osteoarthritis, renal disease, sleep apnea, depression who presented to the hospital for abnormal labs and bleeding from the BKA site. Patient had blood work done at the [facility] with a found hemoglobin to be low, there is also complaint of bleeding from the BKA site. There is no complaint of blood in the stools. There was no complaint of fever or chills. There was no complaint nausea, vomiting abdominal pain. Patient denies any lethargy or weakness. There is no complaint of chest pain or shortness of breath. Initial lab work done in the ER showed WBC 13.6, hemoglobin 9, platelet count 801, sodium 132, potassium 4.6, BUN 27, creatinine 0.65 EKG done in the ER showed heart rate of 129, irregular in rhythm and rate, no ST segment elevation or depression seen, no T-wave inversions seen. Patient admitted to internal medicine service REVIEW OF SYSTEMS: CONSTITUTIONAL: No fever, no malaise, no fatigue. HEENT: No recent visual problems or hearing problems. Denied any sore throat. CARDIOVASCULAR: No chest pain, orthopnea, PND, no palpitations, no syncope. PULMONARY: No shortness of breath, no cough, no hemoptysis. GASTROINTESTINAL: No diarrhea, no nausea, no vomiting, no abdominal pain. NEUROLOGICAL: No headaches, no weakness, no numbness. HEMATOLOGICAL: Denies any bleeding or petechiae. GENITOURINARY: Denies any burning micturition, frequency, or urgency. MUSCULOSKELETAL/RHEUMATOLOGICAL: Pain at left BKA site ENDOCRINE: Denies any polyuria or polydipsia. The rest of the 14-point review of systems is negative. PHYSICAL EXAMINATION: GENERAL: The patient is alert and oriented x3, not in any acute distress. Well developed, well nourished. HEENT: Pupils are round and equally reacting to light. EOMI. No scleral icterus. No conjunctival pallor. Normocephalic, atraumatic. No pharyngeal erythema. No thyromegaly. CARDIOVASCULAR: S1 and S2 present. No murmurs, rubs, or gallops. IRRegular rate and rhythm PULMONARY: Chest is clear to auscultation, no wheezing or crackles. ABDOMEN: Soft, nontender, nondistended, normoactive bowel sounds. No palpable organomegaly. MUSCULOSKELETAL: Left BKA EXTREMITIES: No cyanosis, clubbing, or pedal edema. NEUROLOGICAL: Gross neurological examination did not reveal any focal deficits. SKIN: No rashes. Assessment and plan Bleeding from left BKA site A-fib with RVR Anemia, likely secondary to chronic kidney disease with acute blood loss anemia, hemoglobin is 7.1 and is being transfused 1 unit of PRBC History of diabetes mellitus, insulin-dependent, uncontrolled with hyper and hypoglycemia GERD Hyperlipidemia Hypertension Osteoarthritis Chronic kidney disease stage III Obstructive sleep apnea with a CPAP History of depression Morbid obesity with a BMI of 40.5 Monitor vital signs Monitor CBC Monitor CMP Continue telemetry monitoring Patient got a dose of Cardizem in the ER, if heart rate continues to be elevated above 120 will start Cardizem drip Resume Lopressor Resume Eliquis Monitor blood sugar levels, continue sliding scale insulin Continue wound care Consult vascular surgery for evaluation of left BKA site. Consulted cardiology Labs and medication were reviewed.. Continue same treatment. Continue with symptomatic treatment. Resume home medication. Monitor labs and vitals. DVT and GI prophylaxis. Further recommendations as per clinical course of the patient Dictation was produced using [employer] dictation software. please excuse any grammatical, word or spelling errors. Past Medical History Past Medical History: Coronary Artery Disease (CAD), Chest Pain / Angina, Diabetes Mellitus, Eye Disorder, GERD/Reflux, Hyperlipidemia, Hypertension, Osteoarthritis (OA), Renal Disease, Sleep Apnea/CPAP/BIPAP Additional Past Medical History / Comment(s): 02/05/23 fall in shower with left ankle wound/fracture, had surgery-ORIF with I&D and wound vac placed/removed. Cu rrent left foot wound, left benz wound and right sacrum wound with wound vac. Anemia. IDDM type II, neuropathy legs and feet, bedbound/ander lift, CKD stage III, nephrolithiasis, DALTON with CPAP, right hip, left shoulder pain/torn rotator cuff/limited ROM, polyarthritis, cellulitis, lymphedema, glaucoma. History of Any Multi-Drug Resistant Organisms: MRSA Date of last positivie culture/infection: 04/21/16 MDRO Source:: ABDOMEN Past Surgical History: Orthopedic Surgery Additional Past Surgical History / Comment(s): KIDNEY STONE REMOVED and ureteral stent placed, deviated septum surgery, flex sigmoidoscopy several times, colonoscopy, dental surgery, cataract surgery bilaterally, ORIF left ankle. Past Anesthesia/Blood Transfusion Reactions: No Reported Reaction Past Psychological History: Depression Smoking Status: Never smoker Past Alcohol Use History: None Reported Past Drug Use History: Cocaine, Marijuana, Opiates Additional Drug Use History / Comment(s): Quit drug use in 1998. - Past Family History Father Additional Family Medical History / Comment(s): Brain aneurysm. Mother Family Medical History: Cancer, Deep Vein Thrombosis (DVT) Medications and Allergies Home Medications Medication Instructions Recorded Confirmed Type Fenofibrate,Micronized 200 mg PO HS 06/06/18 08/27/23 History [Fenofibrate] Dapagliflozin Propanediol [Farxiga] 10 mg PO DAILY 02/05/23 08/27/23 History Pioglitazone [Actos] 15 mg PO DAILY 02/05/23 08/27/23 History Semaglutide [Ozempic] 2 mg SQ MO 02/05/23 08/27/23 History metFORMIN HCL 1,000 mg PO BID 02/05/23 08/27/23 History Aspirin 81 mg PO DAILY 02/18/23 08/27/23 History Atorvastatin Calcium 20 mg PO HS 08/16/23 08/27/23 History Clotrimazole/Betameth Cream 1 applic TOPICAL DAILY 08/16/23 08/27/23 History [Lotrisone] Cyanocobalamin [Vitamin B-12] 500 mcg PO DAILY 08/16/23 08/27/23 History Ferrous Sulfate [Feosol] 325 mg PO BID 08/16/23 08/27/23 History Furosemide [Lasix] 40 mg PO DAILY@0600 08/16/23 08/27/23 History Glucerna Shake 1 can PO DAILY 08/16/23 08/27/23 History Insulin Glargine,Hum.rec.anlog 25 units SQ HS 08/16/23 08/27/23 History [Lantus Solostar Pen] Insulin Lispro [humaLOG Kwikpen] See Protocol SQ QID PRN 08/16/23 08/27/23 History Apixaban [Eliquis] 5 mg PO BID tab 08/23/23 08/27/23 Rx Metoprolol Tartrate [Lopressor] 37.5 mg PO BID tab 08/23/23 08/27/23 Rx Gabapentin [Neurontin] 300 mg PO Q8HR@0600,1400,2200 08/27/23 08/27/23 History HYDROcodone/APAP 5-325MG [[place] 1 tab PO Q6H PRN 08/27/23 08/27/23 History 5-325] Allergies Allergy/AdvReac Type Severity Reaction Status Date / Time cat pelt standardized Allergy Itching Verified 08/27/23 10:16 allergenic ex mold Allergy Itching Verified 08/27/23 10:16 pollen extracts Allergy Itching Verified 08/27/23 10:16 Physical Exam Vitals: Vital Signs Temp Pulse Pulse Resp BP Pulse Ox 08/27/23 10:42 131 H 18 08/27/23 10:04 98.1 F 113 H 16 96/69 100 Intake and Output 08/26/23 08/27/23 08/27/23 22:59 06:59 14:59 Other: Voiding Method Diaper Incontinent Weight 136.078 kg Results CBC & Chem 7: 08/27/23 10:32 08/27/23 10:32 Labs: Abnormal Lab Results - Last 24 Hours (Table) 08/27/23 08/27/23 Range/Units 10:32 10:32 WBC 13.6 H (3.8-10.6) k/uL RBC 3.22 L (4.30-5.90) m/uL Hgb 9.0 L (13.0-17.5) gm/dL Hct 27.9 L (39.0-53.0) % RDW 18.1 H (11.5-15.5) % Plt Count 801 H (150-450) k/uL Neutrophils # 10.9 H (1.3-7.7) k/uL Sodium 132 L (137-145) mmol/L BUN 27 H (9-20) mg/dL Creatinine 0.65 L (0.66-1.25) mg/dL Glucose 186 H (74-99) mg/dL Total Protein 5.3 L (6.3-8.2) g/dL Albumin 2.5 L (3.5-5.0) g/dL
[2023-08-27] MEDS: SODIUM CHLORIDE 0.9% 1,000 ML IV SCH (13:03)
[2023-08-27] MEDS: DILTIAZEM DRIP BOLUS FROM BAG 1 MG SOLN IV ONE (13:04)
[2023-08-27] MEDS: DILTIAZEM 125 MG in SODIUM CHLORIDE 0.9% 100 ML IV SCH (13:07)
[2023-08-27] MEDS: GABAPENTIN 300 MG CAP PO SCH (13:26)
[2023-08-27] MEDS: METOPROLOL TARTRATE 25 MG TAB PO SCH (13:26)
[2023-08-27] MEDS: HYDROcodone/APAP 5-325MG 1 EACH TAB PO PRN (13:26)
--- NOTE | 2023-08-27 14:26 | P.GSCN ---
History of Present Illness Consult date: 08/27/23 Reason for Consult: Recent left BKA, bleeding Requesting physician: Harvinder Dove History of present illness: This is a 77-year-old male with a history of diabetes mellitus, morbid obesity, recent diagnosis of atrial fibrillation, chronic sacral wound, bed ridden, and other multiple comorbidities who had initially suffered a fall and ankle fracture that required surgical repair. Patient's wound never healed in spite of appropriate therapy and due to the nonhealing nature of the wound the patient was scheduled for a left below the knee amputation. He is status post left below the knee amputation with Dr. Hurt done on 08/19/2023. Patient was discharged on 08/23/[address] [facility] where he is a long-term resident. Patient was supposed to be discharged with a wound VAC in place with changing Wednesday. Orders were submitted and was also in patient's discharge instructions/summary. Patient states he has not had wound VAC placed to the left below the knee amputation. Apparently patient had blood work done and he was anemic with a hemoglobin of 7.9, it was reported that he has been bleeding from his below the knee amputation site and they did a stool occult that was positive and sent in for further evaluation. Patient also has a wound to the sacral region that appears to have a wound VAC in place. On admission patient has completely leukocytosis WBC 13.6 hemoglobin at 9.0 mild leukocytosis with WBC of 13.6 hemoglobin stable at 9.0 platelet count 801,000 INR 1.1. Patient was noted to be in atrial fibrillation with RVR when evaluated in the emergency department. He was admitted for A-fib and is well as anemia. Vascular surgery was consulted for due to recent left lower extremity BKA. Patient states he has generalized weakness, this is chronic. He is bedridden. States he has pain in that left lower extremity. He is seen and examined with Werner wrap in place, ABD pad 4 x 4 and Adaptic with serosanguineous drainage. He denies any shortness of breath or chest pain at this time. He has been afebrile, no nausea or vomiting. Review of Systems A 14 point review systems was completed all pertinent positives and negatives as stated in the HPI. Past Medical History Past Medical History: Coronary Artery Disease (CAD), Chest Pain / Angina, Diabetes Mellitus, Eye Disorder, GERD/Reflux, Hyperlipidemia, Hypertension, Osteoarthritis (OA), Renal Disease, Sleep Apnea/CPAP/BIPAP Additional Past Medical History / Comment(s): 02/05/23 fall in shower with left ankle wound/fracture, had surgery-ORIF with I&D and wound vac placed/removed. Current left foot wound, left benz wound and right sacrum wound with wound vac. Anemia. IDDM type II, neuropathy legs and feet, bedbound/ander lift, CKD stage III, nephrolithiasis, DALTON with CPAP, right hip, left shoulder pain/torn rotator cuff/limited ROM, polyarthritis, cellulitis, lymphedema, glaucoma. History of Any Multi-Drug Resistant Organisms: MRSA Year Discovered:: 04/21/16 MDRO Source:: ABDOMEN Past Surgical History: Orthopedic Surgery Additional Past Surgical History / Comment(s): KIDNEY STONE REMOVED and ureteral stent placed, deviated septum surgery, flex sigmoidoscopy several times, colonoscopy, dental surgery, cataract surgery bilaterally, ORIF left ankle. Past Anesthesia/Blood Transfusion Reactions: No Reported Reaction Past Psychological History: Depression Smoking Status: Never smoker Past Alcohol Use History: None Reported Past Drug Use History: Cocaine, Marijuana, Opiates Additional Drug Use History / Comment(s): Quit drug use in 1998. - Past Family History Father Additional Family Medical History / Comment(s): Brain aneurysm. Mother Family Medical History: Cancer, Deep Vein Thrombosis (DVT) Medications and Allergies Home Medications Medication Instructions Recorded Confirmed Type Fenofibrate,Micronized 200 mg PO HS 06/06/18 08/27/23 History [Fenofibrate] Dapagliflozin Propanediol [Farxiga] 10 mg PO DAILY 02/05/23 08/27/23 History Pioglitazone [Actos] 15 mg PO DAILY 02/05/23 08/27/23 History Semaglutide [Ozempic] 2 mg SQ MO 02/05/23 08/27/23 History metFORMIN HCL 1,000 mg PO BID 02/05/23 08/27/23 History Aspirin 81 mg PO DAILY 02/18/23 08/27/23 History Atorvastatin Calcium 20 mg PO HS 08/16/23 08/27/23 History Clotrimazole/Betameth Cream 1 applic TOPICAL DAILY 08/16/23 08/27/23 History [Lotrisone] Cyanocobalamin [Vitamin B-12] 500 mcg PO DAILY 08/16/23 08/27/23 History Ferrous Sulfate [Feosol] 325 mg PO BID 08/16/23 08/27/23 History Furosemide [Lasix] 40 mg PO DAILY@0600 08/16/23 08/27/23 History Glucerna Shake 1 can PO DAILY 08/16/23 08/27/23 History Insulin Glargine,Hum.rec.anlog 25 units SQ HS 08/16/23 08/27/23 History [Lantus Solostar Pen] Insulin Lispro [humaLOG Kwikpen] See Protocol SQ QID PRN 08/16/23 08/27/23 History Apixaban [Eliquis] 5 mg PO BID tab 08/23/23 08/27/23 Rx Metoprolol Tartrate [Lopressor] 37.5 mg PO BID tab 08/23/23 08/27/23 Rx Gabapentin [Neurontin] 300 mg PO Q8HR@0600,1400,2200 08/27/23 08/27/23 History HYDROcodone/APAP 5-325MG [[place] 1 tab PO Q6H PRN 08/27/23 08/27/23 History 5-325] Allergies Allergy/AdvReac Type Severity Reaction Status Date / Time cat pelt standardized Allergy Itching Verified 08/27/23 10:16 allergenic ex mold Allergy Itching Verified 08/27/23 10:16 pollen extracts Allergy Itching Verified 08/27/23 10:16 Surgical - Exam Vital Signs Temp Pulse Resp BP Pulse Ox 98.1 F 113 H 16 96/69 100 08/27/23 10:04 08/27/23 10:04 08/27/23 10:04 08/27/23 10:04 08/27/23 10:04 General appearance: The patient is alert, oriented, appears in no acute distress. Morbidly obese. HET: Head is normocephalic and atraumatic. Pupils are equal and reactive. Neck: Supple. Heart: Regular. Lungs: Equal expansion, normal respiratory effort. Abdomen: Soft, nondistended. Extremities: Left lower extremity below the knee amputation with bone exposure, clotting noted. Neurological: No focal deficits. Results - Labs 08/27/23 10:32 08/27/23 10:32 Abnormal Lab Results - Last 24 Hours (Table) 08/27/23 08/27/23 Range/Units 10:32 10:32 WBC 13.6 H (3.8-10.6) k/uL RBC 3.22 L (4.30-5.90) m/uL Hgb 9.0 L (13.0-17.5) gm/dL Hct 27.9 L (39.0-53.0) % RDW 18.1 H (11.5-15.5) % Plt Count 801 H (150-450) k/uL Neutrophils # 10.9 H (1.3-7.7) k/uL Sodium 132 L (137-145) mmol/L BUN 27 H (9-20) mg/dL Creatinine 0.65 L (0.66-1.25) mg/dL Glucose 186 H (74-99) mg/dL Total Protein 5.3 L (6.3-8.2) g/dL Albumin 2.5 L (3.5-5.0) g/dL Diabetes panel 08/27/23 Range/Units 10:32 Sodium 132 L (137-145) mmol/L Potassium 4.6 (3.5-5.1) mmol/L Chloride 105 (98-107) mmol/L Carbon Dioxide 22 (22-30) mmol/L BUN 27 H (9-20) mg/dL Creatinine 0.65 L (0.66-1.25) mg/dL Glucose 186 H (74-99) mg/dL Calcium 8.6 (8.4-10.2) mg/dL AST 24 (17-59) U/L ALT 13 (4-49) U/L Alkaline Phosphatase 59 (38-126) U/L Total Protein 5.3 L (6.3-8.2) g/dL Albumin 2.5 L (3.5-5.0) g/dL Calcium panel 08/27/23 Range/Units 10:32 Calcium 8.6 (8.4-10.2) mg/dL Albumin 2.5 L (3.5-5.0) g/dL Pituitary panel 08/27/23 Range/Units 10:32 Sodium 132 L (137-145) mmol/L Potassium 4.6 (3.5-5.1) mmol/L Chloride 105 (98-107) mmol/L Carbon Dioxide 22 (22-30) mmol/L BUN 27 H (9-20) mg/dL Creatinine 0.65 L (0.66-1.25) mg/dL Glucose 186 H (74-99) mg/dL Calcium 8.6 (8.4-10.2) mg/dL Adrenal panel 08/27/23 Range/Units 10:32 Sodium 132 L (137-145) mmol/L Potassium 4.6 (3.5-5.1) mmol/L Chloride 105 (98-107) mmol/L Carbon Dioxide 22 (22-30) mmol/L BUN 27 H (9-20) mg/dL Creatinine 0.65 L (0.66-1.25) mg/dL Glucose 186 H (74-99) mg/dL Calcium 8.6 (8.4-10.2) mg/dL Total Bilirubin 0.4 (0.2-1.3) mg/dL AST 24 (17-59) U/L ALT 13 (4-49) U/L Alkaline Phosphatase 59 (38-126) U/L Total Protein 5.3 L (6.3-8.2) g/dL Albumin 2.5 L (3.5-5.0) g/dL Assessment and Plan Assessment: 1. History of nonhealing wound to the left lower extremity status post left below the knee amputation, was supposed to continue wound VAC at discharge 2. Anemia 3. Atrial fibrillation with RVR 4. Chronic sacral wound 5. Diabetes mellitus Plan: Patient was discharged on 08/23/2023 with orders and instructions to have wound VAC reapplied upon getting to [facility]. Patient has not had a wound VAC to the left lower extremity BKA surgical site since discharge on 08/23/2023. Recommend wound VAC placement as ordered, change Wednesday. Patient may continue Eliquis from a vascular standpoint. Hemoglobin is stable and actually better than on discharge. Patient is stable from vascular standpoint for discharge. We will sign off at this time. Follow-up with Dr. Hurt as previously scheduled. The impression and plan of care has been dictated as directed. I performed a history and examination of this patient, discussed the same with the dictator. I agree with the dictator's note ,documented as a scribe. Any additional findings or plans will be noted.
[2023-08-27 18:39] LABS: Anisocytosis Slight; Basophils % (A) 0 %; Eosinophils % (A) 0 %; HCT 27.8 % (39.0-53.0); HGB 8.5 gm/dL (13.0-17.5); Hypochromasia Marked; Lymphocytes # (A) 2.2 k/uL (1.0-4.8); Lymphocytes % (A) 17 %; MCHC 30.6 g/dL (31.0-37.0); MCV 88.1 fL (80.0-100.0); Mean Platelet Volume 7.4; Monocytes # (A) 0.6 k/uL (0-1.0); Monocytes % (A) 4 %; Neutrophils # (A) 10.3 k/uL (1.3-7.7); Neutrophils % (A) 78 %; Platelet Count 764 k/uL (150-450); Poikilocytosis Slight; RBC 3.16 m/uL (4.30-5.90); RDW 17.8 % (11.5-15.5); WBC 13.3 k/uL (3.8-10.6)
[2023-08-27] MEDS: ATORVASTATIN 20 MG TAB PO SCH (19:49)
[2023-08-27] MEDS: APIXABAN 5 MG TAB PO SCH (19:49)
[2023-08-27] MEDS: FERROUS SULFATE 325 MG TAB PO SCH (19:49)
[2023-08-27] MEDS: FENOFIBRATE 160 MG TAB PO SCH (19:49)
[2023-08-27 20:01] LABS: Glucose,Whole Blood 140 mg/dL (70-110)
[2023-08-27] MEDS: INSULIN DETEMIR (LEVEMIR) 100 UNIT/ML SYR SQ SCH (20:28)
[2023-08-28 02:53] LABS: Hepatitis B Surface Antigen Nonreactive; Hepatitis C IgG Antibody Nonreactive
[2023-08-28] MEDS: FUROSEMIDE 40 MG TAB PO SCH (05:09)
[2023-08-28 06:20] LABS: Glucose,Whole Blood 129 mg/dL (70-110)
[2023-08-28] MEDS: ASPIRIN 81 MG PO SCH (08:05)
[2023-08-28] MEDS: DAPAGLIFLOZIN PROPANEDIOL 10 MG TABLET PO SCH (08:05)
[2023-08-28] MEDS: CYANOCOBALAMIN 500 MCG TAB PO SCH (08:06)
--- NOTE | 2023-08-28 09:39 | P.PN ---
Subjective Progress Note Date: 08/28/23 Principal diagnosis: Status post left below the knee amputation with plans for delayed secondary closure with the aid of wound VAC therapy. Objective - Vital Signs Vital signs: Vital Signs Temp 96.7 F L 08/28/23 07:59 Pulse 92 08/28/23 08:10 Resp 16 08/28/23 08:10 BP 128/62 08/28/23 07:59 Pulse Ox 98 08/28/23 07:59 FiO2 Intake & Output 08/27/23 08/28/23 08/28/23 18:59 06:59 18:59 Output Total 700 850 Balance -700 -850 Weight 136.078 kg Output: Urine 700 850 Other: Voiding Method External Catheter External Catheter External Catheter - Exam Patient indicates is wound feels much better. The wound VAC is in place and functioning well. - Labs CBC & Chem 7: 08/27/23 17:39 08/27/23 10:32 Labs: Abnormal Lab Results - Last 24 Hours (Table) 08/27/23 08/27/23 08/27/23 Range/Units 10:32 10:32 17:39 WBC 13.6 H 13.3 H (3.8-10.6) k/uL RBC 3.22 L 3.16 L (4.30-5.90) m/uL Hgb 9.0 L 8.5 L (13.0-17.5) gm/dL Hct 27.9 L 27.8 L (39.0-53.0) % MCHC 30.6 L (31.0-37.0) g/dL RDW 18.1 H 17.8 H (11.5-15.5) % Plt Count 801 H 764 H (150-450) k/uL Neutrophils # 10.9 H 10.3 H (1.3-7.7) k/uL Sodium 132 L (137-145) mmol/L BUN 27 H (9-20) mg/dL Creatinine 0.65 L (0.66-1.25) mg/dL Glucose 186 H (74-99) mg/dL POC Glucose (mg/dL) (70-110) mg/dL Total Protein 5.3 L (6.3-8.2) g/dL Albumin 2.5 L (3.5-5.0) g/dL 08/27/23 08/28/23 Range/Units 20:00 06:18 WBC (3.8-10.6) k/uL RBC (4.30-5.90) m/uL Hgb (13.0-17.5) gm/dL Hct (39.0-53.0) % MCHC (31.0-37.0) g/dL RDW (11.5-15.5) % Plt Count (150-450) k/uL Neutrophils # (1.3-7.7) k/uL Sodium (137-145) mmol/L BUN (9-20) mg/dL Creatinine (0.66-1.25) mg/dL Glucose (74-99) mg/dL POC Glucose (mg/dL) 140 H 129 H (70-110) mg/dL Total Protein (6.3-8.2) g/dL Albumin (3.5-5.0) g/dL Microbiology - Last 24 Hours (Table) 08/27/23 20:40 Gram Stain - Preliminary Buttock Assessment and Plan Assessment: Status post left below the knee amputation with plans for delayed secondary closure with the aid of wound VAC. Plan: 1: Continue wound VAC therapy. 2: Would anticipate wound VAC would be needed until wound is nearly completely healed. 3: Will sign off and reevaluate at your request. Time with Patient: Less than 30
[2023-08-28 11:35] LABS: Glucose,Whole Blood 173 mg/dL (70-110)
--- NOTE | 2023-08-28 13:04 | P.PN ---
Subjective Progress Note Date: 08/28/23 patient is a 77 -year-old male past medical history significant for recent left below the knee amputation,coronary artery disease, chest pain with angina, diabetes mellitus, eye disorder, GERD, hyperlipidemia, hypertension, history of osteoarthritis, renal disease, sleep apnea, depression who presented to the hospital for abnormal labs and bleeding from the BKA site. Patient had blood work done at the [facility] with a found hemoglobin to be low, there is also complaint of bleeding from the BKA site. There is no complaint of blood in the stools. There was no complaint of fever or chills. There was no complaint nausea, vomiting abdominal pain. Patient denies any lethargy or weakness. There is no complaint of chest pain or shortness of breath. Initial lab work done in the ER showed WBC 13.6, hemoglobin 9, platelet count 801, sodium 132, potassium 4.6, BUN 27, creatinine 0.65 EKG done in the ER showed heart rate of 129, irregular in rhythm and rate, no ST segment elevation or depression seen, no T-wave inversions seen. Patient admitted to internal medicine service 08/28. Patient seen and examined. Heart rate is better controlled, wean off the Cardizem drip. Denies any lightheadedness or dizziness. REVIEW OF SYSTEMS: CONSTITUTIONAL: No fever, no malaise,. CARDIOVASCULAR: No chest pain, no palpitations, no syncope. PULMONARY: No shortness of breath, no cough, GASTROINTESTINAL: No diarrhea, no nausea, no vomiting, no abdominal pain. NEUROLOGICAL: No headaches, no weakness, PHYSICAL EXAMINATION: GENERAL: The patient is alert and oriented x3, not in any acute distress. Well developed, well nourished. HEENT: Pupils are round and equally reacting to light. EOMI. No scleral icterus. No conjunctival pallor. Normocephalic, atraumatic. No pharyngeal erythema. No thyromegaly. CARDIOVASCULAR: S1 and S2 present. No murmurs, rubs, or gallops. IRRegular rate and rhythm PULMONARY: Chest is clear to auscultation, no wheezing or crackles. ABDOMEN: Soft, nontender, nondistended, normoactive bowel sounds. No palpable organomegaly. MUSCULOSKELETAL: Left BKA EXTREMITIES: No cyanosis, clubbing, or pedal edema. NEUROLOGICAL: Gross neurological examination did not reveal any focal deficits. SKIN: No rashes. Assessment and plan Bleeding from left BKA site A-fib with RVR Anemia, likely secondary to chronic kidney disease with acute blood loss anemia, hemoglobin is 7.1 and is being transfused 1 unit of PRBC History of diabetes mellitus, insulin-dependent, uncontrolled with hyper and hypoglycemia GERD Hyperlipidemia Hypertension Osteoarthritis Chronic kidney disease stage III Obstructive sleep apnea with a CPAP History of depression Morbid obesity with a BMI of 40.5 Monitor vital signs Monitor CBC Monitor CMP Continue telemetry monitoring Continue Lopressor Continue Eliquis Monitor blood sugar levels, continue sliding scale insulin and Lantus 25 units at night Continue wound care Continue wound VAC Vascular surgery following Consulted cardiology Labs and medication were reviewed.. Continue same treatment. Continue with symptomatic treatment. Resume home medication. Monitor labs and vitals. DVT and GI prophylaxis. Further recommendations as per clinical course of the patient Dictation was produced using [employer] dictation software. please excuse any grammatical, word or spelling errors. Objective - Vital Signs Vital signs: Vital Signs Temp 96.7 F L 08/28/23 07:59 Pulse 92 08/28/23 08:10 Resp 16 08/28/23 08:10 BP 128/62 08/28/23 07:59 Pulse Ox 98 08/28/23 07:59 FiO2 Intake & Output 08/27/23 08/28/23 08/28/23 18:59 06:59 18:59 Intake Total 105.667 Output Total 700 850 Balance -700 -744.333 Weight 136.078 kg Intake: Intake, IV Titration 105.667 Amount Diltiazem 125 mg In 105.667 Sodium Chloride 0.9% 100 ml @ 5 MG/HR 5 mls/hr IV .Q24H [facility] Rx#:[id number] Output: Urine 700 850 Other: Voiding Method External Catheter External Catheter External Catheter - Labs CBC & Chem 7: 08/27/23 17:39 08/27/23 10:32 Labs: Abnormal Lab Results - Last 24 Hours (Table) 08/27/23 08/27/23 08/27/23 Range/Units 10:32 10:32 17:39 WBC 13.6 H 13.3 H (3.8-10.6) k/uL RBC 3.22 L 3.16 L (4.30-5.90) m/uL Hgb 9.0 L 8.5 L (13.0-17.5) gm/dL Hct 27.9 L 27.8 L (39.0-53.0) % MCHC 30.6 L (31.0-37.0) g/dL RDW 18.1 H 17.8 H (11.5-15.5) % Plt Count 801 H 764 H (150-450) k/uL Neutrophils # 10.9 H 10.3 H (1.3-7.7) k/uL Sodium 132 L (137-145) mmol/L BUN 27 H (9-20) mg/dL Creatinine 0.65 L (0.66-1.25) mg/dL Glucose 186 H (74-99) mg/dL POC Glucose (mg/dL) (70-110) mg/dL Total Protein 5.3 L (6.3-8.2) g/dL Albumin 2.5 L (3.5-5.0) g/dL 08/27/23 08/28/23 Range/Units 20:00 06:18 WBC (3.8-10.6) k/uL RBC (4.30-5.90) m/uL Hgb (13.0-17.5) gm/dL Hct (39.0-53.0) % MCHC (31.0-37.0) g/dL RDW (11.5-15.5) % Plt Count (150-450) k/uL Neutrophils # (1.3-7.7) k/uL Sodium (137-145) mmol/L BUN (9-20) mg/dL Creatinine (0.66-1.25) mg/dL Glucose (74-99) mg/dL POC Glucose (mg/dL) 140 H 129 H (70-110) mg/dL Total Protein (6.3-8.2) g/dL Albumin (3.5-5.0) g/dL Microbiology - Last 24 Hours (Table) 08/27/23 20:40 Gram Stain - Preliminary Buttock
[2023-08-28 13:29] LABS: ALT 13 U/L (4-49); AST 26 U/L (17-59); African American GFR (CKD) >90 (>60 ml/min/1.73 sqM); Albumin 2.2 g/dL (3.5-5.0); Alkaline Phosphatase 54 U/L (38-126); Anion Gap 5 mmol/L; Blood Urea Nitrogen 28 mg/dL (9-20); Calcium 7.8 mg/dL (8.4-10.2); Carbon Dioxide 22 mmol/L (22-30); Chloride 105 mmol/L (98-107); Glucose 185 mg/dL (74-99); Non-African American GFR(CKD) >90 (>60 ml/min/1.73 sqM); Potassium 3.9 mmol/L (3.5-5.1); Sodium 132 mmol/L (137-145); Total Bilirubin 0.4 mg/dL (0.2-1.3); Total Protein 4.8 g/dL (6.3-8.2)
[2023-08-28 14:42] LABS: Anisocytosis Slight; HGB 7.6 gm/dL (13.0-17.5); Hypochromasia Marked; MCHC 30.5 g/dL (31.0-37.0); MCV 88.7 fL (80.0-100.0); Mean Platelet Volume 8.5; Platelet Count 703 k/uL (150-450); Poikilocytosis Slight; RBC 2.82 m/uL (4.30-5.90); RDW 17.6 % (11.5-15.5); WBC 11.5 k/uL (3.8-10.6)
--- NOTE | 2023-08-28 14:59 | P.CRDCN ---
History of Present Illness History of present illness: HISTORY OF PRESENTING ILLNESS This is a pleasant 77-year-old male past medical history significant for hypertension, hyperlipidemia, diabetes mellitus, chronic nonhealing wound status post left below the knee amputation and persistent atrial fibrillation. He does not follow regularly in the office. He last saw Dr. Sierra in 2020. We have been asked to see in consultation for atrial fibrillation with rapid ventricular rate. He was just diagnosed with atrial fib new-onset earlier this month status post left BKA. He was properly anticoagulated and was discharged to [facility]. He was sent back for bleeding at the stump. A wound VAC is now in place. He remains in atrial fib with controlled ventricular rates. DIAGNOSTICS EKG reveals atrial fib heart rate 129. Telemetry tracings indicate atrial fib. Laboratory reviewed, WBC 11.5, hemoglobin 7.6, platelets 703, sodium 132, potassium 3.9, creatinine 0.63. Current cardiac medications include Lopressor 37.5 mg twice a day, Lasix 40 mg daily, farxiga 10 mg daily, atorvastatin 20 mg daily, aspirin 81 mg daily and 5 mg twice a day. Most recent echocardiogram February 2023 revealed preserved LV systolic function with ejection fraction 55-60%, difficult study due to body habitus however there appears to be a gradient across the aortic and mitral valve of mild degree. REVIEW OF SYSTEMS At the time of my exam: CONSTITUTIONAL: Denies fever or chills. CARDIOVASCULAR: Denies chest pain, shortness of breath, orthopnea, PND or palpitations. RESPIRATORY: Denies cough. GASTROINTESTINAL: Denies abdominal pain, diarrhea, constipation, nausea or vomiting. MUSCULOSKELETAL: Denies myalgias. NEUROLOGIC: Denies numbness, tingling, headache or weakness. ENDOCRINE: Denies fatigue, weight change, polydipsia or polyurina. GENITOURINARY: Denies burning, hematuria or urgency with micturation. HEMATOLOGIC: Denies history of anemia or bleeding. PHYSICAL EXAMINATION Blood pressure 97/60 heart rate 88 afebrile and maintaining oxygen saturation on room air. CONSTITUTIONAL: No apparent distress. Generalized anasarca. HEENT: Head is normocephalic. Pupils are equal, round. Sclerae anicteric. Mucous membranes of the mouth are moist. No JVD. No carotid bruit. CHEST EXAMINATION: Lungs are clear to auscultation. No chest wall tenderness is noted on palpation or with deep breathing. HEART EXAMINATION: Irregular rate and rhythm. S1, S2 heard. Systolic ejection murmur at the base. ABDOMEN: Soft, nontender. EXTREMITIES: Wound vac to left BKA stump, generalized edema of his extremities, 1-2+ NEUROLOGIC EXAMINATION: Patient is awake, alert and oriented x3. ASSESSMENT Persistent atrial fibrillation with rapid ventricular rate Generalized anasarca Chronic kidney disease Anemia Hypertension Hyperlipidemia Status post left BKA Peripheral arterial disease PLAN Discontinue Cardizem infusion, continue beta blockers. Add Lasix 40 mg IV twice a day. Obtain 2-D echocardiogram and Doppler study given his atrial fib being persi stent last echo was done prior to A. fib. Further recommendations to follow based upon clinical course. Thank you kindly for this consultation. Nurse Practitioner note has been reviewed, I agree with a documented findings and plan of care. Patient was seen and examined. Past Medical History Past Medical History: Coronary Artery Disease (CAD), Chest Pain / Angina, Diabetes Mellitus, Eye Disorder, GERD/Reflux, Hyperlipidemia, Hypertension, Osteoarthritis (OA), Renal Disease, Sleep Apnea/CPAP/BIPAP Additional Past Medical History / Comment(s): 02/05/23 fall in shower with left ankle wound/fracture, had surgery-ORIF with I&D and wound vac placed/removed. Current left foot wound, left benz wound and right sacrum wound with wound vac. Anemia. IDDM type II, neuropathy legs and feet, bedbound/ander lift, CKD stage III, nephrolithiasis, [place] with CPAP, right hip, left shoulder pain/torn rotator cuff/limited ROM, polyarthritis, cellulitis, lymphedema, glaucoma. History of Any Multi-Drug Resistant Organisms: None Reported, MRSA Date of last positivie culture/infection: 04/21/16 MDRO Source:: ABDOMEN Past Surgical History: Orthopedic Surgery Additional Past Surgical History / Comment(s): KIDNEY STONE REMOVED and ureteral stent placed, deviated septum surgery, flex sigmoidoscopy several times, colon oscopy, dental surgery, cataract surgery bilaterally, ORIF left ankle. Past Anesthesia/Blood Transfusion Reactions: No Reported Reaction Past Psychological History: Depression Additional Psychological History / Comment(s): Currently at [facility], bedbound for rehab. Pt used to work for the [employer] office, no past service. Smoking Status: Never smoker Past Alcohol Use History: None Reported Additional Past Alcohol Use History / Comment(s): Patient currently lives alone. There is a dog in the home. Past Drug Use History: Cocaine, Marijuana, Opiates Additional Drug Use History / Comment(s): Quit drug use in 1998. - Past Family History Father Additional Family Medical History / Comment(s): Brain aneurysm. Mother Family Medical History: Cancer, Deep Vein Thrombosis (DVT) Medications and Allergies Home Medications Medication Instructions Recorded Confirmed Type Fenofibrate,Micronized 200 mg PO HS 06/06/18 08/27/23 History [Fenofibrate] Dapagliflozin Propanediol [Farxiga] 10 mg PO DAILY 02/05/23 08/27/23 History Pioglitazone [Actos] 15 mg PO DAILY 02/05/23 08/27/23 History Semaglutide [Ozempic] 2 mg SQ MO 02/05/23 08/27/23 History metFORMIN HCL 1,000 mg PO BID 02/05/23 08/27/23 History Aspirin 81 mg PO DAILY 02/18/23 08/27/23 History Atorvastatin Calcium 20 mg PO HS 08/16/23 08/27/23 History Clotrimazole/Betameth Cream 1 applic TOPICAL DAILY 08/16/23 08/27/23 History [Lotrisone] Cyanocobalamin [Vitamin B-12] 500 mcg PO DAILY 08/16/23 08/27/23 History Ferrous Sulfate [Feosol] 325 mg PO BID 08/16/23 08/27/23 History Furosemide [Lasix] 40 mg PO DAILY@0600 08/16/23 08/27/23 History Glucerna Shake 1 can PO DAILY 08/16/23 08/27/23 History Insulin Glargine,Hum.rec.anlog 25 units SQ HS 08/16/23 08/27/23 History [Lantus Solostar Pen] Insulin Lispro [humaLOG Kwikpen] See Protocol SQ QID PRN 08/16/23 08/27/23 History Apixaban [Eliquis] 5 mg PO BID tab 08/23/23 08/27/23 Rx Metoprolol Tartrate [Lopressor] 37.5 mg PO BID tab 08/23/23 08/27/23 Rx Gabapentin [Neurontin] 300 mg PO Q8HR@0600,1400,2200 08/27/23 08/27/23 History HYDROcodone/APAP 5-325MG [[place] 1 tab PO Q6H PRN 08/27/23 08/27/23 History 5-325] Allergies Allergy/AdvReac Type Severity Reaction Status Date / Time cat pelt standardized Allergy Itching Verified 08/27/23 10:16 allergenic ex mold Allergy Itching Verified 08/27/23 10:16 pollen extracts Allergy Itching Verified 08/27/23 10:16 Physical Exam Vitals: Vital Signs Temp Pulse Resp BP Pulse Ox 08/28/23 14:00 88 16 08/28/23 11:48 98.2 F 88 16 97/60 98 08/28/23 08:10 92 16 08/28/23 07:59 96.7 F L 92 16 128/62 98 08/28/23 04:00 83 16 139/75 96 08/27/23 23:39 85 18 119/58 97 08/27/23 19:48 98 F 117 H 18 143/81 94 L 08/27/23 15:48 98.4 F 112 H 16 125/82 97 Intake and Output 08/27/23 08/28/23 08/28/23 22:59 06:59 14:59 Intake Total 225.667 Output Total 700 1400 Balance -700 -1174.333 Intake: Intake, IV Titration 105.667 Amount Diltiazem 125 mg In 105.667 Sodium Chloride 0.9% 100 ml @ 5 MG/HR 5 mls/hr IV .Q24H [facility] Rx#:[id number] Oral 120 Output: Urine 700 1400 Other: Voiding Method External Catheter External Catheter External Catheter Weight 136.078 kg Results 08/28/23 14:01 08/28/23 12:59 Cardiac Enzymes 08/28/23 Range/Units 12:59 AST 26 (17-59) U/L CBC 08/27/23 08/28/23 Range/Units 17:39 14:01 WBC 13.3 H 11.5 H (3.8-10.6) k/uL RBC 3.16 L 2.82 L (4.30-5.90) m/uL Hgb 8.5 L 7.6 L (13.0-17.5) gm/dL Hct 27.8 L 25.0 L (39.0-53.0) % Plt Count 764 H 703 H (150-450) k/uL Comprehensive Metabolic Panel 08/28/23 Range/Units 12:59 Sodium 132 L (137-145) mmol/L Potassium 3.9 (3.5-5.1) mmol/L Chloride 105 (98-107) mmol/L Carbon Dioxide 22 (22-30) mmol/L BUN 28 H (9-20) mg/dL Creatinine 0.63 L (0.66-1.25) mg/dL Glucose 185 H (74-99) mg/dL Calcium 7.8 L (8.4-10.2) mg/dL AST 26 (17-59) U/L ALT 13 (4-49) U/L Alkaline Phosphatase 54 (38-126) U/L Total Protein 4.8 L (6.3-8.2) g/dL Albumin 2.2 L (3.5-5.0) g/dL Current Medications Generic Name Dose Route Start Last Admin Trade Name Freq PRN Reason Stop Dose Admin Hydrocodone Bitart/Acetaminophen 1 each 08/27/23 12:16 08/28/23 05:09 Hydrocodone/Apap 5-325mg 1 Each Tab PO 1 each Q4HR PRN Administration Moderate Pain (Scale 4 to 6) Apixaban 5 mg 08/27/23 21:00 08/28/23 08:05 Apixaban 5 Mg Tab PO 5 mg BID DIPTI Administration Protocol Aspirin 81 mg 08/28/23 09:00 08/28/23 08:05 Aspirin 81 Mg PO 81 mg DAILY DIPTI Administration Atorvastatin Calcium 20 mg 08/27/23 21:00 08/27/23 19:49 Atorvastatin 20 Mg Tab PO 20 mg HS DITPI Administration Cyanocobalamin 500 mcg 08/28/23 09:00 08/28/23 08:06 Cyanocobalamin 500 Mcg Tab PO 500 mcg DAILY DIPTI Administration Dapagliflozin 10 mg 08/28/23 09:00 08/28/23 08:05 Dapagliflozin Propanediol 10 Mg Tablet PO 10 mg DAILY DIPTI Administration Fenofibrate 160 mg 08/27/23 21:00 08/27/23 19:49 Fenofibrate 160 Mg Tab PO 160 mg HS DIPTI Administration Ferrous Sulfate 325 mg 08/27/23 21:00 08/28/23 08:06 Ferrous Sulfate 325 Mg Tab PO 325 mg BID DIPTI Administration Furosemide 40 mg 08/28/23 21:00 Furosemide 10 Mg/Ml 4 Ml Vial IV Q12HR DIPTI Gabapentin 300 mg 08/27/23 14:00 08/28/23 05:13 Gabapentin 300 Mg Cap PO 300 mg Q8HR@0600,1400,2200 DIPTI Administration Sodium Chloride 1,000 mls @ 75 mls/hr 08/27/23 12:30 08/28/23 01:23 Saline 0.9% IV Not Given .[id number] DIPTI Diltiazem HCl 125 mg/ Sodium 125 mls @ 5 mls/hr 08/27/23 12:30 08/28/23 10:15 Chloride IV 5 mg/hr .Q24H DIPTI 5 mls/hr Administration 5 MG/HR Insulin Detemir 25 unit 08/27/23 21:00 08/27/23 20:28 Insulin Detemir (Levemir) 100 Unit/Ml Syr SQ 25 unit HS DIPTI Administration Melatonin 3 mg 08/27/23 12:16 Melatonin 3 Mg Tablet PO HS PRN Insomnia Metoprolol Tartrate 37.5 mg 08/27/23 12:30 08/28/23 08:06 Metoprolol Tartrate 25 Mg Tab PO 37.5 mg BID DIPTI Administration Naloxone HCl 0.2 mg 08/27/23 12:16 Naloxone 0.4 Mg/Ml 1 Ml Vial IV Q2M PRN Opioid Reversal Ondansetron HCl 4 mg 08/27/23 12:16 Ondansetron 4 Mg/2 Ml Vial IVP Q8HR PRN Nausea And Vomiting Intake and Output 08/27/23 08/28/23 08/28/23 22:59 06:59 14:59 Intake Total 225.667 Output Total 700 1400 Balance -700 -1174.333 Intake: Intake, IV Titration 105.667 Amount Diltiazem 125 mg In 105.667 Sodium Chloride 0.9% 100 ml @ 5 MG/HR 5 mls/hr IV .Q24H [facility] Rx#:[id number] Oral 120 Output: Urine 700 1400 Other: Voiding Method External Catheter External Catheter External Catheter Weight 136.078 kg Patient Weight 08/29/23 06:59 Weight 136.078 kg 08/28/23 14:01 08/28/23 12:59
--- NOTE | 2023-08-28 16:05 | CT ---
EXAMINATION TYPE: CT sacrum wo con DATE OF EXAM: 08/28/2023 COMPARISON: None. HISTORY: Stage IV sacral pressure ulcer/osteomyelitis CT DLP: 2713.7 mGycm Automated exposure control for dose reduction was used. FINDINGS: Large ulcer left inferior sacral region has presumed internal packing or gauze material measures 3.4 cm AP diameter by 2.9 cm transversely axial image 48. Difficult to differentiate ill-defined fluid ve rsus soft tissue density. There is surrounding soft tissue density most prominent extending to the le ft aspect. There is loss of fat plane between this and the rectum with ill-defined fluid at this leve l. Some bony destruction of the coccyx is likely present. No well-formed fluid collection or drainabl e abscess is seen. Facet arthropathy in the lower lumbar spine is present.. IMPRESSION: Left sided Decubitus ulcer as detailed above. No well-formed fluid collection or drainabl e abscess seen.
[2023-08-28 16:25] LABS: Glucose,Whole Blood 194 mg/dL (70-110)
[2023-08-28] MEDS: FUROSEMIDE 10 MG/ML 4 ML VIAL IV SCH (19:57)
[2023-08-28 20:17] LABS: Glucose,Whole Blood 250 mg/dL (70-110)
--- NOTE | 2023-08-28 22:46 | P.CONS ---
History of Present Illness - Reason for Consult Consult date: 08/28/23 Left BKA evaluate need for antibiotics Requesting physician: Alfred Lau - Chief Complaint Low hemoglobin and guaiac positive x 1 day - History of Present Illness Patient is a 77-year-old male with a past medical history significant for coronary artery disease hypertension hyperlipidemia osteoarthritis renal disease recently had admitted to this facility and this patient is status post left below the knee amputation for chronic nonhealing wound to the left lower extremity patient was discharged to the detention and apparently was supposed to have a wound VAC to the left BKA stump apparently that was not done patient has been sent to the ER yesterday morning however the patient was noted to have low hemoglobin at the detention patient was sent back positive patient himself denies having any bleeding per rectum or any worsening bleeding from his left BKA stump patient denies having any fever or any chills denies any headache or URI symptoms no chest pain has recommended cough some shortness of breath no significant cough or sputum production no nausea vomiting no abdominal pain or diarrhea patient did have some pain to the left BKA stump but denies any worsening patient was evaluated by vascular surgery and did not mention wound exposed with some bleeding but did not mention any other changes suggestive of cellulitis or infection to the left BKA stump currently wound VAC has been applied patient also have a chronic nonhealing wound to the sacral area currently being treated with a wound VAC at the detention patient did have some dull aching pain mild to moderate intensity to the sacral wound area but denies any worsening or foul-smelling drainage from the area patient on presentation to the hospital was afebrile and no fever has been recorded subsequently patient was tachycardic on arrival to the ER subsequent normalized from mildly hypotensive but no pressor support not hypoxic or need for supplemental oxygen patient was noticed to have white count of 13.6 with a left shift kidney function has been normal liver enzymes are normal patient did have a cultures obtained from the sacral wound infectious disease consulted today to evaluate for infection to the left BKA stump and need for antibiotic therapy Review of Systems Positive point and negatives has been mentioned in the HPI, complete review of systems was performed and all other systems are negative Past Medical History Past Medical History: Coronary Artery Disease (CAD), Chest Pain / Angina, Diabetes Mellitus, Eye Disorder, GERD/Reflux, Hyperlipidemia, Hypertension, Osteoarthritis (OA), Renal Disease, Sleep Apnea/CPAP/BIPAP Additional Past Medical History / Comment(s): 02/05/23 fall in shower with left ankle wound/fracture, had surgery-ORIF with I&D and wound vac placed/removed. Current left foot wound, left benz wound and right sacrum wound with wound vac. Anemia. IDDM type II, neuropathy legs and feet, bedbound/ander lift, CKD stage III, nephrolithiasis, DALTON with CPAP, right hip, left shoulder pain/torn rotator cuff/limited ROM, polyarthritis, cellulitis, lymphedema, glaucoma. History of Any Multi-Drug Resistant Organisms: None Reported, MRSA Year Discovered:: 04/21/16 MDRO Source:: ABDOMEN Past Surgical History: Orthopedic Surgery Additional Past Surgical History / Comment(s): KIDNEY STONE REMOVED and ureteral stent placed, deviated septum surgery, flex sigmoidoscopy several times, colonoscopy, dental surgery, cataract surgery bilaterally, ORIF left ankle. Past Anesthesia/Blood Transfusion Reactions: No Reported Reaction Past Psychological History: Depression Additional Psychological History / Comment(s): Currently at [facility], bedbound for rehab. Pt used to work for the [employer] office, no past service. Smoking Status: Never smoker Past Alcohol Use History: None Reported Additional Past Alcohol Use History / Comment(s): Patient currently lives alone. There is a dog in the home. Past Drug Use History: Cocaine, Marijuana, Opiates Additional Drug Use History / Comment(s): Quit drug use in 1998. - Past Family History Father Additional Family Medical History / Comment(s): Brain aneurysm. Mother Family Medical History: Cancer, Deep Vein Thrombosis (DVT) Medications and Allergies Home Medications Medication Instructions Recorded Confirmed Type Fenofibrate,Micronized 200 mg PO HS 06/06/18 08/27/23 History [Fenofibrate] Dapagliflozin Propanediol [Farxiga] 10 mg PO DAILY 02/05/23 08/27/23 History Pioglitazone [Actos] 15 mg PO DAILY 02/05/23 08/27/23 History Semaglutide [Ozempic] 2 mg SQ MO 02/05/23 08/27/23 History metFORMIN HCL 1,000 mg PO BID 02/05/23 08/27/23 History Aspirin 81 mg PO DAILY 02/18/23 08/27/23 History Atorvastatin Calcium 20 mg PO HS 08/16/23 08/27/23 History Clotrimazole/Betameth Cream 1 applic TOPICAL DAILY 08/16/23 08/27/23 History [Lotrisone] Cyanocobalamin [Vitamin B-12] 500 mcg PO DAILY 08/16/23 08/27/23 History Ferrous Sulfate [Feosol] 325 mg PO BID 08/16/23 08/27/23 History Furosemide [Lasix] 40 mg PO DAILY@0600 08/16/23 08/27/23 History Glucerna Shake 1 can PO DAILY 08/16/23 08/27/23 History Insulin Glargine,Hum.rec.anlog 25 units SQ HS 08/16/23 08/27/23 History [Lantus Solostar Pen] Insulin Lispro [humaLOG Kwikpen] See Protocol SQ QID PRN 08/16/23 08/27/23 History Apixaban [Eliquis] 5 mg PO BID tab 08/23/23 08/27/23 Rx Metoprolol Tartrate [Lopressor] 37.5 mg PO BID tab 08/23/23 08/27/23 Rx Gabapentin [Neurontin] 300 mg PO Q8HR@0600,1400,2200 08/27/23 08/27/23 History HYDROcodone/APAP 5-325MG [[place] 1 tab PO Q6H PRN 08/27/23 08/27/23 History 5-325] Allergies Allergy/AdvReac Type Severity Reaction Status Date / Time cat pelt standardized Allergy Itching Verified 08/27/23 10:16 allergenic ex mold Allergy Itching Verified 08/27/23 10:16 pollen extracts Allergy Itching Verified 08/27/23 10:16 Physical Exam Vitals: Vital Signs Temp Pulse Pulse Resp BP BP Pulse Ox 08/28/23 08:10 92 16 08/28/23 07:59 96.7 F L 92 16 128/62 98 08/28/23 04:00 83 16 139/75 96 08/27/23 23:39 85 18 119/58 97 08/27/23 19:48 98 F 117 H 18 143/81 94 L 08/27/23 15:48 98.4 F 112 H 16 125/82 97 08/27/23 14:44 97.2 F L 117 H 18 150/66 97 08/27/23 13:00 120 H 18 161/79 98 08/27/23 12:17 151 H 18 115/71 98 Intake and Output 08/27/23 08/28/23 08/28/23 22:59 06:59 14:59 Intake Total 105.667 Output Total 700 850 Balance -700 -744.333 Intake: Intake, IV Titration 105.667 Amount Diltiazem 125 mg In 105.667 Sodium Chloride 0.9% 100 ml @ 5 MG/HR 5 mls/hr IV .Q24H [facility] Rx#:[id number] Output: Urine 700 850 Other: Voiding Method External Catheter External Catheter External Catheter GENERAL DESCRIPTION: Elderly male lying in bed, no distress. No tachypnea or accessory muscle of respiration use. HEENT: Shows Pallor , no scleral icterus. Oral mucous membrane is dry. No phar yngeal erythema or thrush NECK: Trachea central, no thyromegaly. LUNGS: Unlabored breathing. Decreased breath sound at the base HEART: S1, S2, regular rate and rhythm. No loud murmur ABDOMEN: Soft, no tenderness , EXTREMITIES: Left BKA stump is currently covered with a wound VAC vascular surgery note did not mention any swelling redness or purulent drainage SKIN: Patient did have a stage IV sacral pressure ulcer with a bone palpable NEUROLOGICAL: The patient is awake, alert, oriented x3, mood and affect normal. Results CBC & Chem 7: 08/28/23 14:01 08/28/23 12:59 Labs: Abnormal Lab Results - Last 24 Hours (Table) 08/27/23 08/27/23 08/28/23 Range/Units 17:39 20:00 06:18 WBC 13.3 H (3.8-10.6) k/uL RBC 3.16 L (4.30-5.90) m/uL Hgb 8.5 L (13.0-17.5) gm/dL Hct 27.8 L (39.0-53.0) % MCHC 30.6 L (31.0-37.0) g/dL RDW 17.8 H (11.5-15.5) % Plt Count 764 H (150-450) k/uL Neutrophils # 10.3 H (1.3-7.7) k/uL POC Glucose (mg/dL) 140 H 129 H (70-110) mg/dL Microbiology - Last 24 Hours (Table) 08/27/23 20:40 Gram Stain - Preliminary Buttock Assessment and Plan (1) Stage IV pressure ulcer of sacral region Current Visit: Yes Status: Acute Code(s): L89.154 - PRESSURE ULCER OF SACRAL REGION, STAGE 4 SNOMED Code(s): 68111891465245 (2) Sacral osteomyelitis Current Visit: Yes Status: Acute Code(s): M46.28 - OSTEOMYELITIS OF VERTEBRA, SACRAL AND SACROCOCCYGEAL REGION SNOMED Code(s): 527877735 (3) Elevated WBCs Current Visit: No Status: Acute Code(s): D72.829 - ELEVATED WHITE BLOOD CELL COUNT, UNSPECIFIED SNOMED Code(s): 418396912 Plan: 1patient with a chronic nonhealing wound to the sacral area which is a stage IV ulcer with a bone palpable concerning for sacral osteomyelitis 2-leukocytosis more likely related to the sacral pressure ulcer versus reactive to the anemia/bleed 3-left BKA stump is currently covered with a wound VAC and cannot be accessed for any signs of infection though vascular surgery note mention no concern for infection 4-we will check inflammatory markers and check a CT of the sacrum if any evidence of bony destruction patient would benefit from surgical debridement and deep culture 5-as the patient does not look toxic we will hold on adding any systemic antibiotic therapy to obtain appropriate culture 6local wound care to the sacral wound with either wet-to-dry versus wound VAC if applicable discussed with the nursing staff We will follow on clinical condition and cultures to further adjust medication if needed Thank you for this consultation we will follow the patient along with you Dictation was produced using [employer] dictation software. please excuse any gra mmatical, word or spelling errors. Time with Patient: Greater than 30
[2023-08-29 06:30] LABS: Glucose,Whole Blood 126 mg/dL (70-110)
[2023-08-29 10:35] LABS: Anisocytosis Slight; HGB 7.7 gm/dL (13.0-17.5); Hypochromasia Marked; MCH 27.2 pg (25.0-35.0); MCHC 30.8 g/dL (31.0-37.0); MCV 88.3 fL (80.0-100.0); Mean Platelet Volume 9.7; Platelet Count 674 k/uL (150-450); Poikilocytosis Slight; RBC 2.83 m/uL (4.30-5.90); RDW 17.8 % (11.5-15.5); WBC 10.2 k/uL (3.8-10.6)
[2023-08-29 10:44] LABS: ALT 13 U/L (4-49); AST 23 U/L (17-59); African American GFR (CKD) >90 (>60 ml/min/1.73 sqM); Albumin 2.2 g/dL (3.5-5.0); Alkaline Phosphatase 52 U/L (38-126); Anion Gap 2 mmol/L; Blood Urea Nitrogen 27 mg/dL (9-20); C Reactive Protein 7.7 mg/dL (<1.0); Carbon Dioxide 26 mmol/L (22-30); Chloride 103 mmol/L (98-107); Glucose 114 mg/dL (74-99); Non-African American GFR(CKD) >90 (>60 ml/min/1.73 sqM); Potassium 3.9 mmol/L (3.5-5.1); Sodium 131 mmol/L (137-145); Total Bilirubin 0.3 mg/dL (0.2-1.3); Total Protein 4.7 g/dL (6.3-8.2)
[2023-08-29 11:47] LABS: Glucose,Whole Blood 174 mg/dL (70-110)
--- NOTE | 2023-08-29 11:51 | P.PN ---
Subjective Progress Note Date: 08/29/23 patient is a 77 -year-old male past medical history significant for recent left below the knee amputation,coronary artery disease, chest pain with angina, diabetes mellitus, eye disorder, GERD, hyperlipidemia, hypertension, history of osteoarthritis, renal disease, sleep apnea, depression who presented to the hospital for abnormal labs and bleeding from the BKA site. Patient had blood work done at the [facility] with a found hemoglobin to be low, there is also complaint of bleeding from the BKA site. There is no complaint of blood in the stools. There was no complaint of fever or chills. There was no complaint nausea, vomiting abdominal pain. Patient denies any lethargy or weakness. There is no complaint of chest pain or shortness of breath. Initial lab work done in the ER showed WBC 13.6, hemoglobin 9, platelet count 801, sodium 132, potassium 4.6, BUN 27, creatinine 0.65 EKG done in the ER showed heart rate of 129, irregular in rhythm and rate, no ST segment elevation or depression seen, no T-wave inversions seen. Patient admitted to internal medicine service 08/28. Patient seen and examined. Heart rate is better controlled, wean off the Cardizem drip. Denies any lightheadedness or dizziness. 08/29. Patient seen and examined. Lying comfortably in the bed. No acute issues overnight. Patient has been diuresing well, swelling of right lower extremity has improved REVIEW OF SYSTEMS: CONSTITUTIONAL: No fever, no malaise,. CARDIOVASCULAR: No chest pain, no palpitations, no syncope. PULMONARY: No shortness of breath, no cough, GASTROINTESTINAL: No diarrhea, no nausea, no vomiting, no abdominal pain. NEUROLOGICAL: No headaches, no weakness, PHYSICAL EXAMINATION: GENERAL: The patient is alert and oriented x3, not in any acute distress. Well developed, well nourished. HEENT: Pupils are round and equally reacting to light. EOMI. No scleral icterus. No conjunctival pallor. Normocephalic, atraumatic. No pharyngeal erythema. No thyromegaly. CARDIOVASCULAR: S1 and S2 present. No murmurs, rubs, or gallops. IRRegular rate and rhythm PULMONARY: Chest is clear to auscultation, no wheezing or crackles. ABDOMEN: Soft, nontender, nondistended, normoactive bowel sounds. No palpable organomegaly. MUSCULOSKELETAL: Left BKA EXTREMITIES: 2+ pitting edema right lower extremity NEUROLOGICAL: Gross neurological examination did not reveal any focal deficits. SKIN: No rashes. Assessment and plan Bleeding from left BKA site A-fib with RVR Anemia, likely secondary to chronic kidney disease with acute blood loss anemia, hemoglobin is 7.1 and is being transfused 1 unit of PRBC History of diabetes mellitus, insulin-dependent, uncontrolled with hyper and hypoglycemia GERD Hyperlipidemia Hypertension Osteoarthritis Chronic kidney disease stage III Obstructive sleep apnea with a CPAP History of depression Morbid obesity with a BMI of 40.5 Monitor vital signs Monitor CBC Monitor CMP Continue telemetry monitoring Continue Lopressor Continue Eliquis Strict I's and O's, daily weights, continue IV Lasix 40 mg every 12 2D echo ordered Monitor blood sugar levels, continue sliding scale insulin and Lantus 25 units at night Continue wound care Continue wound VAC Vascular surgery following Cardiology following. ID ordered CT sacrum, negative for any fluid collection or abscess Labs and medication were reviewed.. Continue same treatment. Continue with symptomatic treatment. Resume home medication. Monitor labs and vitals. DVT and GI prophylaxis. Further recommendations as per clinical course of the patient Dictation was produced using [employer] dictation software. please excuse any grammatical, word or spelling errors. Objective - Vital Signs Vital signs: Vital Signs Temp 98.9 F 08/29/23 00:00 Pulse 107 H 08/29/23 04:00 Resp 18 08/29/23 04:00 BP 124/69 08/29/23 04:00 Pulse Ox 97 08/29/23 04:00 FiO2 Intake & Output 08/28/23 08/29/23 08/29/23 18:59 06:59 18:59 Intake Total 225.667 Output Total 1950 1900 Balance -1724.333 -1900 Weight 136.078 kg Intake: Intake, IV Titration 105.667 Amount Diltiazem 125 mg In 105.667 Sodium Chloride 0.9% 100 ml @ 5 MG/HR 5 mls/hr IV .Q24H [facility] Rx#:[id number] Oral 120 Output: Urine 1950 1900 Other: Voiding Method External Catheter External Catheter - Labs CBC & Chem 7: 08/29/23 09:06 08/29/23 09:06 Labs: Abnormal Lab Results - Last 24 Hours (Table) 0208/28/23 08/28/23 Range/Units 11:33 12:59 14:01 WBC 11.5 H (3.8-10.6) k/uL RBC 2.82 L (4.30-5.90) m/uL Hgb 7.6 L (13.0-17.5) gm/dL Hct 25.0 L (39.0-53.0) % MCHC 30.5 L (31.0-37.0) g/dL RDW 17.6 H (11.5-15.5) % Plt Count 703 H (150-450) k/uL Sodium 132 L (137-145) mmol/L BUN 28 H (9-20) mg/dL Creatinine 0.63 L (0.66-1.25) mg/dL Glucose 185 H (74-99) mg/dL POC Glucose (mg/dL) 173 H (70-110) mg/dL Calcium 7.8 L (8.4-10.2) mg/dL Total Protein 4.8 L (6.3-8.2) g/dL Albumin 2.2 L (3.5-5.0) g/dL 08/28/23 08/28/23 08/29/23 Range/Units 16:24 20:16 06:28 WBC (3.8-10.6) k/uL RBC (4.30-5.90) m/uL Hgb (13.0-17.5) gm/dL Hct (39.0-53.0) % MCHC (31.0-37.0) g/dL RDW (11.5-15.5) % Plt Count (150-450) k/uL Sodium (137-145) mmol/L BUN (9-20) mg/dL Creatinine (0.66-1.25) mg/dL Glucose (74-99) mg/dL POC Glucose (mg/dL) 194 H 250 H 126 H (70-110) mg/dL Calcium (8.4-10.2) mg/dL Total Protein (6.3-8.2) g/dL Albumin (3.5-5.0) g/dL Microbiology - Last 24 Hours (Table) 08/27/23 20:40 Gram Stain - Preliminary Buttock
--- NOTE | 2023-08-29 13:36 | P.PN ---
Subjective HISTORY OF PRESENTING ILLNESS This is a pleasant 77-year-old male past medical history significant for hypertension, hyperlipidemia, diabetes mellitus, chronic nonhealing wound status post left below the knee amputation and persistent atrial fibrillation. He does not follow regularly in the office. He last saw Dr. Sierra in 2020. We have been asked to see in consultation for atrial fibrillation with rapid ventricular rate. He was just diagnosed with atrial fib new-onset earlier this month status post left BKA. He was properly anticoagulated and was discharged to [facility]. He was sent back for bleeding at the stump. A wound VAC is now in place. He remains in atrial fib with controlled ventricular rates. DIAGNOSTICS EKG reveals atrial fib heart rate 129. Telemetry tracings indicate atrial fib. Laboratory reviewed, WBC 11.5, hemoglobin 7.6, platelets 703, sodium 132, potassium 3.9, creatinine 0.63. Current cardiac medications include Lopressor 37.5 mg twice a day, Lasix 40 mg daily, farxiga 10 mg daily, atorvastatin 20 mg daily, aspirin 81 mg daily and 5 mg twice a day. Most recent echocardiogram February 2023 revealed preserved LV systolic function with ejection fraction 55-60%, difficult study due to body habitus however there appears to be a gradient across the aortic and mitral valve of mild degree. 08/29/2023 Patient seen and examined sitting up in bed in no acute distress. Blood pressure 122/65 heart rate 89 afebrile maintaining oxygen saturation on room air. Laboratory data reviewed, WBC 10.2, hemoglobin 7.7, platelets 674, sodium 131, potassium 3.9, creatinine 0.63. Urine output for the previous 24 hours is 3.8 L. Telemetry tracings reviewed, he continues to be in atrial fib with controlled rate in the 80s. PHYSICAL EXAMINATION VSS CONSTITUTIONAL: No apparent distress. Generalized anasarca. HEENT: Head is normocephalic. Pupils are equal, round. Sclerae anicteric. Mucous membranes of the mouth are moist. No JVD. No carotid bruit. CHEST EXAMINATION: Lungs are clear to auscultation. No chest wall tenderness is noted on palpation or with deep breathing. HEART EXAMINATION: Irregular rate and rhythm. S1, S2 heard. Systolic ejection murmur at the base. ABDOMEN: Soft, nontender. EXTREMITIES: Wound vac to left BKA stump, generalized edema of his extremities, 1-2+ NEUROLOGIC EXAMINATION: Patient is awake, alert and oriented x3. ASSESSMENT Persistent atrial fibrillation with rapid ventricular rate Generalized anasarca Chronic kidney disease Anemia Hypertension Hyperlipidemia Status post left BKA Peripheral arterial disease PLAN Continue IV diuresis. Hemoglobin currently stable however if it drops we will hold Eliquis. Repeat BMP in the morning. Further recommendations to follow based upon clinical course. Nurse Practitioner note has been reviewed, I agree with a documented findings and plan of care. Patient was seen and examined. Objective - Vital Signs Vital signs: Vital Signs Temp 98.0 F 08/29/23 09:15 Pulse 89 08/29/23 09:15 Resp 18 08/29/23 09:15 BP 122/65 08/29/23 09:15 Pulse Ox 98 08/29/23 09:15 FiO2 Intake & Output 08/28/23 08/29/23 08/29/23 18:59 06:59 18:59 Intake Total 225.667 481.917 Output Total 1950 1900 1250 Balance -1724.333 -1900 -768.083 Weight 136.078 kg Intake: Intake, IV Titration 105.667 123.917 Amount Diltiazem 125 mg In 105.667 123.917 Sodium Chloride 0.9% 100 ml @ 5 MG/HR 5 mls/hr IV .Q24H [facility] Rx#:[id number] Oral 120 358 Output: Urine 1950 1900 1250 Other: Voiding Method External Catheter External Catheter External Catheter - Labs CBC & Chem 7: 08/29/23 09:06 08/29/23 09:06 Labs: Abnormal Lab Results - Last 24 Hours (Table) 08/28/23 08/28/23 08/28/23 Range/Units 14:01 16:24 20:16 WBC 11.5 H (3.8-10.6) k/uL RBC 2.82 L (4.30-5.90) m/uL Hgb 7.6 L (13.0-17.5) gm/dL Hct 25.0 L (39.0-53.0) % MCHC 30.5 L (31.0-37.0) g/dL RDW 17.6 H (11.5-15.5) % Plt Count 703 H (150-450) k/uL Sodium (137-145) mmol/L BUN (9-20) mg/dL Creatinine (0.66-1.25) mg/dL Glucose (74-99) mg/dL POC Glucose (mg/dL) 194 H 250 H (70-110) mg/dL Calcium (8.4-10.2) mg/dL C-Reactive Protein (<1.0) mg/dL Total Protein (6.3-8.2) g/dL Albumin (3.5-5.0) g/dL 08/29/23 08/29/23 08/29/23 Range/Units 06:28 09:06 09:06 WBC (3.8-10.6) k/uL RBC 2.83 L (4.30-5.90) m/uL Hgb 7.7 L (13.0-17.5) gm/dL Hct 25.0 L (39.0-53.0) % MCHC 30.8 L (31.0-37.0) g/dL RDW 17.8 H (11.5-15.5) % Plt Count 674 H (150-450) k/uL Sodium 131 L (137-145) mmol/L BUN 27 H (9-20) mg/dL Creatinine 0.63 L (0.66-1.25) mg/dL Glucose 114 H (74-99) mg/dL POC Glucose (mg/dL) 126 H (70-110) mg/dL Calcium 8.0 L (8.4-10.2) mg/dL C-Reactive Protein 7.7 H (<1.0) mg/dL Total Protein 4.7 L (6.3-8.2) g/dL Albumin 2.2 L (3.5-5.0) g/dL 08/29/23 Range/Units 11:45 WBC (3.8-10.6) k/uL RBC (4.30-5.90) m/uL Hgb (13.0-17.5) gm/dL Hct (39.0-53.0) % MCHC (31.0-37.0) g/dL RDW (11.5-15.5) % Plt Count (150-450) k/uL Sodium (137-145) mmol/L BUN (9-20) mg/dL Creatinine (0.66-1.25) mg/dL Glucose (74-99) mg/dL POC Glucose (mg/dL) 174 H (70-110) mg/dL Calcium (8.4-10.2) mg/dL C-Reactive Protein (<1.0) mg/dL Total Protein (6.3-8.2) g/dL Albumin (3.5-5.0) g/dL Microbiology - Last 24 Hours (Table) 08/27/23 20:40 Gram Stain - Preliminary Buttock
--- NOTE | 2023-08-29 14:37 | P.PN ---
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 Patient is a 77-year-old male with a past medical history significant for coronary artery disease hypertension hyperlipidemia osteoarthritis renal disease recently had admitted to this facility and this patient is status post left below the knee amputation for chronic nonhealing wound to the left lower extremity, patient brought back to the hospital concerning for low hemoglobin vascular surgery evaluate the patient mention no infection to the left BKA stump also noticed to have a stage IV sacral pressure ulcer with the wound exposed further workup today shows concerning for osteomyelitis on the basis of CT. On today's evaluation that is 08/29/2023,the patient remains to be afebrile, patient is on room air not requiring supplemental oxygen and denies any shortness of breath no chest pain or cough.Patient denies having any nausea or vomiting, no abdominal pain and no diarrhea has been reported denies any worsening pain to the sacral wound area. Patient white count of 10.2, creatinine 0.63 Objective - Vital Signs Vital signs: Vital Signs Temp 98.0 F 08/29/23 09:15 Pulse 89 08/29/23 09:15 Resp 18 08/29/23 09:15 BP 122/65 08/29/23 09:15 Pulse Ox 98 08/29/23 09:15 FiO2 Intake & Output 08/28/23 08/29/23 08/29/23 18:59 06:59 18:59 Intake Total 225.667 363.917 Output Total 1950 1900 650 Balance -1724.333 -1900 -286.083 Weight 136.078 kg Intake: Intake, IV Titration 105.667 123.917 Amount Diltiazem 125 mg In 105.667 123.917 Sodium Chloride 0.9% 100 ml @ 5 MG/HR 5 mls/hr IV .Q24H [facility] Rx#:[id number] Oral 120 240 Output: Urine 1950 1900 650 Other: Voiding Method External Catheter External Catheter External Catheter - Exam GENERAL DESCRIPTION: An elderly male lying in bed in no distress RESPIRATORY SYSTEM: Unlabored breathing , decreased breath sounds at bases HEART: S1 S2 regular rate and rhythm , ABDOMEN: Soft , no tenderness EXTREMITIES: Left BKA stump covered with a wound VAC - Labs CBC & Chem 7: 08/29/23 09:06 08/29/23 09:06 Labs: Abnormal Lab Results - Last 24 Hours (Table) 08/28/23 08/28/23 08/28/23 Range/Units 11:33 12:59 14:01 WBC 11.5 H (3.8-10.6) k/uL RBC 2.82 L (4.30-5.90) m/uL Hgb 7.6 L (13.0-17.5) gm/dL Hct 25.0 L (39.0-53.0) % MCHC 30.5 L (31.0-37.0) g/dL RDW 17.6 H (11.5-15.5) % Plt Count 703 H (150-450) k/uL Sodium 132 L (137-145) mmol/L BUN 28 H (9-20) mg/dL Creatinine 0.63 L (0.66-1.25) mg/dL Glucose 185 H (74-99) mg/dL POC Glucose (mg/dL) 173 H (70-110) mg/dL Calcium 7.8 L (8.4-10.2) mg/dL C-Reactive Protein (<1.0) mg/dL Total Protein 4.8 L (6.3-8.2) g/dL Albumin 2.2 L (3.5-5.0) g/dL 08/28/23 08/28/23 08/29/23 Range/Units 16:24 20:16 06:28 WBC (3.8-10.6) k/uL RBC (4.30-5.90) m/uL Hgb (13.0-17.5) gm/dL Hct (39.0-53.0) % MCHC (31.0-37.0) g/dL RDW (11.5-15.5) % Plt Count (150-450) k/uL Sodium (137-145) mmol/L BUN (9-20) mg/dL Creatinine (0.66-1.25) mg/dL Glucose (74-99) mg/dL POC Glucose (mg/dL) 194 H 250 H 126 H (70-110) mg/dL Calcium (8.4-10.2) mg/dL C-Reactive Protein (<1.0) mg/dL Total Protein (6.3-8.2) g/dL Albumin (3.5-5.0) g/dL 08/29/23 08/29/23 Range/Units 09:06 09:06 WBC (3.8-10.6) k/uL RBC 2.83 L (4.30-5.90) m/uL Hgb 7.7 L (13.0-17.5) gm/dL Hct 25.0 L (39.0-53.0) % MCHC 30.8 L (31.0-37.0) g/dL RDW 17.8 H (11.5-15.5) % Plt Count 674 H (150-450) k/uL Sodium 131 L (137-145) mmol/L BUN 27 H (9-20) mg/dL Creatinine 0.63 L (0.66-1.25) mg/dL Glucose 114 H (74-99) mg/dL POC Glucose (mg/dL) (70-110) mg/dL Calcium 8.0 L (8.4-10.2) mg/dL C-Reactive Protein 7.7 H (<1.0) mg/dL Total Protein 4.7 L (6.3-8.2) g/dL Albumin 2.2 L (3.5-5.0) g/dL Microbiology - Last 24 Hours (Table) 08/27/23 20:40 Gram Stain - Preliminary Buttock Assessment and Plan (1) Stage IV pressure ulcer of sacral region Current Visit: Yes Status: Acute Code(s): L89.154 - PRESSURE ULCER OF SACRAL REGION, STAGE 4 SNOMED Code(s): 78263526196915 (2) Sacral osteomyelitis Current Visit: Yes Status: Acute Code(s): M46.28 - OSTEOMYELITIS OF VE RTEBRA, SACRAL AND SACROCOCCYGEAL REGION SNOMED Code(s): 899604987 (3) Elevated WBCs Current Visit: No Status: Acute Code(s): D72.829 - ELEVATED WHITE BLOOD CELL COUNT, UNSPECIFIED SNOMED Code(s): 742875797 Plan: 1patient with a chronic nonhealing wound to the sacral area which is a stage IV ulcer with a bone palpable concerning for sacral osteomyelitis 2-leukocytosis more likely related to the sacral pressure ulcer versus reactive to the anemia/bleed 3-left BKA stump is currently covered with a wound VAC and cannot be accessed for any signs of infection though vascular surgery note mention no concern for infection 4-CT of the sacrum is suspicious for bony destruction and possible osteomyelitis waiting for inflammatory markers patient would benefit from surgical debridement and deep culture, further surgery has been consulted 5-local wound care to continue with the wound VAC we will wait for the culture to finalize before starting antibiotic Dictation was produced using [employer] dictation software. please excuse any grammatical, word or spelling errors. Time with Patient: Less than 30
[2023-08-29 16:56] LABS: Glucose,Whole Blood 238 mg/dL (70-110)
[2023-08-29 20:19] LABS: Glucose,Whole Blood 226 mg/dL (70-110)
[2023-08-29 22:36] LABS: Erythrocyte Sedimentation Rate 17 mm/Hr (0-20)
[2023-08-30 06:30] LABS: Glucose,Whole Blood 131 mg/dL (70-110)
[2023-08-30 07:28] LABS: African American GFR (CKD) >90 (>60 ml/min/1.73 sqM); Anion Gap 1 mmol/L; Blood Urea Nitrogen 29 mg/dL (9-20); Calcium 8.1 mg/dL (8.4-10.2); Carbon Dioxide 29 mmol/L (22-30); Chloride 102 mmol/L (98-107); Glucose 116 mg/dL (74-99); Non-African American GFR(CKD) >90 (>60 ml/min/1.73 sqM); Potassium 3.6 mmol/L (3.5-5.1); Sodium 132 mmol/L (137-145)
--- NOTE | 2023-08-30 11:21 | P.PN ---
Subjective Progress Note Date: 08/30/23 Principal diagnosis: Stage IV sacral pressure ulcer concerning for osteomyelitis Patient is a 77-year-old male with a past medical history significant for coronary artery disease hypertension hyperlipidemia osteoarthritis renal disease recently had admitted to this facility and this patient is status post left below the knee amputation for chronic nonhealing wound to the left lower extremity, patient brought back to the hospital concerning for low hemoglobin vascular surgery evaluate the patient mention no infection to the left BKA stump also noticed to have a stage IV sacral pressure ulcer with the wound exposed further workup today shows concerning for osteomyelitis on the basis of CT. On today's evaluation that is 08/30/2023, the patient continues to be afebrile, the patient is on room air and breathing comfortably, the Pt denies having any chest pain or cough, the patient denies having any abdominal pain no vomiting or any diarrhea has been reported by the nursing staff, no new symptoms. Patient creatinine 0.65 cultures are currently pending Objective - Vital Signs Vital signs: Vital Signs Temp 98.3 F 08/29/23 20:00 Pulse 83 08/30/23 04:00 Resp 16 08/30/23 04:00 BP 120/57 08/30/23 04:00 Pulse Ox 97 08/30/23 04:00 FiO2 Intake & Output 08/29/23 08/30/23 08/30/23 18:59 06:59 18:59 Intake Total 841.917 Output Total 1850 1800 Balance -1008.083 -1800 Weight 135 kg Intake: Intake, IV Titration 123.917 Amount Diltiazem 125 mg In 123.917 Sodium Chloride 0.9% 100 ml @ 5 MG/HR 5 mls/hr IV .Q24H [facility] Rx#:[id number] Oral 718 Output: Urine 1850 1800 Other: Voiding Method External Catheter External Catheter # Bowel Movements 1 - Exam GENERAL DESCRIPTION: An elderly male lying in bed in no distress RESPIRATORY SYSTEM: Unlabored breathing , decreased breath sounds at bases HEART: S1 S2 regular rate and rhythm , ABDOMEN: Soft , no tenderness EXTREMITIES: Left BKA stump covered with a wound VAC - Labs CBC & Chem 7: 08/29/23 09:06 08/30/23 06:34 Labs: Abnormal Lab Results - Last 24 Hours (Table) 02/11/24 02/11/24 02/11/24 Range/Units 11:45 16:54 20:18 Sodium (137-145) mmol/L BUN (9-20) mg/dL Creatinine (0.66-1.25) mg/dL Glucose (74-99) mg/dL POC Glucose (mg/dL) 174 H 238 H 226 H (70-110) mg/dL Calcium (8.4-10.2) mg/dL 08/30/23 08/30/23 Range/Units 06:29 06:34 Sodium 132 L (137-145) mmol/L BUN 29 H (9-20) mg/dL Creatinine 0.65 L (0.66-1.25) mg/dL Glucose 116 H (74-99) mg/dL POC Glucose (mg/dL) 131 H (70-110) mg/dL Calcium 8.1 L (8.4-10.2) mg/dL Assessment and Plan (1) Stage IV pressure ulcer of sacral region Current Visit: Yes Status: Acute Code(s): L89.154 - PRESSURE ULCER OF SACRAL REGION, STAGE 4 SNOMED Code(s): 24181858171204 (2) Sacral osteomyelitis Current Visit: Yes Status: Acute Code(s): M46.28 - OSTEOMYELITIS OF VERTEBRA, SACRAL AND SACROCOCCYGEAL REGION SNOMED Code(s): 957614854 (3) Elevated WBCs Current Visit: No Status: Acute Code(s): D72.829 - ELEVATED WHITE BLOOD CELL COUNT, UNSPECIFIED SNOMED Code(s): 744833453 Plan: 1patient with a chronic nonhealing wound to the sacral area which is a stage IV ulcer with a bone palpable concerning for sacral osteomyelitis 2-leukocytosis more likely related to the sacral pressure ulcer versus reactive to the anemia/bleed 3-left BKA stump is currently covered with a wound VAC and cannot be accessed for any signs of infection though vascular surgery note mention no concern for infection 4-CT of the sacrum is suspicious for bony destruction and possible osteomyelitis waiting for inflammatory markers patient would benefit from surgical debridement and deep culture, for which general surgery has been consulted, await their evaluation and recommendation 5-local wound care to continue with the wet-to-dry dressing changes as nursing staff mention the problem with sealing of the wound Dictation was produced using [employer] dictation software. please excuse any grammatical, word or spelling errors. Time with Patient: Less than 30
--- NOTE | 2023-08-30 11:30 | P.PN ---
Subjective Progress Note Date: 08/30/23 patient is a 77 -year-old male past medical history significant for recent left below the knee amputation,coronary artery disease, chest pain with angina, diabetes mellitus, eye disorder, GERD, hyperlipidemia, hypertension, history of osteoarthritis, renal disease, sleep apnea, depression who presented to the hospital for abnormal labs and bleeding from the BKA site. Patient had blood work done at the [facility] with a found hemoglobin to be low, there is also complaint of bleeding from the BKA site. There is no complaint of blood in the stools. There was no complaint of fever or chills. There was no complaint nausea, vomiting abdominal pain. Patient denies any lethargy or weakness. There is no complaint of chest pain or shortness of breath. Initial lab work done in the ER showed WBC 13.6, hemoglobin 9, platelet count 801, sodium 132, potassium 4.6, BUN 27, creatinine 0.65 EKG done in the ER showed heart rate of 129, irregular in rhythm and rate, no ST segment elevation or depression seen, no T-wave inversions seen. Patient admitted to internal medicine service 08/28. Patient seen and examined. Heart rate is better controlled, wean off the Cardizem drip. Denies any lightheadedness or dizziness. 08/29. Patient seen and examined. Lying comfortably in the bed. No acute issues overnight. Patient has been diuresing well, swelling of right lower extremity has improved 08/30. Patient seen and examined.. Labs done this morning showed sodium 132, potassium 3.6, BUN 29, creatinine 0.65, states he feels much better. REVIEW OF SYSTEMS: CONSTITUTIONAL: No fever, no malaise,. CARDIOVASCULAR: No chest pain, no palpitations, no syncope. PULMONARY: No shortness of breath, no cough, GASTROINTESTINAL: No diarrhea, no nausea, no vomiting, no abdominal pain. NEUROLOGICAL: No headaches, no weakness, PHYSICAL EXAMINATION: GENERAL: The patient is alert and oriented x3, not in any acute distress. Well developed, well nourished. HEENT: Pupils are round and equally reacting to light. EOMI. No scleral icterus. No conjunctival pallor. Normocephalic, atraumatic. No pharyngeal erythema. No thyromegaly. CARDIOVASCULAR: S1 and S2 present. No murmurs, rubs, or gallops. IRRegular rate and rhythm PULMONARY: Chest is clear to auscultation, no wheezing or crackles. ABDOMEN: Soft, nontender, nondistended, normoactive bowel sounds. No palpable organomegaly. MUSCULOSKELETAL: Left BKA EXTREMITIES: 2+ pitting edema right lower extremity NEUROLOGICAL: Gross neurological examination did not reveal any focal deficits. SKIN: No rashes. Assessment and plan Bleeding from left BKA site A-fib with RVR Anemia, likely secondary to chronic kidney disease with acute blood loss anemia, hemoglobin is 7.1 and is being transfused 1 unit of PRBC History of diabetes mellitus, insulin-dependent, uncontrolled with hyper and hypoglycemia GERD Hyperlipidemia Hypertension Osteoarthritis Chronic kidney disease stage III Obstructive sleep apnea with a CPAP History of depression Morbid obesity with a BMI of 40.5 Monitor vital signs Monitor CBC Monitor CMP Continue telemetry monitoring Continue Lopressor Continue Eliquis Strict I's and O's, daily weights, continue IV Lasix 40 mg every 12 Monitor blood sugar levels, continue sliding scale insulin and Lantus 25 units at night Continue wound care Continue wound VAC Vascular surgery following Cardiology following. ID ordered CT sacrum, negative for any fluid collection or abscess Labs and medication were reviewed.. Continue same treatment. Continue with symptomatic treatment. Resume home medication. Monitor labs and vitals. DVT and GI prophylaxis. Further recommendations as per clinical course of the patient Dictation was produced using [employer] dictation software. please excuse any grammatical, word or spelling errors. Objective - Vital Signs Vital signs: Vital Signs Temp 98.3 F 08/29/23 20:00 Pulse 83 08/30/23 04:00 Resp 16 08/30/23 04:00 BP 120/57 08/30/23 04:00 Pulse Ox 97 08/30/23 04:00 FiO2 Intake & Output 08/29/23 08/30/23 08/30/23 18:59 06:59 18:59 Intake Total 841.917 Output Total 1850 1800 Balance -1008.083 -1800 Weight 135 kg Intake: Intake, IV Titration 123.917 Amount Diltiazem 125 mg In 123.917 Sodium Chloride 0.9% 100 ml @ 5 MG/HR 5 mls/hr IV .Q24H [facility] Rx#:[id number] Oral 718 Output: Urine 1850 1800 Other: Voiding Method External Catheter External Catheter # Bowel Movements 1 - Labs CBC & Chem 7: 08/29/23 09:06 08/30/23 06:34 Labs: Abnormal Lab Results - Last 24 Hours (Table) 08/29/23 08/29/23 08/29/23 Range/Units 09:06 09:06 11:45 RBC 2.83 L (4.30-5.90) m/uL Hgb 7.7 L (13.0-17.5) gm/dL Hct 25.0 L (39.0-53.0) % MCHC 30.8 L (31.0-37.0) g/dL RDW 17.8 H (11.5-15.5) % Plt Count 674 H (150-450) k/uL Sodium 131 L (137-145) mmol/L BUN 27 H (9-20) mg/dL Creatinine 0.63 L (0.66-1.25) mg/dL Glucose 114 H (74-99) mg/dL POC Glucose (mg/dL) 174 H (70-110) mg/dL Calcium 8.0 L (8.4-10.2) mg/dL C-Reactive Protein 7.7 H (<1.0) mg/dL Total Protein 4.7 L (6.3-8.2) g/dL Albumin 2.2 L (3.5-5.0) g/dL 08/29/23 08/29/23 08/30/23 Range/Units 16:54 20:18 06:29 RBC (4.30-5.90) m/uL Hgb (13.0-17.5) gm/dL Hct (39.0-53.0) % MCHC (31.0-37.0) g/dL RDW (11.5-15.5) % Plt Count (150-450) k/uL Sodium (137-145) mmol/L BUN (9-20) mg/dL Creatinine (0.66-1.25) mg/dL Glucose (74-99) mg/dL POC Glucose (mg/dL) 238 H 226 H 131 H (70-110) mg/dL Calcium (8.4-10.2) mg/dL C-Reactive Protein (<1.0) mg/dL Total Protein (6.3-8.2) g/dL Albumin (3.5-5.0) g/dL 08/30/23 Range/Units 06:34 RBC (4.30-5.90) m/uL Hgb (13.0-17.5) gm/dL Hct (39.0-53.0) % MCHC (31.0-37.0) g/dL RDW (11.5-15.5) % Plt Count (150-450) k/uL Sodium 132 L (137-145) mmol/L BUN 29 H (9-20) mg/dL Creatinine 0.65 L (0.66-1.25) mg/dL Glucose 116 H (74-99) mg/dL POC Glucose (mg/dL) (70-110) mg/dL Calcium 8.1 L (8.4-10.2) mg/dL C-Reactive Protein (<1.0) mg/dL Total Protein (6.3-8.2) g/dL Albumin (3.5-5.0) g/dL
--- NOTE | 2023-08-30 11:41 | P.PN ---
Subjective Progress Note Date: 08/30/23 HISTORY OF PRESENTING ILLNESS This is a pleasant 77-year-old male past medical history significant for hypertension, hyperlipidemia, diabetes mellitus, chronic nonhealing wound status post left below the knee amputation and persistent atrial fibrillation. He does not follow regularly in the office. He last saw Dr. Sierra in 2020. We have been asked to see in consultation for atrial fibrillation with rapid ventricular rate. He was just diagnosed with atrial fib new-onset earlier this month status post left BKA. He was properly anticoagulated and was discharged to [facility]. He was sent back for bleeding at the stump. A wound VAC is now in place. He remains in atrial fib with controlled ventricular rates. DIAGNOSTICS EKG reveals atrial fib heart rate 129. Telemetry tracings indicate atrial fib. Laboratory reviewed, WBC 11.5, hemoglobin 7.6, platelets 703, sodium 132, potassium 3.9, creatinine 0.63. Current cardiac medications include Lopressor 37.5 mg twice a day, Lasix 40 mg daily, farxiga 10 mg daily, atorvastatin 20 mg daily, aspirin 81 mg daily and 5 mg twice a day. Most recent echocardiogram February 2023 revealed preserved LV systolic function with ejection fraction 55-60%, difficult study due to body habitus however there appears to be a gradient across the aortic and mitral valve of mild degree. 08/29/2023 Patient seen and examined sitting up in bed in no acute distress. Blood pressure 122/65 heart rate 89 afebrile maintaining oxygen saturation on room air. Laboratory data reviewed, WBC 10.2, hemoglobin 7.7, platelets 674, sodium 131, potassium 3.9, creatinine 0.63. Urine output for the previous 24 hours is 3.8 L. Telemetry tracings reviewed, he continues to be in atrial fib with controlled rate in the 80s. 08/30 Patient has been maintained on IV Lasix 40 mg every 12 hours as well as Farxiga 10 mg daily, aspirin and atorvastatin and Lopressor 37.5 mg twice daily. Cardizem drip is at 5 mg/h which is continued. Eliquis is on hold for wound debridement. Wound VAC in place. Heart rate is in the 80s, blood pressure 120/57, pulse ox 97% on room air. Patient remains in atrial fibrillation. Repeat blood work reveals sodium 132, potassium 3.6, BUN 29 creatinine 0.65. PHYSICAL EXAMINATION VSS CONSTITUTIONAL: No apparent distress. Generalized anasarca. HEENT: Head is normocephalic. Pupils are equal, round. Sclerae anicteric. Mucous membranes of the mouth are moist. No JVD. No carotid bruit. CHEST EXAMINATION: Lungs are clear to auscultation. No chest wall tenderness is noted on palpation or with deep breathing. HEART EXAMINATION: Irregular rate and rhythm. S1, S2 heard. Systolic ejection murmur at the base. ABDOMEN: Soft, nontender. EXTREMITIES: Wound vac to left BKA stump, generalized edema of his extremities, 1-2+ NEUROLOGIC EXAMINATION: Patient is awake, alert and oriented x3. ASSESSMENT Persistent atrial fibrillation with rapid ventricular rate Generalized anasarca Chronic kidney disease Anemia Hypertension Hyperlipidemia Status post left BKA Peripheral arterial disease PLAN Continue IV diuresis. Continue current cardiac medications Eliquis on hold for debridement Monitor AGUILA, daily weights, electrolytes and renal function Obtain echocardiogram Further recommendations to follow based upon clinical course. Nurse Practitioner note has been reviewed, I agree with a documented findings and plan of care. Patient was seen and examined. Objective - Vital Signs Vital signs: Vital Signs Temp 98.3 F 08/29/23 20:00 Pulse 83 08/30/23 04:00 Resp 16 08/30/23 04:00 BP 120/57 08/30/23 04:00 Pulse Ox 97 08/30/23 04:00 FiO2 Intake & Output 08/29/23 08/30/23 08/30/23 18:59 06:59 18:59 Intake Total 841.917 Output Total 1850 1800 Balance -1008.083 -1800 Weight 135 kg Intake: Intake, IV Titration 123.917 Amount Diltiazem 125 mg In 123.917 Sodium Chloride 0.9% 100 ml @ 5 MG/HR 5 mls/hr IV .Q24H [facility] Rx#:[id number] Oral 718 Output: Urine 1850 1800 Other: Voiding Method External Catheter External Catheter # Bowel Movements 1 - Labs CBC & Chem 7: 08/29/23 09:06 08/30/23 06:34 Labs: Abnormal Lab Results - Last 24 Hours (Table) 08/29/23 08/29/23 08/29/23 Range/Units 09:06 09:06 11:45 RBC 2.83 L (4.30-5.90) m/uL Hgb 7.7 L (13.0-17.5) gm/dL Hct 25.0 L (39.0-53.0) % MCHC 30.8 L (31.0-37.0) g/dL RDW 17.8 H (11.5-15.5) % Plt Count 674 H (150-450) k/uL Sodium 131 L (137-145) mmol/L BUN 27 H (9-20) mg/dL Creatinine 0.63 L (0.66-1.25) mg/dL Glucose 114 H (74-99) mg/dL POC Glucose (mg/dL) 174 H (70-110) mg/dL Calcium 8.0 L (8.4-10.2) mg/dL C-Reactive Protein 7.7 H (<1.0) mg/dL Total Protein 4.7 L (6.3-8.2) g/dL Albumin 2.2 L (3.5-5.0) g/dL 08/29/23 08/29/23 08/30/23 Range/Units 16:54 20:18 06:29 RBC (4.30-5.90) m/uL Hgb (13.0-17.5) gm/dL Hct (39.0-53.0) % MCHC (31.0-37.0) g/dL RDW (11.5-15.5) % Plt Count (150-450) k/uL Sodium (137-145) mmol/L BUN (9-20) mg/dL Creatinine (0.66-1.25) mg/dL Glucose (74-99) mg/dL POC Glucose (mg/dL) 238 H 226 H 131 H (70-110) mg/dL Calcium (8.4-10.2) mg/dL C-Reactive Protein (<1.0) mg/dL Total Protein (6.3-8.2) g/dL Albumin (3.5-5.0) g/dL 08/30/23 Range/Units 06:34 RBC (4.30-5.90) m/uL Hgb (13.0-17.5) gm/dL Hct (39.0-53.0) % MCHC (31.0-37.0) g/dL RDW (11.5-15.5) % Plt Count (150-450) k/uL Sodium 132 L (137-145) mmol/L BUN 29 H (9-20) mg/dL Creatinine 0.65 L (0.66-1.25) mg/dL Glucose 116 H (74-99) mg/dL POC Glucose (mg/dL) (70-110) mg/dL Calcium 8.1 L (8.4-10.2) mg/dL C-Reactive Protein (<1.0) mg/dL Total Protein (6.3-8.2) g/dL Albumin (3.5-5.0) g/dL
[2023-08-30 11:44] LABS: Glucose,Whole Blood 163 mg/dL (70-110)
--- NOTE | 2023-08-30 13:10 | P.GSCN ---
History of Present Illness Consult date: 08/30/23 History of present illness: CHIEF COMPLAINT: Low hemoglobin HISTORY OF PRESENT ILLNESS: This is a 77-year-old male who presented to the ER due to a low hemoglobin at the [facility]. He felt weak and was found to be guaiac positive. And was sent to the ER for further evaluation. Patient had a BKA done a week ago. Patient is on Eliquis for his atrial fibrillation. He does have a known sacral wound. And reports that he has followed with wound care service. Patient also diagnosed with sacral osteomyelitis. Patient followed by infectious disease. He is receiving local wound care. CT scan of the sacrum no well-formed fluid collection or drainable abscess seen. PAST MEDICAL HISTORY: Coronary Artery Disease (CAD), Chest Pain / Angina, Diabetes Mellitus, Eye Disorder, GERD/Reflux, Hyperlipidemia, Hypertension, Osteoarthritis (OA), Renal Disease, Sleep Apnea/CPAP/BIPAP PAST SURGICAL HISTORY: Left BKA, rule out kidney stone MEDICATIONS: See below ALLERGIES: See below SOCIAL HISTORY: No illicit drug use. History of cocaine, marijuana opiate use quit drug use in 1998 REVIEW OF SYSTEMS: CONSTITUTIONAL: Denies fever or chills. HEENT: Denies blurred vision, vision changes, or eye pain. Denies hemoptysis CARDIOVASCULAR: Denies chest pain or pressure. RESPIRATORY: No shortness of breath. GASTROINTESTINAL: See HPI for pertinent findings HEMATOLOGIC: Denies bleeding disorders. GENITOURINARY: Denies any blood in urine or increased urinary frequency. SKIN: Denies pruitis. Denies rash. PHYSICAL EXAM: VITAL SIGNS: Reviewed GENERAL: Well-developed in no acute distress. HEENT: No sclera icterus. Extraocular movements grossly intact. Moist buccal mucosa. Head is atraumatic, normocephalic. No nasal drainage. ABDOMEN: Soft. Obese. Nondistended. Nontender NEUROLOGIC: Alert and oriented. Cranial nerves II through XII grossly intact. Sacral area: Sacral decubitus wound with eschar tissue noted LABORATORY DATA: Sodium 132 potassium 3.6 creatinine 0.65 WBC 11.5 down to 10.2 Hgb 7.7 platelets 674 Albumin 2.2 IMAGING: CT scan left-sided decubitus ulcer. No well-formed fluid collection or drainable abscess seen ASSESSMENT: 1. Stage IV sacral decubitus ulcer 2. Diabetes mellitus 3. History of recent left BKA 4. Peripheral arterial disease 5. Atrial fibrillation PLAN: -Patient scheduled for debridement of sacral decubitus ulcer tomorrow with Dr. Amaro -Hold Eliquis -Keep patient n.p.o. after midnight -Continue local wound care Physician Cork Wirer note has been reviewed by physician. Signing provider agrees with the documented findings, assessment, and plan of care. Past Medical History Past Medical History: Coronary Artery Disease (CAD), Chest Pain / Angina, Diabe oc Mellitus, Eye Disorder, GERD/Reflux, Hyperlipidemia, Hypertension, Osteoarthritis (OA), Renal Disease, Sleep Apnea/CPAP/BIPAP Additional Past Medical History / Comment(s): 02/05/23 fall in shower with left ankle wound/fracture, had surgery-ORIF with I&D and wound vac placed/removed. Current left foot wound, left benz wound and right sacrum wound with wound vac. Anemia. IDDM type II, neuropathy legs and feet, bedbound/ander lift, CKD stage III, nephrolithiasis, DALTON with CPAP, right hip, left shoulder pain/torn rotator cuff/limited ROM, polyarthritis, cellulitis, lymphedema, glaucoma. History of Any Multi-Drug Resistant Organisms: None Reported, MRSA Year Discovered:: 04/21/16 MDRO Source:: ABDOMEN Past Surgical History: Orthopedic Surgery Additional Past Surgical History / Comment(s): KIDNEY STONE REMOVED and ureteral stent placed, deviated septum surgery, flex sigmoidoscopy several times, colonoscopy, dental surgery, cataract surgery bilaterally, ORIF left ankle. Past Anesthesia/Blood Transfusion Reactions: No Reported Reaction Past Psychological History: Depression Additional Psychological History / Comment(s): Currently at [facility], bedbound for rehab. 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 Smoking Status: Never smoker Past Alcohol Use History: None Reported Additional Past Alcohol Use History / Comment(s): Patient currently lives alone. There is a dog in the home. Past Drug Use History: Cocaine, Marijuana, Opiates Additional Drug Use History / Comment(s): Quit drug use in 1998. - Past Family History Father Additional Family Medical History / Comment(s): Brain aneurysm. Mother Family Medical History: Cancer, Deep Vein Thrombosis (DVT) Medications and Allergies Home Medications Medication Instructions Recorded Confirmed Type Fenofibrate,Micronized 200 mg PO HS 06/06/18 08/27/23 History [Fenofibrate] Dapagliflozin Propanediol [Farxiga] 10 mg PO DAILY 02/05/23 08/27/23 History Pioglitazone [Actos] 15 mg PO DAILY 02/05/23 08/27/23 History Semaglutide [Ozempic] 2 mg SQ MO 02/05/23 08/27/23 History metFORMIN HCL 1,000 mg PO BID 02/05/23 08/27/23 History Aspirin 81 mg PO DAILY 02/18/23 08/27/23 History Atorvastatin Calcium 20 mg PO HS 08/16/23 08/27/23 History Clotrimazole/Betameth Cream 1 applic TOPICAL DAILY 08/16/23 08/27/23 History [Lotrisone] Cyanocobalamin [Vitamin B-12] 500 mcg PO DAILY 08/16/23 08/27/23 History Ferrous Sulfate [Feosol] 325 mg PO BID 08/16/23 08/27/23 History Furosemide [Lasix] 40 mg PO DAILY@0600 08/16/23 08/27/23 History Glucerna Shake 1 can PO DAILY 08/16/23 08/27/23 History Insulin Glargine,Hum.rec.anlog 25 units SQ HS 08/16/23 08/27/23 History [Lantus Solostar Pen] Insulin Lispro [humaLOG Kwikpen] See Protocol SQ QID PRN 08/16/23 08/27/23 History Apixaban [Eliquis] 5 mg PO BID tab 08/23/23 08/27/23 Rx Metoprolol Tartrate [Lopressor] 37.5 mg PO BID tab 08/23/23 08/27/23 Rx Gabapentin [Neurontin] 300 mg PO Q8HR@0600,1400,2200 08/27/23 08/27/23 History HYDROcodone/APAP 5-325MG [Stark 1 tab PO Q6H PRN 08/27/23 08/27/23 History 5-325] Allergies Allergy/AdvReac Type Severity Reaction Status Date / Time cat pelt standardized Allergy Itching Verified 08/27/23 10:16 allergenic ex mold Allergy Itching Verified 08/27/23 10:16 pollen extracts Allergy Itching Verified 08/27/23 10:16 Surgical - Exam Vital Signs Temp Pulse Resp BP Pulse Ox 98.1 F 113 H 16 96/69 100 08/27/23 10:04 08/27/23 10:04 08/27/23 10:04 08/27/23 10:04 08/27/23 10:04 Results - Labs 08/29/23 09:06 08/30/23 06:34 Abnormal Lab Results - Last 24 Hours (Table) 08/29/23 08/29/23 08/30/23 Range/Units 16:54 20:18 06:29 Sodium (137-145) mmol/L BUN (9-20) mg/dL Creatinine (0.66-1.25) mg/dL Glucose (74-99) mg/dL POC Glucose (mg/dL) 238 H 226 H 131 H (70-110) mg/dL Calcium (8.4-10.2) mg/dL 08/30/23 08/30/23 Range/Units 06:34 11:42 Sodium 132 L (137-145) mmol/L BUN 29 H (9-20) mg/dL Creatinine 0.65 L (0.66-1.25) mg/dL Glucose 116 H (74-99) mg/dL POC Glucose (mg/dL) 163 H (70-110) mg/dL Calcium 8.1 L (8.4-10.2) mg/dL Diabetes panel 08/30/23 Range/Units 06:34 Sodium 132 L (137-145) mmol/L Potassium 3.6 (3.5-5.1) mmol/L Chloride 102 (98-107) mmol/L Carbon Dioxide 29 (22-30) mmol/L BUN 29 H (9-20) mg/dL Creatinine 0.65 L (0.66-1.25) mg/dL Glucose 116 H (74-99) mg/dL Calcium 8.1 L (8.4-10.2) mg/dL Calcium panel 08/30/23 Range/Units 06:34 Calcium 8.1 L (8.4-10.2) mg/dL Pituitary panel 08/30/23 Range/Units 06:34 Sodium 132 L (137-145) mmol/L Potassium 3.6 (3.5-5.1) mmol/L Chloride 102 (98-107) mmol/L Carbon Dioxide 29 (22-30) mmol/L BUN 29 H (9-20) mg/dL Creatinine 0.65 L (0.66-1.25) mg/dL Glucose 116 H (74-99) mg/dL Calcium 8.1 L (8.4-10.2) mg/dL Adrenal panel 08/30/23 Range/Units 06:34 Sodium 132 L (137-145) mmol/L Potassium 3.6 (3.5-5.1) mmol/L Chloride 102 (98-107) mmol/L Carbon Dioxide 29 (22-30) mmol/L BUN 29 H (9-20) mg/dL Creatinine 0.65 L (0.66-1.25) mg/dL Glucose 116 H (74-99) mg/dL Calcium 8.1 L (8.4-10.2) mg/dL
[2023-08-30 16:21] LABS: Glucose,Whole Blood 242 mg/dL (70-110)
[2023-08-30] MEDS ORDERED: VANCOMYCIN IV PER PHARMACY 1 EACH MISC MISCELLANE PRN (17:36)
[2023-08-30] MEDS: VANCOMYCIN 2,000 MG in SODIUM CHLORIDE 0.9% 500 ML 500 ML IVPB STA (18:23)
[2023-08-30 20:16] LABS: Glucose,Whole Blood 269 mg/dL (70-110)
[2023-08-30] MEDS: OLANZapine 10 MG VIAL IM STA (22:33)
[2023-08-31 05:55] LABS: Glucose,Whole Blood 149 mg/dL (70-110)
[2023-08-31 09:02] LABS: Anisocytosis Slight; Basophils # (A) 0.1 k/uL (0-0.2); Basophils % (A) 1 %; Eosinophils # (A) 0.2 k/uL (0-0.7); Eosinophils % (A) 2 %; HCT 24.5 % (39.0-53.0); HGB 7.6 gm/dL (13.0-17.5); Hypochromasia Marked; Lymphocytes # (A) 1.3 k/uL (1.0-4.8); Lymphocytes % (A) 13 %; MCH 27.1 pg (25.0-35.0); MCV 87.4 fL (80.0-100.0); Mean Platelet Volume 7.7; Monocytes # (A) 0.6 k/uL (0-1.0); Monocytes % (A) 5 %; Neutrophils # (A) 8.2 k/uL (1.3-7.7); Neutrophils % (A) 78 %; Platelet Count 729 k/uL (150-450); Poikilocytosis Slight; RBC 2.81 m/uL (4.30-5.90); RDW 18.1 % (11.5-15.5); WBC 10.5 k/uL (3.8-10.6)
[2023-08-31] MEDS: IV FLUID CONTINUATION 200 ML IV ONE (09:03)
[2023-08-31 09:12] LABS: Glucose,Whole Blood 150 mg/dL (70-110)
[2023-08-31 09:31] LABS: African American GFR (CKD) >90 (>60 ml/min/1.73 sqM); Anion Gap 5 mmol/L; Blood Urea Nitrogen 36 mg/dL (9-20); Calcium 8.3 mg/dL (8.4-10.2); Carbon Dioxide 24 mmol/L (22-30); Chloride 103 mmol/L (98-107); Glucose 128 mg/dL (74-99); Non-African American GFR(CKD) >90 (>60 ml/min/1.73 sqM); Potassium 3.7 mmol/L (3.5-5.1); Sodium 132 mmol/L (137-145)
[2023-08-31] MEDS ORDERED: MIDAZOLAM 2 MG/2 ML VIAL ONE (09:40)
[2023-08-31] MEDS ORDERED: PROPOFOL 10 MG/ML 20 ML VIAL IV ONE (09:40)
[2023-08-31] MEDS ORDERED: KETAMINE HCL IN 0.9 % NACL 50 MG/5 ML SYRINGE ONE (09:40)
[2023-08-31] MEDS ORDERED: PHENYLEPHRINE 10 MG/ML VIAL ONE (09:40)
[2023-08-31] MEDS ORDERED: SUCCINYLCHOLINE CHLORIDE 200 MG/10 ML VIAL IV ONE (09:40)
[2023-08-31] MEDS: SODIUM CHLORIDE 0.9% 1,000 ML IV ONE (10:38)
--- NOTE | 2023-08-31 10:39 | P.OP ---
Date of Procedure: 08/31/23 Preoperative Diagnosis: Decubitus ulcer Postoperative Diagnosis: Sacral decubitus ulcer with necrosis of skin, subcutaneous fat and muscle Procedure(s) Performed: Debridement of sacral decubitus ulcer Anesthesia: FREDI Surgeon: Bradley Amaro Estimated Blood Loss (ml): 50 Pathology: other (Necrotic skin fat muscle) Condition: stable Disposition: PACU Description of Procedure: The patient was placed on the operative table in the prone position. H he received general intricately message. His decubitus ulcer was visualized. Patient had a large sacral decubitus ulcer measuring approximately 20 x 15 x 8 cm. Using a 15 blade the the nonviable tissue was divided. Electrocautery was then used for hemostasis. Once the necrotic tissue was removed. The coccyx gerd was seen. The wound was inspected. There is no bleeding seen. Surgicel powder was placed over the wound. The wound was then packed with wet-to-dry Kerlix. Patient Toller procedure well. He was sent to recovery room in stable condition.
[2023-08-31 10:57] LABS: Glucose,Whole Blood 148 mg/dL (70-110)
--- NOTE | 2023-08-31 11:14 | CA ---
Transthoracic Echo Report Name: Zeferino Briones Age: 77 Gender: M : 1945 Exam Date: 08/31/2023 07:55 Exam Location: [place] [facility] Ht (in): 70 Wt (lb): 300 Ordering Physician: Sapphire Vivas Attending/Referring Phys: [id number] Anesthesiology Teacher Procedure CPT: Indications: SOB, afib Cardiac Hx: Technical Quality: Fair Contrast 1: Total Dose (mL): Contrast 2: Total Dose (mL): MEASUREMENTS (Male / Female) Normal Values 2D ECHO LV Diastolic Diameter PLAX 3.2 cm 4.2 - 5.9 / 3.9 - 5.3 cm LV Systolic Diameter PLAX 2.9 cm IVS Diastolic Thickness 1.6 cm 0.6 - 1.0 / 0.6 - 0.9 cm LVPW Diastolic Thickness 1.1 cm 0.6 - 1.0 / 0.6 - 0.9 cm LV Relative Wall Thickness 0.9 Aortic Root Diameter 2.9 cm LA Systolic Diameter LX 4.0 cm 3.0 - 4.0 / 2.7 - 3.8 cm DOPPLER AV Peak Velocity 191.4 cm/s AV Peak Gradient 14.6 mmHg AV Mean Velocity 114.2 cm/s AV Mean Gradient 6.9 mmHg AV Velocity Time Integral 24.2 cm LVOT Peak Velocity 30.7 cm/s LVOT Peak Gradient 0.4 mmHg LVOT Velocity Time Integral 4.5 cm Mitral E Point Velocity 102.7 cm/s Mitral A Point Velocity 33.8 cm/s Mitral E to A Ratio 3.0 MV Deceleration Time 183.8 ms MV E' Velocity 5.1 cm/s Mitral E to MV E' Ratio 20.1 PV Peak Velocity 104.5 cm/s PV Peak Gradient 4.4 mmHg FINDINGS Left Ventricle Moderately increased septal wall thickness. Left ventricular ejection fraction is estimated at 55-60 %. Right Ventricle Mild right ventricular dilatation. Right Atrium Right atrium not well visualized. Left Atrium Left atrial size at the upper limits of normal. Mitral Valve Mitral valve not well visualized. Aortic Valve Mild aortic stenosis with a peak gradient of 15 mmHg and a mean gradient of 7 mmHg. Tricuspid Valve Tricuspid valve not well visualized. Pulmonic Valve Pulmonic valve not well visualized. Pericardium Normal pericardium. Aorta Aortic root and proximal ascending aorta not well visualized. CONCLUSIONS Previous echo recorded on 02/22/2023. Moderate increased left ventricular wall thickness Left ventricular ejection fraction 55-60% Technically difficult study Mild aortic stenosis No pericardial effusion Previewed by: Dr. Eric Chaidez DO (Electronically Signed) Final Date: 31 August 2023 11:13
[2023-08-31] MEDS: METOPROLOL TARTRATE 5 MG/5 ML VIAL IVP ONE (11:19)
[2023-08-31 12:48] LABS: Glucose,Whole Blood 159 mg/dL (70-110)
[2023-08-31] MEDS: CEFEPIME 2 GM in SODIUM CHLORIDE 0.9% 100 ML IVPB SCH (12:49)
--- NOTE | 2023-08-31 12:50 | P.PN ---
Subjective Progress Note Date: 08/31/23 patient is a 77 -year-old male past medical history significant for recent left below the knee amputation,coronary artery disease, chest pain with angina, diabetes mellitus, eye disorder, GERD, hyperlipidemia, hypertension, history of osteoarthritis, renal disease, sleep apnea, depression who presented to the hospital for abnormal labs and bleeding from the BKA site. Patient had blood work done at the [facility] with a found hemoglobin to be low, there is also complaint of bleeding from the BKA site. There is no complaint of blood in the stools. There was no complaint of fever or chills. There was no complaint nausea, vomiting abdominal pain. Patient denies any lethargy or weakness. There is no complaint of chest pain or shortness of breath. Initial lab work done in the ER showed WBC 13.6, hemoglobin 9, platelet count 801, sodium 132, potassium 4.6, BUN 27, creatinine 0.65 EKG done in the ER showed heart rate of 129, irregular in rhythm and rate, no ST segment elevation or depression seen, no T-wave inversions seen. Patient admitted to internal medicine service 08/28. Patient seen and examined. Heart rate is better controlled, wean off the Cardizem drip. Denies any lightheadedness or dizziness. 08/29. Patient seen and examined. Lying comfortably in the bed. No acute issues overnight. Patient has been diuresing well, swelling of right lower extremity has improved 08/30. Patient seen and examined.. Labs done this morning showed sodium 132, potassium 3.6, BUN 29, creatinine 0.65, states he feels much better. 08/31. Patient seen and examined. Patient underwent Debridement of sacral decubitus ulcer. Denies any Lethargy or weakness. Vital signs stable REVIEW OF SYSTEMS: CONSTITUTIONAL: No fever, no malaise,. CARDIOVASCULAR: No chest pain, no palpitations, no syncope. PULMONARY: No shortness of breath, no cough, GASTROINTESTINAL: No diarrhea, no nausea, no vomiting, no abdominal pain. NEUROLOGICAL: No headaches, no weakness, PHYSICAL EXAMINATION: GENERAL: The patient is alert and oriented x3, not in any acute distress. Well developed, well nourished. HEENT: Pupils are round and equally reacting to light. EOMI. No scleral icterus. No conjunctival pallor. Normocephalic, atraumatic. No pharyngeal erythema. No thyromegaly. CARDIOVASCULAR: S1 and S2 present. No murmurs, rubs, or gallops. IRRegular rate and rhythm PULMONARY: Chest is clear to auscultation, no wheezing or crackles. ABDOMEN: Soft, nontender, nondistended, normoactive bowel sounds. No palpable organomegaly. MUSCULOSKELETAL: Left BKA EXTREMITIES: 2+ pitting edema right lower extremity NEUROLOGICAL: Gross neurological examination did not reveal any focal deficits. SKIN: Sacral decub Assessment and plan Bleeding from left BKA site A-fib with RVR chronic nonhealing wound sacral area Anemia, likely secondary to chronic kidney disease with acute blood loss anemia, hemoglobin is 7.1 and is being transfused 1 unit of PRBC History of diabetes mellitus, insulin-dependent, uncontrolled with hyper and hypoglycemia GERD Hyperlipidemia Hypertension Osteoarthritis Chronic kidney disease stage III Obstructive sleep apnea with a CPAP History of depression Morbid obesity with a BMI of 40.5 Monitor vital signs Monitor CBC Monitor CMP Continue telemetry monitoring Continue Lopressor Continue Eliquis Strict I's and O's, daily weights, continue IV Lasix 40 mg every 12 Monitor blood sugar levels, continue sliding scale insulin and Lantus 25 units at night Continue wound care Continue wound VAC Vascular surgery following Cardiology following. ID ordered CT sacrum, negative for any fluid collection or abscess, recommend holding off antibiotics General surgery consulted for sacral wound , underwent debridement of sacral decubitus ulcer Labs and medication were reviewed.. Continue same treatment. Continue with symptomatic treatment. Resume home medication. Monitor labs and vitals. DVT and GI prophylaxis. Further recommendations as per clinical course of the patient Dictation was produced using [employer] dictation software. please excuse any grammatical, word or spelling errors. Objective - Vital Signs Vital signs: Vital Signs Temp 98.3 F 08/31/23 09:06 Pulse 99 08/31/23 09:06 Resp 16 08/31/23 09:06 BP 127/58 08/31/23 09:06 Pulse Ox 98 08/31/23 09:06 FiO2 Intake & Output 08/30/23 08/31/23 08/31/23 18:59 06:59 18:59 Intake Total 520 Output Total 200 Balance 320 Weight 125.5 kg Intake: Oral 520 Output: Urine 200 Other: Voiding Method External Catheter External Catheter # Voids 1 # Bowel Movements 1 - Labs CBC & Chem 7: 08/31/23 08:24 08/31/23 08:24 Labs: Abnormal Lab Results - Last 24 Hours (Table) 08/30/23 08/30/23 08/30/23 Range/Units 11:42 16:20 20:15 RBC (4.30-5.90) m/uL Hgb (13.0-17.5) gm/dL Hct (39.0-53.0) % RDW (11.5-15.5) % Plt Count (150-450) k/uL Neutrophils # (1.3-7.7) k/uL Sodium (137-145) mmol/L BUN (9-20) mg/dL Creatinine (0.66-1.25) mg/dL Glucose (74-99) mg/dL POC Glucose (mg/dL) 163 H 242 H 269 H (70-110) mg/dL Calcium (8.4-10.2) mg/dL 08/31/23 08/31/23 08/31/23 Range/Units 05:54 08:24 08:24 RBC 2.81 L (4.30-5.90) m/uL Hgb 7.6 L (13.0-17.5) gm/dL Hct 24.5 L (39.0-53.0) % RDW 18.1 H (11.5-15.5) % Plt Count 729 H (150-450) k/uL Neutrophils # 8.2 H (1.3-7.7) k/uL Sodium 132 L (137-145) mmol/L BUN 36 H (9-20) mg/dL Creatinine 0.57 L (0.66-1.25) mg/dL Glucose 128 H (74-99) mg/dL POC Glucose (mg/dL) 149 H (70-110) mg/dL Calcium 8.3 L (8.4-10.2) mg/dL 08/31/23 Range/Units 09:08 RBC (4.30-5.90) m/uL Hgb (13.0-17.5) gm/dL Hct (39.0-53.0) % RDW (11.5-15.5) % Plt Count (150-450) k/uL Neutrophils # (1.3-7.7) k/uL Sodium (137-145) mmol/L BUN (9-20) mg/dL Creatinine (0.66-1.25) mg/dL Glucose (74-99) mg/dL POC Glucose (mg/dL) 150 H (70-110) mg/dL Calcium (8.4-10.2) mg/dL Microbiology - Last 24 Hours (Table) 08/29/23 15:22 Blood Culture - Preliminary Blood 08/27/23 20:40 Gram Stain - Preliminary Buttock Wound Culture - Preliminary Gram Neg Bacilli Presumptive MRSA
[2023-08-31] MEDS: VANCOMYCIN 2,000 MG in SODIUM CHLORIDE 0.9% 500 ML 500 ML IVPB SCH ×2 (13:01→23:51)
[2023-08-31 14:38] VITALS: BMI 39.6
[2023-08-31 16:23] LABS: Glucose,Whole Blood 227 mg/dL (70-110)
[2023-08-31] MEDS ORDERED: CEFEPIME 2 GM in SODIUM CHLORIDE 0.9% 100 ML IVPB SCH (18:00)
[2023-08-31] MEDS: LIDOCAINE 1% INJ 10MG/ML (5 ML VIAL-PF) SQ ONE (18:04)
--- NOTE | 2023-08-31 18:15 | P.PCN ---
Date of Procedure: 08/31/23 Preoperative Diagnosis: Sacral wound, infection, need for antibiotics Postoperative Diagnosis: same Procedure(s) Performed: Left upper extremity cephalic PICC placement under ultrasound and fluoroscopic guidance Anesthesia: local Surgeon: Efrain Betts Pathology: none sent Condition: stable Disposition: floor Description of Procedure: After written and informed consent was obtained the patient and all risks, benefits and competitions were described the patient was brought to the [facility] and laid in a supine position with his left arm outstretched on an armboard. The area of the left arm was prepped and draped in usual sterile fashion. Timeout was performed in normal fashion. Utilizing ultrasound the cephalic vein was visualized and shown to be compressible without any visible thrombus. Under ultrasound guidance the cephalic vein was then cannulated with a micropuncture needle and wire was placed under direct visualization of fluoroscopy. Introducer sheath was then placed. The catheter was measured and cut to the appropriate length which was T1 cm. The catheter was then guided through the breakaway sheath and the sheath was removed with good positioning was visualized under fluoroscopy. The catheter was pulled and flushed easily. It was then secured in place in normal fashion. Patient tolerated the procedure well was sent back to his room for recovery.
--- NOTE | 2023-08-31 19:20 | IR ---
EXAMINATION TYPE: IR cvc insert >=5 years DATE OF EXAM: 08/31/2023 FLUOROSCOPY ABX, 51cm, left cephalic vein, 0.7min fluoro, 1.7Gycm2. 45 images provided.
[2023-08-31 20:36] LABS: Glucose,Whole Blood 280 mg/dL (70-110)
[2023-09-01 01:55] LABS: Glucose,Whole Blood 196 mg/dL (70-110)
[2023-09-01 06:04] LABS: Glucose,Whole Blood 177 mg/dL (70-110)
[2023-09-01 08:58] LABS: African American GFR (CKD) >90 (>60 ml/min/1.73 sqM); Anion Gap 5 mmol/L; Blood Urea Nitrogen 37 mg/dL (9-20); Calcium 7.8 mg/dL (8.4-10.2); Carbon Dioxide 23 mmol/L (22-30); Chloride 104 mmol/L (98-107); Glucose 141 mg/dL (74-99); Non-African American GFR(CKD) >90 (>60 ml/min/1.73 sqM); Potassium 3.6 mmol/L (3.5-5.1); Sodium 132 mmol/L (137-145)
--- NOTE | 2023-09-01 10:58 | P.PN ---
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 Patient is a 77-year-old male with a past medical history significant for coronary artery disease hypertension hyperlipidemia osteoarthritis renal disease recently had admitted to this facility and this patient is status post left below the knee amputation for chronic nonhealing wound to the left lower extremity, patient brought back to the hospital concerning for low hemoglobin vascular surgery evaluate the patient mention no infection to the left BKA stump also noticed to have a stage IV sacral pressure ulcer with the wound exposed further workup today shows concerning for osteomyelitis on the basis of CT.Patient is s/p surgical debridement of the necrotic sacral pressure ulcer completed by surgery on 08/31/2023 On today's evaluation that is 08/31/2023, Patient is afebrile , patient is currently on room air patient is currently slightly sleepy lethargic after the procedure and did not answer any question vomiting diarrhea or any other changes reported by the nursing staff. Patient did have white count of 10.5, creatinine 0.57 cultures came back positive with Pseudomonas and MRSA Objective - Vital Signs Vital signs: Vital Signs Temp 98.0 F 08/31/23 10:45 Pulse 95 08/31/23 12:03 Resp 16 08/31/23 12:03 BP 110/55 08/31/23 12:03 Pulse Ox 98 08/31/23 12:03 FiO2 Intake & Output 08/30/23 08/31/23 08/31/23 18:59 06:59 18:59 Intake Total 520 200 Output Total 200 20 Balance 320 180 Weight 125.5 kg Intake: IV 200 Oral 520 Output: Urine 200 Estimated Blood Loss 20 Other: Voiding Method External Catheter External Catheter # Voids 1 # Bowel Movements 1 - Exam GENERAL DESCRIPTION: An elderly male lying in bed in no distress RESPIRATORY SYSTEM: Unlabored breathing , decreased breath sounds at bases HEART: S1 S2 regular rate and rhythm , ABDOMEN: Soft , no tenderness EXTREMITIES: Left BKA stump covered with a wound VAC - Labs CBC & Chem 7: 08/31/23 08:24 09/01/23 07:43 Labs: Abnormal Lab Results - Last 24 Hours (Table) 08/30/23 08/30/23 08/31/23 Range/Units 16:20 20:15 05:54 RBC (4.30-5.90) m/uL Hgb (13.0-17.5) gm/dL Hct (39.0-53.0) % RDW (11.5-15.5) % Plt Count (150-450) k/uL Neutrophils # (1.3-7.7) k/uL Sodium (137-145) mmol/L BUN (9-20) mg/dL Creatinine (0.66-1.25) mg/dL Glucose (74-99) mg/dL POC Glucose (mg/dL) 242 H 269 H 149 H (70-110) mg/dL Calcium (8.4-10.2) mg/dL 08/31/23 08/31/23 08/31/23 Range/Units 08:24 08:24 09:08 RBC 2.81 L (4.30-5.90) m/uL Hgb 7.6 L (13.0-17.5) gm/dL Hct 24.5 L (39.0-53.0) % RDW 18.1 H (11.5-15.5) % Plt Count 729 H (150-450) k/uL Neutrophils # 8.2 H (1.3-7.7) k/uL Sodium 132 L (137-145) mmol/L BUN 36 H (9-20) mg/dL Creatinine 0.57 L (0.66-1.25) mg/dL Glucose 128 H (74-99) mg/dL POC Glucose (mg/dL) 150 H (70-110) mg/dL Calcium 8.3 L (8.4-10.2) mg/dL 08/31/23 Range/Units 10:52 RBC (4.30-5.90) m/uL Hgb (13.0-17.5) gm/dL Hct (39.0-53.0) % RDW (11.5-15.5) % Plt Count (150-450) k/uL Neutrophils # (1.3-7.7) k/uL Sodium (137-145) mmol/L BUN (9-20) mg/dL Creatinine (0.66-1.25) mg/dL Glucose (74-99) mg/dL POC Glucose (mg/dL) 148 H (70-110) mg/dL Calcium (8.4-10.2) mg/dL Microbiology - Last 24 Hours (Table) 08/27/23 20:40 Gram Stain - Final Buttock Wound Culture - Final Pseudomonas aeruginosa Methicillin resist S. aureus 08/29/23 15:22 Blood Culture - Preliminary Blood Assessment and Plan (1) Stage IV pressure ulcer of sacral region Current Visit: Yes Status: Acute Code(s): L89.154 - PRESSURE ULCER OF SACRAL REGION, STAGE 4 SNOMED Code(s): 77213522927109 (2) Sacral osteomyelitis Current Visit: Yes Status: Acute Code(s): M46.28 - OSTEOMYELITIS OF VERTEBRA, SACRAL AND SACROCOCCYGEAL REGION SNOMED Code(s): 883395605 (3) Elevated WBCs Current Visit: No Status: Acute Code(s): D72.829 - ELEVATED WHITE BLOOD CELL COUNT, UNSPECIFIED SNOMED Code(s): 812419414 (4) MRSA (methicillin resistant staph aureus) culture positive Current Visit: Yes Status: Acute Code(s): Z22.322 - CARRIER OR SUSPECTED CARRIER OF METHICILLIN RESIS STAPH SNOMED Code(s): 601396297 (5) Pseudomonas aeruginosa infection Current Visit: Yes Status: Acute Code(s): A49.8 - OTHER BACTERIAL INFECTIONS OF UNSPECIFIED SITE SNOMED Code(s): 21805089 Plan: 1patient with a chronic nonhealing wound to the sacral area which is a stage IV ulcer with a bone palpable concerning for sacral osteomyelitis 2-leukocytosis more likely related to the sacral pressure ulcer versus reactive to the anemia/bleed 3-left BKA stump is currently covered with a wound VAC and cannot be accessed for any signs of infection though vascular surgery note mention no concern for infection 4-CT of the sacrum is suspicious for bony destruction and possible osteomyelitis, the patient is status post surgical debridement of the necrotic tissue 5-local cultures came back positive for MRSA and Pseudomonas, patient has been started on vancomycin pharmacy to dose while watching his kidney function closely in addition to the cefepime will need a PICC line for outpatient IV antibiotic therapy PICC line has been ordered Dictation was produced using [employer] dictation software. please excuse any grammatical, word or spelling errors. Time with Patient: Less than 30
--- NOTE | 2023-09-01 11:20 | P.PN ---
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 Patient is a 77-year-old male with a past medical history significant for coronary artery disease hypertension hyperlipidemia osteoarthritis renal disease recently had admitted to this facility and this patient is status post left below the knee amputation for chronic nonhealing wound to the left lower extremity, patient brought back to the hospital concerning for low hemoglobin vascular surgery evaluate the patient mention no infection to the left BKA stump also noticed to have a stage IV sacral pressure ulcer with the wound exposed further workup today shows concerning for osteomyelitis on the basis of CT.Patient is s/p surgical debridement of the necrotic sacral pressure ulcer completed by surgery on 08/31/2023 On today's evaluation that is 09/01/2023,the patient denies any fever or any chills, patient is breathing comfortably on room air, the patient denies chest pain shortness of breath and no significant cough, patient denies abdominal pain, no nausea vomiting or diarrhea. And no worsening pain to the sacral wound left BKA wound. Patient did have a creatinine 0.59 Objective - Vital Signs Vital signs: Vital Signs Temp 98.4 F 09/01/23 08:00 Pulse 97 09/01/23 08:00 Resp 20 09/01/23 08:00 BP 119/57 09/01/23 08:00 Pulse Ox 99 09/01/23 08:00 FiO2 Intake & Output 08/31/23 09/01/23 09/01/23 18:59 06:59 18:59 Intake Total 800 1500 590 Output Total 1870 1000 1150 Balance -1070 500 -560 Weight 125.5 kg 124 kg Intake: IV 200 Oral 600 1500 590 Output: Drainage 50 Left Calf 50 Urine 1850 1000 1100 Estimated Blood Loss 20 Other: Voiding Method External Catheter External Catheter External Catheter - Exam GENERAL DESCRIPTION: An elderly male lying in bed in no distress RESPIRATORY SYSTEM: Unlabored breathing , decreased breath sounds at bases HEART: S1 S2 regular rate and rhythm , ABDOMEN: Soft , no tenderness EXTREMITIES: Left BKA stump covered with a wound VAC - Labs CBC & Chem 7: 08/31/23 08:24 09/01/23 07:43 Labs: Abnormal Lab Results - Last 24 Hours (Table) 08/31/23 08/31/23 08/31/23 Range/Units 12:46 16:22 20:35 Sodium (137-145) mmol/L BUN (9-20) mg/dL Creatinine (0.66-1.25) mg/dL Glucose (74-99) mg/dL POC Glucose (mg/dL) 159 H 227 H 280 H (70-110) mg/dL Calcium (8.4-10.2) mg/dL 09/01/23 09/01/23 09/01/23 Range/Units 01:52 06:03 07:43 Sodium 132 L (137-145) mmol/L BUN 37 H (9-20) mg/dL Creatinine 0.59 L (0.66-1.25) mg/dL Glucose 141 H (74-99) mg/dL POC Glucose (mg/dL) 196 H 177 H (70-110) mg/dL Calcium 7.8 L (8.4-10.2) mg/dL Microbiology - Last 24 Hours (Table) 08/29/23 15:22 Blood Culture - Preliminary Blood 08/31/23 10:10 Gram Stain - Preliminary Other - Other 08/27/23 20:40 Gram Stain - Final Buttock Wound Culture - Final Pseudomonas aeruginosa Methicillin resist S. aureus Assessment and Plan (1) Stage IV pressure ulcer of sacral region Current Visit: Yes Status: Acute Code(s): L89.154 - PRESSURE ULCER OF SACRAL REGION, STAGE 4 SNOMED Code(s): 21441835346095 (2) Sacral osteomyelitis Current Visit: Yes Status: Acute Code(s): M46.28 - OSTEOMYELITIS OF VERTEBRA, SACRAL AND SACROCOCCYGEAL REGION SNOMED Code(s): 690492479 (3) Elevated WBCs Current Visit: No Status: Acute Code(s): D72.829 - ELEVATED WHITE BLOOD CELL COUNT, UNSPECIFIED SNOMED Code(s): 443343650 (4) MRSA (methicillin resistant staph aureus) culture positive Current Visit: Yes Status: Acute Code(s): Z22.322 - CARRIER OR SUSPECTED CARRIER OF METHICILLIN RESIS STAPH SNOMED Code(s): 387194530 (5) Pseudomonas aeruginosa infection Current Visit: Yes Status: Acute Code(s): A49.8 - OTHER BACTERIAL INFECTIONS OF UNSPECIFIED SITE SNOMED Code(s): 24139922 Plan: 1patient with a chronic nonhealing wound to the sacral area which is a stage IV ulcer with a bone palpable concerning for sacral osteomyelitis 2-leukocytosis more likely related to the sacral pressure ulcer versus reactive to the anemia/bleed 3-left BKA stump is currently covered with a wound VAC and cannot be accessed for any signs of infection though vascular surgery note mention no concern for infection 4-CT of the sacrum is suspicious for bony destruction and possible osteomyelitis, the patient is status post surgical debridement of the necrotic tissue 5-local cultures came back positive for MRSA and Pseudomonas, patient did get a PICC line this morning 6-plan is for 6-week course of IV vancomycin pharmacy to dose and cefepime 2 g. Every 8 hour with weekly monitoring of CRP and sed rate and close outpatient follow-up Dictation was produced using [employer] dictation software. please excuse any gra mmatical, word or spelling errors. Time with Patient: Less than 30
[2023-09-01 11:21] LABS: Glucose,Whole Blood 274 mg/dL (70-110)
--- NOTE | 2023-09-01 13:12 | P.PN ---
Subjective Progress Note Date: 09/01/23 patient is a 77 -year-old male past medical history significant for recent left below the knee amputation,coronary artery disease, chest pain with angina, diabetes mellitus, eye disorder, GERD, hyperlipidemia, hypertension, history of osteoarthritis, renal disease, sleep apnea, depression who presented to the hospital for abnormal labs and bleeding from the BKA site. Patient had blood work done at the [facility] with a found hemoglobin to be low, there is also complaint of bleeding from the BKA site. There is no complaint of blood in the stools. There was no complaint of fever or chills. There was no complaint nausea, vomiting abdominal pain. Patient denies any lethargy or weakness. There is no complaint of chest pain or shortness of breath. Initial lab work done in the ER showed WBC 13.6, hemoglobin 9, platelet count 801, sodium 132, potassium 4.6, BUN 27, creatinine 0.65 EKG done in the ER showed heart rate of 129, irregular in rhythm and rate, no ST segment elevation or depression seen, no T-wave inversions seen. Patient admitted to internal medicine service 08/28. Patient seen and examined. Heart rate is better controlled, wean off the Cardizem drip. Denies any lightheadedness or dizziness. 08/29. Patient seen and examined. Lying comfortably in the bed. No acute issues overnight. Patient has been diuresing well, swelling of right lower extremity has improved 08/30. Patient seen and examined.. Labs done this morning showed sodium 132, potassium 3.6, BUN 29, creatinine 0.65, states he feels much better. 08/31. Patient seen and examined. Patient underwent Debridement of sacral decubitus ulcer. Denies any Lethargy or weakness. Vital signs stable 09/01. Patient seen and examined. Currently on vancomycin and cefepime, ID recommends 6 weeks of antibiotics. Patient is lethargic this morning. REVIEW OF SYSTEMS: CONSTITUTIONAL: No fever, no malaise,. CARDIOVASCULAR: No chest pain, no palpitations, no syncope. PULMONARY: No shortness of breath, no cough, GASTROINTESTINAL: No diarrhea, no nausea, no vomiting, no abdominal pain. NEUROLOGICAL: No headaches, no weakness, PHYSICAL EXAMINATION: GENERAL: The patient is lethargic, not in any acute distress. Chronically ill looking HEENT: Pupils are round and equally reacting to light. EOMI. No scleral icterus. No conjunctival pallor. Normocephalic, atraumatic. No pharyngeal erythema. No thyromegaly. CARDIOVASCULAR: S1 and S2 present. No murmurs, rubs, or gallops. IRRegular rate and rhythm PULMONARY: Chest is clear to auscultation, no wheezing or crackles. ABDOMEN: Soft, nontender, nondistended, normoactive bowel sounds. No palpable organomegaly. MUSCULOSKELETAL: Left BKA EXTREMITIES: 2+ pitting edema right lower extremity NEUROLOGICAL: Gross neurological examination did not reveal any focal deficits. SKIN: Sacral decub Assessment and plan Bleeding from left BKA site Sacral osteomyelitis A-fib with RVR chronic nonhealing wound sacral area Anemia, likely secondary to chronic kidney disease with acute blood loss anemia, hemoglobin is 7.1 and is being transfused 1 unit of PRBC History of diabetes mellitus, insulin-dependent, uncontrolled with hyper and hypoglycemia GERD Hyperlipidemia Hypertension Osteoarthritis Chronic kidney disease stage III Obstructive sleep apnea with a CPAP History of depression Morbid obesity with a BMI of 40.5 Monitor vital signs Monitor CBC Monitor CMP Continue telemetry monitoring Continue Lopressor Continue Eliquis Strict I's and O's, daily weights, continue IV Lasix 40 mg every 12 Monitor blood sugar levels, continue sliding scale insulin and Lantus 25 units at night Continue wound care Continue wound VAC cultures came back positive for MRSA and Pseudomonas, patient did get a PICC line this morning Continue IV vancomycin pharmacy to dose and cefepime 2 g. Vascular surgery following Cardiology following. ID recommends 6 weeks of IV antibiotics, PICC line ordered General surgery consulted for sacral wound , underwent debridement of sacral decubitus ulcer Labs and medication were reviewed.. Continue same treatment. Continue with sym ptomatic treatment. Resume home medication. Monitor labs and vitals. DVT and GI prophylaxis. Further recommendations as per clinical course of the patient Dictation was produced using [employer] dictation software. please excuse any grammatical, word or spelling errors. Objective - Vital Signs Vital signs: Vital Signs Temp 98.4 F 09/01/23 08:00 Pulse 87 09/01/23 11:34 Resp 18 09/01/23 11:34 BP 113/55 09/01/23 11:34 Pulse Ox 98 09/01/23 11:34 FiO2 Intake & Output 08/31/23 09/01/23 09/01/23 18:59 06:59 18:59 Intake Total 800 1500 590 Output Total 1870 1000 1650 Balance -1070 500 -1060 Weight 125.5 kg 124 kg Intake: IV 200 Oral 600 1500 590 Output: Drainage 50 Left Calf 50 Urine 1850 1000 1600 Estimated Blood Loss 20 Other: Voiding Method External Catheter External Catheter External Catheter - Labs CBC & Chem 7: 08/31/23 08:24 09/01/23 07:43 Labs: Abnormal Lab Results - Last 24 Hours (Table) 08/31/23 08/31/23 09/01/23 Range/Units 16:22 20:35 01:52 Sodium (137-145) mmol/L BUN (9-20) mg/dL Creatinine (0.66-1.25) mg/dL Glucose (74-99) mg/dL POC Glucose (mg/dL) 227 H 280 H 196 H (70-110) mg/dL Calcium (8.4-10.2) mg/dL 09/01/23 09/01/23 09/01/23 Range/Units 06:03 07:43 11:19 Sodium 132 L (137-145) mmol/L BUN 37 H (9-20) mg/dL Creatinine 0.59 L (0.66-1.25) mg/dL Glucose 141 H (74-99) mg/dL POC Glucose (mg/dL) 177 H 274 H (70-110) mg/dL Calcium 7.8 L (8.4-10.2) mg/dL Microbiology - Last 24 Hours (Table) 08/29/23 15:22 Blood Culture - Preliminary Blood 08/31/23 10:10 Gram Stain - Preliminary Other - Other 08/27/23 20:40 Gram Stain - Final Buttock Wound Culture - Final Pseudomonas aeruginosa Methicillin resist S. aureus
--- NOTE | 2023-09-01 13:42 | P.PN ---
Subjective Progress Note Date: 09/01/23 HISTORY OF PRESENTING ILLNESS This is a pleasant 77-year-old male past medical history significant for hypertension, hyperlipidemia, diabetes mellitus, chronic nonhealing wound status post left below the knee amputation and persistent atrial fibrillation. He does not follow regularly in the office. He last saw Dr. Sierra in 2020. We have been asked to see in consultation for atrial fibrillation with rapid ventricular rate. He was just diagnosed with atrial fib new-onset earlier this month status post left BKA. He was properly anticoagulated and was discharged to [facility]. He was sent back for bleeding at the stump. A wound VAC is now in place. He remains in atrial fib with controlled ventricular rates. DIAGNOSTICS EKG reveals atrial fib heart rate 129. Telemetry tracings indicate atrial fib. Laboratory reviewed, WBC 11.5, hemoglobin 7.6, platelets 703, sodium 132, potassium 3.9, creatinine 0.63. Current cardiac medications include Lopressor 37.5 mg twice a day, Lasix 40 mg daily, farxiga 10 mg daily, atorvastatin 20 mg daily, aspirin 81 mg daily and 5 mg twice a day. Most recent echocardiogram February 2023 revealed preserved LV systolic function with ejection fraction 55-60%, difficult study due to body habitus however there appears to be a gradient across the aortic and mitral valve of mild degree. 08/29/2023 Patient seen and examined sitting up in bed in no acute distress. Blood pressure 122/65 heart rate 89 afebrile maintaining oxygen saturation on room air. Laboratory data reviewed, WBC 10.2, hemoglobin 7.7, platelets 674, sodium 131, potassium 3.9, creatinine 0.63. Urine output for the previous 24 hours is 3.8 L. Telemetry tracings reviewed, he continues to be in atrial fib with controlled rate in the 80s. 08/30 Patient has been maintained on IV Lasix 40 mg every 12 hours as well as Farxiga 10 mg daily, aspirin and atorvastatin and Lopressor 37.5 mg twice daily. Cardizem drip is at 5 mg/h which is continued. Eliquis is on hold for wound debridement. Wound VAC in place. Heart rate is in the 80s, blood pressure 120/57, pulse ox 97% on room air. Patient remains in atrial fibrillation. Repeat blood work reveals sodium 132, potassium 3.6, BUN 29 creatinine 0.65. 09/01 Yesterday, patient underwent I&D of sacral wound. He has been resumed back on Eliquis. Patient continues to have significant lower extremity edema and also upper extremity more so on the left upper extremity. He has been maintained on IV Lasix 40 mg every 12 hours. Patient is also on IV antibiotics with cefepime and vancomycin. Patient has a negative fluid balance today of 570 mL. His weight appears to be down 12 kg. Repeat blood work reveals sodium 132, potass ium 3.6, BUN 37 creatinine 0.59. Echocardiogram reveals EF of 55 to 60%, mild aortic stenosis. No pericardial effusion. PHYSICAL EXAMINATION VSS CONSTITUTIONAL: No apparent distress. Generalized anasarca. HEENT: Head is normocephalic. Pupils are equal, round. Sclerae anicteric. Mucous membranes of the mouth are moist. No JVD. No carotid bruit. CHEST EXAMINATION: Lungs are clear to auscultation. No chest wall tenderness is noted on palpation or with deep breathing. HEART EXAMINATION: Irregular rate and rhythm. S1, S2 heard. Systolic ejection murmur at the base. ABDOMEN: Soft, nontender. EXTREMITIES: Wound vac to left BKA stump, generalized edema of his extremities, 1-2+ NEUROLOGIC EXAMINATION: Patient is awake, alert and oriented x3. ASSESSMENT Persistent atrial fibrillation with rapid ventricular rate Generalized anasarca Chronic kidney disease Anemia Hypertension Hyperlipidemia Status post left BKA Peripheral arterial disease PLAN Continue IV diuresis. Continue current cardiac medications Eliquis has been resumed Monitor AGUILA, daily weights, electrolytes and renal function Further recommendations to follow based upon clinical course. Nurse Practitioner note has been reviewed, I agree with a documented findings and plan of care. Patient was seen and examined. Objective - Vital Signs Vital signs: Vital Signs Temp 98.9 F 09/01/23 03:27 Pulse 91 09/01/23 03:27 Resp 20 09/01/23 03:27 BP 121/66 09/01/23 03:27 Pulse Ox 100 09/01/23 03:27 FiO2 Intake & Output 08/31/23 09/01/23 09/01/23 18:59 06:59 18:59 Intake Total 800 1500 Output Total 1870 1000 Balance -1070 500 Weight 125.5 kg 124 kg Intake: IV 200 Oral 600 1500 Output: Urine 1850 1000 Estimated Blood Loss 20 Other: Voiding Method External Catheter External Catheter - Labs CBC & Chem 7: 08/31/23 08:24 09/01/23 07:43 Labs: Abnormal Lab Results - Last 24 Hours (Table) 08/31/23 08/31/23 08/31/23 Range/Units 08:24 08:24 09:08 RBC 2.81 L (4.30-5.90) m/uL Hgb 7.6 L (13.0-17.5) gm/dL Hct 24.5 L (39.0-53.0) % RDW 18.1 H (11.5-15.5) % Plt Count 729 H (150-450) k/uL Neutrophils # 8.2 H (1.3-7.7) k/uL Sodium 132 L (137-145) mmol/L BUN 36 H (9-20) mg/dL Creatinine 0.57 L (0.66-1.25) mg/dL Glucose 128 H (74-99) mg/dL POC Glucose (mg/dL) 150 H (70-110) mg/dL Calcium 8.3 L (8.4-10.2) mg/dL 08/31/23 08/31/23 08/31/23 Range/Units 10:52 12:46 16:22 RBC (4.30-5.90) m/uL Hgb (13.0-17.5) gm/dL Hct (39.0-53.0) % RDW (11.5-15.5) % Plt Count (150-450) k/uL Neutrophils # (1.3-7.7) k/uL Sodium (137-145) mmol/L BUN (9-20) mg/dL Creatinine (0.66-1.25) mg/dL Glucose (74-99) mg/dL POC Glucose (mg/dL) 148 H 159 H 227 H (70-110) mg/dL Calcium (8.4-10.2) mg/dL 08/31/23 09/01/23 09/01/23 Range/Units 20:35 01:52 06:03 RBC (4.30-5.90) m/uL Hgb (13.0-17.5) gm/dL Hct (39.0-53.0) % RDW (11.5-15.5) % Plt Count (150-450) k/uL Neutrophils # (1.3-7.7) k/uL Sodium (137-145) mmol/L BUN (9-20) mg/dL Creatinine (0.66-1.25) mg/dL Glucose (74-99) mg/dL POC Glucose (mg/dL) 280 H 196 H 177 H (70-110) mg/dL Calcium (8.4-10.2) mg/dL Microbiology - Last 24 Hours (Table) 08/29/23 15:22 Blood Culture - Preliminary Blood 08/31/23 10:10 Gram Stain - Preliminary Other - Other 08/27/23 20:40 Gram Stain - Final Buttock Wound Culture - Final Pseudomonas aeruginosa Methicillin resist S. aureus
--- NOTE | 2023-09-01 15:21 | P.PN ---
Subjective Progress Note Date: 09/01/23 CHIEF COMPLAINT: Sacral decubitus ulcer HISTORY OF PRESENT ILLNESS: Patient is postop day #1 status postdebridement of sacral decubitus ulcer PHYSICAL EXAM: VITAL SIGNS: Reviewed. GENERAL: Well-developed in no acute distress. HEENT: No sclera icterus. Extraocular movements grossly intact. Moist buccal mucosa. Head is atraumatic, normocephalic. ABDOMEN: Soft. Nondistended. Nontender. NEUROLOGIC: Alert and oriented. Cranial nerves II through XII grossly intact. ASSESSMENT: 1. 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 Signing provider agrees with the documented findings, assessment, and plan of care. Objective - Vital Signs Vital signs: Vital Signs Temp 98.4 F 09/01/23 08:00 Pulse 87 09/01/23 11:34 Resp 18 09/01/23 11:34 BP 113/55 09/01/23 11:34 Pulse Ox 98 09/01/23 11:34 FiO2 Intake & Output 08/31/23 09/01/23 09/01/23 18:59 06:59 18:59 Intake Total 800 1500 590 Output Total 1870 1000 1650 Balance -1070 500 -1060 Weight 125.5 kg 124 kg Intake: IV 200 Oral 600 1500 590 Output: Drainage 50 Left Calf 50 Urine 1850 1000 1600 Estimated Blood Loss 20 Other: Voiding Method External Catheter External Catheter External Catheter - Labs CBC & Chem 7: 08/31/23 08:24 09/01/23 07:43 Labs: Abnormal Lab Results - Last 24 Hours (Table) 08/31/23 08/31/23 08/31/23 Range/Units 12:46 16:22 20:35 Sodium (137-145) mmol/L BUN (9-20) mg/dL Creatinine (0.66-1.25) mg/dL Glucose (74-99) mg/dL POC Glucose (mg/dL) 159 H 227 H 280 H (70-110) mg/dL Calcium (8.4-10.2) mg/dL 09/01/23 09/01/23 09/01/23 Range/Units 01:52 06:03 07:43 Sodium 132 L (137-145) mmol/L BUN 37 H (9-20) mg/dL Creatinine 0.59 L (0.66-1.25) mg/dL Glucose 141 H (74-99) mg/dL POC Glucose (mg/dL) 196 H 177 H (70-110) mg/dL Calcium 7.8 L (8.4-10.2) mg/dL 09/01/23 Range/Units 11:19 Sodium (137-145) mmol/L BUN (9-20) mg/dL Creatinine (0.66-1.25) mg/dL Glucose (74-99) mg/dL POC Glucose (mg/dL) 274 H (70-110) mg/dL Calcium (8.4-10.2) mg/dL Microbiology - Last 24 Hours (Table) 08/29/23 15:22 Blood Culture - Preliminary Blood 08/31/23 10:10 Gram Stain - Preliminary Other - Other 08/27/23 20:40 Gram Stain - Final Buttock Wound Culture - Final Pseudomonas aeruginosa Methicillin resist S. aureus
[2023-09-01 16:26] LABS: Glucose,Whole Blood 310 mg/dL (70-110)
[2023-09-01] MEDS ORDERED: DEXTROSE 50% SYRINGE 50 ML IVP PRN ×2 (16:28)
[2023-09-01] MEDS: INSULIN ASPART (NovoLOG) 100 UNIT/ML VIAL SQ SCH (17:06)
[2023-09-01 20:30] LABS: Glucose,Whole Blood 231 mg/dL (70-110)
[2023-09-01] MEDS: APIXABAN 5 MG TAB PO SCH (21:02)
[2023-09-02 05:43] LABS: Glucose,Whole Blood 129 mg/dL (70-110)
--- NOTE | 2023-09-02 09:58 | CDI ---
Documentation Clarification Form Date: 09/02/2023 09:43:46 AM From: Gayathri Maxwell RN, CCDS Phone: [phone] Admit Date: 08/27/2023 01:04:00 PM Patient Name: Zeferino Briones Visit Number: [id number] Discharge Date: ATTENTION: The Clinical Documentation Specialists (CDI) and [facility] Coding Staff appreciate your assistance in clarifying documentation. Please respond to the clarification below the line at the bottom and electronically sign. The CDI & [facility] Coding staff will review the response and follow-up if needed. Please note: Queries are made part of the Legal Health Record. If you have any questions, please contact the author of this message via ITS. Dr. Bradley Amaro A debridement is documented in the operative4 note on 08/31/23. Additional clarification regarding the procedure is requested. History/Risk Factors: Stage IV sacral pressure ulcer, coronary artery disease, hypertension. hyperlipidemia Clinical Indicators: 77-year-old male noticed to have a stage IV sacral pressure ulcer with the wound exposed further workup today shows concerning for osteomyelitis. The large sacral decubitus ulcer measuring approximately 20 x 15 x 8 cm. Operative note: Using a 15 blade the nonviable tissue was divided. Electrocautery was then used for hemostasis. Once the necrotic tissue was removed. Treatment: 08/31/23 Debridement of sacral decubitus ulcer Cefepime 2 GM IVPB Q 8 HRS Vanomycin HCL 2,000 MG IVPB Q 12 HR (PTD) Please clarify the type of procedure performed: [ XX] Excisional debridement (the removal of necrotic, devitalized tissue or slough by means of cutting away of tissue) [ ] Non-excisional debridement (the removal of necrotic, devitalized tissue or slough by means of flushing, brushing, or washing. (Irrigation) [ ] Other; please specify [ ] Unable to determine Five elements required for accurate and compliant documentation of a debridement: Technique used (e.g., excisional, excised, cutting, brushing, jet lavage etc.) Instrument(s) used (e.g., scalpel, curette, etc.) Nature of the tissue removed (e.g., necrotic, devitalized tissues, non-viable tissue, etc.) Appearance and size of the wound (e.g., down to fresh bleeding tissue, 7cm x 10cm, etc.) Depth of the debridement* (e.g., skin, subcutaneous tissue, fascia, muscle, bone, etc.) (Template Last Revised: September 2020) MTDD
--- NOTE | 2023-09-02 10:14 | P.CONS ---
History of Present Illness - Reason for Consult Consult date: 09/02/23 wound care - History of Present Illness This is a 77-year-old patient who is known to the wound care center with a nonhealing ulceration stage III pressure ulcer to the sacrum. Patient has been utilizing a negative pressure wound VAC to that site. Patient recently underwent a surgical debridement to the site. Ulceration size measures 20 x 15 x 8. Review Of Systems: Constitutional: No fever, no chills, no night sweats. No weight change. No weakness, fatigue or lethargy. No daytime sleepiness. Integumentary:reports wounds, no lesions. No rash or pruritus. No unusual bruising. No change in hair or nails. Physical exam: General Appearance: Alert, cooperative, no distress, appears stated age. Skin: See HPI all other Skin color, texture, tugor normal, no rashes or lesions. Neurologic: Alert oriented x3 Assessment: 1. Stage III pressure ulcer of sacrum 2. Nonhealing ulceration with bone necrosis to the left lower extremity 3. Diabetes with skin ulceration 4. Chronic kidney disease stage III Plan: 1.Sacral ulceration: Apply negative pressure wound VAC to the ulceration. Left lower extremity amputation site: Apply negative pressure wound VAC with black foam. Negative pressure wound VAC orders black foam and 125 mmHg continuous pressure. For transfer patient may utilize absorptive silver and sacral border foam to the sacral ulceration, absorptive silver and rolled gauze to the amputation site. Change dressing once the negative pressure wound VAC is available. Patient states that he does not want to turn to the wound care center he would rather have wound care at the facility he is going to. Thank you for the consultation any questions please contact the wound care center DNP note has been reviewed and discussed with Dr. Wan and the impression and plan of care has been directed as dictated. Past Medical History Past Medical History: Coronary Artery Disease (CAD), Chest Pain / Angina, Diabetes Mellitus, Eye Disorder, GERD/Reflux, Hyperlipidemia, Hypertension, Osteoarthritis (OA), Renal Disease, Sleep Apnea/CPAP/BIPAP Additional Past Medical History / Comment(s): 02/05/23 fall in shower with left ankle wound/fracture, had surgery-ORIF with I&D and wound vac placed/removed. Current left foot wound, left benz wound and right sacrum wound with wound vac. Anemia. IDDM type II, neuropathy legs and feet, bedbound/ander lift, CKD stage III, nephrolithiasis, DALTON with CPAP, right hip, left shoulder pain/torn rotator cuff/limited ROM, polyarthritis, cellulitis, lymphedema, glaucoma. History of Any Multi-Drug Resistant Organisms: MRSA Year Discovered:: 08/27/23 MDRO Source:: Buttock Past Surgical History: Orthopedic Surgery Additional Past Surgical History / Comment(s): KIDNEY STONE REMOVED and ureteral stent placed, deviated septum surgery, flex sigmoidoscopy several times, colo noscopy, dental surgery, cataract surgery bilaterally, ORIF left ankle. Past Anesthesia/Blood Transfusion Reactions: No Reported Reaction Past Psychological History: Depression Additional Psychological History / Comment(s): Currently at [facility], bedbound for rehab. Pt used to work for the [employer] office, no past service. Smoking Status: Never smoker Past Alcohol Use History: None Reported Additional Past Alcohol Use History / Comment(s): Patient currently lives alone. There is a dog in the home. Past Drug Use History: Cocaine, Marijuana, Opiates Additional Drug Use History / Comment(s): Quit drug use in 1998. - Past Family History Father Additional Family Medical History / Comment(s): Brain aneurysm. Mother Family Medical History: Cancer, Deep Vein Thrombosis (DVT) Medications and Allergies Home Medications Medication Instructions Recorded Confirmed Type Fenofibrate,Micronized 200 mg PO HS 06/06/18 08/27/23 History [Fenofibrate] Dapagliflozin Propanediol [Farxiga] 10 mg PO DAILY 02/05/23 08/27/23 History Pioglitazone [Actos] 15 mg PO DAILY 02/05/23 08/27/23 History Semaglutide [Ozempic] 2 mg SQ MO 02/05/23 08/27/23 History metFORMIN HCL 1,000 mg PO BID 02/05/23 08/27/23 History Aspirin 81 mg PO DAILY 02/18/23 08/27/23 History Atorvastatin Calcium 20 mg PO HS 08/16/23 08/27/23 History Clotrimazole/Betameth Cream 1 applic TOPICAL DAILY 08/16/23 08/27/23 History [Lotrisone] Cyanocobalamin [Vitamin B-12] 500 mcg PO DAILY 08/16/23 08/27/23 History Ferrous Sulfate [Feosol] 325 mg PO BID 08/16/23 08/27/23 History Furosemide [Lasix] 40 mg PO DAILY@0600 08/16/23 08/27/23 History Glucerna Shake 1 can PO DAILY 08/16/23 08/27/23 History Insulin Glargine,Hum.rec.anlog 25 units SQ HS 08/16/23 08/27/23 History [Lantus Solostar Pen] Insulin Lispro [humaLOG Kwikpen] See Protocol SQ QID PRN 08/16/23 08/27/23 History Apixaban [Eliquis] 5 mg PO BID tab 08/23/23 08/27/23 Rx Metoprolol Tartrate [Lopressor] 37.5 mg PO BID tab 08/23/23 08/27/23 Rx Gabapentin [Neurontin] 300 mg PO Q8HR@0600,1400,2200 08/27/23 08/27/23 History HYDROcodone/APAP 5-325MG [[place] 1 tab PO Q6H PRN 08/27/23 08/27/23 History 5-325] Allergies Allergy/AdvReac Type Severity Reaction Status Date / Time cat pelt standardized Allergy Itching Verified 08/31/23 09:04 allergenic ex mold Allergy Itching Verified 08/31/23 09:04 pollen extracts Allergy Itching Verified 08/31/23 09:04 Physical Exam Vitals: Vital Signs Temp Pulse Resp BP Pulse Ox 09/02/23 04:00 97.9 F 89 18 116/68 99 09/02/23 02:00 66 18 09/02/23 00:00 98.1 F 66 18 111/62 96 09/01/23 20:00 98.2 F 92 18 121/68 100 09/01/23 16:00 97.5 F L 105 H 18 111/63 97 09/01/23 11:34 87 18 113/55 98 Intake and Output 09/01/23 09/02/23 09/02/23 22:59 06:59 14:59 Intake Total 780 Output Total 450 1500 Balance 330 -1500 Intake: Oral 780 Output: Drainage 0 Left Calf 0 Urine 450 1500 Other: Voiding Method External Catheter External Catheter # Bowel Movements 1 Results CBC & Chem 7: 08/31/23 08:24 09/01/23 07:43 Labs: Abnormal Lab Results - Last 24 Hours (Table) 09/01/23 09/01/23 09/01/23 Range/Units 11:19 16:20 20:29 POC Glucose (mg/dL) 274 H 310 H 231 H (70-110) mg/dL 09/02/23 Range/Units 05:41 POC Glucose (mg/dL) 129 H (70-110) mg/dL Microbiology - Last 24 Hours (Table) 08/29/23 15:22 Blood Culture - Preliminary Blood Assessment and Plan (1) Stage IV pressure ulcer of sacral region Current Visit: Yes Status: Acute Code(s): L89.154 - PRESSURE ULCER OF SACRAL REGION, STAGE 4 SNOMED Code(s): 81682018066698 (2) Non-pressure ulcer of left lower extremity with necrosis of bone Current Visit: No Status: Acute Code(s): L97.924 - NON-PRS CHRONIC ULC UNSP PRT OF L LOW LEG W NECROSIS OF BONE SNOMED Code(s): 24724093 (3) Type 2 diabetes mellitus with other skin ulcer Current Visit: No Status: Acute Code(s): E11.622 - TYPE 2 DIABETES MELLITUS WITH OTHER SKIN ULCER; L98.499 - NON-PRESSURE CHRONIC ULCER OF SKIN OF SITES W UNSP SEVERITY SNOMED Code(s): 430433105
[2023-09-02 11:11] LABS: Anisocytosis Slight; Basophils # (A) 0.1 k/uL (0-0.2); Basophils % (A) 1 %; Eosinophils # (A) 0.4 k/uL (0-0.7); Eosinophils % (A) 4 %; HCT 25.4 % (39.0-53.0); HGB 8.4 gm/dL (13.0-17.5); Hypochromasia Marked; Lymphocytes # (A) 1.7 k/uL (1.0-4.8); Lymphocytes % (A) 17 %; MCH 28.5 pg (25.0-35.0); MCHC 32.9 g/dL (31.0-37.0); MCV 86.6 fL (80.0-100.0); Mean Platelet Volume 8.9; Monocytes # (A) 0.6 k/uL (0-1.0); Monocytes % (A) 6 %; Neutrophils # (A) 7.4 k/uL (1.3-7.7); Neutrophils % (A) 72 %; Platelet Count 441 k/uL (150-450); Poikilocytosis Moderate; RBC 2.93 m/uL (4.30-5.90); RDW 18.6 % (11.5-15.5); WBC 10.4 k/uL (3.8-10.6)
[2023-09-02 11:21] LABS: Glucose,Whole Blood 199 mg/dL (70-110)
[2023-09-02 11:58] LABS: ALT 14 U/L (4-49); AST 37 U/L (17-59); African American GFR (CKD) >90 (>60 ml/min/1.73 sqM); Albumin 2.1 g/dL (3.5-5.0); Alkaline Phosphatase 41 U/L (38-126); Anion Gap 6 mmol/L; Blood Urea Nitrogen 35 mg/dL (9-20); Carbon Dioxide 24 mmol/L (22-30); Chloride 104 mmol/L (98-107); Glucose 109 mg/dL (74-99); Non-African American GFR(CKD) >90 (>60 ml/min/1.73 sqM); Sodium 134 mmol/L (137-145); Total Bilirubin 0.5 mg/dL (0.2-1.3); Total Protein 4.7 g/dL (6.3-8.2)
[2023-09-02 12:03] LABS: Potassium 3.9 mmol/L (3.5-5.1)
--- NOTE | 2023-09-02 12:51 | P.PN ---
Subjective Progress Note Date: 09/02/23 Principal diagnosis: Stage IV sacral pressure ulcer concerning for osteomyelitis Patient is a 77-year-old male with a past medical history significant for coronary artery disease hypertension hyperlipidemia osteoarthritis renal disease recently had admitted to this facility and this patient is status post left below the knee amputation for chronic nonhealing wound to the left lower extremity, patient brought back to the hospital concerning for low hemoglobin vascular surgery evaluate the patient mention no infection to the left BKA stump also noticed to have a stage IV sacral pressure ulcer with the wound exposed further workup today shows concerning for osteomyelitis on the basis of CT.Patient is s/p surgical debridement of the necrotic sacral pressure ulcer completed by surgery on 08/31/2023 On today's evaluation that is 09/02/2023,the patient remains to be afebrile, patient is on room air not requiring supplemental oxygen and denies any shortness of breath no chest pain or cough.Patient denies having any nausea or vomiting, no abdominal pain and no diarrhea has been reported. Patient white count is 10.4, creatinine 0.52 Objective - Vital Signs Vital signs: Vital Signs Temp 97.8 F 09/02/23 11:52 Pulse 68 09/02/23 11:52 Resp 18 09/02/23 11:52 BP 106/53 09/02/23 11:52 Pulse Ox 100 09/02/23 11:52 FiO2 Intake & Output 09/01/23 09/02/23 09/02/23 18:59 06:59 18:59 Intake Total 1370 760 Output Total 2100 1500 800 Balance -730 -1500 -40 Intake: Oral 1370 760 Output: Drainage 50 0 100 Left Calf 50 0 100 Urine 2050 1500 700 Other: Voiding Method External Catheter External Catheter External Catheter # Bowel Movements 1 - Exam GENERAL DESCRIPTION: An elderly male lying in bed in no distress RESPIRATORY SYSTEM: Unlabored breathing , decreased breath sounds at bases HEART: S1 S2 regular rate and rhythm , ABDOMEN: Soft , no tenderness EXTREMITIES: Left BKA stump covered with a wound VAC - Labs CBC & Chem 7: 09/02/23 09:29 09/02/23 09:29 Labs: Abnormal Lab Results - Last 24 Hours (Table) 09/01/23 09/01/23 09/02/23 Range/Units 16:20 20:29 05:41 RBC (4.30-5.90) m/uL Hgb (13.0-17.5) gm/dL Hct (39.0-53.0) % RDW (11.5-15.5) % Sodium (137-145) mmol/L BUN (9-20) mg/dL Creatinine (0.66-1.25) mg/dL Glucose (74-99) mg/dL POC Glucose (mg/dL) 310 H 231 H 129 H (70-110) mg/dL Calcium (8.4-10.2) mg/dL Total Protein (6.3-8.2) g/dL Albumin (3.5-5.0) g/dL 09/02/23 09/02/23 09/02/23 Range/Units 09:29 09:29 11:19 RBC 2.93 L (4.30-5.90) m/uL Hgb 8.4 L (13.0-17.5) gm/dL Hct 25.4 L (39.0-53.0) % RDW 18.6 H (11.5-15.5) % Sodium 134 L (137-145) mmol/L BUN 35 H (9-20) mg/dL Creatinine 0.52 L (0.66-1.25) mg/dL Glucose 109 H (74-99) mg/dL POC Glucose (mg/dL) 199 H (70-110) mg/dL Calcium 8.0 L (8.4-10.2) mg/dL Total Protein 4.7 L (6.3-8.2) g/dL Albumin 2.1 L (3.5-5.0) g/dL Microbiology - Last 24 Hours (Table) 08/31/23 10:10 Gram Stain - Final Other - Other Wound Culture - Final 08/29/23 15:22 Blood Culture - Preliminary Blood Assessment and Plan (1) Stage IV pressure ulcer of sacral region Current Visit: Yes Status: Acute Code(s): L89.154 - PRESSURE ULCER OF SACRAL REGION, STAGE 4 SNOMED Code(s): 67960203325105 (2) Sacral osteomyelitis Current Visit: Yes Status: Acute Code(s): M46.28 - OSTEOMYELITIS OF VERTEBRA, SACRAL AND SACROCOCCYGEAL REGION SNOMED Code(s): 965530533 (3) Elevated WBCs Current Visit: No Status: Acute Code(s): D72.829 - ELEVATED WHITE BLOOD CELL COUNT, UNSPECIFIED SNOMED Code(s): 894342061 (4) MRSA (methicillin resistant staph aureus) culture positive Current Visit: Yes Status: Acute Code(s): Z22.322 - CARRIER OR SUSPECTED CARRIER OF METHICILLIN RESIS STAPH SNOMED Code(s): 829949588 (5) Pseudomonas aeruginosa infection Current Visit: Yes Status: Acute Code(s): A49.8 - OTHER BACTERIAL INFECTIONS OF UNSPECIFIED SITE SNOMED Code(s): 91248513 Plan: 1patient with a chronic nonhealing wound to the sacral area which is a stage IV ulcer with a bone palpable concerning for sacral osteomyelitis 2-leukocytosis more likely related to the sacral pressure ulcer versus reactive to the anemia/bleed 3-left BKA stump is currently covered with a wound VAC and cannot be accessed for any signs of infection though vascular surgery note mention no concern for infection 4-CT of the sacrum is suspicious for bony destruction and possible osteomyelitis, the patient is status post surgical debridement of the necrotic tissue 5-local cultures came back positive for MRSA and Pseudomonas, patient did get a PICC line for outpatient antibiotics 6-patient continue with IV vancomycin pharmacy to dose and cefepime 2 g. Every 8 hour to finish 6-week course of therapy, discussed with admitting team Dictation was produced using [employer] dictation software. please excuse any grammatical, word or spelling errors. Time with Patient: Less than 30
--- NOTE | 2023-09-02 12:58 | P.PN ---
Subjective Progress Note Date: 09/02/23 patient is a 77 -year-old male past medical history significant for recent left below the knee amputation,coronary artery disease, chest pain with angina, diabetes mellitus, eye disorder, GERD, hyperlipidemia, hypertension, history of osteoarthritis, renal disease, sleep apnea, depression who presented to the hospital for abnormal labs and bleeding from the BKA site. Patient had blood work done at the [facility] with a found hemoglobin to be low, there is also complaint of bleeding from the BKA site. There is no complaint of blood in the stools. There was no complaint of fever or chills. There was no complaint nausea, vomiting abdominal pain. Patient denies any lethargy or weakness. There is no complaint of chest pain or shortness of breath. Initial lab work done in the ER showed WBC 13.6, hemoglobin 9, platelet count 801, sodium 132, potassium 4.6, BUN 27, creatinine 0.65 EKG done in the ER showed heart rate of 129, irregular in rhythm and rate, no ST segment elevation or depression seen, no T-wave inversions seen. Patient admitted to internal medicine service 08/28. Patient seen and examined. Heart rate is better controlled, wean off the Cardizem drip. Denies any lightheadedness or dizziness. 08/29. Patient seen and examined. Lying comfortably in the bed. No acute issues overnight. Patient has been diuresing well, swelling of right lower extremity has improved 08/30. Patient seen and examined.. Labs done this morning showed sodium 132, potassium 3.6, BUN 29, creatinine 0.65, states he feels much better. 08/31. Patient seen and examined. Patient underwent Debridement of sacral decubitus ulcer. Denies any Lethargy or weakness. Vital signs stable 09/01. Patient seen and examined. Currently on vancomycin and cefepime, ID recommends 6 weeks of antibiotics. Patient is lethargic this morning. 09/02. Patient seen and examined. Continues to be afebrile. States he feels better. Denies any lethargy or weakness. REVIEW OF SYSTEMS: CONSTITUTIONAL: No fever, no malaise,. CARDIOVASCULAR: No chest pain, no palpitations, no syncope. PULMONARY: No shortness of breath, no cough, GASTROINTESTINAL: No diarrhea, no nausea, no vomiting, no abdominal pain. NEUROLOGICAL: No headaches, no weakness, PHYSICAL EXAMINATION: GENERAL: The patient is lethargic, not in any acute distress. Chronically ill looking HEENT: Pupils are round and equally reacting to light. EOMI. No scleral icterus. No conjunctival pallor. Normocephalic, atraumatic. No pharyngeal erythema. No thyromegaly. CARDIOVASCULAR: S1 and S2 present. No murmurs, rubs, or gallops. IRRegular rate and rhythm PULMONARY: Chest is clear to auscultation, no wheezing or crackles. ABDOMEN: Soft, nontender, nondistended, normoactive bowel sounds. No palpable organomegaly. MUSCULOSKELETAL: Left BKA EXTREMITIES: 2+ pitting edema right lower extremity NEUROLOGICAL: Gross neurological examination did not reveal any focal deficits. SKIN: Sacral decub Assessment and plan Bleeding from left BKA site Sacral osteomyelitis A-fib with RVR chronic nonhealing wound sacral area Anemia, likely secondary to chronic kidney disease with acute blood loss anemia, hemoglobin is 7.1 and is being transfused 1 unit of PRBC History of diabetes mellitus, insulin-dependent, uncontrolled with hyper and hypoglycemia GERD Hyperlipidemia Hypertension Osteoarthritis Chronic kidney disease stage III Obstructive sleep apnea with a CPAP History of depression Morbid obesity with a BMI of 40.5 Monitor vital signs Monitor CBC Monitor CMP Continue telemetry monitoring Continue Lopressor Continue Eliquis Strict I's and O's, daily weights, continue IV Lasix 40 mg every 12 Monitor blood sugar levels, continue sliding scale insulin and Lantus 25 units at night Continue wound care Continue wound VAC cultures came back positive for MRSA and Pseudomonas, patient did get a PICC line this morning Continue IV vancomycin pharmacy to dose and cefepime 2 g. Vascular surgery following Cardiology following. ID recommends 6 weeks of IV antibiotics, PICC line ordered General surgery consulted for sacral wound , underwent debridement of sacral decubitus ulcer, wound VAC applied Labs and medication were reviewed.. Continue same treatment. Continue with symptomatic treatment. Resume home medication. Monitor labs and vitals. DVT and GI prophylaxis. Further recommendations as per clinical course of the patient Dictation was produced using [employer] dictation software. please excuse any grammatical, word or spelling errors. Objective - Vital Signs Vital signs: Vital Signs Temp 97.9 F 09/02/23 04:00 Pulse 89 09/02/23 04:00 Resp 18 09/02/23 04:00 BP 116/68 09/02/23 04:00 Pulse Ox 99 09/02/23 04:00 FiO2 Intake & Output 09/01/23 09/02/23 09/02/23 18:59 06:59 18:59 Intake Total 1370 Output Total 2100 1500 Balance -730 -1500 Intake: Oral 1370 Output: Drainage 50 0 Left Calf 50 0 Urine 2050 1500 Other: Voiding Method External Catheter External Catheter # Bowel Movements 1 - Labs CBC & Chem 7: 09/02/23 09:29 09/02/23 09:29 Labs: Abnormal Lab Results - Last 24 Hours (Table) 09/01/23 09/01/23 09/01/23 Range/Units 11:19 16:20 20:29 POC Glucose (mg/dL) 274 H 310 H 231 H (70-110) mg/dL 09/02/23 Range/Units 05:41 POC Glucose (mg/dL) 129 H (70-110) mg/dL Microbiology - Last 24 Hours (Table) 08/29/23 15:22 Blood Culture - Preliminary Blood
[2023-09-02] MEDS ORDERED: VANCOMYCIN IV PER PHARMACY 1 EACH MISC MISCELLANE PRN (13:08)
[2023-09-02] MEDS: VANCOMYCIN TROUGH DUE 1 EACH MISC MISCELLANE ONE (13:51)
--- NOTE | 2023-09-02 13:54 | P.PN ---
Subjective Progress Note Date: 09/02/23 HISTORY OF PRESENTING ILLNESS This is a pleasant 77-year-old male past medical history significant for hypertension, hyperlipidemia, diabetes mellitus, chronic nonhealing wound status post left below the knee amputation and persistent atrial fibrillation. He does not follow regularly in the office. He last saw Dr. Sierra in 2020. We have been asked to see in consultation for atrial fibrillation with rapid ventricular rate. He was just diagnosed with atrial fib new-onset earlier this month status post left BKA. He was properly anticoagulated and was discharged to [facility]. He was sent back for bleeding at the stump. A wound VAC is now in place. He remains in atrial fib with controlled ventricular rates. DIAGNOSTICS EKG reveals atrial fib heart rate 129. Telemetry tracings indicate atrial fib. Laboratory reviewed, WBC 11.5, hemoglobin 7.6, platelets 703, sodium 132, potassium 3.9, creatinine 0.63. Current cardiac medications include Lopressor 37.5 mg twice a day, Lasix 40 mg daily, farxiga 10 mg daily, atorvastatin 20 mg daily, aspirin 81 mg daily and 5 mg twice a day. Most recent echocardiogram February 2023 revealed preserved LV systolic function with ejection fraction 55-60%, difficult study due to body habitus however there appears to be a gradient across the aortic and mitral valve of mild degree. 08/29/2023 Patient seen and examined sitting up in bed in no acute distress. Blood pressure 122/65 heart rate 89 afebrile maintaining oxygen saturation on room air. Laboratory data reviewed, WBC 10.2, hemoglobin 7.7, platelets 674, sodium 131, potassium 3.9, creatinine 0.63. Urine output for the previous 24 hours is 3.8 L. Telemetry tracings reviewed, he continues to be in atrial fib with controlled rate in the 80s. 08/30 Patient has been maintained on IV Lasix 40 mg every 12 hours as well as Farxiga 10 mg daily, aspirin and atorvastatin and Lopressor 37.5 mg twice daily. Cardizem drip is at 5 mg/h which is continued. Eliquis is on hold for wound debridement. Wound VAC in place. Heart rate is in the 80s, blood pressure 120/57, pulse ox 97% on room air. Patient remains in atrial fibrillation. Repeat blood work reveals sodium 132, potassium 3.6, BUN 29 creatinine 0.65. 09/01 Yesterday, patient underwent I&D of sacral wound. He has been resumed back on Eliquis. Patient continues to have significant lower extremity edema and also upper extremity more so on the left upper extremity. He has been maintained on IV Lasix 40 mg every 12 hours. Patient is also on IV antibiotics with cefepime and vancomycin. Patient has a negative fluid balance today of 570 mL. His weight appears to be down 12 kg. Repeat blood work reveals sodium 132, potass ium 3.6, BUN 37 creatinine 0.59. Echocardiogram reveals EF of 55 to 60%, mild aortic stenosis. No pericardial effusion. 09/02 Patient continues to have extremity edema but left arm edema is improving. He is complaining of hip pain and back pain today. He has been maintained on IV Lasix 40 mg every 12 hours. Blood pressure 106/53, heart rate 68, pulse ox 100% on room air. Yesterday, patient had a negative fluid balance of 570, today 2230. Weight is down overall. Repeat blood work reveals hemoglobin of 8.4, sodium 134, potassium 3.9, BUN 35 creatinine 0.52. PHYSICAL EXAMINATION VSS CONSTITUTIONAL: No apparent distress. Generalized anasarca. HEENT: Head is normocephalic. Pupils are equal, round. Sclerae anicteric. Mucous membranes of the mouth are moist. No JVD. No carotid bruit. CHEST EXAMINATION: Lungs are clear to auscultation. No chest wall tenderness is noted on palpation or with deep breathing. HEART EXAMINATION: Irregular rate and rhythm. S1, S2 heard. Systolic ejection m urmur at the base. ABDOMEN: Soft, nontender. EXTREMITIES: Wound vac to left BKA stump, generalized edema of his extremities, 1-2+ NEUROLOGIC EXAMINATION: Patient is awake, alert and oriented x3. ASSESSMENT Persistent atrial fibrillation with rapid ventricular rate Generalized anasarca Chronic kidney disease Anemia Hypertension Hyperlipidemia Status post left BKA Peripheral arterial disease PLAN Continue IV diuresis. Continue current cardiac medications Eliquis has been resumed Monitor AGUILA, daily weights, electrolytes and renal function No change in medications today. Further recommendations to follow based upon clinical course. Nurse Practitioner note has been reviewed, I agree with a documented findings and plan of care. Patient was seen and examined. Objective - Vital Signs Vital signs: Vital Signs Temp 97.3 F L 09/02/23 08:00 Pulse 79 09/02/23 08:00 Resp 20 09/02/23 08:00 BP 112/55 09/02/23 08:00 Pulse Ox 98 09/02/23 08:00 FiO2 Intake & Output 09/01/23 09/02/23 09/02/23 18:59 06:59 18:59 Intake Total 1370 650 Output Total 2100 1500 800 Balance -730 -1500 -150 Intake: Oral 1370 650 Output: Drainage 50 0 100 Left Calf 50 0 100 Urine 2050 1500 700 Other: Voiding Method External Catheter External Catheter External Catheter # Bowel Movements 1 - Labs CBC & Chem 7: 09/02/23 09:29 09/02/23 09:29 Labs: Abnormal Lab Results - Last 24 Hours (Table) 09/01/23 09/01/23 09/02/23 Range/Units 16:20 20:29 05:41 RBC (4.30-5.90) m/uL Hgb (13.0-17.5) gm/dL Hct (39.0-53.0) % RDW (11.5-15.5) % POC Glucose (mg/dL) 310 H 231 H 129 H (70-110) mg/dL 09/02/23 09/02/23 Range/Units 09:29 11:19 RBC 2.93 L (4.30-5.90) m/uL Hgb 8.4 L (13.0-17.5) gm/dL Hct 25.4 L (39.0-53.0) % RDW 18.6 H (11.5-15.5) % POC Glucose (mg/dL) 199 H (70-110) mg/dL Microbiology - Last 24 Hours (Table) 08/31/23 10:10 Gram Stain - Final Other - Other Wound Culture - Final 08/29/23 15:22 Blood Culture - Preliminary Blood
--- NOTE | 2023-09-02 15:00 | P.PN ---
Subjective Progress Note Date: 09/02/23 CHIEF COMPLAINT: Sacral decubitus ulcer HISTORY OF PRESENT ILLNESS: Patient is postop day #2 status postdebridement of sacral decubitus ulcer. Per nursing staff patient has been noncompliant with dressing changes and is currently refusing wound VAC. They were able to do wet-to-dry dressing change yesterday. Afebrile. WBC 10.4 PHYSICAL EXAM: VITAL SIGNS: Reviewed. GENERAL: Well-developed in no acute distress. ABDOMEN: Soft. Nondistended. Nontender. ASSESSMENT: 1. Sacral decubitus ulcer PLAN: -Defer wound care to wound care service -Continue local wound care -Antibiotics per ID service Physician Mobile Web Application Developer note has been reviewed by physician. Signing provider agrees with the documented findings, assessment, and plan of care. Objective - Vital Signs Vital signs: Vital Signs Temp 97.8 F 09/02/23 11:52 Pulse 68 09/02/23 11:52 Resp 18 09/02/23 11:52 BP 106/53 09/02/23 11:52 Pulse Ox 100 09/02/23 11:52 FiO2 Intake & Output 09/01/23 09/02/23 09/02/23 18:59 06:59 18:59 Intake Total 1370 760 Output Total 2100 1500 800 Balance -730 -1500 -40 Intake: Oral 1370 760 Output: Drainage 50 0 100 Left Calf 50 0 100 Urine 2050 1500 700 Other: Voiding Method External Catheter External Catheter External Catheter # Bowel Movements 1 - Labs CBC & Chem 7: 09/02/23 09:29 09/02/23 09:29 Labs: Abnormal Lab Results - Last 24 Hours (Table) 09/01/23 09/01/23 09/02/23 Range/Units 16:20 20:29 05:41 RBC (4.30-5.90) m/uL Hgb (13.0-17.5) gm/dL Hct (39.0-53.0) % RDW (11.5-15.5) % Sodium (137-145) mmol/L BUN (9-20) mg/dL Creatinine (0.66-1.25) mg/dL Glucose (74-99) mg/dL POC Glucose (mg/dL) 310 H 231 H 129 H (70-110) mg/dL Calcium (8.4-10.2) mg/dL Total Protein (6.3-8.2) g/dL Albumin (3.5-5.0) g/dL Vancomycin Trough ug/mL 09/02/23 09/02/23 09/02/23 Range/Units 09:29 09:29 09:29 RBC 2.93 L (4.30-5.90) m/uL Hgb 8.4 L (13.0-17.5) gm/dL Hct 25.4 L (39.0-53.0) % RDW 18.6 H (11.5-15.5) % Sodium 134 L (137-145) mmol/L BUN 35 H (9-20) mg/dL Creatinine 0.52 L (0.66-1.25) mg/dL Glucose 109 H (74-99) mg/dL POC Glucose (mg/dL) (70-110) mg/dL Calcium 8.0 L (8.4-10.2) mg/dL Total Protein 4.7 L (6.3-8.2) g/dL Albumin 2.1 L (3.5-5.0) g/dL Vancomycin Trough 31.3 H* ug/mL 09/02/23 Range/Units 11:19 RBC (4.30-5.90) m/uL Hgb (13.0-17.5) gm/dL Hct (39.0-53.0) % RDW (11.5-15.5) % Sodium (137-145) mmol/L BUN (9-20) mg/dL Creatinine (0.66-1.25) mg/dL Glucose (74-99) mg/dL POC Glucose (mg/dL) 199 H (70-110) mg/dL Calcium (8.4-10.2) mg/dL Total Protein (6.3-8.2) g/dL Albumin (3.5-5.0) g/dL Vancomycin Trough ug/mL Microbiology - Last 24 Hours (Table) 08/31/23 10:10 Anaerobic Culture - Final Other - Other 08/31/23 10:10 Gram Stain - Final Other - Other Wound Culture - Final 08/29/23 15:22 Blood Culture - Preliminary Blood
[2023-09-02 16:22] LABS: Glucose,Whole Blood 245 mg/dL (70-110)
[2023-09-02 19:57] LABS: Glucose,Whole Blood 275 mg/dL (70-110)
[2023-09-03 05:55] LABS: Glucose,Whole Blood 138 mg/dL (70-110)
[2023-09-03 09:47] LABS: African American GFR (CKD) >90 (>60 ml/min/1.73 sqM); Non-African American GFR(CKD) >90 (>60 ml/min/1.73 sqM)
[2023-09-03 11:18] LABS: Glucose,Whole Blood 225 mg/dL (70-110)
--- NOTE | 2023-09-03 11:50 | P.PN ---
Subjective Progress Note Date: 09/03/23 CHIEF COMPLAINT: Sacral decubitus ulcer HISTORY OF PRESENT ILLNESS: Patient is postop day #3 status postdebridement of sacral decubitus ulcer. Patient refused wound VAC. They are continue with local wound care. Patient has been noncompliant at times with his dressing changes. Afebrile. PHYSICAL EXAM: VITAL SIGNS: Reviewed. GENERAL: Well-developed in no acute distress. ABDOMEN: Soft. Nondistended. Nontender. ASSESSMENT: 1. Sacral decubitus ulcer PLAN: -Defer wound care to wound care service -Continue local wound care -Antibiotics per ID service Physician Accelerator Technician note has been reviewed by physician. Signing provider agrees with the documented findings, assessment, and plan of care. Objective - Vital Signs Vital signs: Vital Signs Temp 97.5 F L 09/03/23 08:00 Pulse 95 09/03/23 08:00 Resp 18 09/03/23 08:00 BP 128/56 09/03/23 08:00 Pulse Ox 100 09/03/23 08:00 FiO2 Intake & Output 09/02/23 09/03/23 09/03/23 18:59 06:59 18:59 Intake Total 1110 557 Output Total 1100 3000 Balance 10 -3000 557 Intake: Oral 1110 557 Output: Drainage 100 Left Calf 100 Urine 1000 3000 Other: Voiding Method External Catheter External Catheter - Labs CBC & Chem 7: 09/02/23 09:29 09/03/23 08:42 Labs: Abnormal Lab Results - Last 24 Hours (Table) 09/02/23 09/02/23 09/02/23 Range/Units 09:29 09:29 16:21 Sodium 134 L (137-145) mmol/L BUN 35 H (9-20) mg/dL Creatinine 0.52 L (0.66-1.25) mg/dL Glucose 109 H (74-99) mg/dL POC Glucose (mg/dL) 245 H (70-110) mg/dL Calcium 8.0 L (8.4-10.2) mg/dL Total Protein 4.7 L (6.3-8.2) g/dL Albumin 2.1 L (3.5-5.0) g/dL Vancomycin Trough 31.3 H* ug/mL 09/02/23 09/03/23 09/03/23 Range/Units 19:55 05:53 08:42 Sodium (137-145) mmol/L BUN (9-20) mg/dL Creatinine 0.54 L (0.66-1.25) mg/dL Glucose (74-99) mg/dL POC Glucose (mg/dL) 275 H 138 H (70-110) mg/dL Calcium (8.4-10.2) mg/dL Total Protein (6.3-8.2) g/dL Albumin (3.5-5.0) g/dL Vancomycin Trough ug/mL 09/03/23 Range/Units 11:17 Sodium (137-145) mmol/L BUN (9-20) mg/dL Creatinine (0.66-1.25) mg/dL Glucose (74-99) mg/dL POC Glucose (mg/dL) 225 H (70-110) mg/dL Calcium (8.4-10.2) mg/dL Total Protein (6.3-8.2) g/dL Albumin (3.5-5.0) g/dL Vancomycin Trough ug/mL Microbiology - Last 24 Hours (Table) 08/28/23 12:50 Anaerobic Culture - Final Buttock 08/31/23 10:10 Gram Stain - Final Other - Other Wound Culture - Final 08/31/23 10:10 Anaerobic Culture - Final Other - Other
--- NOTE | 2023-09-03 12:51 | P.PN ---
Subjective Progress Note Date: 09/03/23 Principal diagnosis: Stage IV sacral pressure ulcer concerning for osteomyelitis Patient is a 77-year-old male with a past medical history significant for coronary artery disease hypertension hyperlipidemia osteoarthritis renal disease recently had admitted to this facility and this patient is status post left below the knee amputation for chronic nonhealing wound to the left lower extremity, patient brought back to the hospital concerning for low hemoglobin vascular surgery evaluate the patient mention no infection to the left BKA stump also noticed to have a stage IV sacral pressure ulcer with the wound exposed further workup today shows concerning for osteomyelitis on the basis of CT.Patient is s/p surgical debridement of the necrotic sacral pressure ulcer completed by surgery on 08/31/2023 On today's evaluation that is 09/03/2023, the patient continues to be afebrile, the patient is on room air and breathing comfortably, the Pt denies having any chest pain or cough, the patient denies having any abdominal pain no vomiting or any diarrhea has been reported by the nursing staff, denies any worsening pain to the sacral or the left BKA wound. The patient did have a creatinine 0.54 vancomycin level is 19.9 anaerobe culture negative Objective - Vital Signs Vital signs: Vital Signs Temp 97.5 F L 09/03/23 08:00 Pulse 95 09/03/23 08:00 Resp 18 09/03/23 08:00 BP 128/56 09/03/23 08:00 Pulse Ox 100 09/03/23 08:00 FiO2 Intake & Output 09/02/23 09/03/23 09/03/23 18:59 06:59 18:59 Intake Total 1110 557 Output Total 1100 3000 Balance 10 -3000 557 Intake: Oral 1110 557 Output: Drainage 100 Left Calf 100 Urine 1000 3000 Other: Voiding Method External Catheter External Catheter - Exam GENERAL DESCRIPTION: An elderly male lying in bed in no distress RESPIRATORY SYSTEM: Unlabored breathing , decreased breath sounds at bases HEART: S1 S2 regular rate and rhythm , ABDOMEN: Soft , no tenderness EXTREMITIES: Left BKA stump covered with a wound VAC - Labs CBC & Chem 7: 09/02/23 09:29 09/03/23 08:42 Labs: Abnormal Lab Results - Last 24 Hours (Table) 09/02/23 09/02/23 09/02/23 Range/Units 09:29 09:29 16:21 Sodium 134 L (137-145) mmol/L BUN 35 H (9-20) mg/dL Creatinine 0.52 L (0.66-1.25) mg/dL Glucose 109 H (74-99) mg/dL POC Glucose (mg/dL) 245 H (70-110) mg/dL Calcium 8.0 L (8.4-10.2) mg/dL Total Protein 4.7 L (6.3-8.2) g/dL Albumin 2.1 L (3.5-5.0) g/dL Vancomycin Trough 31.3 H* ug/mL 09/02/23 09/03/23 09/03/23 Range/Units 19:55 05:53 08:42 Sodium (137-145) mmol/L BUN (9-20) mg/dL Creatinine 0.54 L (0.66-1.25) mg/dL Glucose (74-99) mg/dL POC Glucose (mg/dL) 275 H 138 H (70-110) mg/dL Calcium (8.4-10.2) mg/dL Total Protein (6.3-8.2) g/dL Albumin (3.5-5.0) g/dL Vancomycin Trough ug/mL 09/03/23 Range/Units 11:17 Sodium (137-145) mmol/L BUN (9-20) mg/dL Creatinine (0.66-1.25) mg/dL Glucose (74-99) mg/dL POC Glucose (mg/dL) 225 H (70-110) mg/dL Calcium (8.4-10.2) mg/dL Total Protein (6.3-8.2) g/dL Albumin (3.5-5.0) g/dL Vancomycin Trough ug/mL Microbiology - Last 24 Hours (Table) 08/28/23 12:50 Anaerobic Culture - Final Buttock 08/31/23 10:10 Gram Stain - Final Other - Other Wound Culture - Final 08/31/23 10:10 Anaerobic Culture - Final Other - Other Assessment and Plan (1) Stage IV pressure ulcer of sacral region Current Visit: Yes Status: Acute Code(s): L89.154 - PRESSURE ULCER OF SACRAL REGION, STAGE 4 SNOMED Code(s): 78232461295625 (2) Sacral osteomyelitis Current Visit: Yes Status: Acute Code(s): M46.28 - OSTEOMYELITIS OF VERTEBRA, SACRAL AND SACROCOCCYGEAL REGION SNOMED Code(s): 548080664 (3) Elevated WBCs Current Visit: No Status: Acute Code(s): D72.829 - ELEVATED WHITE BLOOD CELL COUNT, UNSPECIFIED SNOMED Code(s): 392334456 (4) MRSA (methicillin resistant staph aureus) culture positive Current Visit: Yes Status: Acute Code(s): Z22.322 - CARRIER OR SUSPECTED CARRIER OF METHICILLIN RESIS STAPH SNOMED Code(s): 024298539 (5) Pseudomonas aeruginosa infection Current Visit: Yes Status: Acute Code(s): A49.8 - OTHER BACTERIAL INFECTIONS OF UNSPECIFIED SITE SNOMED Code(s): 43993684 Plan: 1patient with a chronic nonhealing wound to the sacral area which is a stage IV ulcer with a bone palpable concerning for sacral osteomyelitis 2-leukocytosis more likely related to the sacral pressure ulcer versus reactive to the anemia/bleed 3-left BKA stump is currently covered with a wound VAC and cannot be accessed for any signs of infection though vascular surgery note mention no concern for infection 4-CT of the sacrum is suspicious for bony destruction and possible osteomyelitis, the patient is status post surgical debridement of the necrotic tissue 5-local cultures came back positive for MRSA along with Pseudomonas and anaerobic culture were negative, patient did get a PICC line for outpatient antibiotics 6-plan is to continue with IV vancomycin pharmacy to dose and cefepime 2 g. Every 8 hour to finish 6-week course of therapy, with weekly monitoring of CRP and sed rate and close outpatient follow-up Dictation was produced using [employer] dictation software. please excuse any grammatical, word or spelling errors. Time with Patient: Less than 30
[2023-09-03] MEDS: VANCOMYCIN 1,750 MG in SODIUM CHLORIDE 0.9% 500 ML 500 ML IVPB ONE (12:58)
--- NOTE | 2023-09-03 13:36 | P.PN ---
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 He does not follow regularly in the office. He last saw Dr. Sierra in 2020. We have been asked to see in consultation for atrial fibrillation with rapid ventricular rate. He was just diagnosed with atrial fib new-onset earlier this month status post left BKA. He was properly anticoagulated and was discharged to [facility]. He was sent back for bleeding at the stump. A wound VAC is now in place. He remains in atrial fib with controlled ventricular rates. DIAGNOSTICS EKG reveals atrial fib heart rate 129. Telemetry tracings indicate atrial fib. Laboratory reviewed, WBC 11.5, hemoglobin 7.6, platelets 703, sodium 132, potassium 3.9, creatinine 0.63. Current cardiac medications include Lopressor 37.5 mg twice a day, Lasix 40 mg daily, farxiga 10 mg daily, atorvastatin 20 mg daily, aspirin 81 mg daily and 5 mg twice a day. Most recent echocardiogram February 2023 revealed preserved LV systolic function with ejection fraction 55-60%, difficult study due to body habitus however there appears to be a gradient across the aortic and mitral valve of mild degree. 08/29/2023 Patient seen and examined sitting up in bed in no acute distress. Blood pressure 122/65 heart rate 89 afebrile maintaining oxygen saturation on room air. Laboratory data reviewed, WBC 10.2, hemoglobin 7.7, platelets 674, sodium 131, potassium 3.9, creatinine 0.63. Urine output for the previous 24 hours is 3.8 L. Telemetry tracings reviewed, he continues to be in atrial fib with controlled rate in the 80s. 08/30 Patient has been maintained on IV Lasix 40 mg every 12 hours as well as Farxiga 10 mg daily, aspirin and atorvastatin and Lopressor 37.5 mg twice daily. Cardizem drip is at 5 mg/h which is continued. Eliquis is on hold for wound debridement. Wound VAC in place. Heart rate is in the 80s, blood pressure 120/57, pulse ox 97% on room air. Patient remains in atrial fibrillation. Repeat blood work reveals sodium 132, potassium 3.6, BUN 29 creatinine 0.65. 09/01 Yesterday, patient underwent I&D of sacral wound. He has been resumed back on Eliquis. Patient continues to have significant lower extremity edema and also upper extremity more so on the left upper extremity. He has been maintained on IV Lasix 40 mg every 12 hours. Patient is also on IV antibiotics with cefepime and vancomycin. Patient has a negative fluid balance today of 570 mL. His weight appears to be down 12 kg. Repeat blood work reveals sodium 132, potass ium 3.6, BUN 37 creatinine 0.59. Echocardiogram reveals EF of 55 to 60%, mild aortic stenosis. No pericardial effusion. 09/02 Patient continues to have extremity edema but left arm edema is improving. He is complaining of hip pain and back pain today. He has been maintained on IV Lasix 40 mg every 12 hours. Blood pressure 106/53, heart rate 68, pulse ox 100% on room air. Yesterday, patient had a negative fluid balance of 570, today 2230. Weight is down overall. Repeat blood work reveals hemoglobin of 8.4, sodium 134, potassium 3.9, BUN 35 creatinine 0.52. 09/03 Patient continues to have extremity swelling which is improving. He has been maintained on IV Lasix 40 mg every 12 hours. Patient has a negative fluid output this morning of 2990 mL. Weight has trended downward. Heart rate is in the 80s and 90s, blood pressure 128/56. PHYSICAL EXAMINATION VSS CONSTITUTIONAL: No apparent distress. Generalized anasarca. HEENT: Head is normocephalic. Pupils are equal, round. Sclerae anicteric. Mucous membranes of the mouth are moist. No JVD. No carotid bruit. CHEST EXAMINATION: Lungs are clear to auscultation. No chest wall tenderness is noted on palpation or with deep breathing. HEART EXAMINATION: Irregular rate and rhythm. S1, S2 heard. Systolic ejection murmur at the base. ABDOMEN: Soft, nontender. EXTREMITIES: Wound vac to left BKA stump, generalized edema of his extremities, 1-2+ NEUROLOGIC EXAMINATION: Patient is awake, alert and oriented x3. ASSESSMENT Persistent atrial fibrillation with rapid ventricular rate, currently rate controlled Generalized anasarca Chronic kidney disease Anemia Hypertension Hyperlipidemia Status post left BKA Peripheral arterial disease PLAN Transition IV Lasix to oral 60 mg every 8 twice daily Continue current cardiac medications Eliquis has been resumed Monitor AGUILA, daily weights, electrolytes and renal function Patient is cleared for discharge if arrangements have been made for him to go back to senior living. Nurse Practitioner note has been reviewed, I agree with a documented findings and plan of care. Patient was seen and examined. Objective - Vital Signs Vital signs: Vital Signs Temp 97.5 F L 09/03/23 08:00 Pulse 95 09/03/23 08:00 Resp 18 09/03/23 08:00 BP 128/56 09/03/23 08:00 Pulse Ox 100 09/03/23 08:00 FiO2 Intake & Output 09/02/23 09/03/23 09/03/23 18:59 06:59 18:59 Intake Total 1110 557 Output Total 1100 3000 Balance 10 -3000 557 Intake: Oral 1110 557 Output: Drainage 100 Left Calf 100 Urine 1000 3000 Other: Voiding Method External Catheter External Catheter - Labs CBC & Chem 7: 09/02/23 09:29 09/03/23 08:42 Labs: Abnormal Lab Results - Last 24 Hours (Table) 09/02/23 09/02/23 09/02/23 Range/Units 09:29 09:29 16:21 Sodium 134 L (137-145) mmol/L BUN 35 H (9-20) mg/dL Creatinine 0.52 L (0.66-1.25) mg/dL Glucose 109 H (74-99) mg/dL POC Glucose (mg/dL) 245 H (70-110) mg/dL Calcium 8.0 L (8.4-10.2) mg/dL Total Protein 4.7 L (6.3-8.2) g/dL Albumin 2.1 L (3.5-5.0) g/dL Vancomycin Trough 31.3 H* ug/mL 09/02/23 09/03/23 09/03/23 Range/Units 19:55 05:53 08:42 Sodium (137-145) mmol/L BUN (9-20) mg/dL Creatinine 0.54 L (0.66-1.25) mg/dL Glucose (74-99) mg/dL POC Glucose (mg/dL) 275 H 138 H (70-110) mg/dL Calcium (8.4-10.2) mg/dL Total Protein (6.3-8.2) g/dL Albumin (3.5-5.0) g/dL Vancomycin Trough ug/mL 09/03/23 Range/Units 11:17 Sodium (137-145) mmol/L BUN (9-20) mg/dL Creatinine (0.66-1.25) mg/dL Glucose (74-99) mg/dL POC Glucose (mg/dL) 225 H (70-110) mg/dL Calcium (8.4-10.2) mg/dL Total Protein (6.3-8.2) g/dL Albumin (3.5-5.0) g/dL Vancomycin Trough ug/mL Microbiology - Last 24 Hours (Table) 08/28/23 12:50 Anaerobic Culture - Final Buttock 08/31/23 10:10 Gram Stain - Final Other - Other Wound Culture - Final 08/31/23 10:10 Anaerobic Culture - Final Other - Other
--- NOTE | 2023-09-03 14:10 | P.PN ---
Subjective Progress Note Date: 09/03/23 patient is a 77 -year-old male past medical history significant for recent left below the knee amputation,coronary artery disease, chest pain with angina, diabetes mellitus, eye disorder, GERD, hyperlipidemia, hypertension, history of osteoarthritis, renal disease, sleep apnea, depression who presented to the hospital for abnormal labs and bleeding from the BKA site. Patient had blood work done at the [facility] with a found hemoglobin to be low, there is also complaint of bleeding from the BKA site. There is no complaint of blood in the stools. There was no complaint of fever or chills. There was no complaint nausea, vomiting abdominal pain. Patient denies any lethargy or weakness. There is no complaint of chest pain or shortness of breath. Initial lab work done in the ER showed WBC 13.6, hemoglobin 9, platelet count 801, sodium 132, potassium 4.6, BUN 27, creatinine 0.65 EKG done in the ER showed heart rate of 129, irregular in rhythm and rate, no ST segment elevation or depression seen, no T-wave inversions seen. Patient admitted to internal medicine service 08/28. Patient seen and examined. Heart rate is better controlled, wean off the Cardizem drip. Denies any lightheadedness or dizziness. 08/29. Patient seen and examined. Lying comfortably in the bed. No acute issues overnight. Patient has been diuresing well, swelling of right lower extremity has improved 08/30. Patient seen and examined.. Labs done this morning showed sodium 132, potassium 3.6, BUN 29, creatinine 0.65, states he feels much better. 08/31. Patient seen and examined. Patient underwent Debridement of sacral decubitus ulcer. Denies any Lethargy or weakness. Vital signs stable 09/01. Patient seen and examined. Currently on vancomycin and cefepime, ID recommends 6 weeks of antibiotics. Patient is lethargic this morning. 09/02. Patient seen and examined. Continues to be afebrile. States he feels better. Denies any lethargy or weakness. 09/03. Patient seen and examined. States he feels much better. Swelling of legs is improved. Denies any shortness of breath. REVIEW OF SYSTEMS: CONSTITUTIONAL: No fever, no malaise,. CARDIOVASCULAR: No chest pain, no palpitations, no syncope. PULMONARY: No shortness of breath, no cough, GASTROINTESTINAL: No diarrhea, no nausea, no vomiting, no abdominal pain. NEUROLOGICAL: No headaches, no weakness, PHYSICAL EXAMINATION: GENERAL: The patient is lethargic, not in any acute distress. Chronically ill looking HEENT: Pupils are round and equally reacting to light. EOMI. No scleral icterus. No conjunctival pallor. Normocephalic, atraumatic. No pharyngeal erythema. No thyromegaly. CARDIOVASCULAR: S1 and S2 present. No murmurs, rubs, or gallops. IRRegular rate and rhythm PULMONARY: Chest is clear to auscultation, no wheezing or crackles. ABDOMEN: Soft, nontender, nondistended, normoactive bowel sounds. No palpable organomegaly. MUSCULOSKELETAL: Left BKA EXTREMITIES: 2+ pitting edema right lower extremity NEUROLOGICAL: Gross neurological examination did not reveal any focal deficits. SKIN: Sacral decub Assessment and plan Bleeding from left BKA site Sacral osteomyelitis A-fib with RVR chronic nonhealing wound sacral area Anemia, likely secondary to chronic kidney disease with acute blood loss anemia, hemoglobin is 7.1 and is being transfused 1 unit of PRBC History of diabetes mellitus, insulin-dependent, uncontrolled with hyper and hypoglycemia GERD Hyperlipidemia Hypertension Osteoarthritis Chronic kidney disease stage III Obstructive sleep apnea with a CPAP History of depression Morbid obesity with a BMI of 40.5 Monitor vital signs Monitor CBC Monitor CMP Continue telemetry monitoring Continue Lopressor Continue Eliquis Strict I's and O's, daily weights, switch IV Lasix to oral diuretics, possible discharge tomorrow Monitor blood sugar levels, continue sliding scale insulin and Lantus 25 units at night Continue wound care Continue wound VAC cultures came back positive for MRSA and Pseudomonas, patient did get a PICC line this morning Continue IV vancomycin pharmacy to dose and cefepime 2 g. Vascular surgery following Cardiology following. ID recommends 6 weeks of IV antibiotics, PICC line ordered General surgery consulted for sacral wound , underwent debridement of sacral decubitus ulcer, wound VAC applied Labs and medication were reviewed.. Continue same treatment. Continue with symptomatic treatment. Resume home medication. Monitor labs and vitals. DVT and GI prophylaxis. Further recommendations as per clinical course of the patient Dictation was produced using [employer] dictation software. please excuse any grammatical, word or spelling errors. Objective - Vital Signs Vital signs: Vital Signs Temp 97.5 F L 09/03/23 08:00 Pulse 95 09/03/23 08:00 Resp 18 09/03/23 08:00 BP 128/56 09/03/23 08:00 Pulse Ox 100 09/03/23 08:00 FiO2 Intake & Output 09/02/23 09/03/23 09/03/23 18:59 06:59 18:59 Intake Total 1110 557 Output Total 1100 3000 Balance 10 -3000 557 Intake: Oral 1110 557 Output: Drainage 100 Left Calf 100 Urine 1000 3000 Other: Voiding Method External Catheter External Catheter - Labs CBC & Chem 7: 09/02/23 09:29 09/03/23 08:42 Labs: Abnormal Lab Results - Last 24 Hours (Table) 09/02/23 09/02/23 09/02/23 Range/Units 09:29 09:29 09:29 RBC 2.93 L (4.30-5.90) m/uL Hgb 8.4 L (13.0-17.5) gm/dL Hct 25.4 L (39.0-53.0) % RDW 18.6 H (11.5-15.5) % Sodium 134 L (137-145) mmol/L BUN 35 H (9-20) mg/dL Creatinine 0.52 L (0.66-1.25) mg/dL Glucose 109 H (74-99) mg/dL POC Glucose (mg/dL) (70-110) mg/dL Calcium 8.0 L (8.4-10.2) mg/dL Total Protein 4.7 L (6.3-8.2) g/dL Albumin 2.1 L (3.5-5.0) g/dL Vancomycin Trough 31.3 H* ug/mL 09/02/23 09/02/23 09/02/23 Range/Units 11:19 16:21 19:55 RBC (4.30-5.90) m/uL Hgb (13.0-17.5) gm/dL Hct (39.0-53.0) % RDW (11.5-15.5) % Sodium (137-145) mmol/L BUN (9-20) mg/dL Creatinine (0.66-1.25) mg/dL Glucose (74-99) mg/dL POC Glucose (mg/dL) 199 H 245 H 275 H (70-110) mg/dL Calcium (8.4-10.2) mg/dL Total Protein (6.3-8.2) g/dL Albumin (3.5-5.0) g/dL Vancomycin Trough ug/mL 09/03/23 09/03/23 Range/Units 05:53 08:42 RBC (4.30-5.90) m/uL Hgb (13.0-17.5) gm/dL Hct (39.0-53.0) % RDW (11.5-15.5) % Sodium (137-145) mmol/L BUN (9-20) mg/dL Creatinine 0.54 L (0.66-1.25) mg/dL Glucose (74-99) mg/dL POC Glucose (mg/dL) 138 H (70-110) mg/dL Calcium (8.4-10.2) mg/dL Total Protein (6.3-8.2) g/dL Albumin (3.5-5.0) g/dL Vancomycin Trough ug/mL Microbiology - Last 24 Hours (Table) 08/28/23 12:50 Anaerobic Culture - Final Buttock 08/31/23 10:10 Gram Stain - Final Other - Other Wound Culture - Final 08/31/23 10:10 Anaerobic Culture - Final Other - Other
[2023-09-03 16:29] LABS: Glucose,Whole Blood 276 mg/dL (70-110)
[2023-09-03] MEDS: FUROSEMIDE 20 MG TAB PO SCH (17:12)
[2023-09-03 20:13] LABS: Glucose,Whole Blood 304 mg/dL (70-110)
[2023-09-04 06:14] LABS: Glucose,Whole Blood 168 mg/dL (70-110)
[2023-09-04 06:47] LABS: African American GFR (CKD) >90 (>60 ml/min/1.73 sqM); Non-African American GFR(CKD) >90 (>60 ml/min/1.73 sqM)
[2023-09-04 08:32] VITALS: RESP 18
[2023-09-04] MEDS: FUROSEMIDE 10 MG/ML 10 ML VIAL IV STA (08:39)
--- NOTE | 2023-09-04 09:23 | P.PN ---
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 He does not follow regularly in the office. He last saw Dr. Sierra in 2020. We have been asked to see in consultation for atrial fibrillation with rapid ventricular rate. He was just diagnosed with atrial fib new-onset earlier this month status post left BKA. He was properly anticoagulated and was discharged to [facility]. He was sent back for bleeding at the stump. A wound VAC is now in place. He remains in atrial fib with controlled ventricular rates. DIAGNOSTICS EKG reveals atrial fib heart rate 129. Telemetry tracings indicate atrial fib. Laboratory reviewed, WBC 11.5, hemoglobin 7.6, platelets 703, sodium 132, potassium 3.9, creatinine 0.63. Current cardiac medications include Lopressor 37.5 mg twice a day, Lasix 40 mg daily, farxiga 10 mg daily, atorvastatin 20 mg daily, aspirin 81 mg daily and 5 mg twice a day. Most recent echocardiogram February 2023 revealed preserved LV systolic function with ejection fraction 55-60%, difficult study due to body habitus however there appears to be a gradient across the aortic and mitral valve of mild degree. 08/29/2023 Patient seen and examined sitting up in bed in no acute distress. Blood pressure 122/65 heart rate 89 afebrile maintaining oxygen saturation on room air. Laboratory data reviewed, WBC 10.2, hemoglobin 7.7, platelets 674, sodium 131, potassium 3.9, creatinine 0.63. Urine output for the previous 24 hours is 3.8 L. Telemetry tracings reviewed, he continues to be in atrial fib with controlled rate in the 80s. 08/30 Patient has been maintained on IV Lasix 40 mg every 12 hours as well as Farxiga 10 mg daily, aspirin and atorvastatin and Lopressor 37.5 mg twice daily. Cardizem drip is at 5 mg/h which is continued. Eliquis is on hold for wound debridement. Wound VAC in place. Heart rate is in the 80s, blood pressure 120/57, pulse ox 97% on room air. Patient remains in atrial fibrillation. Repeat blood work reveals sodium 132, potassium 3.6, BUN 29 creatinine 0.65. 09/01 Yesterday, patient underwent I&D of sacral wound. He has been resumed back on Eliquis. Patient continues to have significant lower extremity edema and also upper extremity more so on the left upper extremity. He has been maintained on IV Lasix 40 mg every 12 hours. Patient is also on IV antibiotics with cefepime and vancomycin. Patient has a negative fluid balance today of 570 mL. His weight appears to be down 12 kg. Repeat blood work reveals sodium 132, potassium 3.6, BUN 37 creatinine 0.59. Echocardiogram reveals EF of 55 to 60%, mild aortic stenosis. No pericardial effusion. 09/02 Patient continues to have extremity edema but left arm edema is improving. He is complaining of hip pain and back pain today. He has been maintained on IV Lasix 40 mg every 12 hours. Blood pressure 106/53, heart rate 68, pulse ox 100% on room air. Yesterday, patient had a negative fluid balance of 570, today 2 230. Weight is down overall. Repeat blood work reveals hemoglobin of 8.4, sodium 134, potassium 3.9, BUN 35 creatinine 0.52. 09/03 Patient continues to have extremity swelling which is improving. He has been maintained on IV Lasix 40 mg every 12 hours. Patient has a negative fluid output this morning of 2990 mL. Weight has trended downward. Heart rate is in the 80s and 90s, blood pressure 128/56. 09/04/2023 Patient examined this morning at the bedside. Patient denies chest pain or pressure. He denies shortness of breath. He has been transition to oral diuretics. He continues to have significant bilateral upper extremity and right lower extremity edema. Vital signs are stable. PHYSICAL EXAM: VITAL SIGNS: Reviewed. GENERAL: Well-developed in no acute distress. NECK: Supple. No JVD or thyromegaly LUNGS: Respirations even and unlabored. Lungs essentially clear to auscultation bilaterally. HEART: Irregular rate and rhythm. S1 and S2 heard. EXTREMITIES: Normal range of motion. No clubbing or cyanosis. Peripheral pulses intact. Wound VAC to left BKA stump. 3+ right lower extremity edema. Bilateral upper extremity edema noted. ASSESSMENT: Persistent atrial fibrillation with rapid ventricular rate, currently rate controlled Generalized anasarca Chronic kidney disease Anemia Hypertension Hyperlipidemia Status post left BKA Peripheral arterial disease PLAN: Continue current cardiac medications Give an additional dose of IV Lasix 60 mg this morning Daily weights, accurate I&O, and monitoring of kidney function Patient is cleared for discharge from a cardiac standpoint Nurse practitioner note has been reviewed by physician. Signing provider agrees with the documented findings, assessment, and plan of care documented by [employer] as a scribe. Objective - Vital Signs Vital signs: Vital Signs Temp 98.4 F 09/04/23 06:53 Pulse 96 09/04/23 06:53 Resp 18 09/04/23 06:53 BP 132/73 09/04/23 06:53 Pulse Ox 97 09/04/23 06:53 FiO2 Intake & Output 09/03/23 09/04/23 09/04/23 18:59 06:59 18:59 Intake Total 1555 Output Total 800 650 Balance 755 -650 Weight 124 kg Intake: Oral 1555 Output: Urine 800 650 Other: Voiding Method External Catheter External Catheter # Bowel Movements 1 - Labs CBC & Chem 7: 09/02/23 09:29 09/04/23 05:33 Labs: Abnormal Lab Results - Last 24 Hours (Table) 09/03/23 09/03/23 09/03/23 Range/Units 08:42 11:17 16:26 Creatinine 0.54 L (0.66-1.25) mg/dL POC Glucose (mg/dL) 225 H 276 H (70-110) mg/dL 09/03/23 09/04/23 09/04/23 Range/Units 20:12 05:33 06:11 Creatinine 0.49 L (0.66-1.25) mg/dL POC Glucose (mg/dL) 304 H 168 H (70-110) mg/dL Microbiology - Last 24 Hours (Table) 08/29/23 15:22 Blood Culture - Final Blood 08/28/23 12:50 Anaerobic Culture - Final Buttock 08/31/23 10:10 Gram Stain - Final Other - Other Wound Culture - Final
[2023-09-04] MEDS: VANCOMYCIN 2,000 MG in SODIUM CHLORIDE 0.9% 500 ML 500 ML IVPB SCH (09:58)
[2023-09-04 11:45] LABS: Glucose,Whole Blood 216 mg/dL (70-110)
--- NOTE | 2023-09-04 11:51 | P.DS ---
Providers Date of admission: 08/27/23 13:04 Expected date of discharge: 09/04/23 Attending physician: Alfred Lau MD Consults: 08/27/23 12:18 Consult Physician Routine Consulting Provider: Geoffrey Sierra Consult Reason/Comments: A-fib RVR Do you want consulting provider notified?: Yes 08/28/23 10:33 Consult Physician Routine Consulting Provider: Lina Aleman Consult Reason/Comments: Left BKA, evaluate for need for antibiotic Do you want consulting provider notified?: Yes 08/29/23 11:10 Consult Physician Routine Consulting Provider: Bradley Amaro Consult Reason/Comments: sacral osteomyelitis ?abscees for i&d and deep cu ltures Do you want consulting provider notified?: Yes Primary care physician: Sterling Chilel Hospital Course: Discharge diagnoses; Bleeding from left BKA site Sacral osteomyelitis A-fib with RVR chronic nonhealing wound sacral area Anemia, likely secondary to chronic kidney disease with acute blood loss anemia, hemoglobin is 7.1 and is being transfused 1 unit of PRBC History of diabetes mellitus, insulin-dependent, uncontrolled with hyper and hypoglycemia GERD Hyperlipidemia Hypertension Osteoarthritis Chronic kidney disease stage III Obstructive sleep apnea with a CPAP History of depression Morbid obesity with a BMI of 40.5 Plan; cultures came back positive for MRSA and Pseudomonas, Continue IV vancomycin pharmacy to dose and cefepime 2 g. ID recommends 6 weeks of IV antibiotics, Hospital course; patient is a 77 -year-old male past medical history significant for recent left below the knee amputation,coronary artery disease, chest pain with angina, diabetes mellitus, eye disorder, GERD, hyperlipidemia, hypertension, history of osteoarthritis, renal disease, sleep apnea, depression who presented to the hospital for abnormal labs and bleeding from the BKA site. Patient had blood work done at the [facility] with a found hemoglobin to be low, there is also complaint of bleeding from the BKA site. There is no complaint of blood in the stools. There was no complaint of fever or chills. There was no complaint nausea, vomiting abdominal pain. Patient denies any lethargy or weakness. There is no complaint of chest pain or shortness of breath. Initial lab work done in the ER showed WBC 13.6, hemoglobin 9, platelet count 801, sodium 132, potassium 4.6, BUN 27, creatinine 0.65 EKG done in the ER showed heart rate of 129, irregular in rhythm and rate, no ST segment elevation or depression seen, no T-wave inversions seen. Patient admitted to internal medicine service 08/28. Patient seen and examined. Heart rate is better controlled, wean off the Cardizem drip. Denies any lightheadedness or dizziness. 08/29. Patient seen and examined. Lying comfortably in the bed. No acute issues overnight. Patient has been diuresing well, swelling of right lower extremity has improved 08/30. Patient seen and examined.. Labs done this morning showed sodium 132, potassium 3.6, BUN 29, creatinine 0.65, states he feels much better. 08/31. Patient seen and examined. Patient underwent Debridement of sacral decubitus ulcer. Denies any Lethargy or weakness. Vital signs stable 09/01. Patient seen and examined. Currently on vancomycin and cefepime, ID recommends 6 weeks of antibiotics. Patient is lethargic this morning. 09/02. Patient seen and examined. Continues to be afebrile. States he feels better. Denies any lethargy or weakness. 09/03. Patient seen and examined. States he feels much better. Swelling of legs is improved. Denies any shortness of breath. 09/04. Patient seen and examined. Patient has been cleared by cardiology, being discharged on oral Lasix 60 mg twice daily. ID recommends 6 weeks of IV antibiotics. PHYSICAL EXAMINATION: GENERAL: The patient is lethargic, not in any acute distress. Chronically ill looking HEENT: Pupils are round and equally reacting to light. EOMI. No scleral icterus. No conjunctival pallor. Normocephalic, atraumatic. No pharyngeal erythema. No th yromegaly. CARDIOVASCULAR: S1 and S2 present. No murmurs, rubs, or gallops. IRRegular rate and rhythm PULMONARY: Chest is clear to auscultation, no wheezing or crackles. ABDOMEN: Soft, nontender, nondistended, normoactive bowel sounds. No palpable organomegaly. MUSCULOSKELETAL: Left BKA EXTREMITIES: 2+ pitting edema right lower extremity NEUROLOGICAL: Gross neurological examination did not reveal any focal deficits. SKIN: Sacral decub Dictation was produced using [employer] dictation software. please excuse any grammatical, word or spelling errors. Patient Condition at Discharge: Fair Plan - Discharge Summary Discharge Rx Participant: No New Discharge Prescriptions: New Cefepime [Maxipime] 2 gm IVPB Q8HR 42 Days each Furosemide [Lasix] 60 mg PO BID@0900,1600 #30 tab Vancomycin 2,000 mg IVPB Q24H 42 Days each Continue Fenofibrate,Micronized [Fenofibrate] 200 mg PO HS Dapagliflozin Propanediol [Farxiga] 10 mg PO DAILY metFORMIN HCL 1,000 mg PO BID Pioglitazone [Actos] 15 mg PO DAILY Aspirin 81 mg PO DAILY Insulin Glargine,Hum.rec.anlog [Lantus Solostar Pen] 25 units SQ HS Ferrous Sulfate [Feosol] 325 mg PO BID Insulin Lispro [humaLOG Kwikpen] See Protocol SQ QID PRN PRN Reason: Blood Sugar - High Apixaban [Eliquis] 5 mg PO BID tab Semaglutide [Ozempic] 2 mg SQ MO Atorvastatin Calcium 20 mg PO HS Clotrimazole/Betameth Cream [Lotrisone] 1 applic TOPICAL DAILY Cyanocobalamin [Vitamin B-12] 500 mcg PO DAILY Metoprolol Tartrate [Lopressor] 37.5 mg PO BID tab Changed HYDROcodone/APAP 5-325MG [[place] 5-325] 1 tab PO Q6H PRN 3 Days #12 tab PRN Reason: Pain Gabapentin [Neurontin] 300 mg PO Q8HR@0600,1400,2200 3 Days #9 cap Discontinued Glucerna Shake 1 can PO DAILY Furosemide [Lasix] 40 mg PO DAILY@0600 Discharge Medication List Fenofibrate,Micronized [Fenofibrate] 200 mg PO HS 06/06/18 [History] Dapagliflozin Propanediol [Farxiga] 10 mg PO DAILY 02/05/23 [History] Pioglitazone [Actos] 15 mg PO DAILY 02/05/23 [History] Semaglutide [Ozempic] 2 mg SQ MO 02/05/23 [History] metFORMIN HCL 1,000 mg PO BID 02/05/23 [History] Aspirin 81 mg PO DAILY 02/18/23 [History] Atorvastatin Calcium 20 mg PO HS 08/16/23 [History] Clotrimazole/Betameth Cream [Lotrisone] 1 applic TOPICAL DAILY 08/16/23 [History] Cyanocobalamin [Vitamin B-12] 500 mcg PO DAILY 08/16/23 [History] Ferrous Sulfate [Feosol] 325 mg PO BID 08/16/23 [History] Insulin Glargine,Hum.rec.anlog [Lantus Solostar Pen] 25 units SQ HS 08/16/23 [History] Insulin Lispro [humaLOG Kwikpen] See Protocol SQ QID PRN 08/16/23 [History] Apixaban [Eliquis] 5 mg PO BID tab 08/23/23 [Rx] Metoprolol Tartrate [Lopressor] 37.5 mg PO BID tab 08/23/23 [Rx] Cefepime [Maxipime] 2 gm IVPB Q8HR 42 Days each 09/04/23 [Rx] Furosemide [Lasix] 60 mg PO BID@0900,1600 #30 tab 09/04/23 [Rx] Gabapentin [Neurontin] 300 mg PO Q8HR@0600,1400,2200 3 Days #9 cap 09/04/23 [Rx] HYDROcodone/APAP 5-325MG [[place] 5-325] 1 tab PO Q6H PRN 3 Days #12 tab 09/04/23 [Rx] Vancomycin 2,000 mg IVPB Q24H 42 Days each 09/04/23 [Rx] Follow up Appointment(s)/Referral(s): Sterling Chilel MD [Primary Care Provider] - 1-2 days Lina Aleman MD [STAFF PHYSICIAN] - 1 Week Geoffrey Sierra MD [STAFF PHYSICIAN] - 1 Week Activity/Diet/Wound Care/Special Instructions: Wound VAC to left BKA. Change Fridays Discharge Disposition: TRANSFER TO SNF/ECF
--- NOTE | 2023-09-04 12:03 | P.PN ---
Subjective Progress Note Date: 09/04/23 Principal diagnosis: Stage IV sacral pressure ulcer concerning for osteomyelitis Patient is a 77-year-old male with a past medical history significant for coronary artery disease hypertension hyperlipidemia osteoarthritis renal disease recently had admitted to this facility and this patient is status post left below the knee amputation for chronic nonhealing wound to the left lower extremity, patient brought back to the hospital concerning for low hemoglobin vascular surgery evaluate the patient mention no infection to the left BKA stump also noticed to have a stage IV sacral pressure ulcer with the wound exposed further workup today shows concerning for osteomyelitis on the basis of CT.Patient is s/p surgical debridement of the necrotic sacral pressure ulcer completed by surgery on 08/31/2023 On today's evaluation that is 09/04/2023, Patient is afebrile patient is currently on room air and denies having any shortness of breath, the patient denies any chest pain or cough, the patient denies any nausea vomiting did not have any abdominal pain and no diarrhea Patient did have a creatinine 0.49 Vanco random was 20.8 Objective - Vital Signs Vital signs: Vital Signs Temp 98.4 F 09/04/23 06:53 Pulse 96 09/04/23 08:28 Resp 18 09/04/23 08:28 BP 132/73 09/04/23 06:53 Pulse Ox 97 09/04/23 06:53 FiO2 Intake & Output 09/03/23 09/04/23 09/04/23 18:59 06:59 18:59 Intake Total 1555 Output Total 315 519 5341 Balance 755 -650 -1100 Weight 124 kg Intake: Oral 1555 Output: Urine 865 567 6515 Other: Voiding Method External Catheter External Catheter External Catheter # Bowel Movements 1 - Exam GENERAL DESCRIPTION: An elderly male lying in bed in no distress RESPIRATORY SYSTEM: Unlabored breathing , decreased breath sounds at bases HEART: S1 S2 regular rate and rhythm , ABDOMEN: Soft , no tenderness EXTREMITIES: Left BKA stump covered with a wound VAC - Labs CBC & Chem 7: 09/02/23 09:29 09/04/23 05:33 Labs: Abnormal Lab Results - Last 24 Hours (Table) 09/03/23 09/03/23 09/04/23 Range/Units 16:26 20:12 05:33 Creatinine 0.49 L (0.66-1.25) mg/dL POC Glucose (mg/dL) 276 H 304 H (70-110) mg/dL 09/04/23 09/04/23 Range/Units 06:11 11:44 Creatinine (0.66-1.25) mg/dL POC Glucose (mg/dL) 168 H 216 H (70-110) mg/dL Microbiology - Last 24 Hours (Table) 08/29/23 15:22 Blood Culture - Final Blood 08/28/23 12:50 Anaerobic Culture - Final Buttock 08/31/23 10:10 Gram Stain - Final Other - Other Wound Culture - Final Assessment and Plan (1) Stage IV pressure ulcer of sacral region Current Visit: Yes Status: Acute Code(s): L89.154 - PRESSURE ULCER OF SACRAL REGION, STAGE 4 SNOMED Code(s): 97046398100019 (2) Sacral osteomyelitis Current Visit: Yes Status: Acute Code(s): M46.28 - OSTEOMYELITIS OF VERTEBRA, SACRAL AND SACROCOCCYGEAL REGION SNOMED Code(s): 972229615 (3) Elevated WBCs Current Visit: No Status: Acute Code(s): D72.829 - ELEVATED WHITE BLOOD CELL COUNT, UNSPECIFIED SNOMED Code(s): 229171880 (4) MRSA (methicillin resistant staph aureus) culture positive Current Visit: Yes Status: Acute Code(s): Z22.322 - CARRIER OR SUSPECTED CARRIER OF METHICILLIN RESIS STAPH SNOMED Code(s): 024011699 (5) Pseudomonas aeruginosa infection Current Visit: Yes Status: Acute Code(s): A49.8 - OTHER BACTERIAL INFECTIONS OF UNSPECIFIED SITE SNOMED Code(s): 37965574 Plan: 1patient with a chronic nonhealing wound to the sacral area which is a stage IV ulcer with a bone palpable concerning for sacral osteomyelitis 2-leukocytosis more likely related to the sacral pressure ulcer versus reactive to the anemia/bleed 3-left BKA stump is currently covered with a wound VAC and cannot be accessed for any signs of infection though vascular surgery note mention no concern for infection 4-CT of the sacrum is suspicious for bony destruction and possible osteomyelitis, the patient is status post surgical debridement of the necrotic tissue 5-local cultures came back positive for MRSA along with Pseudomonas and anaerobic culture were negative, patient did get a PICC line for outpatient antibiotics 6-patient to continue with IV vancomycin pharmacy to dose along with cefepime 2 g. Every 8 hour to finish 6-week course of therapy, and close outpatient follow-up wound care per his wound care physician question concern answered Dictation was produced using [employer] dictation software. please excuse any grammatical, word or spelling errors. Time with Patient: Less than 30
[2023-09-04 15:37] VITALS: BP 136/74; PULSE 94; TEMP 98.2
[2023-09-04 16:48] LABS: Glucose,Whole Blood 235 mg/dL (70-110)
[2023-09-06] MEDS ORDERED: VANCOMYCIN TROUGH DUE 1 EACH MISC MISCELLANE ONE (08:00)
--- NOTE | 2023-09-17 11:11 | CDI ---
Documentation Clarification Form Date: 09/17/2023 10:58:00 AM From: Rupa Adams Phone: Admit Date: 08/27/2023 01:04:00 PM Patient Name: Zeferino Briones Visit Number: [id number] Discharge Date: 09/04/2023 06:30:00 PM ATTENTION: The Clinical Documentation Specialists (CDI) and [facility] Coding Staff appreciate your assistance in clarifying documentation. Please respond to the clarification below the line at the bottom and electronically sign. The CDI & [facility] Coding staff will review the response and follow-up if needed. Please note: Queries are made part of the Legal Health Record. If you have any questions, please contact the author of this message via ITS. Dr. Alfred Lau Conflicting documentation has been found in the medical record. As attending physician, please provide clarification. Stage III pressure ulcer of sacrum per Consult 09/02 Stage IV pressure ulcer of sacral region Consult 08/28 Chronic non-healingwoundsacral area DC Summary History/Risk Factors: 77yo M, bleedingfrom leftBKA, Sacral osteomyelitis, A- fib, anemia d/t CKD III w ABLA, DMII uncontrolled with hyper & hypoglycemia, HTN, OAOSA, depression and morbid obesity Clinical Indicators: Sacral decubitus ulcerwithnecrosisof skin, subcutaneous fat and muscle. Ulceration size measures 20 x 15 x 8. Treatment: ExcisionalDebridementofsacral decubitus ulcer Please clarify which diagnosis is most appropriate: [ x ] Stage III pressure ulcer of sacrum [ x] Stage IV pressure ulcer of sacral region [ ] Other (please specify) [ ] Unable to determine (Template Last Revised: September 2020) MTDD
== END 2023-09-04 18:30 | DRG 907 ==
LOC: EC 10:02 → 3SCARD 13:04 → 4SSUR 09-03 23:20
PROVIDERS: ADMIT Internal Medicine; ATTEND Internal Medicine
PROC: 0KBN0ZZ Excision of Right Hip Muscle, Open Approach (ICD-10-PCS; 2023-08-31)
PROC: 0KBP0ZZ Excision of Left Hip Muscle, Open Approach (ICD-10-PCS; 2023-08-31)
PROC: 02HV33Z Insertion of Infusion Device into Superior Vena Cava, Percutaneous Approach (ICD-10-PCS; principal; 2023-08-31 10:40)
DX: M96.830 Postprocedural hemorrhage of a musculoskeletal structure following a musculoskeletal system procedure (principal); L89.153 Pressure ulcer of sacral region, stage 3; L89.154 Pressure ulcer of sacral region, stage 4; I48.19 Other persistent atrial fibrillation; M46.28 Osteomyelitis of vertebra, sacral and sacrococcygeal region; L97.924 Non-pressure chronic ulcer of unspecified part of left lower leg with necrosis of bone; Z68.41 Body mass index [BMI] 40.0-44.9, adult; D62 Acute posthemorrhagic anemia; E11.649 Type 2 diabetes mellitus with hypoglycemia without coma; D63.1 Anemia in chronic kidney disease; E11.22 Type 2 diabetes mellitus with diabetic chronic kidney disease; E11.42 Type 2 diabetes mellitus with diabetic polyneuropathy; E11.69 Type 2 diabetes mellitus with other specified complication; E11.622 Type 2 diabetes mellitus with other skin ulcer; N18.30 Chronic kidney disease, stage 3 unspecified; E11.65 Type 2 diabetes mellitus with hyperglycemia; E66.01 Morbid (severe) obesity due to excess calories; F32.A Depression, unspecified; I12.9 Hypertensive chronic kidney disease with stage 1 through stage 4 chronic kidney disease, or unspecified chronic kidney disease; I25.10 Atherosclerotic heart disease of native coronary artery without angina pectoris; G47.33 Obstructive sleep apnea (adult) (pediatric); B96.5 Pseudomonas (aeruginosa) (mallei) (pseudomallei) as the cause of diseases classified elsewhere; Z89.512 Acquired absence of left leg below knee; Z91.198 Patient's noncompliance with other medical treatment and regimen for other reason; Z79.4 Long term (current) use of insulin; Z22.322 Carrier or suspected carrier of Methicillin resistant Staphylococcus aureus; E78.5 Hyperlipidemia, unspecified; M13.0 Polyarthritis, unspecified; K21.9 Gastro-esophageal reflux disease without esophagitis; Y83.5 Amputation of limb(s) as the cause of abnormal reaction of the patient, or of later complication, without mention of misadventure at the time of the procedure; Z79.84 Long term (current) use of oral hypoglycemic drugs; Z79.82 Long term (current) use of aspirin; Z79.891 Long term (current) use of opiate analgesic; Z79.899 Other long term (current) drug therapy; Z79.01 Long term (current) use of anticoagulants; Z91.048 Other nonmedicinal substance allergy status; Z74.01 Bed confinement status; Z86.14 Personal history of Methicillin resistant Staphylococcus aureus infection
CPT/HCPCS: 36415; 36573; 72192; 80048; 80053; 80202; 82565; 83605; 83735; 84484; 85025; 85027; 85610; 85652; 85730; 86140; 86701; 86803; 86850; 86900; 86901; 87040; 87070; 87075; 87077; 87186; 87205; 87340; 88304; 93005; 93306; 96361; 96365; 96366; 99291

== ENCOUNTER 2023-09-07 05:10 | Emergency (ER) | payer MEDICARE ==
--- NOTE | 2023-09-07 05:28 | ED ---
Recheck HPI - General Stated Complaint: abn labs Time Seen by Provider: 09/07/23 05:14 Source: RN notes reviewed, old records reviewed, Caregiver Mode of arrival: EMS Limitations: altered mental status - History of Present Illness Initial Comments: This is a 77-year-old male who was sent to the ER today for evaluation of abnormal outpatient lab testing. Low hemoglobin patient sent to the ER for abnormal lab testing and complaints of weakness. But no headache chest pain shortness of breath abdominal pain or nausea vomiting or diarrhea MD Complaint: abnormal lab (Low hemoglobin) Returns Today for: Called Because of Abnormal Lab/Test Symptoms Since Prior Visit: no new symptoms Context: planned re-check, called for abnormal lab result Associated Symptoms: none Treatments Prior to Arrival: other (0) - Related Data Home Medications Medication Instructions Recorded Confirmed Fenofibrate,Micronized 200 mg PO HS 06/06/18 09/07/23 [Fenofibrate] Dapagliflozin Propanediol [Farxiga] 10 mg PO DAILY 02/05/23 09/07/23 Pioglitazone [Actos] 15 mg PO DAILY 02/05/23 09/07/23 Semaglutide [Ozempic] 2 mg SQ MO 02/05/23 09/07/23 metFORMIN HCL 1,000 mg PO BID@0600,1700 02/05/23 09/07/23 Aspirin 81 mg PO DAILY 02/18/23 09/07/23 Atorvastatin Calcium 20 mg PO HS 08/16/23 09/07/23 Clotrimazole/Betameth Cream 1 applic TOPICAL DAILY 08/16/23 09/07/23 [Lotrisone] Cyanocobalamin [Vitamin B-12] 500 mcg PO DAILY 08/16/23 09/07/23 Ferrous Sulfate [Feosol] 325 mg PO BID 08/16/23 09/07/23 Insulin Glargine,Hum.rec.anlog 25 units SQ HS 08/16/23 09/07/23 [Lantus Solostar Pen] Insulin Lispro [humaLOG Kwikpen] See Protocol SQ QID PRN 08/16/23 09/07/23 0.9 % Sodium Chloride [Sodium 10 ml IV Q12H 09/07/23 09/07/23 Chloride Flush] 0.9 % Sodium Chloride [Sodium 10 ml IV TID@0600,1400,2200 09/07/23 09/07/23 Chloride Flush] Furosemide [Lasix] 60 mg PO BID@0600,1200 09/07/23 09/07/23 Gabapentin [Neurontin] 300 mg PO TID@0600,1300,2100 09/07/23 09/07/23 Metoprolol Tartrate [Lopressor] 37.5 mg PO BID 09/07/23 09/07/23 Vits A and D/White Pet/Lanolin [A 1 applic TOPICAL Q12H 09/07/23 09/07/23 and D Ointment] Previous Rx's Medication Instructions Recorded Apixaban [Eliquis] 5 mg PO BID tab 08/23/23 Cefepime [Maxipime] 2 gm IVPB Q8HR 42 Days each 09/04/23 HYDROcodone/APAP 5-325MG [[place] 1 tab PO Q6H PRN 3 Days #12 tab 09/04/23 5-325] Vancomycin 2,000 mg IVPB Q24H 42 Days each 09/04/23 Allergies Allergy/AdvReac Type Severity Reaction Status Date / Time cat pelt standardized Allergy Itching Verified 09/07/23 07:52 allergenic ex mold Allergy Itching Verified 09/07/23 07:52 pollen extracts Allergy Itching Verified 09/07/23 07:52 Review of Systems ROS Statement: Those systems with pertinent positive or pertinent negative responses have been documented in the HPI. ROS Other: All systems not noted in ROS Statement are negative. Past Medical History Past Medical History: Coronary Artery Disease (CAD), Chest Pain / Angina, Diabetes Mellitus, Eye Disorder, GERD/Reflux, Hyperlipidemia, Hypertension, Osteoarthritis (OA), Renal Disease, Sleep Apnea/CPAP/BIPAP Additional Past Medical History / Comment(s): 02/05/23 fall in shower with left ankle wound/fracture, had surgery-ORIF with I&D and wound vac placed/removed. Current left foot wound, left benz wound and right sacrum wound with wound vac. Anemia. IDDM type II, neuropathy legs and feet, bedbound/ander lift, CKD stage III, nephrolithiasis, DAL[place] with CPAP, right hip, left shoulder pain/torn rotator cuff/limited ROM, polyarthritis, cellulitis, lymphedema, glaucoma. History of Any Multi-Drug Resistant Organisms: MRSA Date of last positivie culture/infection: 08/27/23 MDRO Source:: Buttock Past Surgical History: Orthopedic Surgery Additional Past Surgical History / Comment(s): KIDNEY STONE REMOVED and ureteral stent placed, deviated septum surgery, flex sigmoidoscopy several times, colonoscopy, dental surgery, cataract surgery bilaterally, ORIF left ankle. Past Anesthesia/Blood Transfusion Reactions: No Reported Reaction Smoking Status: Never smoker - Past Family History Father Additional Family Medical History / Comment(s): Brain aneurysm. Mother Family Medical History: Cancer, Deep Vein Thrombosis (DVT) General Exam General appearance: alert, in no apparent distress, anxious Head exam: Present: atraumatic, normocephalic, normal inspection Eye exam: Present: normal appearance, PERRL, EOMI. Absent: scleral icterus, conjunctival injection, periorbital swelling ENT exam: Present: normal exam, mucous membranes moist Neck exam: Present: normal inspection. Absent: tenderness, meningismus, lymphadenopathy Respiratory exam: Present: normal lung sounds bilaterally. Absent: respiratory distress, wheezes, rales, rhonchi, stridor Cardiovascular Exam: Present: regular rate, normal rhythm, normal heart sounds. Absent: systolic murmur, diastolic murmur, rubs, gallop, clicks GI/Abdominal exam: Present: soft, normal bowel sounds. Absent: distended, tenderness, guarding, rebound, rigid Extremities exam: Present: normal inspection, full ROM, normal capillary refill. Absent: tenderness, pedal edema, joint swelling, calf tenderness Back exam: Present: normal inspection Neurological exam: Present: alert, oriented X3, CN II-XII intact Psychiatric exam: Present: normal affect, normal mood Skin exam: Present: warm, dry, intact, normal color. Absent: rash Course Vital Signs 09/07/23 09/07/23 05:21 07:38 Temperature 97.8 F 98.2 F Pulse Rate 93 85 Respiratory 18 20 Rate Blood Pressure 95/55 109/57 O2 Sat by Pulse 97 100 Oximetry - Reevaluation(s) Reevaluation #1: 09/07/23 05:27 Medical records reviewed Reevaluation #2: 09/07/23 05:27 Patient symptoms unchanged Reevaluation #3: Patient informed of results and questions answered Reevaluation #4: Was pt. sent in by a medical professional or institution (, PA, EMBROIDERY FINISHER, urgent care, hospital, or halfway...) When possible be specific @ -no Did you speak to anyone other than the patient for history (EMS, parent, family, police, friend...)? What history was obtained from this source @ -no Did you review nursing and triage notes (agree or disagree)? Why? @ -agree Are old charts reviewed (outside hosp., previous admission, EMS record, old EKG, old radiological studies, urgent care reports/EKG's, halfway records)? Report findings @ -yes Differential Diagnosis (chest pain, altered mental status, abdominal pain women, abdominal pain men, vaginal bleeding, weakness, fever, dyspnea, syncope, headache, dizziness, GI bleed, back pain, seizure, CVA, palpatations, mental health, musculoskeletal)? @ -prior EKG interpreted by me (3pts min.). @ -no X-rays interpreted by me (1pt min.). @ -no CT interpreted by me (1pt min.). @ -no U/S interpreted by me (1pt. min.). @ -no What testing was considered but not performed or refused? (CT, X-rays, U/S, labs)? Why? @ -none What meds were considered but not given or refused? Why? @ -none Did you discuss the management of the patient with other professionals (professionals i.e. , PA, EMBROIDERY FINISHER, lab, RT, psych nurse, social work professor, manager of employee relations, teacher, training officer, briefcase sewer)? Give summary @ -no Was smoking cessation discussed for >3mins.? @ -no Was critical care preformed (if so, how long)? @ -no Were there social determinants of health that impacted care today? How? (Homelessness, low income, unemployed, alcoholism, drug addiction, transportation, low edu. Level, literacy, decrease access to med. care, fpc, rehab)? @ -none Was there de-escalation of care discussed even if they declined (Discuss DNR or withdrawal of care, Hospice)? DNR status @ -no What co-morbidities impacted this encounter? (DM, HTN, Smoking, COPD, CAD, Cancer, CVA, ARF, Chemo, Hep., AIDS, mental health diagnosis, sleep apnea, morbid obesity)? @ -none Was patient admitted / discharged? Hospital course, mention meds given and route, prescriptions, significant lab abnormalities, going to OR and other pertinent info. @ -77 male to ER for outpatient abnormal lab tests with low hemoglobin. Patient's hemoglobin is not transfused will normal level here in the ER with no acute vital sign changes. Patient is stable and can be discharged home Discharge Undiagnosed new problem with uncertain prognosis? @ -no Drug Therapy requiring intensive monitoring for toxicity (Heparin, Nitro, Insulin, Cardizem)? @ -no Were any procedures done? @ -no Diagnosis/symptom? @ -Weakness Acute, or Chronic, or Acute on Chronic? @ -Acute Uncomplicated (without systemic symptoms) or Complicated (systemic symptoms)? @ -Complicated Side effects of treatment? @ -no Exacerbation, Progression, or Severe Exacerbation? @ -exacerbation Poses a threat to life or bodily function? How? (Chest pain, [place], NM, pneumonia, PE, COPD, DKA, ARF, appy, cholecystitis, CVA, Diverticulitis, Homicidal, Suicidal, threat to staff... and all critical care pts) @ -yes extremes of age Medical Decision Making - Medical Decision Making 77 male to ER for outpatient abnormal lab tests with low hemoglobin. Patient's hemoglobin is not transfused will normal level here in the ER with no acute vital sign changes. Patient is stable and can be discharged home - Lab Data Result diagrams: 09/07/23 05:51 09/07/23 05:51 Lab Results 09/07/23 09/07/23 09/07/23 Range/Units 05:51 05:51 05:51 WBC 10.7 H (3.8-10.6) k/uL RBC 2.56 L (4.30-5.90) m/uL Hgb 7.0 L (13.0-17.5) gm/dL Hct 22.4 L (39.0-53.0) % MCV 87.4 (80.0-100.0) fL MCH 27.3 (25.0-35.0) pg MCHC 31.2 (31.0-37.0) g/dL RDW 19.0 H (11.5-15.5) % Plt Count 580 H (150-450) k/uL MPV 7.8 Neutrophils % 74 % Lymphocytes % 15 % Monocytes % 5 % Eosinophils % 3 % Basophils % 0 % Neutrophils # 8.0 H (1.3-7.7) k/uL Lymphocytes # 1.6 (1.0-4.8) k/uL Monocytes # 0.5 (0-1.0) k/uL Eosinophils # 0.3 (0-0.7) k/uL Basophils # 0.0 (0-0.2) k/uL Hypochromasia Marked Poikilocytosis Moderate Anisocytosis Slight PT 12.7 H (10.0-12.5) sec INR 1.2 H (<1.2) APTT 27.5 (22.0-30.0) sec Sodium 132 L (137-145) mmol/L Potassium 3.2 L (3.5-5.1) mmol/L Chloride 100 (98-107) mmol/L Carbon Dioxide 28 (22-30) mmol/L Anion Gap 4 mmol/L BUN 29 H (9-20) mg/dL Creatinine 0.65 L (0.66-1.25) mg/dL Est GFR (CKD-EPI)AfAm >90 (>60 ml/min/1.73 sqM) Est GFR (CKD-EPI)NonAf >90 (>60 ml/min/1.73 sqM) Glucose 167 H (74-99) mg/dL Calcium 8.0 L (8.4-10.2) mg/dL Magnesium 2.2 (1.6-2.3) mg/dL Total Bilirubin 0.3 (0.2-1.3) mg/dL AST 19 (17-59) U/L ALT 13 (4-49) U/L Alkaline Phosphatase 66 (38-126) U/L Troponin I (0.000-0.034) ng/mL Total Protein 4.5 L (6.3-8.2) g/dL Albumin 2.1 L (3.5-5.0) g/dL Blood Type Blood Type Recheck Bld Type Recheck Status Antibody Screen Spec Expiration Date 09/07/23 09/07/23 Range/Units 05:51 05:51 WBC (3.8-10.6) k/uL RBC (4.30-5.90) m/uL Hgb (13.0-17.5) gm/dL Hct (39.0-53.0) % MCV (80.0-100.0) fL MCH (25.0-35.0) pg MCHC (31.0-37.0) g/dL RDW (11.5-15.5) % Plt Count (150-450) k/uL MPV Neutrophils % % Lymphocytes % % Monocytes % % Eosinophils % % Basophils % % Neutrophils # (1.3-7.7) k/uL Lymphocytes # (1.0-4.8) k/uL Monocytes # (0-1.0) k/uL Eosinophils # (0-0.7) k/uL Basophils # (0-0.2) k/uL Hypochromasia Poikilocytosis Anisocytosis PT (10.0-12.5) sec INR (<1.2) APTT (22.0-30.0) sec Sodium (137-145) mmol/L Potassium (3.5-5.1) mmol/L Chloride (98-107) mmol/L Carbon Dioxide (22-30) mmol/L Anion Gap mmol/L BUN (9-20) mg/dL Creatinine (0.66-1.25) mg/dL Est GFR (CKD-EPI)AfAm (>60 ml/min/1.73 sqM) Est GFR (CKD-EPI)NonAf (>60 ml/min/1.73 sqM) Glucose (74-99) mg/dL Calcium (8.4-10.2) mg/dL Magnesium (1.6-2.3) mg/dL Total Bilirubin (0.2-1.3) mg/dL AST (17-59) U/L ALT (4-49) U/L Alkaline Phosphatase (38-126) U/L Troponin I <0.012 (0.000-0.034) ng/mL Total Protein (6.3-8.2) g/dL Albumin (3.5-5.0) g/dL Blood Type A Positive Blood Type Recheck A Pos Bld Type Recheck Status No Antibody Screen NEGATIVE Spec Expiration Date 09/10/20232350 Disposition Clinical Impression: Weakness Disposition: HOME SELF-CARE Condition: Good Instructions (If sedation given, give patient instructions): Weakness (ED) Is patient prescribed a controlled substance at d/c from ED?: No Referrals: Sterling Chilel MD [Primary Care Provider] - 1-2 days Time of Disposition: 06:50
[2023-09-07 06:11] LABS: Anisocytosis Slight; Basophils % (A) 0 %; Eosinophils # (A) 0.3 k/uL (0-0.7); Eosinophils % (A) 3 %; HCT 22.4 % (39.0-53.0); Hypochromasia Marked; Lymphocytes # (A) 1.6 k/uL (1.0-4.8); Lymphocytes % (A) 15 %; MCH 27.3 pg (25.0-35.0); MCHC 31.2 g/dL (31.0-37.0); MCV 87.4 fL (80.0-100.0); Mean Platelet Volume 7.8; Monocytes # (A) 0.5 k/uL (0-1.0); Monocytes % (A) 5 %; Neutrophils % (A) 74 %; Platelet Count 580 k/uL (150-450); Poikilocytosis Moderate; RBC 2.56 m/uL (4.30-5.90); WBC 10.7 k/uL (3.8-10.6)
[2023-09-07 06:12] LABS: INR 1.2 (<1.2); Partial Thromboplastin Time 27.5 sec (22.0-30.0); Prothrombin Time 12.7 sec (10.0-12.5)
[2023-09-07 06:13] LABS: ALT 13 U/L (4-49); AST 19 U/L (17-59); African American GFR (CKD) >90 (>60 ml/min/1.73 sqM); Albumin 2.1 g/dL (3.5-5.0); Alkaline Phosphatase 66 U/L (38-126); Anion Gap 4 mmol/L; Blood Urea Nitrogen 29 mg/dL (9-20); Carbon Dioxide 28 mmol/L (22-30); Chloride 100 mmol/L (98-107); Glucose 167 mg/dL (74-99); Magnesium 2.2 mg/dL (1.6-2.3); Non-African American GFR(CKD) >90 (>60 ml/min/1.73 sqM); Potassium 3.2 mmol/L (3.5-5.1); Sodium 132 mmol/L (137-145); Total Bilirubin 0.3 mg/dL (0.2-1.3); Total Protein 4.5 g/dL (6.3-8.2)
[2023-09-07] MEDS: SODIUM CHLORIDE 0.9% 1,000 ML IV STA (07:33)
[2023-09-07 07:54] VITALS: BP 109/57; PULSE 85; RESP 20; TEMP 98.2
== END 2023-09-07 08:19 | disposition home or self-care (01) ==
LOC: EC 05:10
DX: R53.1 Weakness (principal); I12.9 Hypertensive chronic kidney disease with stage 1 through stage 4 chronic kidney disease, or unspecified chronic kidney disease; N18.30 Chronic kidney disease, stage 3 unspecified; I25.10 Atherosclerotic heart disease of native coronary artery without angina pectoris; E11.9 Type 2 diabetes mellitus without complications; E78.5 Hyperlipidemia, unspecified; G47.30 Sleep apnea, unspecified; M19.90 Unspecified osteoarthritis, unspecified site; Z79.4 Long term (current) use of insulin; Z79.1 Long term (current) use of non-steroidal anti-inflammatories (NSAID); Z79.899 Other long term (current) drug therapy; Z79.82 Long term (current) use of aspirin; Z79.84 Long term (current) use of oral hypoglycemic drugs; Z88.8 Allergy status to other drugs, medicaments and biological substances; Z91.018 Allergy to other foods
CPT/HCPCS: 36415; 80053; 83735; 84484; 85025; 85610; 85730; 86850; 86900; 86901; 99284